=== PATIENT | female | born 1965 | race Caucasian/White ===

== ENCOUNTER 2019-08-25 09:42 | Emergency (ER) | payer SELFPAY ==
[2019-08-25 10:00] VITALS: BP 140/88; PULSE 90; RESP 20; TEMP 36.6
[2019-08-25 10:15] LABS: Basophils Absolute Auto 0.03 K/mm3 (0.00-0.10); Basophils Percent Auto 0.4 % (0.0-1.0); Eosinophils Absolute Auto 0.08 K/mm3 (0.02-0.50); Eosinophils Percent Auto 1.1 % (1.0-6.0); Hematocrit 43.4 % (35.0-49.0); Immature Granulocyte Absolute 0.03 K/mm3 (0.00-0.00); Immature Granulocyte Percent A 0.4 % (0.0-0.0); Lymphocytes Absolute Auto 1.18 K/mm3 (1.10-4.50); Lymphocytes Percent Auto 15.6 % (18.0-42.0); Mean Corpuscular HGB Conc 34.6 g/dL (32.0-36.0); Mean Corpuscular Hemoglobin 32.3 pg (27.0-31.0); Mean Corpuscular Volume 93.5 fL (78.0-102.0); Mean Platelet Volume 10.9 fl (9.2-11.8); Monocytes Absolute Auto 0.37 K/mm3 (0.10-0.90); Monocytes Percent Auto 4.9 % (2.0-11.0); Neutrophils Absolute Auto 5.9 K/mm3 (1.7-7.2); Neutrophils Percent Auto 77.6 % (50.0-70.0); Platelet Count Result 222 K/mm3 (150-420); Red Blood Count 4.64 M/mm3 (4.20-5.40); Red Cell Distribution Width 12.4 % (11.6-14.4); White Blood Count 7.6 K/mm3 (4.8-10.8)
[2019-08-25 10:26] LABS: Alanine Aminotransferase 36 U/L (14-59); Albumin Level 3.7 g/dL (3.4-5.0); Alkaline Phosphatase 122 U/L (46-116); Anion Gap 20.5 mmol/L (7-16); Aspartate Amino Transferase 23 U/L (15-37); Bilirubin,Total 0.4 mg/dL (0.00-1.00); Blood Urea Nitrogen 9 mg/dL (7-18); Calcium 8.9 mg/dL (8.5-10.1); Carbon Dioxide 21 mmol/L (21-32); Chloride 104 mmol/L (98-108); Estimated Glomerular Filt Rate > 60; Ethanol 29 mg/dL (0-6); Glucose 320 mg/dL (70-99); Osmolality Calculated 304 mOsm/kg (285-295); Potassium 3.5 mmol/L (3.5-5.1); Salicylate 4.1 mg/dL (2.8-20.0); Sodium 142 mmol/L (136-145)
[2019-08-25 10:27] LABS: Acetaminophen 0 ug/mL (10-30)
--- NOTE | 2019-08-25 10:41 | PC.NURSE ---
10am upon arrival to safe room, cloths & belongings removed.
--- NOTE | 2019-08-25 11:17 | PC.NURSE ---
daughter & updated on plan of care
[2019-08-25 11:26] LABS: Appearance Urine Clear (Clear); Bilirubin Urine Negative (Negative); Color Urine Yellow (Yellow); Glucose Urine UA 3+ (Negative); Ketones Urine Trace (Negative); Leukocyte Esterase Ur Negative LEU/UL (Negative); Nitrate Urine Negative (Negative); Protein Urine Trace (Negative); Specific Grav Ur 1.025 (1.010-1.020); Urobilinogen Urine 0.2 mg/dL (0.2-1.0); pH Urine 5.5 (5.0-8.0)
--- NOTE | 2019-08-25 11:28 | PC.NURSE ---
Pt sitting on stretcher, speaking with this RN. Pt states that she is not suicidal that she just had a bad night after learning about her husbands affair. Pt states that she has 2 children with special needs that she has to be here for and was just trying to get her husbands attention by saying that she wanted to harm herself. Pt reports that she does not usually drink, but did last night because she was upset. Pt able to provide urine sample, pt given pants and socks.
[2019-08-25 11:30] LABS: Add Urine Microscopic? YES; RBC Urine None seen /hpf (0-2); Squamous Epithelial Cell Urine Few /hpf (Few); WBC Urine None seen /hpf (0-3)
[2019-08-25 11:31] LABS: Bacteria Urine 1+ /hpf
[2019-08-25 11:36] LABS: Amphetamine Screen Urine Negative (Negative); Barbiturate Screen Urine Positive (Negative); Benzodiazepines Screen Urine Positive (Negative); Cannabinoid Screen Urine Positive (Negative); Cocaine Screen Urine Negative (Negative); Methadone Screen Urine Negative (Negative); Opiate Screen Urine Negative (Negative); Phencyclidine Screen Urine Negative (Negative)
[2019-08-25 11:41] LABS: Blood Urine Trace-lysed (Negative)
--- NOTE | 2019-08-25 12:03 | ED.GENADULT ---
HPI - General Adult General Chief complaint: Alcohol Stated complaint: suicidal ideations History of Present Illness HPI narrative: Elizabeth is a 54F with a PMH of insulin dependent diabetes, PTSD, migraines, GERD, that was brought to the ED by her daughter after expressed SI. She found out her had cheated on her. She reportedly got drunk and sent texts out that she was going to take her life with her Xanex and the pills cannot be located. Currently she denies any SI, HI, or thoughts of self harm. She was beside herself and said things she did not mean. She is nauseaed but does not want meds at this time. She also did not take her insulin last night. Review of Systems Constitutional: Constitutional: Denies chills, Denies fever(s) and Denies weakness Eyes: Eyes: Denies change in vision ENT: Reports system reviewed and no additional complaints, except as documented Cardiovascular: Cardiovascular: Denies chest pain, Denies rapid heart rate and Denies radiating jaw, neck or arm pain Respiratory: Respiratory: Reports no additional respiratory complaints, Denies cough and Denies dyspnea Gastrointestinal: Gastrointestinal: Denies constipation, Denies diarrhea, Reports nausea and Reports vomiting Genitourinary: Genitourinary: Reports no additional female genitourinary complaints Musculoskeletal: Musculoskeletal: Reports no additional musculoskeletal complaints Integumentary/Breasts: Skin/Breast: Reports system reviewed and no additional complaints, except as docu Neurologic: Reports system reviewed and no additional complaints, except as documented Psychiatric: Psychiatric: Reports as per HPI Endocrine: Endocrine: Reports no additional endocrine complaints Hematologic/Lymphatic: Hematologic/Lymphatic: Reports no additional hematologic/lymphatic complaints Allergic/Immunologic: Allergic/Immunologic: Reports no additional allergic/immunologic complaints [facility] Social History Social History Gender identity (if verbalized by the patient): Female Exam Const: General: no acute distress and alert; No confusion Nutritional Appearance: obese Orientation/consciousness: patient oriented x3 Limitations: No language barrier HENMT: Other: normocephalic, atraumatic Eyes: Conjunctivae: conjunctivae normal Pupils: Equal, round and reactive pupils present EOM: EOMs intact bilaterally Neck: Neck: normal visual inspection Chest: Chest palpation & inspection: normal inspection of the chest Resp: Effort & Inspection: normal respiratory effort, not labored and not tachypneic Auscultation: clear to auscultation bilaterally Cardio: Rate: regular rate Rhythm: regular rhythm Heart sounds: no murmurs GI: Inspection: non-distended GI Palp: Yes Soft to palpation, No Tenderness to palpation present (GI) and No Guarding due to palpation present (GI) : General: Yes no CVA tenderness Other: no suprapubic tenderness Back/Spine/Pelvis: Back: no CVA tenderness Skin: General skin exam: normal color Rashes: no rashes Wounds: no wounds Neuro: General: patient oriented x3 and moves all extremities Extrem: General: normal to inspection Psych: Appearance: grossly normal Attitude: cooperative Other: Denied SI and HI now. Stated that she was just overcome with grief last night. Was cooperative. No hallucinations or delusions. Course Course Emergency Course: Elizabeth was seen and evaluated. Ordered labs as below. Consulted [facility]. With the exception of etoh intoxication labs were unremarkable. Spoke with Toni of [facility] who did not believe she was a threat to herself or others and her actions were a bad decision. She is to fly home to [place] and speak with her and son. Toni will follow up with her tomorrow. She was instructed to avoid etoh, and return to the ED for any thoughts of hurting herself or anyone else. Vital Signs Vital signs: Vit
--- NOTE | 2019-08-25 12:22 | PC.NURSE ---
pt speaking with zoë from mental [facility]
[2019-08-25] MEDS: ALPRAZOLAM 0.5 MG TABLET PO (12:39)
[2019-08-25 13:13] VITALS: BP 156/84; PULSE 100; RESP 16
--- NOTE | 2019-08-25 13:17 | PC.NURSE ---
Pt spoke with zoë from [facility], pt to sign safety contract and ok to be discharged after speaking with edp. Pt agreeable to plan. safety plan texted to pts cell phone. Pt given belongings.
== END 2019-08-25 13:25 | disposition home or self-care (01) ==
PROVIDERS: Emergency Provider Family Medicine
DX: F10.129 Alcohol abuse with intoxication, unspecified (principal)
CPT/HCPCS: 36415; 80053; 80307; 81001; 85025; 99282; 99284; A9270

== ENCOUNTER 2020-11-10 16:07 | Observation (INO) | payer BC, SELFPAY ==
--- NOTE | ~2020-11-10 | CT_ITS ---
EXAMINATION: CT abdomen pelvis wo con DATE: 11/11/2020 11:11 INDICATION: Abdominal pain. Nausea and vomiting. TECHNIQUE: Computed tomography (CT) of the abdomen and pelvis was performed without intravenous contr ast. Automated exposure control and iterative reconstruction technique were employed. The dose-length product was 795.45 mGy-cm. COMPARISON: None. FINDINGS: The visualized portions of the lung bases demonstrate mild atelectasis. No pleural effusion . The heart size is normal. No pericardial effusion. There is diffuse hepatic steatosis. There are ch anges of cholecystectomy. The spleen, pancreas, adrenal glands, and kidneys are normal. There is no u rolithiasis. There is diverticulosis of the colon without evidence of diverticulitis. The appendix is normal. There is a small sliding hiatal hernia. There are no pathologically enlarged lymph nodes. Th ere is no free intraperitoneal fluid. The ovaries are normal. The uterus is absent. The bladder is di stended. There is mild chronic anterior wedging of multiple lower thoracic vertebral bodies. There is severe lumbar spondylosis. IMPRESSION: 1. Small sliding hiatal hernia. 2. Diffuse hepatic steatosis. Reviewed, dictated and finalized at location A.
[2020-11-10 17:28] VITALS: BP 166/90; PULSE 89; RESP 16; TEMP 36.9; O2SAT 95
--- NOTE | 2020-11-10 17:35 | ED.NAVMDI ---
HPI - Nausea/Vomiting/Diarrhea General Chief complaint: Nausea/Vomiting/Diarrhea Stated complaint: vomiting Time Seen by Provider: 11/10/20 17:35 Source: patient Mode of arrival: wheelchair Limitations: no limitations History of Present Illness HPI Narrative: 55-year-old woman with history of marijuana use and diabetes comes to the ER complaining of nausea and vomiting for the last 4 days and bright red blood in her stools today. She states she is having burning pain in her chest but denies abdominal pain. She states she has had chills but no fever, and denies shortness of breath, dysuria, hematuria, melena, recent sick exposures, and head injuries. Patient told me she takes 50 units of Lantus in the evening and 10 units of Lantus in the morning. MD elicited complaint: nausea and vomiting Onset (ago): day(s) (4) Description of vomiting: watery and bilious Description of diarrhea: blood and semi-solid Associated nausea: Yes Associated abdominal pain: No Location of pain: other (Chest) Pain consistency: constant Severity: moderate Quality: other (Burning) Exacerbating factors: eating Relieving factors: none Context: history of abdominal surgery and marijuana use Associated symptoms: fever/chills (Chills) and nausea/vomiting Treatment prior to arrival: none Related Data Home Medications Medication Instructions Recorded Confirmed acyclovir See Rx Instructions .ROUTE .COMPLEX 11/10/20 11/10/20 alprazolam [Xanax] 1 mg PO DAILY 11/10/20 11/10/20 atorvastatin [Lipitor] 20 mg PO DAILY 11/10/20 11/10/20 escitalopram oxalate 10 mg PO DAILY 11/10/20 11/10/20 insulin glargine [Lantus Solostar See Rx Instructions .ROUTE .COMPLEX 11/10/20 11/10/20 U-100 Insulin] meloxicam [Mobic] See Rx Instructions .ROUTE .COMPLEX 11/10/20 11/10/20 prazosin [Minipress] See Rx Instructions .ROUTE .COMPLEX 11/10/20 11/10/20 sertraline [Zoloft] 25 mg PO DAILY 11/10/20 11/10/20 verapamil 120 mg PO DAILY 11/10/20 11/10/20 Allergies Allergy/AdvReac Type Severity Reaction Status Date / Time Sulfa (Sulfonamide Allergy Mild Unknown Verified 11/10/20 17:59 Antibiotics) Review of Systems Constitutional: Constitutional: Reports chills and Denies fever(s) Eyes: Eyes: Denies change in vision and Denies photophobia ENT: Denies nasal congestion and Reports sore throat Cardiovascular: Cardiovascular: Reports chest pain and Denies radiating jaw, neck or arm pain Respiratory: Respiratory: Denies cough and Denies dyspnea Gastrointestinal: Gastrointestinal: Denies abdominal pain, Reports diarrhea, Reports nausea and Reports vomiting Genitourinary: Genitourinary: Denies nocturia and Denies dysuria Musculoskeletal: Musculoskeletal: Denies back pain, Denies arthralgias and Denies joint swelling Integumentary/Breasts: Skin/Breast: Denies pruritus, Denies erythema and Denies rash Neurologic: Denies vertigo, Denies dizziness, Denies syncope and Reports weakness Hematologic/Lymphatic: Hematologic/Lymphatic: Denies easy bleeding and Denies easy bruising Allergic/Immunologic: Allergic/Immunologic: Denies lip swelling and Denies throat swelling PMFSH Past Medical History Medical History (Updated 11/10/20 @ 19:18 by Juan Heaton MD) GERD (gastroesophageal reflux disease) Migraines PTSD (post-traumatic stress disorder) T2DM (type 2 diabetes mellitus) Surgical History Surgical History (Updated 11/10/20 @ 17:54 by Juan Heaton MD) Hx of cholecystectomy Social History Social History (Updated 11/10/20 @ 17:55 by Juan Heaton MD) Smoking status: Current every day smoker Alcohol intake: current Substance use type: marijuana Gender identity (if verbalized by the patient): Female Exam Const: General: healthy appearing and alert Orientation/consciousness: patient oriented x3 Limitations: no limitations Other: Moderate acute distress. Frequent dry heaves. HENMT: Head: normal to inspection Ears: EAC's normal Mouth: Y
--- NOTE | 2020-11-10 17:48 | ECG_ITS ---
Measurements Intervals [place] Rate: 70 P: 56 MO: 141 QRS: -85 QRSD: 87 T: 70 QT: 397 QTc: 428 Interpretive Statements SINUS RHYTHM RSR' IN V1 OR V2, CONSIDER RIGHT VENTRICULAR HYPERTROPHY OR RIGHT VCD LEFT ANTERIOR FASCICULAR BLOCK BORDERLINE T WAVE ABNORMALITY- ANTERIOR LEADS BASELINE ARTIFACT- I, II, III, AVR, AVL ABNORMAL ECG Electronically Signed On 11-10-2020 20:07:07 CDT by Junior Lee D.O.
[2020-11-10] MEDS: SODIUM CHLORIDE 0.9% IV 1,000 ML 999 ML IV CONT ×2 (18:00→19:12)
[2020-11-10] MEDS: PANTOPRAZOLE SODIUM IV 40 MG VIAL 80 MG IV PUSH (18:00)
[2020-11-10 18:07] LABS: Basophils Absolute Auto 0.02 K/mm3 (0.00-0.10); Basophils Percent Auto 0.2 % (0.0-1.0); Eosinophils Absolute Auto 0.02 K/mm3 (0.02-0.50); Eosinophils Percent Auto 0.2 % (1.0-6.0); Hemoglobin 16.5 g/dL (12.0-15.0); Immature Granulocyte Absolute 0.02 K/mm3 (0.00-0.00); Immature Granulocyte Percent A 0.2 % (0.0-0.0); Mean Corpuscular HGB Conc 35.1 g/dL (32.0-36.0); Mean Corpuscular Hemoglobin 35.5 pg (27.0-31.0); Mean Corpuscular Volume 101.1 fL (78.0-102.0); Mean Platelet Volume 10.9 fl (9.2-11.8); Monocytes Absolute Auto 0.16 K/mm3 (0.10-0.90); Monocytes Percent Auto 1.6 % (2.0-11.0); Neutrophils Absolute Auto 9.1 K/mm3 (1.7-7.2); Neutrophils Percent Auto 90.8 % (50.0-70.0); Platelet Count Result 245 K/mm3 (150-420); Red Blood Count 4.65 M/mm3 (4.20-5.40); Red Cell Distribution Width 12.5 % (11.6-14.4); White Blood Count 10.1 K/mm3 (4.8-10.8)
[2020-11-10 18:12] LABS: Base Excess ABG -2.4 mmol/L (0-2); Carboxyhemoglobin 0.6 % (0-1.5); HCO3 ABG 19.9 mmol/L (23-29); Methemoglobin ABG 0.4 % (0-1.5); Oxygen Saturation ABG 97.6 % (95-97); Oxyhemoglobin 96.6 % (94-100); PCO2 ABG 28.8 mmHg (35-45); PO2 ABG 97.8 mmHg (80-90); Reduced Hemoglobin 2.4 % (0-1.5); Total Hemoglobin 16.9 g/dL (12.0-18.0); pH ABG 7.46 (7.35-7.45)
[2020-11-10] MEDS: ONDANSETRON INJ 4 MG/2 ML VIAL IV PUSH (18:12)
[2020-11-10 18:15] LABS: Device ROOM AIR; Modified Allen's Test Pass; Site Drawn LEFT RADIAL
[2020-11-10] MEDS: PROCHLORPERAZINE EDISYLATE 10 MG/2 ML VIAL IV PUSH (18:15)
[2020-11-10 18:24] LABS: Add Urine Microscopic? YES; Appearance Urine Clear (Clear); Bilirubin Urine 1+ (Negative); Blood Urine 2+ (Negative); Glucose Urine UA 3+ (Negative); Ketones Urine 3+ (Negative); Leukocyte Esterase Ur Negative LEU/UL (Negative); Nitrate Urine Negative (Negative); Protein Urine Trace (Negative); Specific Grav Ur 1.015 (1.010-1.020); Urobilinogen Urine 0.2 mg/dL (0.2-1.0)
[2020-11-10 18:30] LABS: Amphetamine Screen Urine Negative (Negative); Barbiturate Screen Urine Negative (Negative); Benzodiazepines Screen Urine Positive (Negative); Cannabinoid Screen Urine Positive (Negative); Cocaine Screen Urine Positive (Negative); Methadone Screen Urine Negative (Negative); Opiate Screen Urine Negative (Negative); Phencyclidine Screen Urine Negative (Negative)
[2020-11-10 18:32] LABS: Alanine Aminotransferase 47 U/L (14-59); Albumin Level 4.4 g/dL (3.4-5.0); Alkaline Phosphatase 125 U/L (46-116); Anion Gap 17 mmol/L (8-16); Aspartate Amino Transferase 21 U/L (15-37); Bilirubin,Total 0.9 mg/dL (0.00-1.00); Blood Urea Nitrogen 14 mg/dL (7-18); Calcium 9.9 mg/dL (8.5-10.1); Carbon Dioxide 21 mmol/L (21-32); Chloride 101 mmol/L (98-108); Estimated CRCL calculation 47 ml/min; Estimated Glomerular Filt Rate 48; Glucose 327 mg/dL (70-99); Lipase 32 U/L (73-393); Osmolality Calculated 301 mOsm/kg (285-295); Sodium 139 mmol/L (136-145); Total Protein 9.3 g/dL (6.4-8.2)
[2020-11-10 18:34] LABS: Acetaminophen < 2 ug/mL (10-30); Ethanol < 3 mg/dL (0-6); Salicylate 2.1 mg/dL (2.8-20.0)
[2020-11-10 18:35] LABS: Troponin I < 4.0 ng/L (0.00-60.4)
[2020-11-10 18:43] LABS: Bacteria Urine Trace /hpf; Color Urine Dark Yellow (Yellow); RBC Urine 0-2 /hpf (0-2); Squamous Epithelial Cell Urine Few /hpf (Few); WBC Urine 0-3 /hpf (0-3)
--- NOTE | 2020-11-10 18:45 | PC.NURSE ---
patient sleeping spouse updated
[2020-11-10 19:10] LABS: SARS-CoV-2 Ag Negative (Negative)
[2020-11-10 19:10] LABS: Occult Blood Negative (Negative)
[2020-11-10 19:11] VITALS: BP 150/88; PULSE 88; RESP 18; O2SAT 98
[2020-11-10 20:32] VITALS: BP 150/88; PULSE 89; RESP 18; TEMP 36.4; O2SAT 95
[2020-11-10 22:05] VITALS: BP 140/89; PULSE 87; RESP 17; TEMP 36.3; O2SAT 95
[2020-11-10 22:21] VITALS: BP 169/88; PULSE 103; RESP 18; TEMP 37.3; O2SAT 96
[2020-11-10 22:40] VITALS: BMI 28.3
[2020-11-11] VITALS: BP 172/89; PULSE 80; RESP 18; TEMP 37.6; O2SAT 94
--- NOTE | 2020-11-11 00:05 | PC.NURSE ---
Pt up to the bathroom per self and voided; Pt did some dry heaving and went back to bed. IV fluid infusing as ordered.
--- NOTE | 2020-11-11 00:30 | PC.NURSE ---
Admission: Patient brought up to floor by ER nurse. Patient oriented to room and call light. Patient able to answer questions when awake. Would fall back to sleep in between questions. IV intact to left hand. Vital signs taken. No emesis upon arriving to floor. No signs of resp distress, nausea, pain. Skin warm and dry.
[2020-11-11 01:15] VITALS: BP 172/89; PULSE 80; RESP 18; TEMP 37.6; O2SAT 94
--- NOTE | 2020-11-11 01:34 | PC.NURSE ---
Dr. Heaton called with orders to do an accucheck on pt now.
--- NOTE | 2020-11-11 02:03 | PC.NURSE ---
Pt asleep and no signs of nausea noted.
[2020-11-11 05:47] LABS: Basophils Absolute Auto 0.02 K/mm3 (0.00-0.10); Basophils Percent Auto 0.2 % (0.0-1.0); Hematocrit 43.3 % (35.0-49.0); Hemoglobin 14.7 g/dL (12.0-15.0); Immature Granulocyte Absolute 0.05 K/mm3 (0.00-0.00); Immature Granulocyte Percent A 0.5 % (0.0-0.0); Lymphocytes Absolute Auto 1.27 K/mm3 (1.10-4.50); Lymphocytes Percent Auto 12.5 % (18.0-42.0); Mean Corpuscular HGB Conc 33.9 g/dL (32.0-36.0); Mean Corpuscular Hemoglobin 34.5 pg (27.0-31.0); Mean Corpuscular Volume 101.6 fL (78.0-102.0); Mean Platelet Volume 10.9 fl (9.2-11.8); Monocytes Absolute Auto 0.64 K/mm3 (0.10-0.90); Monocytes Percent Auto 6.3 % (2.0-11.0); Neutrophils Absolute Auto 8.2 K/mm3 (1.7-7.2); Neutrophils Percent Auto 80.5 % (50.0-70.0); Platelet Count Result 231 K/mm3 (150-420); Red Blood Count 4.26 M/mm3 (4.20-5.40); Red Cell Distribution Width 12.6 % (11.6-14.4); White Blood Count 10.1 K/mm3 (4.8-10.8)
--- NOTE | 2020-11-11 05:47 | PC.NURSE ---
Pt up to the bathroom and voided 300 ml of clear sanket but foul smelling urine. Pt back to bed with standby assist of one.
[2020-11-11 06:15] LABS: Alanine Aminotransferase 44 U/L (14-59); Albumin Level 3.4 g/dL (3.4-5.0); Alkaline Phosphatase 99 U/L (46-116); Anion Gap 13 mmol/L (8-16); Aspartate Amino Transferase 18 U/L (15-37); Bilirubin,Total 0.8 mg/dL (0.00-1.00); Blood Urea Nitrogen 10 mg/dL (7-18); Calcium 8.8 mg/dL (8.5-10.1); Carbon Dioxide 23 mmol/L (21-32); Chloride 107 mmol/L (98-108); Estimated CRCL calculation 60 ml/min; Estimated Glomerular Filt Rate > 60; Glucose 185 mg/dL (70-99); Osmolality Calculated 300 mOsm/kg (285-295); Potassium 3.6 mmol/L (3.5-5.1); Sodium 143 mmol/L (136-145); Total Protein 7.5 g/dL (6.4-8.2)
[2020-11-11] MEDS: ONDANSETRON INJ 4 MG/2 ML VIAL IV PUSH ×2 (06:16→14:21)
[2020-11-11 06:17] LABS: Lactic Acid Reflex 0.8 mmol/L (0.4-2.0)
[2020-11-11 06:22] LABS: Troponin I 6.4 ng/L (0.00-60.4)
--- NOTE | 2020-11-11 06:35 | PC.NURSE ---
Pt given zofran 4 mg IVP to relieve c/o nausea.
[2020-11-11] MEDS: SODIUM CHLORIDE 0.9% IV 1,000 ML 150 ML IV CONT ×2 (07:52)
[2020-11-11 08:00] VITALS: BP 129/71; PULSE 94; RESP 18; TEMP 36.8; O2SAT 95
--- NOTE | 2020-11-11 08:27 | PC.NURSE ---
glucose with blood draw this am 185
--- NOTE | 2020-11-11 08:39 | PC.NURSE ---
now having emesis
[2020-11-11 08:42] LABS: Glucose Point of Care 198 mg/dl (65-105)
[2020-11-11] MEDS: PROCHLORPERAZINE EDISYLATE 10 MG/2 ML VIAL IV PUSH ×2 (09:10→15:40)
[2020-11-11] MEDS: ALPRAZolam (*CRX) 0.5 MG TABLET 1 MG PO (09:12)
[2020-11-11] MEDS: ATORVASTATIN 10 MG TABLET 20 MG PO (09:12)
[2020-11-11] MEDS: SERTRALINE HCL 50 MG TABLET 25 MG PO (09:13)
[2020-11-11] MEDS: VERAPAMIL HCL ER 120 MG TABLET PO (09:13)
--- NOTE | 2020-11-11 09:15 | PC.NURSE ---
compazine given for nausea, no further emesis, am meds given, with small sip of water, refused liquid tray at this time
--- NOTE | 2020-11-11 10:13 | PC.NURSE ---
spouse here to visit, no further emesis at this time, has been sleeping, fluids infusing
[2020-11-11 12:20] LABS: Glucose Point of Care 172 mg/dl (65-105)
--- NOTE | 2020-11-11 13:30 | PM.SD2 ---
Same Day Admit/Disch: HPI History of Present Illness Chief complaint: vomiting DEHYDRATION <MARGIE Pascual - Last Filed: 11/11/20 15:01> Narrative: perla montiel is a 55 year old female that presented to urgent care with nausea vomiting. Patient has a past medical history of GERD, PTSD, and type 2 diabetes. According to patient for the last 4 days she has been having nausea and vomiting with blood in her vomitus stool which her occult blood was negative. She did have slight abdominal tenderness. CT of the abdomen unremarkable. Vital signs 129/71, 94, 18, 98.2, 95% on room air,, WBCs 10.1,, hematocrit 14.7, hemoglobin 40.3 0.3, platelets 231, sodium 139, potassium 4.0, BUN 14, creatinine 1.16, blood sugar 198, lactic acid 0.8, liver function test within normal limit, troponin 6.4, EKG sinus rhythm with a heart rate of 70, patient tested positive for benzo, cocaine and cannabis positive. Patient able to tolerate meals she agrees that she is ready for discharge admitted for nausea and vomiting and dehydration Observation Time spent 60 minutes Disposition discharged home with self-care <MARGIE Pascual - Last Filed: 11/11/20 15:01> [facility] Past Medical History Medical History: Medical History (Updated 11/11/20 @ 13:41 by MARGIE Pascual) GERD (gastroesophageal reflux disease) Migraines PTSD (post-traumatic stress disorder) T2DM (type 2 diabetes mellitus) <MARGIE Pascual - Last Filed: 11/11/20 15:01> Surgical History Surgical History: Surgical History (Updated 11/10/20 @ 17:54 by Juan Heaton MD) Hx of cholecystectomy <MARGIE Pascual - Last Filed: 11/11/20 15:01> Social History Social History: Social History (Updated 11/10/20 @ 17:55 by Juan Heaton MD) Smoking packs per day: 0.5 Smoking cigarettes per day: 10.0 Years smoked: 30 Smoking pack-years: 15.00 Smoking status: Light tobacco smoker Tobacco type: cigarettes Second hand tobacco smoke exposure: No Alcohol intake: former Substance use: current Substance use type: marijuana and methamphetamine Gender identity (if verbalized by the patient): Female Sexual Orientation (if Verbalized by the Patient): Straight or Heterosexual Spiritual care concerns: No <MARGIE Pascual - Last Filed: 11/11/20 15:01> Same Day Admit/Disch: Med Pre-admit Medications Home Medications: Home Medications Medication Instructions Recorded Confirmed Type Lantus Solostar U-100 Insulin See Rx Instructions .ROUTE .COMPLEX 11/10/20 11/10/20 History acyclovir See Rx Instructions .ROUTE .COMPLEX 11/10/20 11/10/20 History alprazolam [Xanax] 1 mg PO DAILY 11/10/20 11/10/20 History atorvastatin [Lipitor] 20 mg PO DAILY 11/10/20 11/10/20 History escitalopram oxalate 10 mg PO DAILY 11/10/20 11/10/20 History meloxicam [Mobic] See Rx Instructions .ROUTE .COMPLEX 11/10/20 11/10/20 History prazosin [Minipress] See Rx Instructions .ROUTE .COMPLEX 11/10/20 11/10/20 History sertraline [Zoloft] 25 mg PO DAILY 11/10/20 11/10/20 History verapamil 120 mg PO DAILY 11/10/20 11/10/20 History capsaicin [Zostrix] 1 applic TOPICAL Q6H PRN #56.6 g 11/11/20 Rx ondansetron HCl [Zofran] 4 mg PO Q6H PRN #60 tablet 11/11/20 Rx prochlorperazine maleate 10 mg PO Q6H PRN #30 tablet 11/11/20 Rx [Compazine] <MARGIE Pascual - Last Filed: 11/11/20 15:01> Exam Narrative: GENERAL: This is a well-nourished, well-developed patient, in no apparent distress. HEAD: normocephalic, atraumatic. EYES: PERRL. Sclera clear/white. Vision is grossly intact. EARS: External ears normal, auditory canals clear and without drainage, TMs normal without perforation. Hearing grossly intact. NOSE: External nose normal with no obvious nasal discharge, nares without redness, no rhinorrhea. THROAT: Mucous membranes moist, posterior pharynx clear. NECK: Neck supple, non-tender without lymphadenopathy, masses o
--- NOTE | 2020-11-11 13:35 | PC.NURSE ---
No emesis since compazine given
--- NOTE | 2020-11-11 14:21 | PC.NURSE ---
zofran given for nausea
--- NOTE | 2020-11-11 15:41 | PC.NURSE ---
Nausea, no emesis, will discharge but wanting to wait til compazine kicks in, meds to be picked up by spouse then he will return for her
--- NOTE | 2020-11-11 16:20 | PC.NURSE ---
saline lock removed with cathlon in tact, bandage applied, tolerated well, no emesis, no wretching upon dc to home via wc and spouse, all personal items returned to patient
== END 2020-11-11 16:20 | disposition home or self-care (01) ==
LOC: CHSED 19:18 → CHS2ND 22:09
PROVIDERS: Admitting Provider Emergency Medicine; Emergency Provider Emergency Medicine; PCP Internal Medicine; Visit Provider Emergency Medicine
DX: E86.0 Dehydration (principal); R11.2 Nausea with vomiting, unspecified; N17.9 Acute kidney failure, unspecified; E11.9 Type 2 diabetes mellitus without complications; K76.0 Fatty (change of) liver, not elsewhere classified; K21.9 Gastro-esophageal reflux disease without esophagitis; G43.909 Migraine, unspecified, not intractable, without status migrainosus; F12.90 Cannabis use, unspecified, uncomplicated; F43.10 Post-traumatic stress disorder, unspecified; F17.200 Nicotine dependence, unspecified, uncomplicated; Z90.49 Acquired absence of other specified parts of digestive tract
CPT/HCPCS: 36415; 36600; 74176; 80053; 80307; 81001; 82272; 82375; 82805; 82948; 83050; 83605; 83690; 84484; 85025; 87040; 87045; 87046; 87324; 87426; 87427; 89055; 93005; 96361; 96374; 96375; 96376; 99283; 99285; A9270; C9113; C9803; G0378; G0379; J0780; J2405; J7030

== ENCOUNTER → 2021-04-03 00:59 | Outpatient (CLI) | payer BC, SELFPAY ==
[2021-04-04 16:52] LABS: SARS-CoV-2 RNA PCR Positive
== END ==
PROVIDERS: PCP Internal Medicine; Visit Provider Internal Medicine Gastroenterology
DX: U07.1 COVID-19 (principal)
CPT/HCPCS: C9803; U0003; U0005

== ENCOUNTER 2021-04-07 09:37 | Outpatient (CLI) | payer BC, SELFPAY ==
--- NOTE | 2021-04-07 09:50 | PC.NURSE ---
Pt to room 226 amb. A&Ox3. Infusion plan of care explained. Consent signed. Pt has no questions or concerns. Oriented to room. Call slaughter in reach. Reminded to call with needs.
[2021-04-07] MEDS: ACETAMINOPHEN 325 MG TABLET 650 MG PO (10:13)
[2021-04-07] MEDS: diphenhydrAMINE HCl CAP 25 MG CAPSULE PO (10:13)
[2021-04-07] MEDS: FAMOTIDINE 20 MG TABLET PO (10:14)
--- NOTE | 2021-04-07 11:30 | PC.NURSE ---
Pt tolerated infusion well. Discharged to home amb to .
== END 2021-04-07 09:38 | disposition home or self-care (01) ==
PROVIDERS: PCP Internal Medicine; Visit Provider Internal Medicine
DX: U07.1 COVID-19 (principal); E11.9 Type 2 diabetes mellitus without complications
CPT/HCPCS: A9270; M0245; Q0245

== ENCOUNTER 2021-06-04 09:00 | Outpatient (CLI) | payer BC, SELFPAY ==
--- NOTE | ~2021-06-04 | CT_ITS ---
EXAMINATION:CT lung screening DATE: 06/04/2021 09:19 INDICATION: Personal history of nicotine dependence. Current smoker with 30 pack year history. TECHNIQUE: Computed tomography (CT) of the chest was performed without intravenous contrast. Automate d exposure control and iterative reconstruction technique were employed. The dose-length product (DLP ) was 128.09 mGy-cm. COMPARISON: CT abdomen and pelvis 11/11/2020 FINDINGS: There is mild atelectasis bilaterally. There is a 3 mm nodule at left lung apex. No pleural effusion. The heart size is normal. No pericardial effusion. A calcified right hilar lymph node is c onsistent with old granulomatous disease. There are old right rib fractures. There is moderate thorac ic spondylosis and severe lumbar spondylosis. There is mild chronic anterior wedging of multiple lowe r thoracic vertebral bodies. IMPRESSION: 1. Lung-RADS category 2: Benign appearance or behavior. Continue annual screening with noncontrast lo w-dose chest CT in 12 months. Reviewed, dictated and finalized at location A. [employer] SALESPERSON IMPRESSION: 1. Lung-RADS category 2: Benign appearance or behavior. Continue annual screeni ng with noncontrast low-dose chest CT in 12 months.
== END 2021-06-04 09:01 | disposition home or self-care (01) ==
LOC: CHSIMG 09:03
PROVIDERS: PCP Internal Medicine; Visit Provider Nurse Practitioner Family
DX: Z12.2 Encounter for screening for malignant neoplasm of respiratory organs (principal); Z87.891 Personal history of nicotine dependence
CPT/HCPCS: 71271

== ENCOUNTER 2021-10-20 09:55 | Outpatient (CLI) | payer BC, SELFPAY ==
[2021-10-20 10:48] LABS: Hemoglobin A1C 8.4 % (<5.7)
[2021-10-20 10:54] LABS: Alanine Aminotransferase 24 U/L (14-59); Albumin Level 3.5 g/dL (3.4-5.0); Alkaline Phosphatase 119 U/L (46-116); Anion Gap 11 mmol/L (8-16); Aspartate Amino Transferase 12 U/L (15-37); Bilirubin,Total 0.4 mg/dL (0.00-1.00); Blood Urea Nitrogen 14 mg/dL (7-18); CRP 0.6 mg/dL (0.0-0.9); Calcium 9.3 mg/dL (8.5-10.1); Carbon Dioxide 23 mmol/L (21-32); Chloride 102 mmol/L (98-108); Estimated Glomerular Filt Rate 60; Glucose 216 mg/dL (70-99); Osmolality Calculated 289 mOsm/kg (285-295); Potassium 3.9 mmol/L (3.5-5.1); Sodium 136 mmol/L (136-145); Total Protein 7.7 g/dL (6.4-8.2)
[2021-10-23 16:19] LABS: TB Skin Test Site Left Arm
[2021-10-23 16:20] LABS: TB Skin Test Erythema 0 mm; TB Skin Test Induration 6 mm (0-10); TB Skin Test Interpretation Negative (Negative)
== END 2021-10-20 09:56 | disposition home or self-care (01) ==
LOC: CHSLAB 09:57
PROVIDERS: PCP Internal Medicine; Visit Provider Internal Medicine
DX: E11.9 Type 2 diabetes mellitus without complications (principal); R51.9 Headache, unspecified
CPT/HCPCS: 36415; 80053; 83036; 86140; 86580

== ENCOUNTER 2021-10-29 15:44 | Outpatient (CLI) | payer BC, SELFPAY ==
[2021-11-02 11:32] LABS: NIL 0.03 IU/mL; Quantiferon TB Plus, 1T NEGATIVE (NEGATIVE); TB2-NIL <0.00 IU/mL
== END 2021-10-29 15:45 | disposition home or self-care (01) ==
LOC: CHSLAB 15:48
PROVIDERS: PCP Internal Medicine; Visit Provider Internal Medicine
DX: R76.11 Nonspecific reaction to tuberculin skin test without active tuberculosis (principal)
CPT/HCPCS: 36415; 86480

== ENCOUNTER 2022-01-27 10:04 | Outpatient (CLI) | payer BC, SELFPAY ==
[2022-01-27 10:20] LABS: Basophils Absolute Auto 0.04 K/mm3 (0.00-0.10); Basophils Percent Auto 0.6 % (0.0-1.0); Eosinophils Absolute Auto 0.27 K/mm3 (0.02-0.50); Eosinophils Percent Auto 4.2 % (1.0-6.0); Hematocrit 39.7 % (35.0-49.0); Hemoglobin 13.9 g/dL (12.0-15.0); Immature Granulocyte Absolute 0.02 K/mm3 (0.00-0.00); Immature Granulocyte Percent A 0.3 % (0.0-0.0); Lymphocytes Absolute Auto 2.25 K/mm3 (1.10-4.50); Lymphocytes Percent Auto 35.1 % (18.0-42.0); Mean Corpuscular Hemoglobin 34.2 pg (27.0-31.0); Mean Corpuscular Volume 97.8 fL (78.0-102.0); Mean Platelet Volume 10.4 fl (9.2-11.8); Monocytes Absolute Auto 0.48 K/mm3 (0.10-0.90); Monocytes Percent Auto 7.5 % (2.0-11.0); Neutrophils Absolute Auto 3.4 K/mm3 (1.7-7.2); Neutrophils Percent Auto 52.3 % (50.0-70.0); Platelet Count Result 212 K/mm3 (150-420); Red Blood Count 4.06 M/mm3 (4.20-5.40); Red Cell Distribution Width 12.2 % (11.6-14.4); White Blood Count 6.4 K/mm3 (4.8-10.8)
[2022-01-27 10:22] LABS: Appearance Urine Clear (Clear); Bilirubin Urine Negative (Negative); Blood Urine Negative (Negative); Glucose Urine UA 2+ (Negative); Ketones Urine Negative (Negative); Leukocyte Esterase Ur Negative (Negative); Nitrate Urine Positive (Negative); Protein Urine Negative (Negative); Urobilinogen Urine 0.2 mg/dL (0.2-1.0)
[2022-01-27 10:27] LABS: Add Urine Microscopic? YES; Bacteria Urine 3+ /hpf; Color Urine Light Yellow (Yellow); RBC Urine None seen /hpf (0-2); Squamous Epithelial Cell Urine Few /hpf (Few); WBC Urine 0-3 /hpf (0-3)
[2022-01-27 10:50] LABS: MALB Creatinine Ratio 19.5 mg/g (0-30); Microalbumin Urine Random < 13.0 mg/L
[2022-01-27 10:52] LABS: Hemoglobin A1C 8.7 % (<5.7)
[2022-01-27 11:20] LABS: Alanine Aminotransferase 25 U/L (14-59); Albumin Level 3.6 g/dL (3.4-5.0); Alkaline Phosphatase 130 U/L (46-116); Anion Gap 7 mmol/L (8-16); Aspartate Amino Transferase 11 U/L (15-37); Bilirubin,Total 0.2 mg/dL (0.00-1.00); Blood Urea Nitrogen 13 mg/dL (7-18); Calcium 8.6 mg/dL (8.5-10.1); Carbon Dioxide 27 mmol/L (21-32); Chloride 102 mmol/L (98-108); Cholesterol 304 mg/dL (0-200); Estimated Glomerular Filt Rate > 60; Ferritin 113 ng/mL (8-252); Glucose 209 mg/dL (70-99); HDL Direct 45 mg/dL (40-60); Iron 80 ug/dL (50-170); LDL Cholesterol Calculated 211 mg/dL (<130); NT Pro B Type Natriuretic Pept 24 pg/mL (0-125); Osmolality Calculated 288 mOsm/kg (285-295); Percent Iron Saturation 28 % (12-57); Potassium 4.2 mmol/L (3.5-5.1); Sodium 136 mmol/L (136-145); Thyroid Stimulating Hormone 0.96 uIU/mL (0.36-3.74); Total Protein 7.1 g/dL (6.4-8.2); Triglycerides 242 mg/dL (0-150)
[2022-01-27 11:26] LABS: CRP < 0.2 mg/dL (0.0-0.9)
== END 2022-01-27 10:05 | disposition home or self-care (01) ==
PROVIDERS: PCP Internal Medicine
DX: E78.5 Hyperlipidemia, unspecified (principal); E11.9 Type 2 diabetes mellitus without complications; R51.9 Headache, unspecified; J44.9 Chronic obstructive pulmonary disease, unspecified; F17.200 Nicotine dependence, unspecified, uncomplicated; R07.9 Chest pain, unspecified; I10 Essential (primary) hypertension
CPT/HCPCS: 36415; 80053; 80061; 81001; 82043; 82728; 83036; 83540; 83550; 83880; 84443; 85025; 86140

== ENCOUNTER 2022-05-10 09:36 | Observation (INO) | payer OTHER, BC, SELFPAY ==
[2022-05-10] VITALS (25 sets, daily range): BP systolic 152–181; BP diastolic 77–97; PULSE 67–93; RESP 15–26; TEMP 35.8–36.9; O2SAT 93–99; BMI 33.7
--- NOTE | ~2022-05-10 | XR_ITS ---
Portable chest x-ray Comparison: None Clinical History: Chest pain Findings: There is mild prominence of the central pulmonary vasculature. No consolidation or pleural effusion. Cardiomediastinal silhouette is otherwise unremarkable. Bones and soft tissues are unrema rkable. Impression: Possible pulmonary hypertension or minimal central pulmonary venous congestive change. Clear lungs. Reviewed, dictated and finalized at [facility]. RAN APPEALS REVIEWER Impression: Possible pulmonary hypertension or minimal central pulmonary venous congestive change. Clear lungs.
[2022-05-10 10:15] LABS: Basophils Absolute Auto 0.03 K/mm3 (0.00-0.10); Basophils Percent Auto 0.2 % (0.0-1.0); Device ROOM AIR; Eosinophils Absolute Auto 0.03 K/mm3 (0.02-0.50); Eosinophils Percent Auto 0.2 % (1.0-6.0); HCO3 VBG 23.2 mEq/l (24.0-30.0); Hematocrit 43.7 % (35.0-49.0); Hemoglobin 15.3 g/dL (12.0-15.0); Immature Granulocyte Absolute 0.04 K/mm3 (0.00-0.00); Immature Granulocyte Percent A 0.3 % (0.0-0.0); Lymphocytes Percent Auto 13.6 % (18.0-42.0); Mean Corpuscular Hemoglobin 34.2 pg (27.0-31.0); Mean Corpuscular Volume 97.5 fL (78.0-102.0); Mean Platelet Volume 10.8 fl (9.2-11.8); Monocytes Absolute Auto 0.66 K/mm3 (0.10-0.90); Neutrophils Absolute Auto 10.7 K/mm3 (1.7-7.2); Neutrophils Percent Auto 80.7 % (50.0-70.0); PCO2 VBG 31.4 mmHg (42.0-48.0); PO2 VBG 39.1 mmHg (35.0-45.0); Platelet Count Result 245 K/mm3 (150-420); Red Blood Count 4.48 M/mm3 (4.20-5.40); Red Cell Distribution Width 12.1 % (11.6-14.4); White Blood Count 13.2 K/mm3 (4.8-10.8); pH VBG 7.49 (7.33-7.43)
[2022-05-10] MEDS: HALOPERIDOL LACTATE 5 MG/ML VIAL IV PUSH (10:17)
[2022-05-10] MEDS: ONDANSETRON INJ 4 MG/2 ML VIAL IV PUSH ×2 (10:17→17:08)
[2022-05-10] MEDS: SODIUM CHLORIDE 0.9% IV 1,000 ML 999 ML IV CONT ×2 (10:18)
--- NOTE | 2022-05-10 10:33 | PC.NURSE ---
PT IS SITTING UP ON STRETCHER IN EXAM ROOM WITH IVF INFUSING ORDERED WITHOUT DIFFICULTY. PT VSS PER MONITOR. FAMILY HAS LEFT AT THIS TIME, WERE UPDATED ON PT STATES REQUESTED. PT DENIES ANY NEEDS OR COMPLAINTS AT THIS TIME. PT IS AWAITING RESULTS. WILL CONTINUE TO MONITOR. RETCHING HAS SLOWED POST MEDICATION.
[2022-05-10 10:34] LABS: Acetone Small (Negative)
[2022-05-10 10:35] LABS: Lactic Acid Reflex 1.4 mmol/L (0.4-2.0)
--- NOTE | 2022-05-10 10:36 | ED.GENADULT ---
HPI - General Adult General Chief complaint: Nausea/Vomiting/Diarrhea Stated complaint: chest pain; vomiting Time Seen by Provider: 05/10/22 09:52 History of Present Illness HPI narrative: The patient is a 57-year-old woman with history of diabetes, who every few years has episodes of nausea vomiting and diarrhea. No previous history of DKA. Other comorbidities include migraine headaches, GERD, hyperlipidemia, PTSD. Status post cholecystectomy and hysterectomy. No known diabetic gastroparesis. She does smoke cigarettes regularly but none in the last 3 days. For the last week, the patient has had intermittent episodes of nausea vomiting and watery diarrhea which was under reasonable control. This worsened 3 days ago, 05/07/2022. [place] [facility] [place] was treated with intravenous medications to control her emesis. She was prescribed promethazine orally and Zofran ODT 4 mg and discharged home. There is a suggestion that she had DKA but she was discharged home at that time. She was also diagnosed with colitis and hyperglycemia. The patient's symptoms have continued to worsen. Today so far, she has had 4 episodes of watery diarrhea, yesterday between 6 and 10 episodes of watery diarrhea, not formed. She also has had episodes of emesis, and dry heaves, not controlled by Zofran and promethazine. She does have chills, feels weak and dizzy. Mild abdominal pain and chest discomfort. Does complain of chills and diaphoresis but no fevers. Rhinorrhea nasal congestion and sore throat as well as a dry cough are noted. No urinary symptoms. Related Data Home Medications Medication Instructions Recorded Confirmed alprazolam 1 mg tablet (Xanax) See Rx Instructions .Route 11/10/20 05/10/22 .COMPLEX PRN Anxiety atorvastatin 20 mg tablet (Lipitor) 80 mg PO DAILY 11/10/20 05/10/22 insulin glargine 100 unit/mL (3 See Rx Instructions .Route .COMPLEX 11/10/20 05/10/22 mL) subcutaneous pen (Lantus Solostar U-100 Insulin) [id number] 1 cap PO BID PRN Migraine Headache 05/10/22 05/10/22 50 mg-300 mg-40 mg capsule omeprazole 40 mg capsule,delayed 40 mg PO DAILY 05/10/22 05/10/22 release verapamil 180 mg tablet,extended 180 mg PO DAILY 05/10/22 05/10/22 release Allergies Allergy/AdvReac Type Severity Reaction Status Date / Time Sulfa (Sulfonamide Allergy Mild Unknown Verified 05/10/22 09:54 Antibiotics) Penicillins Allergy Unknown Verified 05/10/22 09:54 Review of Systems Review of Systems: All systems reviewed & are unremarkable except as noted in HPI and below Constitutional: Constitutional: Reports no additional constitutional complaints, Reports anorexia, Denies body ache(s), Reports chills, Reports excessive sweating, Reports fatigue, Denies fever(s), Denies frequent falls, Denies headache(s), Reports malaise and Reports poor appetite Eyes: Eyes: Reports no additional eye complaints, Denies blurry vision, Denies change in vision, Denies irritation, Denies itchy eyes and Denies photophobia ENT: Reports system reviewed and no additional complaints, except as documented, Reports Normal hearing present, Denies change in voice, Denies dysphagia, Denies vertigo, Reports dizziness, Denies ear discharge, Denies headache(s), Denies hearing loss, Denies hoarseness, Reports nasal congestion, Denies neck pain, Denies sinus pressure, Reports sore throat and Denies throat swelling Cardiovascular: Cardiovascular: Reports no additional cardiovascular complaints, Reports chest pain, Denies syncope, Denies rapid heart rate, Denies irregular heart rhythm, Denies leg edema, Denies dyspnea and Denies slow heart rate Respiratory: Respiratory: Reports no additional respiratory complaints, Reports cough, Denies dyspnea, Denies stridor and Denies wheezing Gastrointestinal: Gastrointestinal: Reports no additional gastrointestinal complaints, Reports abdominal pain, Denies me
[2022-05-10 10:39] LABS: Alanine Aminotransferase 26 U/L (14-59); Albumin Level 3.7 g/dL (3.4-5.0); Alkaline Phosphatase 106 U/L (46-116); Amylase 37 U/L (25-115); Anion Gap 12 mmol/L (8-16); Aspartate Amino Transferase < 10 U/L (15-37); Bilirubin,Total 0.6 mg/dL (0.00-1.00); Blood Urea Nitrogen 20 mg/dL (7-18); Calcium 8.7 mg/dL (8.5-10.1); Carbon Dioxide 25 mmol/L (21-32); Chloride 101 mmol/L (98-108); Estimated CRCL calculation 55 ml/min; Estimated Glomerular Filt Rate 48; Glucose 173 mg/dL (70-99); Lipase 17 U/L (16-77); Osmolality Calculated 292 mOsm/kg (285-295); Potassium 2.9 mmol/L (3.5-5.1); Sodium 138 mmol/L (136-145); Total Protein 7.8 g/dL (6.4-8.2); Troponin I 7.5 ng/L (0.00-60.4)
[2022-05-10 10:39] LABS: Magnesium 1.7 mg/dL (1.8-2.4)
--- NOTE | 2022-05-10 10:46 | ECG_ITS ---
Measurements Intervals [place] Rate: 74 P: 102 [place]: 96 QRS: -82 QRSD: 88 T: 74 QT: 385 QTc: 428 Interpretive Statements SINUS RHYTHM WITH SHORT [place] INTERVAL LEFT ANTERIOR FASCICULAR BLOCK BORDERLINE ECG COMPARED TO ECG 11/10/2020 18:38:06 NO SIGNIFICANT CHANGES Electronically Signed On 05-10-2022 16:10:22 RECEPTIONIST TELEPHONE OPERATOR by Cedric Gutierrez M.D.
[2022-05-10] MEDS: POTASSIUM BICARBONATE 25 MEQ TABEF 50 MEQ PO (11:03)
[2022-05-10] MEDS: KCL 20 MEQ/SW 100 ML 100 ML 50 MEQ IVPB (11:05)
[2022-05-10] MEDS: LORazepam INJ (*CRX) 2 MG/ML VIAL 0.5 MG IV PUSH (11:17)
[2022-05-10] MEDS: KETOROLAC 30 MG/ML VIAL (*BKC) IV PUSH (11:17)
[2022-05-10] MEDS: MAGNESIUM SULF 2 GM/WATER 50ML 2 GM/50 ML BAG IVPB (11:18)
--- NOTE | 2022-05-10 11:27 | PC.NURSE ---
PT WAS SLEEPING ON STRETCHER WITHOUT DIFFICULTY, WHEN AWAKEN TO ADMINISTER MEDICATIONS, PT REPORTS NAUSEA HAS IMPROVED, HOWEVER SHE STILL COMPLAINED OF CHEST PAIN. PT IS NOTED TO RETCH WHILE AWAKE. ANOTHER IV SITE ESTABLISHED WITHOUT DIFFICULTY, IV MEDICATIONS INFUSING ORDERED WITHOUT DIFFICULTY. VSS PER MONITOR. WILL CONTINUE TO MONITOR.
[2022-05-10 11:47] LABS: Influenza A QL RT-PCR Negative (Negative); Influenza B QL RT-PCR Negative (Negative); SARS-CoV-2 RNA PCR Negative (Negative)
[2022-05-10 11:52] LABS: RSV RNA, RT-PCR Negative (Negative); Strep Group A RT-PCR NOT DETECTED (Negative)
--- NOTE | 2022-05-10 13:22 | PC.NURSE ---
PT HAS BEEN ACCEPTED FOR ADMISSION TO ROOM 205. PT IS AWARE OF PLAN OF CARE.
--- NOTE | 2022-05-10 13:25 | PC.NURSE ---
PT UP TO RR WITHOUT DIFFICULTY. BELONGINGS LIST COMPLETED.
[2022-05-10 13:49] LABS: Hemoglobin A1C 8.3 % (<5.7)
--- NOTE | 2022-05-10 14:44 | PC.NURSE ---
Pt admitted from the ER to room 205. DX: DKA, Cyclical vomiting, type 2 diabetis and nausea. Pt is currently sleeping.
[2022-05-10] MEDS: SODIUM CHLORIDE 0.9% IV 1,000 ML 100 ML IV CONT (15:11)
--- NOTE | 2022-05-10 16:35 | PC.NURSE ---
Patient in bed sleeping. No resp distress noted. Pt awakens easily. No N/V observed. SR up x2 and belongings within reach. Bed alarm on for safety.
[2022-05-10 16:57] LABS: Glucose Point of Care 85 mg/dl (65-105)
--- NOTE | 2022-05-10 17:15 | PC.NURSE ---
Patient up to bathroom with SBA. Gait steady. IV site clean, dry, intact. NS infusing per IV pump. Patient c/o nausea. Zofran given per prn order. Patient noted to have burping with no emisis observed. Bed alarm on.
--- NOTE | 2022-05-10 17:56 | PC.NURSE ---
Patient resting in bed. Nurse entered room to see if patient was done with her tray. Patient stated that she wanted to keep her tray and eat a little more.
[2022-05-10] MEDS: PANTOPRAZOLE SODIUM IV 40 MG VIAL IV PUSH (20:47)
[2022-05-10 20:48] LABS: Glucose Point of Care 73 mg/dl (65-105)
[2022-05-11] VITALS: BP 175/92; PULSE 84; RESP 17; TEMP 36.6; O2SAT 93
[2022-05-11] MEDS: SODIUM CHLORIDE 0.9% IV 1,000 ML 100 ML IV CONT (01:12)
[2022-05-11] MEDS: ONDANSETRON INJ 4 MG/2 ML VIAL IV PUSH ×2 (01:22→07:54)
[2022-05-11 03:57] VITALS: BP 156/78; PULSE 80; RESP 16; TEMP 36.5; O2SAT 92
[2022-05-11 05:24] LABS: Hematocrit 42.5 % (35.0-49.0); Hemoglobin 14.6 g/dL (12.0-15.0); Mean Corpuscular HGB Conc 34.4 g/dL (32.0-36.0); Mean Corpuscular Hemoglobin 33.2 pg (27.0-31.0); Mean Corpuscular Volume 96.6 fL (78.0-102.0); Mean Platelet Volume 10.6 fl (9.2-11.8); Platelet Count Result 226 K/mm3 (150-420); Red Cell Distribution Width 11.8 % (11.6-14.4); White Blood Count 9.6 K/mm3 (4.8-10.8)
[2022-05-11 05:35] LABS: Anion Gap 8 mmol/L (8-16); Blood Urea Nitrogen 6 mg/dL (7-18); Calcium 8.2 mg/dL (8.5-10.1); Carbon Dioxide 25 mmol/L (21-32); Chloride 103 mmol/L (98-108); Estimated CRCL calculation 79 ml/min; Estimated Glomerular Filt Rate > 60; Glucose 137 mg/dL (70-99); Osmolality Calculated 281 mOsm/kg (285-295); Potassium 2.9 mmol/L (3.5-5.1); Sodium 136 mmol/L (136-145)
[2022-05-11] MEDS: PANTOPRAZOLE SODIUM IV 40 MG VIAL IV PUSH (07:55)
[2022-05-11] MEDS: VERAPAMIL HCL 180 MG TABLET ER PO (07:55)
--- NOTE | 2022-05-11 07:59 | PM.SD2 ---
Same Day Admit/Disch: HPI History of Present Illness Chief complaint: chest pain; vomiting Narrative: HPI - General Adult General Chief complaint: Nausea/Vomiting/Diarrhea Stated complaint: chest pain; vomiting Time Seen by Provider: 05/10/22 09:52 History of Present Illness HPI narrative: ? The patient is a 57-year-old woman with history of diabetes, who every few years has episodes of nausea vomiting and diarrhea.? No previous history of DKA.? Other comorbidities include migraine headaches, GERD, hyperlipidemia, PTSD.? Status post cholecystectomy and hysterectomy.? No known diabetic gastroparesis.? She does smoke cigarettes regularly but none in the last 3 days.? For the last week, the patient has had intermittent episodes of nausea vomiting and watery diarrhea which was under reasonable control.? This worsened 3 days ago, 05/07/2022.? She went to the emergency room at [facility] [place] She was treated with intravenous medications to control her emesis.? She was prescribed promethazine orally and Zofran ODT 4 mg and discharged home.? There is a suggestion that she had DKA but she was discharged home at that time.? She was also diagnosed with colitis and hyperglycemia.? The patient's symptoms have continued to worsen.? Today so far, she has had 4 episodes of watery diarrhea, yesterday between 6 and 10 episodes of watery diarrhea, not formed.? She also has had episodes of emesis, and dry heaves, not controlled by Zofran and promethazine.? She does have chills, feels weak and dizzy.? Mild abdominal pain and chest discomfort.? Does complain of chills and diaphoresis but no fevers.? Rhinorrhea nasal congestion and sore throat as well as a dry cough are noted.? No urinary symptoms PMFSH Past Medical History Medical History (Updated 05/11/22 @ 08:09 by Ramone Stuart NP) GERD (gastroesophageal reflux disease) Hypokalemia Migraines PTSD (post-traumatic stress disorder) T2DM (type 2 diabetes mellitus) Surgical History Surgical History Hx of cholecystectomy Social History Social History Smoking packs per day: 1 Smoking cigarettes per day: 20.0 Years smoked: 30 Smoking pack-years: 30.00 Smoking status: Light tobacco smoker Tobacco type: cigarettes Second hand tobacco smoke exposure: Yes Alcohol intake: unknown Substance use: unknown Substance use type: unknown Gender identity (if verbalized by the patient): Female Sexual Orientation (if Verbalized by the Patient): Straight or Heterosexual Spiritual care concerns: No Same Day Admit/Disch: Med Pre-admit Medications Home Medications Medication Instructions Recorded Confirmed Type alprazolam 1 mg tablet (Xanax) See Rx Instructions .Route 11/10/20 05/10/22 History .COMPLEX PRN Anxiety atorvastatin 20 mg tablet (Lipitor) 80 mg PO DAILY 11/10/20 05/10/22 History insulin glargine 100 unit/mL (3 See Rx Instructions .Route .COMPLEX 11/10/20 05/10/22 History mL) subcutaneous pen (Lantus Solostar U-100 Insulin) capsaicin 0.033 % topical cream 1 applic topical Q6H PRN vomitting 11/11/20 05/10/22 Rx (Zostrix) #56.6 grams ondansetron HCl 4 mg tablet 4 mg PO Q6H PRN nausea and 11/11/20 05/10/22 Rx (Zofran) vomiting #60 tabs [id number]-dutivygfnclnu-ncabsjgo 1 cap PO BID PRN Migraine Headache 05/10/22 05/10/22 History 50 mg-300 mg-40 mg capsule verapamil 180 mg tablet,extended 180 mg PO DAILY 05/10/22 05/10/22 History release albuterol sulfate 90 mcg/actuation 2 puff inhalation QID PRN 05/11/22 Rx aerosol inhaler shortness of breath or wheezing #8.5 grams omeprazole 40 mg capsule,delayed 40 mg PO DAILY #30 caps 05/11/22 Rx release potassium chloride 20 mEq 20 meq PO BID #20 tabs 05/11/22 Rx tablet,extended release verapamil 180 mg 24 hr 180 mg PO DAILY@0800 #30 caps 05/11/22 Rx capsule,
[2022-05-11 08:00] VITALS: BP 148/96; PULSE 72; RESP 16; TEMP 36.4; O2SAT 95
[2022-05-11] MEDS: POTASSIUM CHLORIDE 20 MEQ TABLET 40 MEQ PO (08:05)
[2022-05-11] MEDS: INSULIN GLARGINE (LANTUS) 1,000 UNITS/10 ML VIAL 30 UNITS SUB-Q (08:57)
--- NOTE | 2022-05-11 09:04 | PC.NURSE ---
Pt discharged to home and family care. VSS. Pt seeing her PCP @ 0900 today. She continues to have nausea but no vomiting. Discharge instructions regarding medications, lab draws and fall safety given to pt. Pt verbalizes understanding. RN took pt to family car.
--- NOTE | 2022-05-13 09:50 | PC.NURSE ---
Pt states she received and understood the discharge instructions. Pt has no other comments.
== END 2022-05-11 08:50 | disposition home or self-care (01) ==
LOC: CHSED 12:16 → CHS2ND 13:15
PROVIDERS: Nurse Practitioner Family; Admitting Provider Internal Medicine; Emergency Provider Emergency Medicine; PCP Internal Medicine; Visit Provider Internal Medicine
DX: N17.9 Acute kidney failure, unspecified (principal); E86.0 Dehydration; R11.15 Cyclical vomiting syndrome unrelated to migraine; E11.9 Type 2 diabetes mellitus without complications; E78.5 Hyperlipidemia, unspecified; E87.6 Hypokalemia; E83.42 Hypomagnesemia; R07.89 Other chest pain; J06.9 Acute upper respiratory infection, unspecified; K21.9 Gastro-esophageal reflux disease without esophagitis; F17.210 Nicotine dependence, cigarettes, uncomplicated; F43.10 Post-traumatic stress disorder, unspecified; Z20.822 Contact with and (suspected) exposure to COVID-19; Z79.4 Long term (current) use of insulin
CPT/HCPCS: 36415; 71045; 80048; 80053; 82010; 82150; 82803; 82948; 83036; 83605; 83690; 83735; 84484; 85025; 85027; 87637; 87651; 93005; 96361; 96365; 96366; 96367; 96374; 96375; 96376; 99285; A9270; C9113; G0378; J1630; J1885; J2060; J2405; J3475; J3480; J7030

== ENCOUNTER 2022-08-09 19:24 | Emergency (ER) | payer OTHER, BC, SELFPAY ==
[2022-08-09 19:25] VITALS: BP 157/98; PULSE 94; RESP 18; TEMP 36.9; O2SAT 96
--- NOTE | 2022-08-09 19:34 | ECG_ITS ---
Measurements Intervals [place] Rate: 77 P: 60 WA: 139 QRS: -59 QRSD: 89 T: 58 QT: 388 QTc: 439 Interpretive Statements SINUS RHYTHM LEFT ANTERIOR FASCICULAR BLOCK BASELINE ARTIFACT- I, II, III, AVR, AVL, AVF, V1, V5 ABNORMAL ECG COMPARED TO ECG 05/10/2022 09:46:58 NO SIGNIFICANT CHANGES Electronically Signed On 08-10-2022 6:49:07 CDT by Junior Lee D.O.
[2022-08-09 19:37] LABS: Glucose Point of Care 237 mg/dl (65-105)
--- NOTE | 2022-08-09 19:46 | ED.GENADULT ---
HPI - General Adult General Chief complaint: Nausea/Vomiting/Diarrhea Stated complaint: Nausea/Vomiting/Diarrhea History of Present Illness HPI narrative: Elizabeth is a 57F with a PMH of GERD, migraines, DMII and cyclic vomiting syndrome that presented to the ED with nausea and vomiting. She started to nauseated yesterday morning and has been dry heaving since. The day before this she had profuse vomiting, diarrhea, polyuria and polydipsia. She has concerns of heartburn but no chest pain, dyspnea, cough or fevers. She has had this before and it is helped with Haldol. Home Capsaicin does not help. Related Data Home Medications Medication Instructions Recorded Confirmed alprazolam 1 mg tablet (Xanax) See Rx Instructions .Route 11/10/20 08/09/22 .COMPLEX PRN Anxiety insulin glargine 100 unit/mL (3 See Rx Instructions .Route .COMPLEX 11/10/20 08/09/22 mL) subcutaneous pen (Lantus Solostar U-100 Insulin) [id number]-tnnjxceshhjek-lbskdqou 1 cap PO BID PRN Migraine Headache 05/10/22 08/09/22 50 mg-300 mg-40 mg capsule verapamil 180 mg tablet,extended 180 mg PO DAILY 05/10/22 08/09/22 release Allergies Allergy/AdvReac Type Severity Reaction Status Date / Time Sulfa (Sulfonamide Allergy Mild Unknown Verified 05/10/22 09:54 Antibiotics) Penicillins Allergy Unknown Verified 05/10/22 09:54 Review of Systems Review of Systems: All systems reviewed & are unremarkable except as noted in HPI and below PMFSH Past Medical History Medical History GERD (gastroesophageal reflux disease) Hypokalemia Migraines PTSD (post-traumatic stress disorder) T2DM (type 2 diabetes mellitus) Surgical History Surgical History Hx of cholecystectomy Social History Social History Smoking packs per day: 1 Smoking cigarettes per day: 20.0 Years smoked: 30 Smoking pack-years: 30.00 Smoking status: Light tobacco smoker Tobacco type: cigarettes Second hand tobacco smoke exposure: Yes Alcohol intake: unknown Substance use: unknown Substance use type: unknown Gender identity (if verbalized by the patient): Female Sexual Orientation (if Verbalized by the Patient): Straight or Heterosexual Spiritual care concerns: No Exam Const: General: healthy appearing and no acute distress Nutritional Appearance: well nourished Orientation/consciousness: patient oriented x3 HENMT: Head: normal to inspection Ears: external ears normal Face/Nose/Sinus: Normal external nose present Eyes: Conjunctivae: conjunctivae normal Pupils: Equal, round and reactive pupils present EOM: EOMs intact bilaterally Neck: Neck: normal visual inspection Chest: Chest palpation & inspection: normal inspection of the chest Resp: Effort & Inspection: normal respiratory effort Auscultation: clear to auscultation bilaterally Cardio: Rate: regular rate Rhythm: regular rhythm GI: Inspection: distended GI Palp: Yes Soft to palpation, No Tenderness to palpation present (GI) and No Guarding due to palpation present (GI) Skin: General skin exam: normal color Rashes: no rashes Neuro: General: patient oriented x3 and moves all extremities Cranial nerves: Yes Nystagmus not present Speech: normal speech Extrem: General: normal to inspection Psych: Mental Status: mental status grossly normal Course Course Emergency Course: Ordered labs, ekg and fluids. EKG showed NSR with a rate of 77, no ectopy, but no ST elevation/depression VBG had a critical pCO2, slightly high pH at 7.58 and she had an KISHORE with a Cr of 1.34 pCO2 improved to 42.8 on repeat VBG after 3L of NS and her Cr. decreased to 1.05 She was feeling much better so she was discharged home. Vital Signs Vital signs: Vital Signs Temperature 98.4 F 08/09/22 19:25 Pulse Rate 94 08/09/22 19:25
[2022-08-09 19:53] LABS: HCO3 VBG 23.1 mEq/l (24.0-30.0); PO2 VBG 36.3 mmHg (35.0-45.0); pH VBG 7.58 (7.33-7.43)
[2022-08-09 19:55] LABS: Basophils Absolute Auto 0.02 K/mm3 (0.00-0.10); Basophils Percent Auto 0.2 % (0.0-1.0); Eosinophils Absolute Auto 0.02 K/mm3 (0.02-0.50); Eosinophils Percent Auto 0.2 % (1.0-6.0); Hematocrit 44.6 % (35.0-49.0); Hemoglobin 15.8 g/dL (12.0-15.0); Immature Granulocyte Absolute 0.05 K/mm3 (0.00-0.00); Immature Granulocyte Percent A 0.4 % (0.0-0.0); Lymphocytes Absolute Auto 2.06 K/mm3 (1.10-4.50); Lymphocytes Percent Auto 18.4 % (18.0-42.0); Mean Corpuscular HGB Conc 35.4 g/dL (32.0-36.0); Mean Corpuscular Hemoglobin 33.8 pg (27.0-31.0); Mean Corpuscular Volume 95.5 fL (78.0-102.0); Mean Platelet Volume 10.6 fl (9.2-11.8); Monocytes Absolute Auto 0.76 K/mm3 (0.10-0.90); Monocytes Percent Auto 6.8 % (2.0-11.0); Neutrophils Absolute Auto 8.3 K/mm3 (1.7-7.2); Platelet Count Result 338 K/mm3 (150-420); Red Blood Count 4.67 M/mm3 (4.20-5.40); Red Cell Distribution Width 13.1 % (11.6-14.4); White Blood Count 11.2 K/mm3 (4.8-10.8)
[2022-08-09] MEDS: SODIUM CHLORIDE 0.9% IV 1,000 ML 999 ML IV CONT ×3 (19:55→21:32)
[2022-08-09 19:57] LABS: Device ROOM AIR; PCO2 VBG 25.5 mmHg (42.0-48.0)
[2022-08-09 20:13] LABS: Alanine Aminotransferase 14 U/L (14-59); Albumin Level 4.1 g/dL (3.4-5.0); Alkaline Phosphatase 130 U/L (46-116); Anion Gap 17 mmol/L (8-16); Aspartate Amino Transferase 14 U/L (15-37); Bilirubin,Total 0.7 mg/dL (0.00-1.00); Blood Urea Nitrogen 24 mg/dL (7-18); Calcium 10.1 mg/dL (8.5-10.1); Carbon Dioxide 23 mmol/L (21-32); Chloride 95 mmol/L (98-108); Estimated CRCL calculation 42 ml/min; Estimated Glomerular Filt Rate 40; Glucose 253 mg/dL (70-99); Magnesium 1.9 mg/dL (1.8-2.4); Osmolality Calculated 293 mOsm/kg (285-295); Potassium 3.6 mmol/L (3.5-5.1); Sodium 135 mmol/L (136-145); Total Protein 8.8 g/dL (6.4-8.2); Troponin I 12.2 ng/L (0.00-60.4)
[2022-08-09 20:14] LABS: Ethanol < 3 mg/dL (0-6)
[2022-08-09 20:16] LABS: Lactic Acid Reflex 1.4 mmol/L (0.4-2.0)
[2022-08-09] MEDS: HALOPERIDOL LACTATE 5 MG/ML VIAL IV PUSH (20:18)
[2022-08-09] MEDS: ONDANSETRON INJ 4 MG/2 ML VIAL IV PUSH (20:55)
[2022-08-09 21:01] VITALS: BP 145/90; PULSE 86; RESP 20; O2SAT 98
[2022-08-09 21:51] LABS: Appearance Urine Clear (Clear); Bilirubin Urine 1+ (Negative); Blood Urine 1+ (Negative); Color Urine Yellow (Yellow); Glucose Urine UA 1+ (Negative); Ketones Urine 2+ (Negative); Leukocyte Esterase Ur Negative LEU/UL (Negative); Nitrate Urine Positive (Negative); Protein Urine 2+ (Negative); Specific Grav Ur >= 1.030 (1.010-1.020)
[2022-08-09 22:03] LABS: Add Urine Microscopic? YES; Bacteria Urine 1+ /hpf; Squamous Epithelial Cell Urine Rare /hpf (Few); WBC Urine 0-3 /hpf (0-3)
[2022-08-09 22:05] LABS: Amphetamine Screen Urine Negative (Negative); Barbiturate Screen Urine Positive (Negative); Benzodiazepines Screen Urine Positive (Negative); Cannabinoid Screen Urine Positive (Negative); Cocaine Screen Urine Positive (Negative); Methadone Screen Urine Negative (Negative); Opiate Screen Urine Negative (Negative); Phencyclidine Screen Urine Negative (Negative)
[2022-08-09] MEDS: levoFLOXacin TAB 500 MG, levoFLOXacin TAB 250 MG 750 MG PO (22:14)
[2022-08-09 22:25] LABS: HCO3 VBG 24.5 mEq/l (24.0-30.0); PCO2 VBG 42.8 mmHg (42.0-48.0); PO2 VBG 29.3 mmHg (35.0-45.0); pH VBG 7.38 (7.33-7.43)
[2022-08-09 22:26] LABS: Device ROOM AIR
[2022-08-09 22:43] LABS: Alanine Aminotransferase 21 U/L (14-59); Albumin Level 3.4 g/dL (3.4-5.0); Alkaline Phosphatase 105 U/L (46-116); Anion Gap 8 mmol/L (8-16); Aspartate Amino Transferase 13 U/L (15-37); Bilirubin,Total 0.5 mg/dL (0.00-1.00); Blood Urea Nitrogen 20 mg/dL (7-18); Calcium 8.3 mg/dL (8.5-10.1); Carbon Dioxide 27 mmol/L (21-32); Chloride 103 mmol/L (98-108); Estimated CRCL calculation 53 ml/min; Estimated Glomerular Filt Rate 54; Glucose 166 mg/dL (70-99); Osmolality Calculated 292 mOsm/kg (285-295); Potassium 3.5 mmol/L (3.5-5.1); Sodium 138 mmol/L (136-145); Total Protein 7.2 g/dL (6.4-8.2)
[2022-08-09 22:47] VITALS: BP 133/75; PULSE 74; RESP 18; TEMP 36.6; O2SAT 98
--- NOTE | 2022-08-13 13:32 | PC.NURSE ---
spoke to pt regarding abnormal urine culture. pt requested abt called in to [facility] in [place] . keflex 500mg x1 po tid for 7 days.
== END 2022-08-09 22:51 | disposition home or self-care (01) ==
PROVIDERS: Emergency Provider Family Medicine; PCP Internal Medicine
DX: E86.0 Dehydration (principal); R11.2 Nausea with vomiting, unspecified; F12.120 Cannabis abuse with intoxication, uncomplicated; E11.9 Type 2 diabetes mellitus without complications; F17.210 Nicotine dependence, cigarettes, uncomplicated; Z79.4 Long term (current) use of insulin; Z79.899 Other long term (current) drug therapy
CPT/HCPCS: 36415; 80053; 80307; 81001; 82803; 82948; 83605; 83735; 84484; 85025; 87077; 87086; 87088; 87186; 93005; 96361; 96374; 96375; 99284; A9270; J1630; J2405; J7030

== ENCOUNTER 2022-11-30 09:44 | Emergency (ER) | payer OTHER, BC, SELFPAY ==
[2022-11-30] VITALS (12 sets, daily range): BP systolic 159–177; BP diastolic 89–116; PULSE 103–116; RESP 17–44; TEMP 35.6; O2SAT 92–99
--- NOTE | 2022-11-30 09:55 | ED.NAVMDI ---
HPI - Nausea/Vomiting/Diarrhea General Chief complaint: Nausea/Vomiting/Diarrhea Stated complaint: vomiting Time Seen by Provider: 11/30/22 09:54 Source: patient and RN notes reviewed Mode of arrival: ambulatory Limitations: no limitations History of Present Illness MD elicited complaint: nausea and vomiting Onset (ago): hour(s) (6) Description of vomiting: bilious Associated nausea: Yes Associated abdominal pain: Yes Location of pain: epigastric ( From vomiting) Pain consistency: constant Severity: mild Quality: aching Exacerbating factors: eating Relieving factors: none Associated symptoms: headaches Treatment prior to arrival: analgesics ( Percocet) and other ( promethazine) Related Data Home Medications Medication Instructions Recorded Confirmed alprazolam 1 mg tablet (Xanax) See Rx Instructions .Route 11/10/20 11/30/22 .COMPLEX PRN Anxiety insulin glargine 100 unit/mL (3 See Rx Instructions .Route .COMPLEX 11/10/20 11/30/22 mL) subcutaneous pen (Lantus Solostar U-100 Insulin) [id number]-iszggdexgqyhw-wgwmkomd 1 cap PO BID PRN Migraine Headache 05/10/22 11/30/22 50 mg-300 mg-40 mg capsule verapamil 180 mg tablet,extended 180 mg PO DAILY 05/10/22 11/30/22 release lisinopril 10 mg tablet 10 mg PO DAILY 11/30/22 11/30/22 promethazine 25 mg tablet 25 mg PO PRN PRN Nausea 11/30/22 11/30/22 Allergies Allergy/AdvReac Type Severity Reaction Status Date / Time Sulfa (Sulfonamide Allergy Mild Unknown Verified 11/30/22 09:50 Antibiotics) Penicillins Allergy Unknown Verified 11/30/22 09:50 [facility] Past Medical History Medical History GERD (gastroesophageal reflux disease) Hypokalemia Migraines PTSD (post-traumatic stress disorder) T2DM (type 2 diabetes mellitus) Surgical History Surgical History Hx of cholecystectomy Social History Social History Smoking packs per day: 1 Smoking cigarettes per day: 20.0 Years smoked: 30 Smoking pack-years: 30.00 Smoking status: Light tobacco smoker Tobacco type: cigarettes Second hand tobacco smoke exposure: Yes Alcohol intake: unknown Substance use: unknown Substance use type: unknown Gender identity (if verbalized by the patient): Female Sexual Orientation (if Verbalized by the Patient): Straight or Heterosexual Spiritual care concerns: No Discharge Plan Discharge Prescriptions: No Action alprazolam [Xanax] 1 mg tablet See Rx Instructions .ROUTE .COMPLEX PRN (Reason: Anxiety) Rx Instructions: TAKE ONE-HALF TABLET IN THE MORNING AND ONE IN THE AFTERNOON NEEDED FOR ANXIETY insulin glargine [Lantus Solostar U-100 Insulin] 100 unit/mL (3 mL) insulin pen See Rx Instructions .ROUTE .COMPLEX Rx Instructions: 30 UNITS EVERY MORNING 60 UNITS EVERY EVENING verapamil 180 mg Tablet Extended Release 180 mg PO DAILY opbqhgtdcf-meelkfegrzgha-amow 50-300-40 mg Capsule 1 cap PO BID PRN (Reason: Migraine Headache) albuterol sulfate 90 mcg/actuation HFA aerosol inhaler 2 puff inhalation QID PRN (Reason: shortness of breath or wheezing) Qty: 8.5 0RF omeprazole 40 mg Capsule,Delayed Release(Dr/Ec) 40 mg PO DAILY Qty: 30 0RF potassium chloride 20 mEq tablet extended release 20 meq PO BID Qty: 20 0RF lisinopril 10 mg tablet 10 mg PO DAILY promethazine 25 mg tablet 25 mg PO PRN PRN (Reason: Nausea) Follow-up/Referrals: Jose Escoto MD [Primary Care Provider] -
[2022-11-30 09:57] LABS: Glucose Point of Care 335 mg/dl (65-105)
--- NOTE | 2022-11-30 10:08 | ED.HA ---
HPI - Headache General Chief Complaint: Nausea/Vomiting/Diarrhea Stated Complaint: vomiting Time Seen by Provider: 11/30/22 09:54 Source: patient and RN notes reviewed Mode of arrival: ambulatory Limitations: no limitations History of Present Illness HPI Narrative: patient originally told nurse that she was having nausea vomiting since she woke up at 4:00 a.m. this morning. No fever no chills. No diarrhea. Having some epigastric pain associated with severe vomiting and headache. When I spoke to the patient she says that she started out with a headache which is common for her. She says she usually sees her primary care physician he gives her a shot of Toradol and Zofran. She ready tried some Percocet and Phenergan at home. When I offered her Reglan she said that will work that is when she related that she did better with Zofran and Toradol. MD elicited complaint: headache Onset (ago): hour(s) (6) Onset description: suddenly and on awakening Location: diffuse Severity: moderate Quality & Timing: aching, intermittent and similar to previous headaches Exacerbating factors: none Relieving factors: nothing Associated symptoms: nausea, vomiting and photophobia Treatments prior to arrival: prescription analgesic and antiemetic Related Data Home Medications Medication Instructions Recorded Confirmed alprazolam 1 mg tablet (Xanax) See Rx Instructions .Route 11/10/20 11/30/22 .COMPLEX PRN Anxiety insulin glargine 100 unit/mL (3 See Rx Instructions .Route .COMPLEX 11/10/20 11/30/22 mL) subcutaneous pen (Lantus Solostar U-100 Insulin) mzqvhyshxx-ugtmblugrvtnd-pwqqjyzw 1 cap PO BID PRN Migraine Headache 05/10/22 11/30/22 50 mg-300 mg-40 mg capsule verapamil 180 mg tablet,extended 180 mg PO DAILY 05/10/22 11/30/22 release lisinopril 10 mg tablet 10 mg PO DAILY 11/30/22 11/30/22 promethazine 25 mg tablet 25 mg PO PRN PRN Nausea 11/30/22 11/30/22 Allergies Allergy/AdvReac Type Severity Reaction Status Date / Time Sulfa (Sulfonamide Allergy Mild Unknown Verified 11/30/22 09:50 Antibiotics) Penicillins Allergy Unknown Verified 11/30/22 09:50 Review of Systems Review of Systems: All systems reviewed & are unremarkable except as noted in HPI and below PMFSH Past Medical History Medical History GERD (gastroesophageal reflux disease) Hypokalemia Migraines PTSD (post-traumatic stress disorder) T2DM (type 2 diabetes mellitus) Surgical History Surgical History Hx of cholecystectomy Social History Social History Smoking packs per day: 1 Smoking cigarettes per day: 20.0 Years smoked: 30 Smoking pack-years: 30.00 Smoking status: Light tobacco smoker Tobacco type: cigarettes Second hand tobacco smoke exposure: Yes Alcohol intake: unknown Substance use: unknown Substance use type: unknown Gender identity (if verbalized by the patient): Female Sexual Orientation (if Verbalized by the Patient): Straight or Heterosexual Spiritual care concerns: No Exam Const: General: no acute distress, alert and ill appearing acutely Nutritional Appearance: well nourished Orientation/consciousness: patient oriented x3 Limitations: no limitations HENMT: Head: normal to inspection Ears: external ears normal Face/Nose/Sinus: Normal external nose present Face and sinus: normal facial exam Mouth: Yes moist mucous membranes abnormal Eyes: Conjunctivae: conjunctivae normal Pupils: Equal, round and reactive pupils present EOM: EOMs intact bilaterally Neck: Neck: normal visual inspection Resp: Effort & Inspection: normal respiratory effort Auscultation: clear to auscultation bilaterally Cardio: Rate: regular rate Rhythm: regular rhythm GI: GI Palp: Yes Soft to palpation, Yes Tenderness to palpation present (GI) ( Mild epigastric), No Guard
[2022-11-30] MEDS: SODIUM CHLORIDE 0.9% IV 1,000 ML 999 ML IV CONT (10:09)
[2022-11-30] MEDS: KETOROLAC 30 MG/ML VIAL (*BKC) IV PUSH (10:11)
[2022-11-30] MEDS: ONDANSETRON INJ 4 MG/2 ML VIAL IV PUSH (10:11)
[2022-11-30 10:14] LABS: Basophils Absolute Auto 0.05 K/mm3 (0.00-0.10); Basophils Percent Auto 0.4 % (0.0-1.0); Eosinophils Absolute Auto 0.03 K/mm3 (0.02-0.50); Eosinophils Percent Auto 0.2 % (1.0-6.0); Hematocrit 42.9 % (35.0-49.0); Immature Granulocyte Absolute 0.05 K/mm3 (0.00-0.00); Immature Granulocyte Percent A 0.4 % (0.0-0.0); Lymphocytes Absolute Auto 1.33 K/mm3 (1.10-4.50); Lymphocytes Percent Auto 10.9 % (18.0-42.0); Mean Corpuscular Hemoglobin 34.5 pg (27.0-31.0); Mean Corpuscular Volume 98.6 fL (78.0-102.0); Mean Platelet Volume 10.6 fl (9.2-11.8); Monocytes Absolute Auto 0.33 K/mm3 (0.10-0.90); Monocytes Percent Auto 2.7 % (2.0-11.0); Neutrophils Absolute Auto 10.4 K/mm3 (1.7-7.2); Neutrophils Percent Auto 85.4 % (50.0-70.0); Platelet Count Result 276 K/mm3 (150-420); Red Blood Count 4.35 M/mm3 (4.20-5.40); Red Cell Distribution Width 12.8 % (11.6-14.4); White Blood Count 12.2 K/mm3 (4.8-10.8)
--- NOTE | 2022-11-30 10:25 | PC.NURSE ---
PT HAS STOPPED RETCHING AT THIS TIME. PT IS AWAITING RESULTS. WILL CONTINUE TO MONITOR.
[2022-11-30 10:29] LABS: Carbon Dioxide 21 mmol/L (21-32); Chloride 100 mmol/L (98-108); Potassium 4.1 mmol/L (3.5-5.1); Sodium 138 mmol/L (136-145)
[2022-11-30 10:30] LABS: Alanine Aminotransferase 21 U/L (14-59); Albumin Level 4.2 g/dL (3.4-5.0); Alkaline Phosphatase 119 U/L (46-116); Anion Gap 17 mmol/L (8-16); Aspartate Amino Transferase 15 U/L (15-37); Bilirubin,Total 0.7 mg/dL (0.00-1.00); Blood Urea Nitrogen 19 mg/dL (7-18); Estimated CRCL calculation 49 ml/min; Estimated Glomerular Filt Rate 48; Glucose 370 mg/dL (70-99); Magnesium 1.7 mg/dL (1.8-2.4); Osmolality Calculated 303 mOsm/kg (285-295); Total Protein 8.5 g/dL (6.4-8.2)
[2022-11-30 10:33] LABS: CRP < 0.5 mg/dL (0.0-0.9)
[2022-11-30] MEDS: INSULIN HUMAN REGULAR (*BKC) 1,000 UNITS/10 ML VIAL 10 UNITS SUB-Q (10:38)
[2022-11-30 11:12] LABS: Glucose Point of Care 291 mg/dl (65-105)
--- NOTE | 2022-11-30 11:14 | PC.NURSE ---
FSBS 291, ERP IS AWARE. HR 106 ERP AWARE.
== END 2022-11-30 11:15 | disposition home or self-care (01) ==
LOC: CHSED 10:50
PROVIDERS: Emergency Provider Emergency Medicine; PCP Internal Medicine
DX: E83.42 Hypomagnesemia (principal); G43.009 Migraine without aura, not intractable, without status migrainosus; E11.9 Type 2 diabetes mellitus without complications; F17.210 Nicotine dependence, cigarettes, uncomplicated; Z79.4 Long term (current) use of insulin; Z79.899 Other long term (current) drug therapy
CPT/HCPCS: 36415; 80053; 82948; 83605; 83735; 85025; 86140; 96361; 96374; 96375; 99284; J1815; J1885; J2405; J7030

== ENCOUNTER 2022-11-30 16:46 | Emergency (ER) | payer OTHER, BC, SELFPAY ==
[2022-11-30] VITALS (10 sets, daily range): BP systolic 148–196; BP diastolic 81–101; PULSE 80–113; RESP 17–20; TEMP 36.2–37; O2SAT 93–100
--- NOTE | ~2022-11-30 | CT_ITS ---
EXAMINATION: CT abdomen pelvis w con DATE: 11/30/2022 17:24 INDICATION: Epigastric abdominal pain and vomiting for 14 hours TECHNIQUE: Computed tomography (CT) of the abdomen and pelvis was performed with 100 CC Omnipaque 350 intravenous contrast. Automated exposure control and iterative reconstruction technique were employe d. Exam dose: 819.09 mGy-cm total exam DLP. COMPARISON: 11/11/2020 CT abdomen pelvis FINDINGS: The lung bases are clear of infiltrate or consolidation. Normal heart size. No pericardial or pleural effusion. Small sliding hiatal hernia. Status post cholecystectomy. No hepatic, splenic, pancreatic, and adrenal or renal space-occupying ma ss lesion is detected. No bile duct or pancreatic duct dilatation. No pancreatic calcification. No urinary tract calculus or hydroureteronephrosis. The urinary bladder is unremarkable. Status post hysterectomy. There is atherosclerotic calcification but normal caliber of the abdominal aorta and iliac arteries. No intraperitoneal or retroperitoneal or pelvic mass lesion or adenopathy or ascites. Normal appendix. Diverticulosis of the sigmoid and to a lesser extent descending colon and splenic flexure. No CT evid ence of diverticulitis. No bowel obstruction, bowel wall thickening, pneumatosis or intraperitoneal free air. Small fat-containing umbilical hernia. Degenerative changes of the thoracic and lumbar spine. IMPRESSION: Small sliding hiatal hernia Status post cholecystectomy Status post hysterectomy Normal appendix Diverticulosis of the left colon; no CT evidence of diverticulitis Reviewed, dictated and finalized at [facility]. Reviewed, dictated and finalized at [facility].
--- NOTE | 2022-11-30 16:50 | ED.NAVMDI ---
HPI - Nausea/Vomiting/Diarrhea General Chief complaint: Nausea/Vomiting/Diarrhea Stated complaint: vomiting Time Seen by Provider: 11/30/22 16:50 Source: patient and RN notes reviewed Mode of arrival: ambulatory Limitations: no limitations History of Present Illness HPI Narrative: patient was here earlier today with a headache. She was treated with Toradol and Zofran and felt better. She says she went home rested when she woke up her headache is back again and she is vomiting again. She took Fioricet at home. She had also tried Fioricet this morning. I explained her that narcotics are not used in headaches. She should search for alternatives for prevention of headaches. She said that she has seen a neurologist and they found nothing wrong. I explained to her that Neurology can treat her headache with different medication. MD elicited complaint: nausea and vomiting Pertinent past history: cyclical vomiting Onset (ago): day(s) (since this AM) Description of vomiting: bilious Associated nausea: Yes Associated abdominal pain: Yes Location of pain: epigastric ( from vomiting) Pain consistency: constant Severity: mild Quality: aching and dull Exacerbating factors: eating Relieving factors: none Associated symptoms: weakness Related Data Home Medications Medication Instructions Recorded Confirmed alprazolam 1 mg tablet (Xanax) See Rx Instructions .Route 11/10/20 11/30/22 .COMPLEX PRN Anxiety insulin glargine 100 unit/mL (3 See Rx Instructions .Route .COMPLEX 11/10/20 11/30/22 mL) subcutaneous pen (Lantus Solostar U-100 Insulin) ryaxtpvlih-oghkoyevawxvd-lprewyve 1 cap PO BID PRN Migraine Headache 05/10/22 11/30/22 50 mg-300 mg-40 mg capsule verapamil 180 mg tablet,extended 180 mg PO DAILY 05/10/22 11/30/22 release lisinopril 10 mg tablet 10 mg PO DAILY 11/30/22 11/30/22 promethazine 25 mg tablet 25 mg PO PRN PRN Nausea 11/30/22 11/30/22 Allergies Allergy/AdvReac Type Severity Reaction Status Date / Time Sulfa (Sulfonamide Allergy Mild Unknown Verified 11/30/22 16:47 Antibiotics) Penicillins Allergy Unknown Verified 11/30/22 16:47 Review of Systems Review of Systems: All systems reviewed & are unremarkable except as noted in HPI and below Constitutional: Constitutional: Denies chills and Denies fever(s) Gastrointestinal: Gastrointestinal: Denies diarrhea Genitourinary: Genitourinary: Denies nocturia and Denies dysuria PMFSH Past Medical History Medical History GERD (gastroesophageal reflux disease) Hypokalemia Migraines PTSD (post-traumatic stress disorder) T2DM (type 2 diabetes mellitus) Surgical History Surgical History Hx of cholecystectomy Social History Social History Smoking packs per day: 1 Smoking cigarettes per day: 20.0 Years smoked: 30 Smoking pack-years: 30.00 Smoking status: Light tobacco smoker Tobacco type: cigarettes Second hand tobacco smoke exposure: Yes Alcohol intake: unknown Substance use: unknown Substance use type: unknown Gender identity (if verbalized by the patient): Female Sexual Orientation (if Verbalized by the Patient): Straight or Heterosexual Spiritual care concerns: No Exam Const: General: healthy appearing, no acute distress and alert Nutritional Appearance: well nourished Orientation/consciousness: patient oriented x3 Limitations: no limitations HENMT: Head: normal to inspection Ears: external ears normal Face/Nose/Sinus: Normal external nose present Face and sinus: normal facial exam Mouth: Yes moist mucous membranes Eyes: Conjunctivae: conjunctivae normal Cornea: corneas normal Pupils: Equal, round and reactive pupils present EOM: EOMs intact bilaterally Neck: Neck: normal visual inspection Resp: Effort & Inspection: normal respiratory effort Auscu
[2022-11-30] MEDS: ONDANSETRON INJ 4 MG/2 ML VIAL IV PUSH (17:04)
[2022-11-30] MEDS: KETOROLAC 30 MG/ML VIAL (*BKC) IV PUSH (17:04)
[2022-11-30 17:14] LABS: Basophils Absolute Auto 0.02 K/mm3 (0.00-0.10); Basophils Percent Auto 0.2 % (0.0-1.0); Hematocrit 40.3 % (35.0-49.0); Hemoglobin 14.4 g/dL (12.0-15.0); Immature Granulocyte Absolute 0.05 K/mm3 (0.00-0.00); Immature Granulocyte Percent A 0.4 % (0.0-0.0); Lymphocytes Absolute Auto 0.99 K/mm3 (1.10-4.50); Lymphocytes Percent Auto 8.2 % (18.0-42.0); Mean Corpuscular HGB Conc 35.7 g/dL (32.0-36.0); Mean Corpuscular Volume 98.1 fL (78.0-102.0); Mean Platelet Volume 10.6 fl (9.2-11.8); Monocytes Absolute Auto 0.29 K/mm3 (0.10-0.90); Monocytes Percent Auto 2.4 % (2.0-11.0); Neutrophils Absolute Auto 10.7 K/mm3 (1.7-7.2); Neutrophils Percent Auto 88.8 % (50.0-70.0); Platelet Count Result 273 K/mm3 (150-420); Red Blood Count 4.11 M/mm3 (4.20-5.40); Red Cell Distribution Width 12.8 % (11.6-14.4); White Blood Count 12.1 K/mm3 (4.8-10.8)
[2022-11-30 17:31] LABS: Alanine Aminotransferase 25 U/L (14-59); Alkaline Phosphatase 109 U/L (46-116); Anion Gap 14 mmol/L (8-16); Aspartate Amino Transferase 11 U/L (15-37); Bilirubin,Total 0.6 mg/dL (0.00-1.00); Blood Urea Nitrogen 22 mg/dL (7-18); CRP 0.5 mg/dL (0.0-0.9); Calcium 9.6 mg/dL (8.5-10.1); Carbon Dioxide 22 mmol/L (21-32); Chloride 102 mmol/L (98-108); Estimated Glomerular Filt Rate 54; Glucose 258 mg/dL (70-99); Osmolality Calculated 298 mOsm/kg (285-295); Sodium 138 mmol/L (136-145); Total Protein 8.2 g/dL (6.4-8.2)
[2022-11-30] MEDS: METOCLOPRAMIDE HCL INJ 10 MG/2 ML VIAL IV PUSH (17:57)
[2022-11-30] MEDS: SODIUM CHLORIDE 0.9% IV 1,000 ML 999 ML IV CONT (18:09)
[2022-11-30 19:04] LABS: Appearance Urine Clear (Clear); Bilirubin Urine Negative (Negative); Blood Urine Negative (Negative); Color Urine Light Yellow (Yellow); Glucose Urine UA 1+ (Negative); Ketones Urine 2+ (Negative); Leukocyte Esterase Ur Negative LEU/UL (Negative); Nitrate Urine Negative (Negative); Protein Urine Trace (Negative); Urobilinogen Urine 0.2 mg/dL (0.2-1.0); pH Urine 5.5 (5.0-8.0)
[2022-11-30 19:08] LABS: Add Urine Microscopic? YES; Bacteria Urine Trace /hpf; RBC Urine 0-2 /hpf (0-2); Squamous Epithelial Cell Urine Few /hpf (Few); WBC Urine 0-3 /hpf (0-3)
[2022-11-30 19:09] LABS: Amphetamine Screen Urine Negative (Negative); Barbiturate Screen Urine Positive (Negative); Benzodiazepines Screen Urine Positive (Negative); Cannabinoid Screen Urine Positive (Negative); Cocaine Screen Urine Positive (Negative); Methadone Screen Urine Negative (Negative); Opiate Screen Urine Negative (Negative); Phencyclidine Screen Urine Negative (Negative)
[2022-11-30] MEDS: MAG HYDROX/ALUMINUM HYD/SIMETH 30 ML, PHENobarb/HYOSCY/ATROPINE/SCOP 32.4 MG, LIDOCAINE... PO (19:49)
== END 2022-11-30 20:00 | disposition home or self-care (01) ==
PROVIDERS: Emergency Provider Emergency Medicine; PCP Internal Medicine
DX: F19.10 Other psychoactive substance abuse, uncomplicated (principal); R11.14 Bilious vomiting; E11.9 Type 2 diabetes mellitus without complications; F17.210 Nicotine dependence, cigarettes, uncomplicated; Z79.4 Long term (current) use of insulin; Z79.899 Other long term (current) drug therapy
CPT/HCPCS: 36415; 74177; 80053; 80307; 81001; 85025; 86140; 96361; 96374; 96375; 99284; A9270; J1885; J2405; J2765; J7030; Q9967

== ENCOUNTER 2022-12-08 23:40 | Emergency (ER) | payer OTHER, BC, SELFPAY ==
[2022-12-08 23:43] VITALS: BP 192/111; PULSE 101; RESP 18; TEMP 36.8; O2SAT 99
--- NOTE | 2022-12-08 23:44 | ED.NAVMDI ---
HPI - Nausea/Vomiting/Diarrhea General Chief complaint: Nausea/Vomiting/Diarrhea Stated complaint: Vomiting Source: patient Mode of arrival: ambulatory Limitations: no limitations History of Present Illness HPI Narrative: 57-year-old female with history of smoking, marijuana use,diabetes mellitus PTSD, migraine, GERD, cyclic vomiting syndrome likely secondary to marijuana, cocaine abuse, status post cholecystectomy presents to the ER with a 1 day history -- nausea and retching without any vomiting or diarrhea. Patient is continuously retching without having any vomiting. -- epigastric pain -- No fever or chills. -- No chest pain or shortness of breath. MD elicited complaint: nausea Pertinent past history: cyclical vomiting Onset (ago): day(s) ( started 1 day ago) Associated nausea: Yes Associated abdominal pain: Yes Location of pain: epigastric Severity: moderate Quality: aching Exacerbating factors: none Relieving factors: none Associated symptoms: denies other symptoms Related Data Home Medications Medication Instructions Recorded Confirmed alprazolam 1 mg tablet (Xanax) See Rx Instructions .Route 11/10/20 12/08/22 .COMPLEX PRN Anxiety insulin glargine 100 unit/mL (3 See Rx Instructions .Route .COMPLEX 11/10/20 12/08/22 mL) subcutaneous pen (Lantus Solostar U-100 Insulin) nocpmatixr-lopltdypllhez-paztovyt 1 cap PO BID PRN Migraine Headache 05/10/22 12/08/22 50 mg-300 mg-40 mg capsule verapamil 180 mg tablet,extended 180 mg PO DAILY 05/10/22 12/08/22 release lisinopril 10 mg tablet 10 mg PO DAILY 11/30/22 12/08/22 promethazine 25 mg tablet 25 mg PO PRN PRN Nausea 11/30/22 12/08/22 Allergies Allergy/AdvReac Type Severity Reaction Status Date / Time Sulfa (Sulfonamide Allergy Mild Unknown Verified 11/30/22 16:47 Antibiotics) Penicillins Allergy Unknown Verified 11/30/22 16:47 Review of Systems Review of Systems: All systems reviewed & are unremarkable except as noted in HPI and below Constitutional: Constitutional: Reports as per HPI and Reports no additional constitutional complaints Eyes: Eyes: Reports as per HPI and Reports no additional eye complaints ENT: Reports system reviewed and no additional complaints, except as documented and Reports as per HPI Cardiovascular: Cardiovascular: Reports as per HPI and Reports no additional cardiovascular complaints Respiratory: Respiratory: Reports as per HPI and Reports no additional respiratory complaints Gastrointestinal: Gastrointestinal: Reports as per HPI, Reports no additional gastrointestinal complaints, Reports abdominal pain ( epigastric abdominal pain) and Reports nausea Genitourinary: Genitourinary: Reports no additional female genitourinary complaints Musculoskeletal: Musculoskeletal: Reports no additional musculoskeletal complaints Integumentary/Breasts: Skin/Breast: Reports system reviewed and no additional complaints, except as docu and Reports as per HPI Neurologic: Reports system reviewed and no additional complaints, except as documented and Reports as per HPI Psychiatric: Psychiatric: Reports no additional psychiatric complaints, Reports as per HPI and Reports anxiety Endocrine: Endocrine: Reports no additional endocrine complaints and Reports as per HPI Hematologic/Lymphatic: Hematologic/Lymphatic: Reports no additional hematologic/lymphatic complaints and Reports as per HPI Allergic/Immunologic: Allergic/Immunologic: Reports no additional allergic/immunologic complaints and Reports as per HPI PMFSH Past Medical History Medical History GERD (gastroesophageal reflux disease) Hypokalemia Migraines PTSD (post-traumatic stress disorder) T2DM (type 2 diabetes mellitus) Surgical History Surgical History Hx of cholecystectomy Social History Social History (Reviewed 12/08/22 @ 23:53 by Alex Burt MD
[2022-12-09] MEDS: PROCHLORPERAZINE EDISYLATE 10 MG/2 ML VIAL IV PUSH (00:09)
[2022-12-09 00:10] LABS: Basophils Absolute Auto 0.04 K/mm3 (0.00-0.10); Basophils Percent Auto 0.3 % (0.0-1.0); Eosinophils Absolute Auto 0.39 K/mm3 (0.02-0.50); Eosinophils Percent Auto 2.9 % (1.0-6.0); Hematocrit 38.9 % (35.0-49.0); Hemoglobin 13.4 g/dL (12.0-15.0); Immature Granulocyte Absolute 0.05 K/mm3 (0.00-0.00); Immature Granulocyte Percent A 0.4 % (0.0-0.0); Lymphocytes Absolute Auto 2.66 K/mm3 (1.10-4.50); Lymphocytes Percent Auto 19.6 % (18.0-42.0); Mean Corpuscular HGB Conc 34.4 g/dL (32.0-36.0); Mean Corpuscular Hemoglobin 34.6 pg (27.0-31.0); Mean Corpuscular Volume 100.5 fL (78.0-102.0); Monocytes Absolute Auto 0.89 K/mm3 (0.10-0.90); Monocytes Percent Auto 6.5 % (2.0-11.0); Neutrophils Absolute Auto 9.6 K/mm3 (1.7-7.2); Neutrophils Percent Auto 70.3 % (50.0-70.0); Platelet Count Result 226 K/mm3 (150-420); Red Blood Count 3.87 M/mm3 (4.20-5.40); Red Cell Distribution Width 12.7 % (11.6-14.4); White Blood Count 13.6 K/mm3 (4.8-10.8)
[2022-12-09] MEDS: LACTATED RINGERS 1,000 ML 999 ML IV CONT (00:10)
[2022-12-09 00:20] LABS: Lactic Acid Reflex 1.2 mmol/L (0.4-2.0)
[2022-12-09 00:20] LABS: Alanine Aminotransferase 17 U/L (14-59); Albumin Level 3.5 g/dL (3.4-5.0); Alkaline Phosphatase 114 U/L (46-116); Anion Gap 11 mmol/L (8-16); Aspartate Amino Transferase 11 U/L (15-37); Bilirubin,Total 0.4 mg/dL (0.00-1.00); Blood Urea Nitrogen 10 mg/dL (7-18); Calcium 9.5 mg/dL (8.5-10.1); Carbon Dioxide 24 mmol/L (21-32); Chloride 104 mmol/L (98-108); Estimated CRCL calculation 56 ml/min; Estimated Glomerular Filt Rate 57; Glucose 240 mg/dL (70-99); Lipase 33 U/L (16-77); Osmolality Calculated 295 mOsm/kg (285-295); Potassium 3.9 mmol/L (3.5-5.1); Sodium 139 mmol/L (136-145); Total Protein 7.9 g/dL (6.4-8.2); Troponin I 5.5 ng/L (0.00-60.4)
[2022-12-09] MEDS: HALOPERIDOL LACTATE 5 MG/ML VIAL IM (00:20)
[2022-12-09 00:28] VITALS: BP 189/105; PULSE 93; RESP 20; O2SAT 100
[2022-12-09 01:01] VITALS: BP 199/108; PULSE 92; O2SAT 98
--- NOTE | 2022-12-09 01:06 | PC.NURSE ---
0105-pt has trending bps, showing hypertension. narrative writer addressed pt regarding last administration of bp rx. pt reports around 6pm. dr mondragon made aware of trending bp-hypertension.
[2022-12-09] MEDS: LABETALOL HCL INJ 100 MG/20 ML VIAL 10 MG IV PUSH (01:10)
[2022-12-09 01:20] VITALS: BP 182/95; PULSE 79; RESP 16; O2SAT 95
[2022-12-09] MEDS: hydrALAZINE HCL 20 MG/ML VIAL 10 MG IV PUSH (01:41)
== END 2022-12-09 02:03 | disposition home or self-care (01) ==
PROVIDERS: Emergency Provider Internal Medicine Critical Care Medicine; PCP Internal Medicine
DX: F41.0 Panic disorder [episodic paroxysmal anxiety] (principal); R03.0 Elevated blood-pressure reading, without diagnosis of hypertension; E11.9 Type 2 diabetes mellitus without complications; F17.210 Nicotine dependence, cigarettes, uncomplicated; F12.90 Cannabis use, unspecified, uncomplicated; Z90.49 Acquired absence of other specified parts of digestive tract; Z79.4 Long term (current) use of insulin; Z79.899 Other long term (current) drug therapy
CPT/HCPCS: 36415; 80053; 83605; 83690; 84484; 85025; 96361; 96372; 96374; 96375; 99284; A9270; J0360; J0780; J1630; J7120

== ENCOUNTER 2022-12-11 12:33 | Emergency (ER) | payer OTHER, BC, SELFPAY ==
[2022-12-11 12:33] VITALS: BP 165/111; PULSE 117; RESP 20; TEMP 35.9; O2SAT 97
[2022-12-11 12:43] LABS: Glucose Point of Care 304 mg/dl (65-105)
[2022-12-11 12:45] VITALS: BP 165/111; PULSE 117; RESP 20; TEMP 35.9; O2SAT 97
[2022-12-11 13:01] LABS: Basophils Absolute Auto 0.04 K/mm3 (0.00-0.10); Basophils Percent Auto 0.4 % (0.0-1.0); Eosinophils Absolute Auto 0.11 K/mm3 (0.02-0.50); Hematocrit 40.8 % (35.0-49.0); Hemoglobin 14.3 g/dL (12.0-15.0); Immature Granulocyte Absolute 0.05 K/mm3 (0.00-0.00); Immature Granulocyte Percent A 0.5 % (0.0-0.0); Lymphocytes Absolute Auto 2.15 K/mm3 (1.10-4.50); Lymphocytes Percent Auto 19.9 % (18.0-42.0); Mean Corpuscular Hemoglobin 34.4 pg (27.0-31.0); Mean Corpuscular Volume 98.1 fL (78.0-102.0); Mean Platelet Volume 10.6 fl (9.2-11.8); Monocytes Absolute Auto 0.76 K/mm3 (0.10-0.90); Neutrophils Absolute Auto 7.7 K/mm3 (1.7-7.2); Neutrophils Percent Auto 71.2 % (50.0-70.0); Platelet Count Result 280 K/mm3 (150-420); Red Blood Count 4.16 M/mm3 (4.20-5.40); Red Cell Distribution Width 12.5 % (11.6-14.4); White Blood Count 10.8 K/mm3 (4.8-10.8)
[2022-12-11] MEDS: KETOROLAC 30 MG/ML VIAL (*BKC) IV PUSH (13:01)
[2022-12-11] MEDS: ONDANSETRON INJ 4 MG/2 ML VIAL IV PUSH (13:01)
[2022-12-11 13:10] LABS: Lipase 24 U/L (16-77)
[2022-12-11 13:16] LABS: Alanine Aminotransferase 20 U/L (14-59); Albumin Level 3.9 g/dL (3.4-5.0); Alkaline Phosphatase 119 U/L (46-116); Anion Gap 13 mmol/L (8-16); Aspartate Amino Transferase 13 U/L (15-37); Bilirubin,Total 0.4 mg/dL (0.00-1.00); Blood Urea Nitrogen 18 mg/dL (7-18); Calcium 9.8 mg/dL (8.5-10.1); Carbon Dioxide 23 mmol/L (21-32); Chloride 97 mmol/L (98-108); Estimated Glomerular Filt Rate 42; Glucose 332 mg/dL (70-99); Osmolality Calculated 290 mOsm/kg (285-295); Potassium 3.6 mmol/L (3.5-5.1); Sodium 133 mmol/L (136-145); Total Protein 8.2 g/dL (6.4-8.2)
[2022-12-11 13:19] LABS: Bilirubin Urine Negative (Negative); Blood Urine Negative (Negative); Color Urine Yellow (Yellow); Glucose Urine UA 1+ (Negative); Ketones Urine Negative (Negative); Leukocyte Esterase Ur Negative LEU/UL (Negative); Nitrate Urine Negative (Negative); Protein Urine 1+ (Negative); Specific Grav Ur >= 1.030 (1.010-1.020); Urobilinogen Urine 0.2 mg/dL (0.2-1.0); pH Urine 5.5 (5.0-8.0)
--- NOTE | 2022-12-11 13:22 | ED.NAVMDI ---
HPI - Nausea/Vomiting/Diarrhea General Chief complaint: Nausea/Vomiting/Diarrhea Stated complaint: vomiting Time Seen by Provider: 12/11/22 12:39 Source: patient Mode of arrival: ambulatory Limitations: no limitations History of Present Illness HPI Narrative: this is 57-year-old female with cyclical vomiting syndrome history of marijuana use that has presented to the ER 3 times the last 10 days with similar episodes, there is currently some nausea vomiting and epigastric burning with no no dysuria no pain no diarrhea or constipation no chest pain or shortness of breath. MD elicited complaint: nausea and vomiting Onset (ago): day(s) Related Data Home Medications Medication Instructions Recorded Confirmed alprazolam 1 mg tablet (Xanax) See Rx Instructions .Route 11/10/20 12/11/22 .COMPLEX PRN Anxiety insulin glargine 100 unit/mL (3 See Rx Instructions .Route .COMPLEX 11/10/20 12/11/22 mL) subcutaneous pen (Lantus Solostar U-100 Insulin) ddooryplpc-dzsvfimtcqjvj-pojehjxx 1 cap PO BID PRN Migraine Headache 05/10/22 12/11/22 50 mg-300 mg-40 mg capsule verapamil 180 mg tablet,extended 180 mg PO DAILY 05/10/22 12/11/22 release lisinopril 10 mg tablet 10 mg PO DAILY 11/30/22 12/11/22 promethazine 25 mg tablet 25 mg PO PRN PRN Nausea 11/30/22 12/11/22 Allergies Allergy/AdvReac Type Severity Reaction Status Date / Time Sulfa (Sulfonamide Allergy Mild Unknown Verified 12/11/22 12:43 Antibiotics) Penicillins Allergy Unknown Verified 12/11/22 12:43 Review of Systems Review of Systems: All systems reviewed & are unremarkable except as noted in HPI and below PMFSH Past Medical History Medical History GERD (gastroesophageal reflux disease) Hypokalemia Migraines PTSD (post-traumatic stress disorder) T2DM (type 2 diabetes mellitus) Surgical History Surgical History Hx of cholecystectomy Social History Social History Smoking packs per day: 1 Smoking cigarettes per day: 20.0 Years smoked: 30 Smoking pack-years: 30.00 Smoking status: Light tobacco smoker Tobacco type: cigarettes Second hand tobacco smoke exposure: Yes Alcohol intake: unknown Substance use: unknown Substance use type: unknown Gender identity (if verbalized by the patient): Female Sexual Orientation (if Verbalized by the Patient): Straight or Heterosexual Spiritual care concerns: No Exam Const: Nutritional Appearance: obese Orientation/consciousness: patient oriented x3 Limitations: no limitations Chest: Chest palpation & inspection: normal inspection of the chest Resp: Effort & Inspection: normal respiratory effort Auscultation: clear to auscultation bilaterally Cardio: Rate: regular rate Rhythm: regular rhythm GI: GI Palp: Yes Soft to palpation Auscultation: normal bowel sounds : General: Yes bladder normal to palpation Back/Spine/Pelvis: Back: no CVA tenderness Skin: General skin exam: normal color Rashes: no rashes Wounds: no wounds Neuro: General: patient oriented x3 and moves all extremities Extrem: General: normal to inspection Psych: Mental Status: mental status grossly normal Affect: normal affect Course Course Emergency Course: Symptoms of nausea and vomiting have improved after receiving IV Zofran IV Protonix IV Toradol mild headache from the nausea vomiting. Patient had blood work performed and reviewed sodium level was slightly diminished at 133 and the patient receiving a normal saline bolus of 500 mL, advised to keep follow-up appointments with her GI doctor and to continue a clear liquid diet advanced as tolerated. Vital Signs Vital signs: Vital Signs Temperature 35.9 C L 12/11/22 12:33 Pulse Rate 117 H 12/11/22 12:33 Respiratory Rate 20 12/11/22 12:33 Blood Pressure 165/111 H 12/11/22
[2022-12-11 13:23] LABS: Add Urine Microscopic? YES; Appearance Urine Cloudy (Clear); Bacteria Urine 2+ /hpf; RBC Urine None seen /hpf (0-2); Squamous Epithelial Cell Urine Moderate /hpf (Few); WBC Urine None seen /hpf (0-3)
[2022-12-11] MEDS: SODIUM CHLORIDE 0.9% IV 500 ML 999 ML IV CONT (13:26)
[2022-12-11 13:55] VITALS: BP 145/75; PULSE 79; RESP 18; TEMP 36.4; O2SAT 97
== END 2022-12-11 14:05 | disposition home or self-care (01) ==
PROVIDERS: Emergency Provider Emergency Medicine; PCP Internal Medicine
DX: E86.0 Dehydration (principal); R11.15 Cyclical vomiting syndrome unrelated to migraine; E11.9 Type 2 diabetes mellitus without complications; F17.210 Nicotine dependence, cigarettes, uncomplicated; Z79.4 Long term (current) use of insulin; Z79.899 Other long term (current) drug therapy; Z90.49 Acquired absence of other specified parts of digestive tract
CPT/HCPCS: 36415; 80053; 81001; 82948; 83690; 85025; 96361; 96374; 96375; 99284; J1885; J2405; J7040

== ENCOUNTER 2023-01-15 16:45 | Emergency (ER) | payer OTHER, BC, SELFPAY ==
--- NOTE | ~2023-01-15 | CT_ITS ---
EXAMINATION: CT abdomen pelvis wo con DATE: 01/15/2023 18:34 INDICATION: Nausea and vomiting. Abdominal pain. TECHNIQUE: Computed tomography (CT) of the abdomen and pelvis was performed without intravenous contr ast. Automated exposure control and iterative reconstruction technique were employed. The dose-length product was 697.75 mGy-cm. COMPARISON: None FINDINGS: Lung bases are clear. Heart size is normal. No pericardial or pleural effusion. Small sliding-type hi atal hernia. Cholecystectomy clips at the gallbladder fossa. Liver, spleen, pancreas, bilateral adren al glands and kidneys are normal. There is a 4 cm long 8 mm diameter macroscopic fat attenuation intr aluminal lipoma within the distal sigmoid colon. Moderate diverticulosis with sigmoid colon predomina nce but without surrounding from trace stranding to suggest diverticulitis. Small bowel and appendix are normal. Bladder is normal. The uterus is not identified and has likely been surgically resected. No free intraperitoneal gas or fluid. No pathologically enlarged abdominal or pelvic lymphadenopathy. Severe thoracolumbar spondylosis. IMPRESSION: 1. No acute intra-abdominal/pelvic process. 2. Small sliding-type hiatal hernia. 3. Sigmoid predominant diverticulosis and sigmoid intraluminal lipoma. Reviewed, dictated and finalized at location A.
[2023-01-15 16:45] VITALS: BP 173/105; PULSE 109; RESP 22; TEMP 36.8; O2SAT 95
--- NOTE | 2023-01-15 17:07 | ED.NAVMDI ---
HPI - Nausea/Vomiting/Diarrhea General Chief complaint: Nausea/Vomiting/Diarrhea Stated complaint: nausea, vomiting Time Seen by Provider: 01/15/23 16:57 Source: patient Mode of arrival: ambulatory Limitations: no limitations History of Present Illness HPI Narrative: 57 yo F with history of cyclic nausea and vomiting that frequently landed her in the ER in the past, marijuana use, DM 2, HTN, HLD, anxiety, presents to ED for uncontrollable nausea and vomiting. She took a Zofran and Promethazine at home without relief. She has been cutting back on the marijuana but last night went to a constitution party and smoked a considerable amount of marijuana. MD elicited complaint: nausea and vomiting Pertinent past history: cyclical vomiting Onset (ago): hour(s) Description of vomiting: none Associated nausea: Yes Associated abdominal pain: No Location of pain: none Context: marijuana use Treatment prior to arrival: other Related Data Home Medications Medication Instructions Recorded Confirmed alprazolam 1 mg tablet (Xanax) See Rx Instructions .Route 11/10/20 01/15/23 .COMPLEX PRN Anxiety insulin glargine 100 unit/mL (3 See Rx Instructions .Route .COMPLEX 11/10/20 01/15/23 mL) subcutaneous pen (Lantus Solostar U-100 Insulin) tjwbcfudjq-qodkidmyrmlvn-mutmsaup 1 cap PO BID PRN Migraine Headache 05/10/22 01/15/23 50 mg-300 mg-40 mg capsule verapamil 180 mg tablet,extended 180 mg PO DAILY 05/10/22 01/15/23 release lisinopril 10 mg tablet 10 mg PO DAILY 11/30/22 01/15/23 atorvastatin 20 mg tablet 20 mg PO DAILY 01/15/23 01/15/23 Allergies Allergy/AdvReac Type Severity Reaction Status Date / Time Sulfa (Sulfonamide Allergy Mild Unknown Verified 01/15/23 17:03 Antibiotics) Penicillins Allergy Unknown Verified 01/15/23 17:03 Review of Systems Constitutional: Constitutional: Reports as per HPI and Reports no additional constitutional complaints Eyes: Eyes: Reports as per HPI and Reports no additional eye complaints ENT: Reports system reviewed and no additional complaints, except as documented and Reports as per HPI Cardiovascular: Cardiovascular: Reports as per HPI and Reports no additional cardiovascular complaints Respiratory: Respiratory: Reports as per HPI and Reports no additional respiratory complaints Gastrointestinal: Gastrointestinal: Reports as per HPI and Reports no additional gastrointestinal complaints Genitourinary: Genitourinary: Reports as per HPI Musculoskeletal: Musculoskeletal: Reports no additional musculoskeletal complaints and Reports as per HPI Integumentary/Breasts: Skin/Breast: Reports system reviewed and no additional complaints, except as docu and Reports as per HPI Neurologic: Reports system reviewed and no additional complaints, except as documented and Reports as per HPI Psychiatric: Psychiatric: Reports no additional psychiatric complaints and Reports as per HPI Endocrine: Endocrine: Reports no additional endocrine complaints and Reports as per HPI Hematologic/Lymphatic: Hematologic/Lymphatic: Reports no additional hematologic/lymphatic complaints and Reports as per HPI Allergic/Immunologic: Allergic/Immunologic: Reports no additional allergic/immunologic complaints and Reports as per HPI PMFSH Past Medical History Medical History GERD (gastroesophageal reflux disease) Hypokalemia Migraines PTSD (post-traumatic stress disorder) T2DM (type 2 diabetes mellitus) Surgical History Surgical History Hx of cholecystectomy Social History Social History Smoking packs per day: 1 Smoking cigarettes per day: 20.0 Years smoked: 30 Smoking pack-years: 30.00 Smoking status: Light tobacco smoker Tobacco type: cigarettes Second hand tobacco smoke exposure: Yes Alcohol intake: unknown Substance use: unknown Subst
[2023-01-15] MEDS: FAMOTIDINE 20 MG/2 ML VIAL 40 MG IV PUSH (17:23)
[2023-01-15] MEDS: diphenhydrAMINE HCl INJ 50 MG/ML VIAL 25 MG IV PUSH (17:23)
[2023-01-15] MEDS: ONDANSETRON INJ 4 MG/2 ML VIAL IV PUSH (17:25)
[2023-01-15] MEDS: PROCHLORPERAZINE EDISYLATE 10 MG/2 ML VIAL IV PUSH (17:42)
[2023-01-15] MEDS: SODIUM CHLORIDE 0.9% IV 500 ML 999 ML IV CONT (17:43)
[2023-01-15 17:47] LABS: Basophils Absolute Auto 0.04 K/mm3 (0.00-0.10); Basophils Percent Auto 0.4 % (0.0-1.0); Eosinophils Absolute Auto 0.21 K/mm3 (0.02-0.50); Eosinophils Percent Auto 2.2 % (1.0-6.0); Hematocrit 42.8 % (35.0-49.0); Hemoglobin 14.6 g/dL (12.0-15.0); Immature Granulocyte Absolute 0.03 K/mm3 (0.00-0.00); Immature Granulocyte Percent A 0.3 % (0.0-0.0); Lymphocytes Absolute Auto 1.76 K/mm3 (1.10-4.50); Lymphocytes Percent Auto 18.5 % (18.0-42.0); Mean Corpuscular HGB Conc 34.1 g/dL (32.0-36.0); Mean Corpuscular Hemoglobin 33.5 pg (27.0-31.0); Mean Corpuscular Volume 98.2 fL (78.0-102.0); Mean Platelet Volume 10.8 fl (9.2-11.8); Monocytes Absolute Auto 0.51 K/mm3 (0.10-0.90); Monocytes Percent Auto 5.4 % (2.0-11.0); Neutrophils Percent Auto 73.2 % (50.0-70.0); Platelet Count Result 269 K/mm3 (150-420); Red Blood Count 4.36 M/mm3 (4.20-5.40); Red Cell Distribution Width 12.5 % (11.6-14.4); White Blood Count 9.5 K/mm3 (4.8-10.8)
[2023-01-15 17:58] LABS: Alanine Aminotransferase 19 U/L (14-59); Albumin Level 3.8 g/dL (3.4-5.0); Alkaline Phosphatase 116 U/L (46-116); Anion Gap 14 mmol/L (8-16); Aspartate Amino Transferase 12 U/L (15-37); Bilirubin,Total 0.7 mg/dL (0.00-1.00); Blood Urea Nitrogen 14 mg/dL (7-18); Calcium 9.7 mg/dL (8.5-10.1); Carbon Dioxide 25 mmol/L (21-32); Chloride 102 mmol/L (98-108); Estimated CRCL calculation 56 ml/min; Estimated Glomerular Filt Rate 57; Glucose 162 mg/dL (70-99); Lipase 20 U/L (16-77); Osmolality Calculated 296 mOsm/kg (285-295); Potassium 3.3 mmol/L (3.5-5.1); Sodium 141 mmol/L (136-145)
[2023-01-15 18:02] LABS: Bilirubin Urine 1+ (Negative); Blood Urine Trace-Intact (Negative); Color Urine Yellow (Yellow); Glucose Urine UA Negative (Negative); Ketones Urine 2+ (Negative); Leukocyte Esterase Ur 1+ LEU/UL (Negative); Nitrate Urine Positive (Negative); Protein Urine 2+ (Negative); Specific Grav Ur >= 1.030 (1.010-1.020); Urobilinogen Urine 0.2 mg/dL (0.2-1.0)
[2023-01-15 18:06] LABS: Amphetamine Screen Urine Negative (Negative); Barbiturate Screen Urine Positive (Negative); Benzodiazepines Screen Urine Positive (Negative); Cannabinoid Screen Urine Positive (Negative); Cocaine Screen Urine Positive (Negative); Methadone Screen Urine Negative (Negative); Opiate Screen Urine Negative (Negative); Phencyclidine Screen Urine Negative (Negative)
[2023-01-15 18:40] LABS: Add Urine Microscopic? YES; Appearance Urine Turbid (Clear); RBC Urine 0-2 /hpf (0-2); WBC Urine >100 /hpf (0-3)
--- NOTE | 2023-01-15 18:40 | PC.NURSE ---
On 01/15/23, the student, [SHENA HARTMAN ], provided care and completed [facility] documentation on this patient. I have reviewed the student's documentation and agree with the findings.
[2023-01-15 18:41] LABS: Bacteria Urine 4+ /hpf; Mucus Urine Moderate /lpf; Squamous Epithelial Cell Urine Few /hpf (Few)
[2023-01-15 19:17] VITALS: BP 160/94; PULSE 94; RESP 16; O2SAT 97
[2023-01-15] MEDS: KCL 20 MEQ/SW 100 ML 100 ML 50 MEQ IVPB (19:36)
[2023-01-15] MEDS: levoFLOXacin 750 MG/D5W 150 ML 750 MG/150 ML BAG 100 MG IVPB (19:36)
[2023-01-15] MEDS: SODIUM CHLORIDE 0.9% IV 1,000 ML 500 ML IV CONT (19:39)
--- NOTE | 2023-01-15 19:58 | PC.NURSE ---
1920-RABIES INSPECTOR AT BEDSIDE, PT NOTED TO BE RESTING ON STRETCHER. PT DENIES CURRENT EPISODES OF EMESIS AND NAUSEA AFTER PREVIOUS MEDICATION ADMINISTRATION. PT REPORTS JUST TIRED. PT HOOKED TO CLOUD DEVELOPER BEFORE MEDICATION ADMINISTRATION. RABIES INSPECTOR PROVIDED UPDATE REGARDING STATUS OF CARE, PT VERBALIZED UNDERSTANDING AND DENIES ANY QUESTIONS AT THIS TIME. PT DENIES ANY NEEDS, CALL LIGHT REMAINS IN REACH.
[2023-01-15 21:00] VITALS: BP 169/99; PULSE 96; RESP 18; O2SAT 97
[2023-01-15 21:32] VITALS: BP 157/92; PULSE 91; RESP 20; O2SAT 96
--- NOTE | 2023-01-18 15:42 | PC.NURSE ---
PRELIMINARY URINE CULTURE RESULTS: ISOLATE 1: GREATER THAN 100,000 CFU/ML OF ESCHERICHIA COLI. PER DR DOLL, TO AWAIT C&S.
--- NOTE | 2023-01-19 13:16 | PC.NURSE ---
FINAL URINE CULTURE RECEIVED PT SENT HOME ON LEVOFLOXACIN WHICH IS SUSEPTIBLE
== END 2023-01-15 22:00 | disposition home or self-care (01) ==
PROVIDERS: Emergency Provider Emergency Medicine; PCP Internal Medicine
DX: R11.15 Cyclical vomiting syndrome unrelated to migraine (principal); F12.988 Cannabis use, unspecified with other cannabis-induced disorder; R11.2 Nausea with vomiting, unspecified; E11.9 Type 2 diabetes mellitus without complications; E78.5 Hyperlipidemia, unspecified; I10 Essential (primary) hypertension; F17.210 Nicotine dependence, cigarettes, uncomplicated; Z79.899 Other long term (current) drug therapy; Z79.4 Long term (current) use of insulin
CPT/HCPCS: 36415; 74176; 80053; 80307; 81001; 83690; 85025; 87077; 87086; 87088; 87186; 96361; 96365; 96366; 96368; 96375; 99284; J0780; J1200; J1956; J2405; J3480; J7030; J7040

== ENCOUNTER 2023-01-23 04:24 | Emergency (ER) | payer OTHER, BC, SELFPAY ==
[2023-01-23 04:32] VITALS: BP 155/100; PULSE 85; RESP 20; TEMP 36.4; O2SAT 98
--- NOTE | 2023-01-23 04:34 | ED.NAVMDI ---
HPI - Nausea/Vomiting/Diarrhea General Chief complaint: Nausea/Vomiting/Diarrhea Stated complaint: vomiting Time Seen by Provider: 01/23/23 04:34 Source: patient Mode of arrival: ambulatory Limitations: no limitations History of Present Illness HPI Narrative: 57-year-old female, smoker, marijuana user with migraine, PTSD, anxiety, hypertension, diabetes mellitus, dyslipidemia, GERD,cyclic vomiting syndrome with multiple ER visits presents to the ER with a 6 hour history of -- nausea with multiple episodes of vomiting. -- patient is attempting to gag herself to vomit. She denies any fever. No abdominal pain or diarrhea. This is similar to her previous episodes of cyclic vomiting which she gets after marijuana use. MD elicited complaint: nausea and vomiting Pertinent past history: anorexia and cyclical vomiting Onset (ago): hour(s) ( Started 6 hours ago) Description of vomiting: watery Associated nausea: Yes Associated abdominal pain: No Exacerbating factors: none and other ( marijuana use) Relieving factors: none Associated symptoms: denies other symptoms Related Data Home Medications Medication Instructions Recorded Confirmed alprazolam 1 mg tablet (Xanax) See Rx Instructions .Route 11/10/20 01/15/23 .COMPLEX PRN Anxiety insulin glargine 100 unit/mL (3 See Rx Instructions .Route .COMPLEX 11/10/20 01/15/23 mL) subcutaneous pen (Lantus Solostar U-100 Insulin) mrzwucoski-tnxgctlgieweo-cdeonqvk 1 cap PO BID PRN Migraine Headache 05/10/22 01/15/23 50 mg-300 mg-40 mg capsule verapamil 180 mg tablet,extended 180 mg PO DAILY 05/10/22 01/15/23 release lisinopril 10 mg tablet 10 mg PO DAILY 11/30/22 01/15/23 atorvastatin 20 mg tablet 20 mg PO DAILY 01/15/23 01/15/23 Allergies Allergy/AdvReac Type Severity Reaction Status Date / Time Sulfa (Sulfonamide Allergy Mild Unknown Verified 01/15/23 17:03 Antibiotics) Penicillins Allergy Unknown Verified 01/15/23 17:03 Review of Systems Review of Systems: All systems reviewed & are unremarkable except as noted in HPI and below Constitutional: Constitutional: Reports as per HPI and Reports no additional constitutional complaints Eyes: Eyes: Reports as per HPI and Reports no additional eye complaints ENT: Reports system reviewed and no additional complaints, except as documented and Reports as per HPI Cardiovascular: Cardiovascular: Reports as per HPI and Reports no additional cardiovascular complaints Respiratory: Respiratory: Reports as per HPI and Reports no additional respiratory complaints Gastrointestinal: Gastrointestinal: Reports as per HPI, Reports no additional gastrointestinal complaints, Reports nausea and Reports vomiting Genitourinary: Genitourinary: Reports no additional female genitourinary complaints and Reports as per HPI Musculoskeletal: Musculoskeletal: Reports no additional musculoskeletal complaints and Reports as per HPI Integumentary/Breasts: Skin/Breast: Reports system reviewed and no additional complaints, except as docu and Reports as per HPI Neurologic: Reports system reviewed and no additional complaints, except as documented and Reports as per HPI Psychiatric: Psychiatric: Reports no additional psychiatric complaints and Reports as per HPI Endocrine: Endocrine: Reports no additional endocrine complaints and Reports as per HPI Hematologic/Lymphatic: Hematologic/Lymphatic: Reports no additional hematologic/lymphatic complaints and Reports as per HPI Allergic/Immunologic: Allergic/Immunologic: Reports no additional allergic/immunologic complaints and Reports as per HPI PMFSH Past Medical History Medical History GERD (gastroesophageal reflux disease) Hypokalemia Migraines PTSD (post-traumatic stress disorder) T2DM (type 2 diabetes mellitus) Surgical History Surgical History Hx of cholecystectomy Social His
[2023-01-23] MEDS: PROCHLORPERAZINE EDISYLATE 10 MG/2 ML VIAL IV PUSH (04:56)
[2023-01-23] MEDS: LACTATED RINGERS 1,000 ML 999 ML IV CONT ×2 (04:56→05:37)
[2023-01-23] MEDS: SUMAtriptan SUCCINATE 6 MG/0.5 ML VIAL SUB-Q (04:57)
[2023-01-23] MEDS: PANTOPRAZOLE SODIUM IV 40 MG VIAL IV PUSH (04:57)
[2023-01-23 05:21] LABS: Basophils Absolute Auto 0.03 K/mm3 (0.00-0.10); Basophils Percent Auto 0.4 % (0.0-1.0); Eosinophils Absolute Auto 0.05 K/mm3 (0.02-0.50); Eosinophils Percent Auto 0.6 % (1.0-6.0); Hematocrit 43.2 % (35.0-49.0); Hemoglobin 14.7 g/dL (12.0-15.0); Immature Granulocyte Absolute 0.04 K/mm3 (0.00-0.00); Immature Granulocyte Percent A 0.5 % (0.0-0.0); Lymphocytes Absolute Auto 1.11 K/mm3 (1.10-4.50); Lymphocytes Percent Auto 13.7 % (18.0-42.0); Mean Corpuscular Hemoglobin 33.2 pg (27.0-31.0); Mean Corpuscular Volume 97.5 fL (78.0-102.0); Mean Platelet Volume 10.8 fl (9.2-11.8); Monocytes Absolute Auto 0.31 K/mm3 (0.10-0.90); Monocytes Percent Auto 3.8 % (2.0-11.0); Neutrophils Absolute Auto 6.6 K/mm3 (1.7-7.2); Platelet Count Result 225 K/mm3 (150-420); Red Blood Count 4.43 M/mm3 (4.20-5.40); Red Cell Distribution Width 12.4 % (11.6-14.4); White Blood Count 8.1 K/mm3 (4.8-10.8)
[2023-01-23 05:39] LABS: Lactic Acid Reflex 1.6 mmol/L (0.4-2.0)
[2023-01-23 05:45] LABS: Alanine Aminotransferase 17 U/L (14-59); Albumin Level 4.3 g/dL (3.4-5.0); Alkaline Phosphatase 128 U/L (46-116); Anion Gap 14 mmol/L (8-16); Aspartate Amino Transferase < 10 U/L (15-37); Bilirubin,Total 0.4 mg/dL (0.00-1.00); Blood Urea Nitrogen 17 mg/dL (7-18); Calcium 10.5 mg/dL (8.5-10.1); Carbon Dioxide 25 mmol/L (21-32); Chloride 100 mmol/L (98-108); Estimated CRCL calculation 47 ml/min; Estimated Glomerular Filt Rate 46; Glucose 262 mg/dL (70-99); Lipase 24 U/L (16-77); Osmolality Calculated 298 mOsm/kg (285-295); Potassium 3.4 mmol/L (3.5-5.1); Sodium 139 mmol/L (136-145); Total Protein 8.7 g/dL (6.4-8.2); Troponin I 7.6 ng/L (0.00-60.4)
[2023-01-23 05:55] VITALS: BP 140/82; PULSE 81; RESP 18; O2SAT 98
[2023-01-23 06:29] VITALS: BP 136/89; PULSE 72; RESP 18; TEMP 36.6; O2SAT 95
== END 2023-01-23 06:43 | disposition home or self-care (01) ==
PROVIDERS: Emergency Provider Internal Medicine Critical Care Medicine; PCP Internal Medicine
DX: R11.15 Cyclical vomiting syndrome unrelated to migraine (principal); E86.0 Dehydration; E11.65 Type 2 diabetes mellitus with hyperglycemia; I10 Essential (primary) hypertension; E78.5 Hyperlipidemia, unspecified; F17.210 Nicotine dependence, cigarettes, uncomplicated
CPT/HCPCS: 36415; 80053; 83605; 83690; 84484; 85025; 96361; 96372; 96374; 96375; 99284; C9113; J0780; J3030; J7120

== ENCOUNTER 2023-07-26 08:37 | Outpatient (CLI) | payer OTHER, SELFPAY ==
[2023-07-26 09:11] LABS: Basophils Absolute Auto 0.03 K/mm3 (0.00-0.10); Basophils Percent Auto 0.5 % (0.0-1.0); Eosinophils Absolute Auto 0.24 K/mm3 (0.02-0.50); Eosinophils Percent Auto 4.1 % (1.0-6.0); Hematocrit 41.5 % (35.0-49.0); Hemoglobin 14.1 g/dL (12.0-15.0); Immature Granulocyte Absolute 0.02 K/mm3 (0.00-0.00); Immature Granulocyte Percent A 0.3 % (0.0-0.0); Lymphocytes Absolute Auto 1.69 K/mm3 (1.10-4.50); Lymphocytes Percent Auto 28.6 % (18.0-42.0); Mean Corpuscular Hemoglobin 32.3 pg (27.0-31.0); Mean Platelet Volume 10.7 fl (9.2-11.8); Monocytes Absolute Auto 0.34 K/mm3 (0.10-0.90); Monocytes Percent Auto 5.8 % (2.0-11.0); Neutrophils Absolute Auto 3.59 K/mm3 (1.70-7.20); Neutrophils Percent Auto 60.7 % (50.0-70.0); Platelet Count Result 225 K/mm3 (150-420); Red Blood Count 4.37 M/mm3 (4.20-5.40); Red Cell Distribution Width 12.5 % (11.6-14.4); White Blood Count 5.9 K/mm3 (4.8-10.8)
[2023-07-26 09:24] LABS: Hemoglobin A1C 9.1 % (<5.7)
[2023-07-26 09:41] LABS: Alanine Aminotransferase 24 U/L (14-59); Albumin Level 3.6 g/dL (3.4-5.0); Alkaline Phosphatase 144 U/L (46-116); Anion Gap 9 mmol/L (4-12); Aspartate Amino Transferase 14 U/L (15-37); Bilirubin,Total 0.4 mg/dL (0.00-1.00); Blood Urea Nitrogen 15 mg/dL (7-18); Calcium 8.8 mg/dL (8.5-10.1); Carbon Dioxide 27 mmol/L (21-32); Chloride 103 mmol/L (98-108); Cholesterol 292 mg/dL (0-200); Estimated Glomerular Filt Rate > 60; Glucose 257 mg/dL (70-99); HDL Direct 51 mg/dL (40-60); LDL Cholesterol Calculated 193 mg/dL (<130); Osmolality Calculated 297 mOsm/kg (285-295); Potassium 4.3 mmol/L (3.5-5.1); Sodium 139 mmol/L (136-145); Total Protein 7.2 g/dL (6.4-8.2); Triglycerides 239 mg/dL (0-150)
== END 2023-07-26 08:38 | disposition home or self-care (01) ==
PROVIDERS: PCP Internal Medicine; Visit Provider Internal Medicine
DX: E11.65 Type 2 diabetes mellitus with hyperglycemia (principal); E78.5 Hyperlipidemia, unspecified; I10 Essential (primary) hypertension
CPT/HCPCS: 36415; 80053; 80061; 83036; 85025

== ENCOUNTER 2023-08-26 15:21 | Outpatient (CLI) | payer OTHER, SELFPAY ==
--- NOTE | 2023-08-26 15:28 | ECG_ITS ---
SEE SCANNED COPY FOR CONFIRMED REPORT MTDD
== END 2023-08-26 15:22 | disposition home or self-care (01) ==
LOC: CHSCARD 15:23
PROVIDERS: PCP Internal Medicine; Visit Provider Internal Medicine
DX: R07.9 Chest pain, unspecified (principal); I45.19 Other right bundle-branch block; R94.31 Abnormal electrocardiogram [ECG] [EKG]
CPT/HCPCS: 93005

== ENCOUNTER 2023-12-23 19:33 | Emergency (ER) | payer OTHER, SELFPAY ==
[2023-12-23] VITALS (10 sets, daily range): BP systolic 146–157; BP diastolic 85–129; PULSE 104–112; RESP 17–24; TEMP 36.5; O2SAT 92–98
--- NOTE | ~2023-12-23 | CT_ITS ---
CTA chest PE protocol Ordering provider: Eloy Monge MD History: 58 years Female with . chest pain, + d-dimer. . Comparison: June 04, 2021 Technique: CT angiogram chest was performed following timed intravenous injection of contrast. Thin s lice axial images and reformatted coronal images were obtained. Three dimensional reformatted images of the chest were also obtained using a [employer] workstation. . Automated exposure control and iterati ve reconstruction technique were employed. The dose-length product was 473.84 mGy-cm. 100 mL Omnipaqu e 350 was given IV. Findings: PULMONARY ARTERIES: No pulmonary embolus. VISUALIZED THORACIC INLET: Normal. MEDIASTINUM: Aorta/coronary arteries: The thoracic aorta is normal. Heart/other: The heart is not enlarged. Lymph nodes: No mediastinal or hilar adenopathy. LUNGS: No pulmonary nodules or masses. No infiltrates or effusions. No pneumothorax. Dependent atelectatic c hanges. VISUALIZED UPPER ABDOMEN: Sliding hiatus hernia. Prominent both adrenal glands. 1.3 cm adenoma in the left adrenal is highly suggestive. No follow-up advised unless clinically warranted. Otherwise, the visualized upper abdomen is normal. MUSCULOSKELETAL: Soft tissues: The superficial soft tissues are normal. Bones: Age appropriate degenerative changes of the spine. Healing fracture is seen in the right third and fourth ribs IMPRESSION: 1. No pulmonary embolism. 2. No acute cardiopulmonary pathology. 3. Sliding hiatus hernia. 4. Left adrenal adenoma with prominent both adrenal glands. Reviewed, dictated and finalized at location A.
--- NOTE | ~2023-12-23 | XR_ITS ---
XR chest 1V portable Ordering provider: Eloy Monge MD History: 58 years Female with . chest pain, VOMITING. . Comparison: May 10, 2022 FINDINGS: MEDIASTINUM: The cardiac silhouette is not enlarged. Congestive alexandra. Prominent markings bilaterally. LUNGS: No infiltrates, effusions or pneumothorax. Opacity in the right lower lobe unchanged from previous examination. OTHER: No free air under the diaphragm. Degenerative spine. IMPRESSION: No acute cardiopulmonary pathology. Reviewed, dictated and finalized at location A.
[2023-12-23 19:38] LABS: Glucose Point of Care 199 mg/dl (65-105)
--- NOTE | 2023-12-23 19:38 | ED.NAVMDI ---
HPI - Nausea/Vomiting/Diarrhea General Chief complaint: Nausea/Vomiting/Diarrhea Stated complaint: High blood sugar, chest pain, vomiting Time Seen by Provider: 12/23/23 19:35 Source: patient Mode of arrival: ambulatory Limitations: no limitations History of Present Illness HPI Narrative: 58 year old female presents to the Emergency Department complaining of nausea and vomiting for past week. [place] better today and went to work, but began again tonight. States has chest pains and blood sugar high. History of diabetes. is using her insulin. States uses marijuana daily. MD elicited complaint: nausea and vomiting Pertinent past history: cyclical vomiting Onset (ago): week(s) (1) Associated nausea: Yes Exacerbating factors: none Relieving factors: none Context: marijuana use (daily) Associated symptoms: chest pain Related Data Home Medications Medication Instructions Recorded Confirmed alprazolam 1 mg tablet (Xanax) See Rx Instructions .Route 11/10/20 12/23/23 .COMPLEX PRN Anxiety insulin glargine 100 unit/mL (3 See Rx Instructions .Route .COMPLEX 11/10/20 12/23/23 mL) subcutaneous pen (Lantus Solostar U-100 Insulin) awgsuoqjeg-bfrpphwdybbap-jeiroqul 1 cap PO BID PRN Migraine Headache 05/10/22 12/23/23 50 mg-300 mg-40 mg capsule verapamil 180 mg tablet,extended 180 mg PO DAILY 05/10/22 12/23/23 release lisinopril 10 mg tablet 10 mg PO DAILY 11/30/22 12/23/23 atorvastatin 20 mg tablet 20 mg PO DAILY 01/15/23 12/23/23 propranolol 10 mg tablet 10 mg PO TID 12/23/23 12/23/23 Allergies Allergy/AdvReac Type Severity Reaction Status Date / Time Sulfa (Sulfonamide Allergy Mild Unknown Verified 12/23/23 19:45 Antibiotics) Penicillins Allergy Unknown Verified 12/23/23 19:45 Review of Systems Review of Systems: All systems reviewed & are unremarkable except as noted in HPI and below Constitutional: Constitutional: Reports as per HPI, Denies chills and Denies fever(s) Eyes: Eyes: Reports as per HPI ENT: Reports system reviewed and no additional complaints, except as documented Cardiovascular: Cardiovascular: Reports as per HPI and Reports chest pain Respiratory: Respiratory: Reports as per HPI, Denies chest congestion, Denies cough and Denies dyspnea Gastrointestinal: Gastrointestinal: Reports as per HPI, Denies diarrhea, Reports nausea and Reports vomiting Genitourinary: Genitourinary: Reports no additional female genitourinary complaints, Denies nocturia and Denies dysuria Musculoskeletal: Musculoskeletal: Reports no additional musculoskeletal complaints Integumentary/Breasts: Skin/Breast: Reports system reviewed and no additional complaints, except as docu Neurologic: Reports system reviewed and no additional complaints, except as documented PMFSH Past Medical History Medical History GERD (gastroesophageal reflux disease) Hypokalemia Migraines PTSD (post-traumatic stress disorder) T2DM (type 2 diabetes mellitus) Surgical History Surgical History Hx of cholecystectomy Social History Social History Smoking packs per day: 1 Smoking cigarettes per day: 20.0 Years smoked: 30 Smoking pack-years: 30.00 Smoking status: Light tobacco smoker Tobacco type: cigarettes Second hand tobacco smoke exposure: Yes Alcohol intake: unknown Substance use: unknown Substance use type: unknown Gender identity (if verbalized by the patient): Female Sexual Orientation (if Verbalized by the Patient): Straight or Heterosexual Spiritual care concerns: No Exam Const: General: ill appearing Nutritional Appearance: obese Orientation/consciousness: patient oriented x3 Limitations: no limitations HENMT: Head: normal to inspection Ears: external ears normal Face/Nose/Sinus: Normal external nose present Face and s
--- NOTE | 2023-12-23 19:39 | ECG_ITS ---
Test Date: 2023-12-23 19:48:00 Measurements Intervals [place] Rate: 99 P: 81 MI: 164 QRS: -75 QRSD: 88 T: 65 QT: 331 QTc: 426 Interpretive Statements SINUS RHYTHM INCOMPLETE RIGHT BUNDLE BRANCH BLOCK LEFT ANTERIOR FASCICULAR BLOCK BORDERLINE ST-T WAVE ABNORMALITY- HIGH LATERAL LEADS BASELINE ARTIFACT- I, II, III, AVR, AVL, AVF, V1-V3 ABNORMAL ECG No previous ECG available for comparison Electronically Signed On 12-24-2023 08:02:21 CDT by Junior Lee D.O.
[2023-12-23] MEDS: ONDANSETRON INJ 4 MG/2 ML VIAL IV PUSH (19:50)
[2023-12-23] MEDS: SODIUM CHLORIDE 0.9% IV 1,000 ML 999 ML IV CONT (19:50)
[2023-12-23 20:12] LABS: Basophils Absolute Auto 0.03 K/mm3 (0.00-0.10); Basophils Percent Auto 0.2 % (0.0-1.0); Eosinophils Absolute Auto 0.24 K/mm3 (0.02-0.50); Eosinophils Percent Auto 1.7 % (1.0-6.0); Hematocrit 41.8 % (35.0-49.0); Hemoglobin 14.6 g/dL (12.0-15.0); Immature Granulocyte Absolute 0.05 K/mm3 (0.00-0.00); Immature Granulocyte Percent A 0.4 % (0.0-0.0); Lymphocytes Absolute Auto 1.91 K/mm3 (1.10-4.50); Lymphocytes Percent Auto 13.7 % (18.0-42.0); Mean Corpuscular HGB Conc 34.9 g/dL (32-36); Mean Corpuscular Hemoglobin 33.3 pg (27.0-31.0); Mean Corpuscular Volume 95.2 fL (78.0-102.0); Mean Platelet Volume 11.6 fl (9.2-11.8); Monocytes Absolute Auto 0.57 K/mm3 (0.10-0.90); Monocytes Percent Auto 4.1 % (2.0-11.0); Neutrophils Absolute Auto 11.15 K/mm3 (1.70-7.20); Neutrophils Percent Auto 79.9 % (50.0-70.0); Platelet Count Result 227 K/mm3 (150-420); Red Blood Count 4.39 M/mm3 (4.20-5.40); Red Cell Distribution Width 12.9 % (11.6-14.4)
[2023-12-23] MEDS: PROCHLORPERAZINE EDISYLATE 10 MG/2 ML VIAL IV PUSH (20:22)
[2023-12-23 20:31] LABS: Alkaline Phosphatase 125 U/L (46-116); Amylase 62 U/L (25-115); Anion Gap 9 mmol/L (4-12); Aspartate Amino Transferase 39 U/L (15-37); Bilirubin,Total 0.5 mg/dL (0.00-1.00); Blood Urea Nitrogen 16 mg/dL (7-18); Carbon Dioxide 25 mmol/L (21-32); Chloride 100 mmol/L (98-108); Estimated CRCL calculation 58 ml/min; Estimated Glomerular Filt Rate 55; Glucose 190 mg/dL (70-99); Lipase 26 U/L (16-77); Osmolality Calculated 284 mOsm/kg (285-295); Potassium 4.4 mmol/L (3.5-5.1); Sodium 134 mmol/L (136-145); Total Protein 8.1 g/dL (6.4-8.2)
[2023-12-23 20:32] LABS: D Dimer 0.67 mg/L (0.19-0.50); Troponin I < 4.0 ng/L (0.00-60.4)
[2023-12-23 20:43] LABS: Alanine Aminotransferase 26 U/L (14-59)
[2023-12-23 22:11] LABS: Add Urine Microscopic? YES; Appearance Urine Clear (Clear); Bilirubin Urine Negative (Negative); Blood Urine Negative (Negative); Color Urine Yellow (Yellow); Glucose Urine UA 1+ (Negative); Ketones Urine Trace (Negative); Leukocyte Esterase Ur Negative (Negative); Nitrate Urine Positive (Negative); Protein Urine Trace (Negative); Specific Grav Ur >= 1.030 (1.010-1.020); Urobilinogen Urine 0.2 mg/dL (0.2-1.0); pH Urine 5.5 (5.0-8.0)
[2023-12-23 22:16] LABS: Bacteria Urine 4+ /hpf; RBC Urine 0-2 /hpf (0-2); Squamous Epithelial Cell Urine Moderate /hpf (Few); WBC Urine 0-3 /hpf (0-3)
[2023-12-23 22:19] LABS: Amphetamine Screen Urine Negative (Negative); Barbiturate Screen Urine Positive (Negative); Benzodiazepines Screen Urine Positive (Negative); Cannabinoid Screen Urine Positive (Negative); Cocaine Screen Urine Positive (Negative); Methadone Screen Urine Negative (Negative); Opiate Screen Urine Negative (Negative); Phencyclidine Screen Urine Negative (Negative)
[2023-12-23] MEDS: NITROFURANTOIN MONOHYD MACROCR 100 MG CAP PO (23:55)
== END 2023-12-23 23:58 | disposition home or self-care (01) ==
PROVIDERS: Emergency Provider Emergency Medicine; PCP Internal Medicine
DX: F12.10 Cannabis abuse, uncomplicated (principal); R11.15 Cyclical vomiting syndrome unrelated to migraine; N39.0 Urinary tract infection, site not specified; E11.9 Type 2 diabetes mellitus without complications; Z79.4 Long term (current) use of insulin; Z79.899 Other long term (current) drug therapy; F17.210 Nicotine dependence, cigarettes, uncomplicated
CPT/HCPCS: 36415; 71045; 71275; 80053; 80307; 81001; 82150; 82948; 83605; 83690; 84484; 85025; 85380; 93005; 96361; 96374; 96375; 99284; A9270; J0780; J2405; J7030; Q9967

== ENCOUNTER 2024-02-06 05:35 | Emergency (ER) | payer OTHER, SELFPAY ==
--- NOTE | ~2024-02-06 | CT_ITS ---
Non-contrast CT scan of the Abdomen and Pelvis Clinical indication: Right lower quadrant pain Technique: 2.5 mm axial scans were obtained through the abdomen and pelvis without intravenous or or al contrast. Dose reduction technique was used on this scan by utilizing automated exposure control a nd iterative reconstruction technique. The dose-length product (DLP) was 1082.30 mGy-cm. COMPARISON: 01/15/2023 Findings: Images through the lung bases reveal no abnormalities. There is no evidence of renal or ureteral calculi. The kidneys and the ureters are nondilated. The liver, spleen, pancreas, and adrenals appear normal. Cholecystectomy clips are present. There are atherosclerotic calcifications of the aorta. . There is no evidence of bowel obstruction. Small intramural lipoma of the sigmoid colon noted. Images through the pelvis were performed. There is no evidence of ascites or lymphadenopathy. Urinary bladder unremarkable. Status post hysterectomy. No pelvic mass. Impression: No acute abnormality. Reviewed, dictated and finalized at [facility]. AL DOCTOR Impression: No acute abnormality.
--- NOTE | ~2024-02-06 | CT_ITS ---
CT of the Abdomen and Pelvis: Indication: Abdominal pain Technique: 2.5 mm axial scans were obtained through the abdomen and pelvis following intravenous adm inistration of 100 cc of Omnipaque 350. Dose reduction technique was used on this scan by utilizing a utomated exposure control and iterative reconstruction technique. The dose-length product (DLP) was 1 004.35 mGy-cm. COMPARISON: 02/06/2024 at 6:03 AM Findings: Scans through the lung bases are unremarkable. The liver, spleen, pancreas, adrenals and kidneys are within normal limits. Cholecystectomy clips are present.. There are atherosclerotic calcifications of the aorta. No lymphadenopathy. No bowel obstruction or bowel wall thickening. Normal appendix. Small intramural lipoma the sigmoid c olon again noted. Images through the pelvis were performed. Urinary bladder unremarkable. No pelvic mass. No ascites. T here is degenerative spondylosis of lumbar spine. There are probable mild chronic compression deformi ties of T11 and T12. Impression: No acute abnormality. Chronic findings, as above. Reviewed, dictated and finalized at location . [facility] RADIOLOGY Impression: No acute abnormality. Chronic findings, as above.
--- NOTE | 2024-02-06 05:38 | ED.ABDPAIN ---
HPI - Abdominal Pain General Chief Complaint: Abdominal Pain <Charli Hernandez MD - Last Filed: 02/06/24 07:01> Stated Complaint: Abdominal Pain <Charli Hernandez MD - Last Filed: 02/06/24 07:01> Time Seen by Provider: 02/06/24 05:37 <Charli Hernandez MD - Last Filed: 02/06/24 07:01> Source: patient <Charli Hernandez MD - Last Filed: 02/06/24 07:01> Mode of arrival: ambulatory <Charli Hernandez MD - Last Filed: 02/06/24 07:01> Limitations: no limitations <Charli Hernandez MD - Last Filed: 02/06/24 07:01> History of Present Illness HPI narrative: Patient is a 58-year-old female with 2 day history of right lower quadrant pain as well as some nausea and vomiting. She is having difficulty holding food and water. She does have an appendix and further she has a cholecystectomy and hysterectomy. No diarrhea. bowel movement today. <Charli Hernandez MD - Last Filed: 02/06/24 07:01> MD elicited complaint: abdominal pain ( Right lower quadrant) <Charli Hernandez MD - Last Filed: 02/06/24 07:01> Pertinent past history: other ( diabetes mellitus type 2 insulin using) <Charli Hernandez MD - Last Filed: 02/06/24 07:01> Onset (ago): day(s) (2) <Charli Hernandez MD - Last Filed: 02/06/24 07:01> Pain Consistency: constant <Charli Hernandez MD - Last Filed: 02/06/24 07:01> Location: RLQ <Charli Hernandez MD - Last Filed: 02/06/24 07:01> Severity: moderate <MD Juan Torres Last Filed: 02/06/24 07:01> Pain scale (0-10): 5 <MD Juan Torres Last Filed: 02/06/24 07:01> Quality: sharp <Charli Hernandez MD - Last Filed: 02/06/24 07:01> Radiation: other ( right lower quadrant radiating down to the right groin) <Charli Hernandez MD - Last Filed: 02/06/24 07:01> Migration to: no migration <Charli Hernandez MD - Last Filed: 02/06/24 07:01> Exacerbating factors: nothing <Charli Hernandez MD - Last Filed: 02/06/24 07:01> Relieving factors: nothing <Charli Hernandez MD - Last Filed: 02/06/24 07:01> Context: confirms other ( patient has right lower quadrant pain for the past 2 days) <Charli Hernandez MD - Last Filed: 02/06/24 07:01> Associated symptoms: nausea and vomiting <Charli Hernandez MD - Last Filed: 02/06/24 07:01> Treatments prior to arrival: other ( Tylenol and ibuprofen) <MD Juan Torres Last Filed: 02/06/24 07:01> Related Data Home Medications: Home Medications Medication Instructions Recorded Confirmed alprazolam 1 mg tablet (Xanax) See Rx Instructions .Route 11/10/20 12/23/23 .COMPLEX PRN Anxiety insulin glargine 100 unit/mL (3 See Rx Instructions .Route .COMPLEX 11/10/20 12/23/23 mL) subcutaneous pen (Lantus Solostar U-100 Insulin) ayrzdcyjwg-rxjvbgxkdppiv-ssrryoff 1 cap PO BID PRN Migraine Headache 05/10/22 12/23/23 50 mg-300 mg-40 mg capsule verapamil 180 mg tablet,extended 180 mg PO DAILY 05/10/22 12/23/23 release lisinopril 10 mg tablet 10 mg PO DAILY 11/30/22 12/23/23 atorvastatin 20 mg tablet 20 mg PO DAILY 01/15/23 12/23/23 propranolol 10 mg tablet 10 mg PO TID 12/23/23 12/23/23 <MD Juan Torres Last Filed: 02/06/24 07:01> Allergies/Adverse Reactions: Allergies Allergy/AdvReac Type Severity Reaction Status Date / Time Sulfa (Sulfonamide Allergy Mild Unknown Verified 12/23/23 19:45 Antibiotics) Penicillins Allergy Unknown Verified 12/23/23 19:45 <Charli Hernandez MD - Last Filed: 02/06/24 07:01> Review of Systems Review of Systems: All systems reviewed & are unremarkable except as noted in HPI and below <Charli Hernandez MD - Last Filed: 02/06/24 07:01> Constitutional: Constitutional: Reports no additional constitutional complaints <Charli Hernandez MD - Last Filed: 02/06/24 07:01> Eyes: Eyes: Reports no additional eye complaints <Charli Hernandez MD - Last Filed: 02/06/24 07:01> ENT: Reports system reviewed and no additional complaints, except as documented <Charli Hernandez MD - Last Filed: 02/06/24 07:01> Cardiovascular: Cardiovascular: Reports no additional cardiovascular complaints <Charli Hernandez MD - Last Filed: 02/06/24 07:01> Respiratory: Respiratory: Reports no additional respiratory complaints <Charli Hernandez MD - Last Filed: 02/06/24 07:01> Gastrointestinal: Gastrointestinal: Reports no additional gastrointestinal complaints <Charli Hernandez MD - Last Filed: 02/06/24 07:01> Genitourinary: Genitourinary: Reports no additional female genitourinary complaints <Charli Hernandez MD - Last Filed: 02/06/24 07:01> Musculoskeletal: Musculoskeletal: Reports no additional musculoskeletal complaints <Charli Hernandez MD - Last Filed: 02/06/24 07:01> Integumentary/Breasts: Skin/Breast: Reports system reviewed and no additional complaints, except as docu <Charli Hernandez MD - Last Filed: 02/06/24 07:01> Neurologic: Reports system reviewed and no additional complaints, except as documented <Charli Hernandez MD - Last Filed: 02/06/24 07:01> Psychiatric: Psychiatric: Reports no additional psychiatric complaints <Charli Hernandez MD - Last Filed: 02/06/24 07:01> Endocrine: Endocrine: Reports no additional endocrine complaints <Charli Hernandez MD - Last Filed: 02/06/24 07:01> Hematologic/Lymphatic: Hematologic/Lymphatic: Reports no additional hematologic/lymphatic complaints <Charli Hernandez MD - Last Filed: 02/06/24 07:01> Allergic/Immunologic: Allergic/Immunologic: Reports no additional allergic/immunologic complaints <Charli Hernandez MD - Last Filed: 02/06/24 07:01> PMFSH Past Medical History Medical History: Medical History GERD (gastroesophageal reflux disease) Hypokalemia Migraines PTSD (post-traumatic stress disorder) T2DM (type 2 diabetes mellitus) <Charli Hernandez MD - Last Filed: 02/06/24 07:01> Surgical History Surgical History: Surgical History Hx of cholecystectomy <Charli Hernandez MD - Last Filed: 02/06/24 07:01> Social History Social History: Social History Smoking packs per day: 1 Smoking cigarettes per day: 20.0 Years smoked: 30 Smoking pack-years: 30.00 Smoking status: Light tobacco smoker Tobacco type: cigarettes Second hand tobacco smoke exposure: Yes Alcohol intake: unknown Substance use: unknown Substance use type: unknown Gender identity (if verbalized by the patient): Female Sexual Orientation (if Verbalized by the Patient): Straight or Heterosexual Spiritual care concerns: No <Charli Hernandez MD - Last Filed: 02/06/24 07:01> Exam Const: General: healthy appearing <Charli Hernandez MD - Last Filed: 02/06/24 07:01> Nutritional Appearance: well nourished <Charli Hernandez MD - Last Filed: 02/06/24 07:01> Orientation/consciousness: patient oriented x3 <Charli Hernandez MD - Last Filed: 02/06/24 07:01> Limitations: no limitations <Charli Hernandez MD - Last Filed: 02/06/24 07:01> HENMT: Head: normal to inspection <MD Juan Torres Last Filed: 02/06/24 07:01> Ears: external ears normal <Charli Hernandez MD - Last Filed: 02/06/24 07:01> Face/Nose/Sinus: Normal external nose present <Charli Hernandez MD - Last Filed: 02/06/24 07:01> Eyes: Conjunctivae: conjunctivae normal <Charli Hernandez MD - Last Filed: 02/06/24 07:01> Pupils: Equal, round and reactive pupils present <MD Juan Torres Last Filed: 02/06/24 07:01> EOM: EOMs intact bilaterally <Charli Hernandez MD - Last Filed: 02/06/24 07:01> Neck: Neck: normal visual inspection <Charli Hernandez MD - Last Filed: 02/06/24 07:01> Chest: Chest palpation & inspection: normal inspection of the chest <Charli Hernandez MD - Last Filed: 02/06/24 07:01> Resp: Effort & Inspection: normal respiratory effort and not labored <Charli Hernandez MD - Last Filed: 02/06/24 07:01> Auscultation: clear to auscultation bilaterally and no crackles <Charli Hernandez MD - Last Filed: 02/06/24 07:01> Cardio: Rate: regular rate <MD Juan Torres Last Filed: 02/06/24 07:01> Rhythm: regular rhythm <MD Juan Torres Last Filed: 02/06/24 07:01> Heart sounds: no murmurs <Charli Hernandez MD - Last Filed: 02/06/24 07:01> GI: Inspection: non-distended <Charli Hernandez MD - Last Filed: 02/06/24 07:01> GI Palp: Yes Soft to palpation, Yes Tenderness to palpation present (GI) ( Right lower quadrant), Yes Guarding due to palpation present (GI), No Rigid due to palpation, No Hernia present, No Palpable mass present and Yes Rebound tenderness present <Charli Hernandez MD - Last Filed: 02/06/24 07:01> Auscultation: bowels sounds not normal and Hypoactive bowel sounds present <Charli Hernandez MD - Last Filed: 02/06/24 07:01> : General: Yes bladder normal to palpation <Charli Hernandez MD - Last Filed: 02/06/24 07:01> Back/Spine/Pelvis: Back: no CVA tenderness <Charli Hernandez MD - Last Filed: 02/06/24 07:01> Skin: General skin exam: normal color <Charli Hernandez MD - Last Filed: 02/06/24 07:01> Rashes: no rashes <Charli Hernandez MD - Last Filed: 02/06/24 07:01> Wounds: no wounds <Charli Hernandez MD - Last Filed: 02/06/24 07:01> Neuro: General: patient oriented x3 <Charli Hernandez MD - Last Filed: 02/06/24 07:01> Cranial nerves: Yes Nystagmus not present <Charli Hernandez MD - Last Filed: 02/06/24 07:01> Speech: normal speech <Charli Hernandez MD - Last Filed: 02/06/24 07:01> Gait exam (Neuro): Normal gait present <Charli Hernandez MD - Last Filed: 02/06/24 07:01> Extrem: General: normal to inspection <Charli Hernandez MD - Last Filed: 02/06/24 07:01> Psych: Mental Status: mental status grossly normal <Charli Hernandez MD - Last Filed: 02/06/24 07:01> Affect: normal affect <Charli Hernandez MD - Last Filed: 02/06/24 07:01> Attitude: cooperative <Charli Hernandez MD - Last Filed: 02/06/24 07:01> Course Vital Signs Vital signs: Vital Signs Temperature 36.4 C 02/06/24 05:42 Pulse Rate 86 02/06/24 05:42 Respiratory Rate 20 02/06/24 05:42 Blood Pressure 139/83 02/06/24 05:42 Pulse Oximetry 96 02/06/24 05:42 Oxygen Delivery Room Air 02/06/24 05:42 Temperature 36.4 C 02/06/24 05:42 Pulse Rate 63 02/06/24 06:54 Respiratory Rate 20 02/06/24 06:54 Blood Pressure 137/60 02/06/24 06:54 Pulse Oximetry 95 02/06/24 06:54 Oxygen Delivery Room Air 02/06/24 06:54 <Charli Hernandez MD - Last Filed: 02/06/24 07:01> Vital Signs Temperature 36.4 C 02/06/24 05:42 Pulse Rate 86 02/06/24 05:42 Respiratory Rate 20 02/06/24 05:42 Blood Pressure 139/83 02/06/24 05:42 Pulse Oximetry 96 02/06/24 05:42 Oxygen Delivery Room Air 02/06/24 05:42 Temperature 36.4 C 02/06/24 05:42 Pulse Rate 63 02/06/24 06:54 Respiratory Rate 20 02/06/24 06:54 Blood Pressure 137/60 02/06/24 06:54 Pulse Oximetry 95 02/06/24 06:54 Oxygen Delivery Room Air 02/06/24 06:54 <Malinda Alvarado MD - Last Filed: 02/06/24 08:26> MDM - Abdominal Pain MDM Narrative Medical decision making narrative: patient is a 58-year-old female with right lower quadrant pain and nausea vomiting. We will do abdominal workup at this time. <Charli Hernandez MD - Last Filed: 02/06/24 07:01> Lab Data Attestation: I reviewed the patient's lab results. <Charli Heranndez MD - Last Filed: 02/06/24 07:01> Result diagrams: 02/06/24 05:51 02/06/24 05:51 <Charli Hernandez MD - Last Filed: 02/06/24 07:01> Labs: Lab Results 02/06/24 02/06/24 Range/Units 05:51 06:50 WBC 8.6 (4.8-10.8) K/mm3 RBC 4.26 (4.20-5.40) M/mm3 Hgb 13.8 (12.0-15.0) g/dL Hct 39.7 (35.0-49.0) % MCV 93.2 (78.0-102.0) fL MCH 32.4 H (27.0-31.0) pg MCHC 34.8 (32-36) g/dL RDW 12.7 (11.6-14.4) % Plt Count 252 (150-420) K/mm3 MPV 11.0 (9.2-11.8) fl Immature Gran % (Auto) 0.2 H (0.0-0.0) % Neut % (Auto) 50.7 (50.0-70.0) % Lymph % (Auto) 36.3 (18.0-42.0) % [place] % (Auto) 8.3 (2.0-11.0) % Eos % (Auto) 3.8 (1.0-6.0) % Baso % (Auto) 0.7 (0.0-1.0) % Lymph # (Auto) 3.12 (1.10-4.50) K/mm3 [place] # (Auto) 0.71 (0.10-0.90) K/mm3 Eos # (Auto) 0.33 (0.02-0.50) K/mm3 Baso # (Auto) 0.06 (0.00-0.10) K/mm3 Abs Immat Gran (auto) 0.02 H (0.00-0.00) K/mm3 Absolute Neuts (auto) 4.35 (1.70-7.20) K/mm3 Absolute Nucleated RBC 0.00 (0.00-0.00) K/mm3 Nucleated RBC % 0.0 (0-0.0) % PT 10.3 (9.50-12.1) Seconds INR 0.9 APTT 25.9 (23.9-30.70) Sec Sodium 139 (136-145) mmol/L Potassium 4.3 (3.5-5.1) mmol/L Chloride 105 (98-108) mmol/L Carbon Dioxide 26 (21-32) mmol/L Anion Gap 8 (4-12) mmol/L BUN 13 (7-18) mg/dL Creatinine 0.75 (0.55-1.02) mg/dL Estim Creat Clear Calc 75 ml/min Estimated GFR > 60 (59 - ) Glucose 123 H (70-99) mg/dL Calculated Osmolality 289 (285-295) mOsm/kg Lactic Acid 0.6 (0.4-2.0) mmol/L Calcium 9.2 (8.5-10.1) mg/dL Total Bilirubin 0.6 (0.00-1.00) mg/dL AST 30 (15-37) U/L ALT 27 (14-59) U/L Alkaline Phosphatase 124 H (46-116) U/L Total Protein 7.7 (6.4-8.2) g/dL Albumin 3.4 (3.4-5.0) g/dL Lipase 20 (16-77) U/L Urine Color Light yellow (Yellow) Urine Appearance Clear (Clear) Urine pH 6.0 (5.0-8.0) Ur Specific [place] 1.010 (1.010-1.020) Urine Protein Negative (Negative) Urine Glucose (UA) Negative (Negative) Urine Ketones Negative (Negative) Ur Blood (Man) Negative (Negative) Urine Nitrate Negative (Negative) Urine Bilirubin Negative (Negative) Urine Urobilinogen 0.2 (0.2-1.0) mg/dL Leukocyte Esterase Rfl Negative (Negative) CHANNING/UL <Charli Hernandez MD - Last Filed: 02/06/24 07:01> Lab Results 02/06/24 02/06/24 Range/Units 05:51 06:50 WBC 8.6 (4.8-10.8) K/mm3 RBC 4.26 (4.20-5.40) M/mm3 Hgb 13.8 (12.0-15.0) g/dL Hct 39.7 (35.0-49.0) % MCV 93.2 (78.0-102.0) fL MCH 32.4 H (27.0-31.0) pg MCHC 34.8 (32-36) g/dL RDW 12.7 (11.6-14.4) % Plt Count 252 (150-420) K/mm3 MPV 11.0 (9.2-11.8) fl Immature Gran % (Auto) 0.2 H (0.0-0.0) % Neut % (Auto) 50.7 (50.0-70.0) % Lymph % (Auto) 36.3 (18.0-42.0) % [place] % (Auto) 8.3 (2.0-11.0) % Eos % (Auto) 3.8 (1.0-6.0) % Baso % (Auto) 0.7 (0.0-1.0) % Lymph # (Auto) 3.12 (1.10-4.50) K/mm3 [place] # (Auto) 0.71 (0.10-0.90) K/mm3 Eos # (Auto) 0.33 (0.02-0.50) K/mm3 Baso # (Auto) 0.06 (0.00-0.10) K/mm3 Abs Immat Gran (auto) 0.02 H (0.00-0.00) K/mm3 Absolute Neuts (auto) 4.35 (1.70-7.20) K/mm3 Absolute Nucleated RBC 0.00 (0.00-0.00) K/mm3 Nucleated RBC % 0.0 (0-0.0) % PT 10.3 (9.50-12.1) Seconds INR 0.9 APTT 25.9 (23.9-30.70) Sec Sodium 139 (136-145) mmol/L Potassium 4.3 (3.5-5.1) mmol/L Chloride 105 (98-108) mmol/L Carbon Dioxide 26 (21-32) mmol/L Anion Gap 8 (4-12) mmol/L BUN 13 (7-18) mg/dL Creatinine 0.75 (0.55-1.02) mg/dL Estim Creat Clear Calc 75 ml/min Estimated GFR > 60 (59 - ) Glucose 123 H (70-99) mg/dL Calculated Osmolality 289 (285-295) mOsm/kg Lactic Acid 0.6 (0.4-2.0) mmol/L Calcium 9.2 (8.5-10.1) mg/dL Total Bilirubin 0.6 (0.00-1.00) mg/dL AST 30 (15-37) U/L ALT 27 (14-59) U/L Alkaline Phosphatase 124 H (46-116) U/L Total Protein 7.7 (6.4-8.2) g/dL Albumin 3.4 (3.4-5.0) g/dL Lipase 20 (16-77) U/L Urine Color Light yellow (Yellow) Urine Appearance Clear (Clear) Urine pH 6.0 (5.0-8.0) Ur Specific [place] 1.010 (1.010-1.020) Urine Protein Negative (Negative) Urine Glucose (UA) Negative (Negative) Urine Ketones Negative (Negative) Ur Blood (Man) Negative (Negative) Urine Nitrate Negative (Negative) Urine Bilirubin Negative (Negative) Urine Urobilinogen 0.2 (0.2-1.0) mg/dL Leukocyte Esterase Rfl Negative (Negative) CHANNING/UL <Malinda Alvarado MD - Last Filed: 02/06/24 08:26> Imaging Data Attestation: I personally reviewed and interpreted this imaging study as follows: <Charli Hernandez MD - Last Filed: 02/06/24 07:01> My impression: Impressions Abdomen/Pelvis CT 02/06/24 06:24 Impression: No acute abnormality. Abdomen/Pelvis CT 02/06/24 07:13 Impression: No acute abnormality. Chronic findings, as above. <Malinda Alvarado MD - Last Filed: 02/06/24 08:26> Radiologist's impression: ITS Impressions Abdomen/Pelvis CT 02/06/24 07:13 Impression: No acute abnormality. Chronic findings, as above. <Charli Hernandez MD - Last Filed: 02/06/24 07:01> ITS Impressions Abdomen/Pelvis CT 02/06/24 07:13 Impression: No acute abnormality. Chronic findings, as above. <Malinda Alvarado MD - Last Filed: 02/06/24 08:26> Discharge Plan Discharge Clinical Impression: Abdominal pain <Charli Hernandez MD - Last Filed: 02/06/24 07:01> Patient Disposition: Home, Self-Care <Charli Hernandez MD - Last Filed: 02/06/24 07:01> Condition: Stable <Charli Hernandez MD - Last Filed: 02/06/24 07:01> Instructions: Abdominal Pain (ED) <Charli Hernandez MD - Last Filed: 02/06/24 07:01> Additional Instructions: Return if symptoms are worsening , call your family physician for appointment, take Tylenol, ibuprofen as as needed for aches and pain, continue home medications. <Charli Hernandez MD - Last Filed: 02/06/24 07:01> Prescriptions: New ondansetron 4 mg tablet,disintegrating 4 mg PO Q4H Qty: 10 0RF Rx Instructions: give 1st dose 30min before emetogenic chemo No Action alprazolam [Xanax] 1 mg tablet See Rx Instructions .ROUTE .COMPLEX PRN (Reason: Anxiety) Rx Instructions: TAKE ONE-HALF TABLET IN THE MORNING AND ONE IN THE AFTERNOON NEEDED FOR ANXIETY insulin glargine [Lantus Solostar U-100 Insulin] 100 unit/mL (3 mL) insulin pen See Rx Instructions .ROUTE .COMPLEX Rx Instructions: 35 UNITS EVERY MORNING 60 UNITS EVERY EVENING atorvastatin 20 mg tablet 20 mg PO DAILY verapamil 180 mg Tablet Extended Release 180 mg PO DAILY plqmxgbjan-ifsrcfmlkwuya-mvhw 50-300-40 mg Capsule 1 cap PO BID PRN (Reason: Migraine Headache) albuterol sulfate 90 mcg/actuation HFA aerosol inhaler 2 puff inhalation QID PRN (Reason: shortness of breath or wheezing) Qty: 8.5 0RF lisinopril 10 mg tablet 10 mg PO DAILY propranolol 10 mg tablet 10 mg PO TID nitrofurantoin monohyd/m-cryst [Macrobid] 100 mg capsule 100 mg PO Q12H 5 Days Qty: 10 0RF Rx Instructions: must administer with a meal/food prochlorperazine maleate [Compazine] 10 mg tablet 10 mg PO Q6H PRN (Reason: nausea and vomiting) Qty: 10 0RF <Charli Hernandez MD - Last Filed: 02/06/24 07:01> Follow-up/Referrals: Jose Escoto MD [Primary Care Provider] - <Charli Hernandez MD - Last Filed: 02/06/24 07:01> Stand Alone Forms: Work/School Release IP <Charli Hernandez MD - Last Filed: 02/06/24 07:01>
[2024-02-06 05:42] VITALS: BP 139/83; PULSE 86; RESP 20; TEMP 36.4; O2SAT 96
[2024-02-06 05:59] LABS: Basophils Absolute Auto 0.06 K/mm3 (0.00-0.10); Basophils Percent Auto 0.7 % (0.0-1.0); Eosinophils Absolute Auto 0.33 K/mm3 (0.02-0.50); Eosinophils Percent Auto 3.8 % (1.0-6.0); Hematocrit 39.7 % (35.0-49.0); Hemoglobin 13.8 g/dL (12.0-15.0); Immature Granulocyte Absolute 0.02 K/mm3 (0.00-0.00); Immature Granulocyte Percent A 0.2 % (0.0-0.0); Lymphocytes Absolute Auto 3.12 K/mm3 (1.10-4.50); Lymphocytes Percent Auto 36.3 % (18.0-42.0); Mean Corpuscular HGB Conc 34.8 g/dL (32-36); Mean Corpuscular Hemoglobin 32.4 pg (27.0-31.0); Mean Corpuscular Volume 93.2 fL (78.0-102.0); Monocytes Absolute Auto 0.71 K/mm3 (0.10-0.90); Monocytes Percent Auto 8.3 % (2.0-11.0); Neutrophils Absolute Auto 4.35 K/mm3 (1.70-7.20); Neutrophils Percent Auto 50.7 % (50.0-70.0); Platelet Count Result 252 K/mm3 (150-420); Red Blood Count 4.26 M/mm3 (4.20-5.40); Red Cell Distribution Width 12.7 % (11.6-14.4); White Blood Count 8.6 K/mm3 (4.8-10.8)
[2024-02-06] MEDS: MORPHINE SULFATE (*CRX) 2 MG/ML INJ 4 MG IV PUSH (05:59)
[2024-02-06] MEDS: ONDANSETRON INJ 4 MG/2 ML VIAL IV PUSH (05:59)
[2024-02-06] MEDS: SODIUM CHLORIDE 0.9% IV 1,000 ML 999 ML IV CONT (06:02)
[2024-02-06 06:14] LABS: INR 0.9; Partial Thromboplastin Time 25.9 Sec (23.9-30.70); Prothrombin Time 10.3 Seconds (9.50-12.1)
[2024-02-06 06:17] LABS: Alanine Aminotransferase 27 U/L (14-59); Albumin Level 3.4 g/dL (3.4-5.0); Alkaline Phosphatase 124 U/L (46-116); Anion Gap 8 mmol/L (4-12); Aspartate Amino Transferase 30 U/L (15-37); Bilirubin,Total 0.6 mg/dL (0.00-1.00); Blood Urea Nitrogen 13 mg/dL (7-18); Calcium 9.2 mg/dL (8.5-10.1); Carbon Dioxide 26 mmol/L (21-32); Chloride 105 mmol/L (98-108); Estimated CRCL calculation 75 ml/min; Estimated Glomerular Filt Rate > 60; Glucose 123 mg/dL (70-99); Lipase 20 U/L (16-77); Osmolality Calculated 289 mOsm/kg (285-295); Sodium 139 mmol/L (136-145); Total Protein 7.7 g/dL (6.4-8.2)
[2024-02-06 06:19] LABS: Potassium 4.3 mmol/L (3.5-5.1)
[2024-02-06 06:20] LABS: Lactic Acid Reflex 0.6 mmol/L (0.4-2.0)
[2024-02-06 06:52] LABS: Add Urine Microscopic? NO; Appearance Urine Clear (Clear); Bilirubin Urine Negative (Negative); Blood Urine Negative (Negative); Color Urine Light Yellow (Yellow); Glucose Urine UA Negative (Negative); Ketones Urine Negative (Negative); Leukocyte Esterase Ur Negative LEU/UL (Negative); Nitrate Urine Negative (Negative); Protein Urine Negative (Negative); Urobilinogen Urine 0.2 mg/dL (0.2-1.0)
[2024-02-06 06:54] VITALS: BP 137/60; PULSE 63; RESP 20; O2SAT 95
[2024-02-06 08:01] VITALS: BP 118/68; PULSE 72; RESP 16; TEMP 36.6; O2SAT 96
== END 2024-02-06 08:07 | disposition home or self-care (01) ==
PROVIDERS: Emergency Medicine; Emergency Provider Emergency Medicine; PCP Internal Medicine
DX: R10.31 Right lower quadrant pain (principal); E11.9 Type 2 diabetes mellitus without complications; F17.210 Nicotine dependence, cigarettes, uncomplicated
CPT/HCPCS: 36415; 74176; 74177; 80053; 81003; 83605; 83690; 85025; 85610; 85730; 96361; 96374; 96375; 99284; J2270; J2405; J7030; Q9967

== ENCOUNTER 2024-02-07 21:45 | Emergency (ER) | payer OTHER, SELFPAY ==
--- NOTE | ~2024-02-07 | XR_ITS ---
CHEST RADIOGRAPH CLINICAL HISTORY: VOMITING . COMPARISON: 12/23/2023 TECHNIQUE: Single portable view of the chest -markedly limited as the patient's mandible overlies the bilateral apices and superior mediastinum. . FINDINGS The visualized lung quan are clear. IMPRESSION: Limited examination secondary to patient positioning for which repeat evaluation is recommended. Reviewed, dictated and finalized at location A. F METER READER IMPRESSION: Limited examination secondary to patient positioning for which repeat evaluatio n is recommended.
--- NOTE | ~2024-02-07 | XR_ITS ---
Exam: Abdomen 2V HISTORY: VOMITING COMPARISON: None. TECHNIQUE: Supine images of the abdomen and pelvis. FINDINGS: Examination is limited as the entirety of the abdomen is not included. No deep sulcus sign to suggest free air. The bilateral lung bases are clear. Nonspecific nonobstructive bowel gas pattern within the visualized abdomen. Clips overlie the right upper quadrant consistent with prior cholecystectomy. IMPRESSION: Nonspecific, nonobstructive bowel gas pattern within the visualized portion of the abdomen, as detail ed above. Reviewed, dictated and finalized at location A. Y PLANNER IMPRESSION: Nonspecific, nonobstructive bowel gas pattern within the visualized portion of the abdomen, as detailed above.
--- NOTE | ~2024-02-07 | CT_ITS ---
History: Altered status PROCEDURE: CT head without contrast. COMPARISON: None TECHNIQUE: Axial imaging of the head performed from the skull base to the vertex without IV contrast. Sagittal a nd coronal reformations obtained. DLP: 681 mGy-cm FINDINGS: The ventricles are normal in size, shape and position. There is no mass, mass effect or midline shift. There is no abnormal extra-axial fluid collection or intracranial hemorrhage. Visualized paranasal sinuses are clear. The mastoid air cells are well aerated. There acute displaced fractures within the overlying cranium. Impression: No acute intracranial hemorrhage or suspicious mass effect. Reviewed, dictated and finalized at location A. OFACIAL ORTHOPEDICS DENTIST Impression: No acute intracranial hemorrhage or suspicious mass effect.
[2024-02-07 21:45] VITALS: BP 172/113; PULSE 93; RESP 20; TEMP 36.4; O2SAT 98
[2024-02-07 21:56] LABS: Glucose Point of Care 332 mg/dl (65-105)
--- NOTE | 2024-02-07 21:56 | ECG_ITS ---
Test Date: 2024-02-07 22:07:23 Measurements Intervals [place] Rate: 90 P: 73 WA: 182 QRS: -59 QRSD: 90 T: 73 QT: 366 QTc: 450 Interpretive Statements SINUS RHYTHM INCOMPLETE RIGHT BUNDLE BRANCH BLOCK LEFT ANTERIOR FASCICULAR BLOCK BORDERLINE T WAVE ABNORMALITY- ANTERIOR LEADS BASELINE ARTIFACT- I, II, III, AVR, AVL, AVF, V1-V6 ABNORMAL ECG Compared to ECG 12/23/2023 19:48:00 NO SIGNIFICANT CHANGE Electronically Signed On 02-07-2024 22:09:18 [employer] by Junior Lee D.O.
[2024-02-07 22:02] LABS: Hematocrit 39.7 % (35.0-49.0); Hemoglobin 13.9 g/dL (12.0-15.0); Mean Corpuscular Hemoglobin 33.2 pg (27.0-31.0); Mean Corpuscular Volume 94.7 fL (78.0-102.0); Platelet Count Result 230 K/mm3 (150-420); Red Blood Count 4.19 M/mm3 (4.20-5.40); Red Cell Distribution Width 12.8 % (11.6-14.4); White Blood Count 11.2 K/mm3 (4.8-10.8)
--- NOTE | 2024-02-07 22:03 | ED.ABDPAIN ---
HPI - Abdominal Pain General Chief Complaint: Abdominal Pain Stated Complaint: Vomiting Time Seen by Provider: 02/07/24 21:48 Source: patient Mode of arrival: ambulatory Limitations: no limitations History of Present Illness HPI narrative: patient is a 58-year-old female with nausea vomiting over the past few days. She has been in the emergency room 24 hours ago and had a CT scan with and without contrast which were negative for acute process. She has some miscellaneous and nonspecific abdominal pain. Patient is a prominent marijuana smoker. patient presents to the emergency room causing her own gagging with her fingers down her throat. When she is resting quietly, there is no nausea and vomiting. She has not been taking her blood pressure medicine. MD elicited complaint: abdominal pain Pertinent past history: other ( THC abuse) Onset (ago): day(s) (3) Pain Consistency: intermittent Location: none Severity: moderate Pain scale (0-10): 2 Quality: cramping Radiation: none Migration to: no migration Exacerbating factors: nothing Relieving factors: nothing Context: confirms other ( Nonspecific recurrent nausea vomiting) Associated symptoms: nausea and vomiting Related Data Home Medications Medication Instructions Recorded Confirmed alprazolam 1 mg tablet (Xanax) See Rx Instructions .Route 11/10/20 02/07/24 .COMPLEX PRN Anxiety insulin glargine 100 unit/mL (3 See Rx Instructions .Route .COMPLEX 11/10/20 02/07/24 mL) subcutaneous pen (Lantus Solostar U-100 Insulin) [id number]-lkvuscdm 1 cap PO BID PRN Migraine Headache 05/10/22 02/07/24 50 mg-300 mg-40 mg capsule verapamil 180 mg tablet,extended 180 mg PO DAILY 05/10/22 02/07/24 release lisinopril 10 mg tablet 10 mg PO DAILY 11/30/22 02/07/24 atorvastatin 20 mg tablet 20 mg PO DAILY 01/15/23 02/07/24 propranolol 10 mg tablet 10 mg PO TID 12/23/23 02/07/24 Allergies Allergy/AdvReac Type Severity Reaction Status Date / Time Sulfa (Sulfonamide Allergy Mild Unknown Verified 02/07/24 22:00 Antibiotics) Penicillins Allergy Unknown Verified 02/07/24 22:00 Review of Systems Review of Systems: All systems reviewed & are unremarkable except as noted in HPI and below ROS unobtainable: Yes unobtainable due to endotracheal tube Constitutional: Constitutional: Reports no additional constitutional complaints Eyes: Eyes: Reports no additional eye complaints ENT: Reports system reviewed and no additional complaints, except as documented Cardiovascular: Cardiovascular: Reports no additional cardiovascular complaints Respiratory: Respiratory: Reports no additional respiratory complaints Gastrointestinal: Gastrointestinal: Reports no additional gastrointestinal complaints Genitourinary: Genitourinary: Reports no additional female genitourinary complaints Musculoskeletal: Musculoskeletal: Reports no additional musculoskeletal complaints Integumentary/Breasts: Skin/Breast: Reports system reviewed and no additional complaints, except as docu Neurologic: Reports system reviewed and no additional complaints, except as documented Psychiatric: Psychiatric: Reports no additional psychiatric complaints Endocrine: Endocrine: Reports no additional endocrine complaints Hematologic/Lymphatic: Hematologic/Lymphatic: Reports no additional hematologic/lymphatic complaints Allergic/Immunologic: Allergic/Immunologic: Reports no additional allergic/immunologic complaints PMFSH Past Medical History Medical History GERD (gastroesophageal reflux disease) Hypokalemia Migraines PTSD (post-traumatic stress disorder) T2DM (type 2 diabetes mellitus) Surgical History Surgical History Hx of cholecystectomy Social History Social History Smoking packs per day: 1 Smoking cigarettes per day: 20.0 Years smoked: 30 Smoking pack-years: 30.00 Smoking status: Light tobacco smoker Tobacco type: cigarettes Second hand tobacco smoke exposure: Yes Alcohol intake: unknown Substance use: unknown Substance use type: unknown Gender identity (if verbalized by the patient): Female Sexual Orientation (if Verbalized by the Patient): Straight or Heterosexual Spiritual care concerns: No Exam Const: General: healthy appearing Nutritional Appearance: well nourished Orientation/consciousness: patient oriented x3 Limitations: no limitations HENMT: Head: normal to inspection Ears: external ears normal Face/Nose/Sinus: Normal external nose present Eyes: Conjunctivae: conjunctivae normal Pupils: Equal, round and reactive pupils present EOM: EOMs intact bilaterally Neck: Neck: normal visual inspection Chest: Chest palpation & inspection: normal inspection of the chest Resp: Effort & Inspection: normal respiratory effort and not labored Auscultation: clear to auscultation bilaterally and no crackles Cardio: Rate: regular rate Rhythm: regular rhythm Heart sounds: no murmurs GI: Inspection: non-distended GI Palp: Yes Soft to palpation, No Tenderness to palpation present (GI), No Guarding due to palpation present (GI), No Rigid due to palpation, No Hernia present, No Palpable mass present and No Rebound tenderness present Auscultation: normal bowel sounds : General: Yes bladder normal to palpation Back/Spine/Pelvis: Back: no CVA tenderness Skin: General skin exam: normal color Rashes: no rashes Wounds: no wounds Neuro: General: patient oriented x3 Cranial nerves: Yes Nystagmus not present Speech: normal speech Gait exam (Neuro): Normal gait present Extrem: General: normal to inspection Psych: Mental Status: mental status grossly normal Affect: normal affect Attitude: cooperative Course Vital Signs Vital signs: Vital Signs Temperature 36.4 C 02/07/24 21:45 Pulse Rate 93 02/07/24 21:45 Respiratory Rate 20 02/07/24 21:45 Blood Pressure 172/113 H 02/07/24 21:45 Pulse Oximetry 98 02/07/24 21:45 Oxygen Delivery Room Air 02/07/24 21:45 Temperature 36.4 C 02/07/24 21:45 Pulse Rate 93 02/07/24 23:10 Respiratory Rate 18 02/07/24 23:10 Blood Pressure 167/92 H 02/07/24 23:10 Pulse Oximetry 97 02/07/24 23:10 Oxygen Delivery Room Air 02/07/24 23:10 MDM - Abdominal Pain MDM Narrative Medical decision making narrative: patient is a 58-year-old female with recurrent nausea and vomiting and some abdominal pain. She had CT scan with and without contrast of the abdomen and pelvis yesterday which were both negative. We will repeat labs at this time. we will check some x-rays. I will do a CT scan of the head if all is negative. The possibility exists that this is THC induced nausea vomiting. Prior multiple documentations of cyclical vomiting syndrome from THC. Also her urine drug screen showed cocaine and THC and benzodiazepine. She takes Xanax for the benzodiazepine. Lab Data Attestation: I reviewed the patient's lab results. 02/07/24 21:59 02/07/24 21:59 Labs: Lab Results 02/07/24 02/07/24 02/07/24 Range/Units 21:52 21:59 23:19 WBC 11.2 H (4.8-10.8) K/mm3 RBC 4.19 L (4.20-5.40) M/mm3 Hgb 13.9 (12.0-15.0) g/dL Hct 39.7 (35.0-49.0) % MCV 94.7 (78.0-102.0) fL MCH 33.2 H (27.0-31.0) pg MCHC 35.0 (32-36) g/dL RDW 12.8 (11.6-14.4) % Plt Count 230 (150-420) K/mm3 MPV 11.0 (9.2-11.8) fl Sodium 141 (136-145) mmol/L Potassium 3.6 (3.5-5.1) mmol/L Chloride 104 (98-108) mmol/L Carbon Dioxide 26 (21-32) mmol/L Anion Gap 11 (4-12) mmol/L BUN 13 (7-18) mg/dL Creatinine 1.14 H (0.55-1.02) mg/dL Estim Creat Clear Calc Not Reportable Estimated GFR 49 L (59 - ) Glucose 325 H (70-99) mg/dL POC Capillary Glucose 332 H (65-105) mg/dl Calculated Osmolality 305 H (285-295) mOsm/kg Lactic Acid 1.1 (0.4-2.0) mmol/L Calcium 9.5 (8.5-10.1) mg/dL Total Bilirubin 0.6 (0.00-1.00) mg/dL AST 15 (15-37) U/L ALT 31 (14-59) U/L Alkaline Phosphatase 123 H (46-116) U/L Troponin I < 4.0 (0.00-60.4) ng/L Total Protein 7.7 (6.4-8.2) g/dL Albumin 3.6 (3.4-5.0) g/dL Lipase 19 (16-77) U/L Urine Color Light yellow (Yellow) Urine Appearance Clear (Clear) Urine pH 7.0 (5.0-8.0) Ur Specific [place] 1.015 (1.010-1.020) Urine Protein Negative (Negative) Urine Glucose (UA) 3+ H (Negative) Urine Ketones 1+ H (Negative) Ur Blood (Man) Negative (Negative) Urine Nitrate Negative (Negative) Urine Bilirubin Negative (Negative) Urine Urobilinogen 0.2 (0.2-1.0) mg/dL Leukocyte Esterase Rfl Negative (Negative) CHANNING/UL Urine Opiates Screen Negative (Negative) Urine Methadone Screen Negative (Negative) Ur Barbiturates Screen Negative (Negative) Ur Phencyclidine Scrn Negative (Negative) Ur Amphetamine Screen Negative (Negative) U Benzodiazepines Scrn Positive A (Negative) Urine Cocaine Screen Positive A (Negative) U Cannabinoids Screen Positive A (Negative) Ethyl Alcohol 3 (0-6) mg/dL Acetone Level Negative (Negative) Imaging Data Attestation: I personally reviewed and interpreted this imaging study as follows: Radiologist's impression: ITS Impressions Chest X-Ray 02/07/24 22:50 IMPRESSION: Limited examination secondary to patient positioning for which repeat evaluation is recommended. Abdomen X-Ray 02/07/24 22:54 IMPRESSION: Nonspecific, nonobstructive bowel gas pattern within the visualized portion of the abdomen, as detailed above. chest x-ray is negative for acute process acute obstructive series x-rays are negative for acute process ECG Data EKG #1: Attestation: I personally reviewed and interpreted this ECG as follows: normal rate, sinus rhythm, no ectopy, non-specific ST changes, normal QRS, normal QT and left axis Discharge Plan Discharge Clinical Impression: Nausea & vomiting, Abdominal pain, Polysubstance abuse Patient Disposition: Home, Self-Care Condition: Stable Instructions: Acute Nausea and Vomiting (ED), Abdominal Pain (ED), Polysubstance Use Disorder (ED) Additional Instructions: Please follow-up with the primary doctor in the next week. I suggest stopping THC use as this can cause recurrent nausea vomiting syndrome. Please make sure you are taking your home medications. Monitor your blood pressure and blood sugar. Discussed these with her primary doctor. Please avoid all recreational drug use. Prescriptions: No Action alprazolam [Xanax] 1 mg tablet See Rx Instructions .ROUTE .COMPLEX PRN (Reason: Anxiety) Rx Instructions: TAKE ONE-HALF TABLET IN THE MORNING AND ONE IN THE AFTERNOON NEEDED FOR ANXIETY insulin glargine [Lantus Solostar U-100 Insulin] 100 unit/mL (3 mL) insulin pen See Rx Instructions .ROUTE .COMPLEX Rx Instructions: 35 UNITS EVERY MORNING 60 UNITS EVERY EVENING atorvastatin 20 mg tablet 20 mg PO DAILY verapamil 180 mg Tablet Extended Release 180 mg PO DAILY wzhrabzjth-zkxzenqghiobc-bdwr 50-300-40 mg Capsule 1 cap PO BID PRN (Reason: Migraine Headache) albuterol sulfate 90 mcg/actuation HFA aerosol inhaler 2 puff inhalation QID PRN (Reason: shortness of breath or wheezing) Qty: 8.5 0RF lisinopril 10 mg tablet 10 mg PO DAILY propranolol 10 mg tablet 10 mg PO TID prochlorperazine maleate [Compazine] 10 mg tablet 10 mg PO Q6H PRN (Reason: nausea and vomiting) Qty: 10 0RF Follow-up/Referrals: Jose Escoto MD [Primary Care Provider] - Time of Disposition: 23:54
--- NOTE | 2024-02-07 22:05 | PC.NURSE ---
Pt again gagging herself with her fingers.
[2024-02-07] MEDS: SODIUM CHLORIDE 0.9% IV 1,000 ML 999 ML IV CONT (22:07)
[2024-02-07] MEDS: PROMETHAZINE HCL 25 MG/ML AMPUL 12.5 MG IV PUSH ×2 (22:08→22:15)
--- NOTE | 2024-02-07 22:20 | PC.NURSE ---
Blood cultures complete by lab. mechanical service technician at bedside. Pt once again attempting to gag herself to induce vomiting. Pt again required RN to physically remove her hand from her mouth to stop this behavior. Call light in reach. Side rails up x 2. Warm blanket provided.
[2024-02-07 22:24] LABS: Alanine Aminotransferase 31 U/L (14-59); Albumin Level 3.6 g/dL (3.4-5.0); Alkaline Phosphatase 123 U/L (46-116); Anion Gap 11 mmol/L (4-12); Aspartate Amino Transferase 15 U/L (15-37); Bilirubin,Total 0.6 mg/dL (0.00-1.00); Blood Urea Nitrogen 13 mg/dL (7-18); Calcium 9.5 mg/dL (8.5-10.1); Carbon Dioxide 26 mmol/L (21-32); Chloride 104 mmol/L (98-108); Estimated Glomerular Filt Rate 49; Glucose 325 mg/dL (70-99); Osmolality Calculated 305 mOsm/kg (285-295); Potassium 3.6 mmol/L (3.5-5.1); Sodium 141 mmol/L (136-145); Total Protein 7.7 g/dL (6.4-8.2)
[2024-02-07 22:26] LABS: Ethanol 3 mg/dL (0-6); Lipase 19 U/L (16-77); Troponin I < 4.0 ng/L (0.00-60.4)
[2024-02-07 22:27] LABS: Lactic Acid Reflex 1.1 mmol/L (0.4-2.0)
[2024-02-07 22:35] LABS: Acetone Negative (Negative)
--- NOTE | 2024-02-07 22:47 | PC.NURSE ---
Pt now resting in high-James's position with side rails up x 2. Warm blanket draped over abd. Call light in reach. Eyes closed and rhythmic breathing. No distress noted.
[2024-02-07 23:10] VITALS: BP 167/92; PULSE 93; RESP 18; O2SAT 97
--- NOTE | 2024-02-07 23:10 | PC.NURSE ---
Pt now having loud, forceful attempt at having emesis. ERP walked by room to find pt with fingers back down her throat gagging herself once again.
--- NOTE | 2024-02-07 23:13 | PC.NURSE ---
Pt ambulatory to restroom and cup provided for specimen collection. JOSE JUAN Khan with patient.
[2024-02-07 23:25] LABS: Add Urine Microscopic? NO; Appearance Urine Clear (Clear); Bilirubin Urine Negative (Negative); Blood Urine Negative (Negative); Color Urine Light Yellow (Yellow); Glucose Urine UA 3+ (Negative); Ketones Urine 1+ (Negative); Leukocyte Esterase Ur Negative LEU/UL (Negative); Nitrate Urine Negative (Negative); Protein Urine Negative (Negative); Specific Grav Ur 1.015 (1.010-1.020); Urobilinogen Urine 0.2 mg/dL (0.2-1.0)
--- NOTE | 2024-02-07 23:26 | PC.NURSE ---
Pt to CT at this time.
[2024-02-07 23:33] LABS: Amphetamine Screen Urine Negative (Negative); Barbiturate Screen Urine Negative (Negative); Benzodiazepines Screen Urine Positive (Negative); Cannabinoid Screen Urine Positive (Negative); Cocaine Screen Urine Positive (Negative); Methadone Screen Urine Negative (Negative); Opiate Screen Urine Negative (Negative); Phencyclidine Screen Urine Negative (Negative)
--- NOTE | 2024-02-08 00:05 | PC.NURSE ---
ERP returns to bedside. Pt now having another loud, non-productive emesis. ERP to give dose of Compazine and will discharge.
[2024-02-08] MEDS: PROCHLORPERAZINE EDISYLATE 10 MG/2 ML VIAL IM (00:09)
--- NOTE | 2024-02-08 00:25 | PC.NURSE ---
ERP aware of D/C blood pressure and states may proceed with discharge and have pt take home BP meds when she goes home. Pt verbalized understanding.
[2024-02-08 00:26] VITALS: BP 181/99; PULSE 92; RESP 16; TEMP 36.9; O2SAT 99
== END 2024-02-08 00:33 | disposition home or self-care (01) ==
PROVIDERS: Emergency Provider Emergency Medicine; PCP Internal Medicine
DX: R11.2 Nausea with vomiting, unspecified (principal); R10.9 Unspecified abdominal pain; F19.10 Other psychoactive substance abuse, uncomplicated; E11.9 Type 2 diabetes mellitus without complications; F17.210 Nicotine dependence, cigarettes, uncomplicated; Z79.4 Long term (current) use of insulin; Z79.899 Other long term (current) drug therapy
CPT/HCPCS: 36415; 70450; 71045; 74019; 80053; 80307; 81003; 82010; 82077; 82948; 83605; 83690; 84484; 85027; 87040; 93005; 96361; 96372; 96374; 99284; J0780; J2550; J7030

== ENCOUNTER 2024-02-09 20:01 | Emergency (ER) | payer OTHER, SELFPAY ==
[2024-02-09 20:04] VITALS: BP 143/98; PULSE 119; RESP 18; TEMP 36.2; O2SAT 95
--- NOTE | 2024-02-09 20:09 | ED.NAVMDI ---
HPI - Nausea/Vomiting/Diarrhea General Chief complaint: Nausea/Vomiting/Diarrhea Stated complaint: Vomiting Time Seen by Provider: 02/09/24 20:02 Source: patient Mode of arrival: ambulatory Limitations: no limitations History of Present Illness HPI Narrative: This is a 58-year-old female with a history of cannabis use with some cannabis cycles vomiting syndrome presents with episodes of nausea vomiting over the last couple of days has been seen yesterday for similar episode and recommended by her primary to return to the emergency department for further evaluation. Patient denies any fever chills no chest pain no shortness of breath no abdominal pain. MD elicited complaint: nausea and vomiting Onset (ago): day(s) Description of vomiting: watery Associated nausea: Yes Associated abdominal pain: No Severity: moderate Related Data Home Medications Medication Instructions Recorded Confirmed alprazolam 1 mg tablet (Xanax) See Rx Instructions .Route 11/10/20 02/07/24 .COMPLEX PRN Anxiety insulin glargine 100 unit/mL (3 See Rx Instructions .Route .COMPLEX 11/10/20 02/07/24 mL) subcutaneous pen (Lantus Solostar U-100 Insulin) devcyzovvh-ugyavhgaxohju-ipzqjuio 1 cap PO BID PRN Migraine Headache 05/10/22 02/07/24 50 mg-300 mg-40 mg capsule verapamil 180 mg tablet,extended 180 mg PO DAILY 05/10/22 02/07/24 release lisinopril 10 mg tablet 10 mg PO DAILY 11/30/22 02/07/24 atorvastatin 20 mg tablet 20 mg PO DAILY 01/15/23 02/07/24 propranolol 10 mg tablet 10 mg PO TID 12/23/23 02/07/24 Allergies Allergy/AdvReac Type Severity Reaction Status Date / Time Sulfa (Sulfonamide Allergy Mild Unknown Verified 02/07/24 22:00 Antibiotics) Penicillins Allergy Unknown Verified 02/07/24 22:00 Review of Systems Review of Systems: All systems reviewed & are unremarkable except as noted in HPI and below PMFSH Past Medical History Medical History GERD (gastroesophageal reflux disease) Hypokalemia Migraines PTSD (post-traumatic stress disorder) T2DM (type 2 diabetes mellitus) Surgical History Surgical History Hx of cholecystectomy Social History Social History Smoking packs per day: 1 Smoking cigarettes per day: 20.0 Years smoked: 30 Smoking pack-years: 30.00 Smoking status: Light tobacco smoker Tobacco type: cigarettes Second hand tobacco smoke exposure: Yes Alcohol intake: unknown Substance use: unknown Substance use type: unknown Gender identity (if verbalized by the patient): Female Sexual Orientation (if Verbalized by the Patient): Straight or Heterosexual Spiritual care concerns: No Exam Const: General: healthy appearing and no acute distress Nutritional Appearance: well nourished and obese Orientation/consciousness: patient oriented x3 Limitations: no limitations Chest: Chest palpation & inspection: normal inspection of the chest Resp: Effort & Inspection: normal respiratory effort Auscultation: clear to auscultation bilaterally Cardio: Rate: regular rate Rhythm: regular rhythm GI: GI Palp: Yes Soft to palpation Auscultation: normal bowel sounds : General: Yes bladder normal to palpation Course Course Emergency Course: IV fluids administered normal saline and a dose of 0.5 IV Haldol was given for nausea vomiting as well as 40mg IV Protonix. CBC and CMP reviewed with patient. Vital Signs Vital signs: Vital Signs Temperature 36.2 C L 02/09/24 20:04 Pulse Rate 119 H 02/09/24 20:04 Respiratory Rate 18 02/09/24 20:04 Blood Pressure 143/98 H 02/09/24 20:04 Pulse Oximetry 95 02/09/24 20:04 Oxygen Delivery Room Air 02/09/24 20:04 Temperature 36.2 C L 02/09/24 20:04 Pulse Rate 119 H 02/09/24 20:04 Respiratory Rate 18 02/09/24 20:04 Blood Pressure 143/98 H 02/09/24 20:04 Pulse Oximetry 95 02/09/24 20:04 Oxygen Delivery Room Air 02/09/24 20:04 Critical Care Time Critical Care Time Critical Care Time: No Discharge Plan Discharge Clinical Impression: Cyclical vomiting syndrome, Acute dehydration Patient Disposition: Home, Self-Care Condition: Stable Instructions: Antibiotic Form, Acute Nausea and Vomiting (ED), Cyclic Vomiting Syndrome (ED) Additional Instructions: advised to follow-up with primary care physician within 1 week and take medication as prescribed. Prescriptions: New haloperidol 0.5 mg tablet 0.5 mg PO TID PRN (Reason: nausea and vomiting) Qty: 20 0RF pantoprazole [Protonix] 40 mg tablet,delayed release (DR/EC) 40 mg PO QAM 28 Days Qty: 28 0RF No Action alprazolam [Xanax] 1 mg tablet See Rx Instructions .ROUTE .COMPLEX PRN (Reason: Anxiety) Rx Instructions: TAKE ONE-HALF TABLET IN THE MORNING AND ONE IN THE AFTERNOON NEEDED FOR ANXIETY insulin glargine [Lantus Solostar U-100 Insulin] 100 unit/mL (3 mL) insulin pen See Rx Instructions .ROUTE .COMPLEX Rx Instructions: 35 UNITS EVERY MORNING 60 UNITS EVERY EVENING atorvastatin 20 mg tablet 20 mg PO DAILY prochlorperazine maleate [Compazine] 10 mg tablet 10 mg PO Q8H PRN (Reason: nausea and vomiting) Qty: 20 0RF verapamil 180 mg Tablet Extended Release 180 mg PO DAILY xbuxhigfgj-wjkeynfwbjhuy-hwau 50-300-40 mg Capsule 1 cap PO BID PRN (Reason: Migraine Headache) albuterol sulfate 90 mcg/actuation HFA aerosol inhaler 2 puff inhalation QID PRN (Reason: shortness of breath or wheezing) Qty: 8.5 0RF lisinopril 10 mg tablet 10 mg PO DAILY propranolol 10 mg tablet 10 mg PO TID prochlorperazine maleate [Compazine] 10 mg tablet 10 mg PO Q6H PRN (Reason: nausea and vomiting) Qty: 10 0RF Follow-up/Referrals: Jose Escoto MD [Primary Care Provider] - Time of Disposition: 21:17
[2024-02-09 20:17] LABS: Basophils Absolute Auto 0.06 K/mm3 (0.00-0.10); Basophils Percent Auto 0.5 % (0.0-1.0); Eosinophils Absolute Auto 0.02 K/mm3 (0.02-0.50); Eosinophils Percent Auto 0.2 % (1.0-6.0); Hematocrit 42.6 % (35.0-49.0); Hemoglobin 14.8 g/dL (12.0-15.0); Immature Granulocyte Absolute 0.04 K/mm3 (0.00-0.00); Immature Granulocyte Percent A 0.3 % (0.0-0.0); Lymphocytes Percent Auto 11.3 % (18.0-42.0); Mean Corpuscular HGB Conc 34.7 g/dL (32-36); Mean Corpuscular Hemoglobin 32.3 pg (27.0-31.0); Mean Platelet Volume 10.8 fl (9.2-11.8); Monocytes Absolute Auto 0.54 K/mm3 (0.10-0.90); Monocytes Percent Auto 4.1 % (2.0-11.0); Neutrophils Absolute Auto 11.12 K/mm3 (1.70-7.20); Neutrophils Percent Auto 83.6 % (50.0-70.0); Platelet Count Result 291 K/mm3 (150-420); Red Blood Count 4.58 M/mm3 (4.20-5.40); Red Cell Distribution Width 12.6 % (11.6-14.4); White Blood Count 13.3 K/mm3 (4.8-10.8)
[2024-02-09] MEDS: HALOPERIDOL LACTATE 5 MG/ML VIAL IV PUSH (20:17)
[2024-02-09] MEDS: PANTOPRAZOLE SODIUM IV 40 MG VIAL IV PUSH (20:17)
[2024-02-09] MEDS: SODIUM CHLORIDE 0.9% IV 1,000 ML 999 ML IV CONT (20:17)
[2024-02-09 20:23] VITALS: BP 154/91; PULSE 104; RESP 22; O2SAT 98
--- NOTE | 2024-02-09 20:23 | PC.NURSE ---
patient reports that she can feel the haldol working. side rails put up. placed on rig superintendent. call light in reach. instructed patient to not get up on her own to use call light for assistance. patient verbalized understanding. warm blankets placed on patient. lights turned off per patient request.
[2024-02-09 20:39] LABS: Alanine Aminotransferase 29 U/L (14-59); Albumin Level 3.7 g/dL (3.4-5.0); Alkaline Phosphatase 135 U/L (46-116); Anion Gap 17 mmol/L (4-12); Aspartate Amino Transferase 21 U/L (15-37); Bilirubin,Total 0.8 mg/dL (0.00-1.00); Blood Urea Nitrogen 22 mg/dL (7-18); Calcium 9.7 mg/dL (8.5-10.1); Carbon Dioxide 22 mmol/L (21-32); Chloride 100 mmol/L (98-108); Estimated CRCL calculation 51 ml/min; Estimated Glomerular Filt Rate 49; Potassium 3.3 mmol/L (3.5-5.1); Sodium 139 mmol/L (136-145); Total Protein 8.1 g/dL (6.4-8.2)
--- NOTE | 2024-02-09 20:40 | PC.NURSE ---
patient resting quietly on stretcher. no retching at this time. appears to be sleeping. resp even and unlabored. call light within reach.
[2024-02-09 20:41] VITALS: BP 152/86; PULSE 99; RESP 18; O2SAT 94
[2024-02-09 20:53] LABS: Glucose 293 mg/dL (70-99); Osmolality Calculated 302 mOsm/kg (285-295)
[2024-02-09 21:00] VITALS: BP 142/89; PULSE 102; RESP 20; O2SAT 95
[2024-02-09] MEDS: POTASSIUM BICARBONATE 25 MEQ TABEF 50 MEQ PO (21:24)
== END 2024-02-09 21:40 | disposition home or self-care (01) ==
LOC: CHSED 20:28
PROVIDERS: Emergency Provider Emergency Medicine; PCP Internal Medicine
DX: R11.15 Cyclical vomiting syndrome unrelated to migraine (principal); E86.0 Dehydration; E11.9 Type 2 diabetes mellitus without complications; F17.210 Nicotine dependence, cigarettes, uncomplicated; Z79.899 Other long term (current) drug therapy; Z79.4 Long term (current) use of insulin
CPT/HCPCS: 36415; 80053; 85025; 96361; 96374; 96375; 99284; A9270; J1630; J2470; J7030

== ENCOUNTER 2024-02-25 01:44 | Emergency (ER) | payer OTHER, SELFPAY ==
[2024-02-25] VITALS (14 sets, daily range): BP systolic 164–182; BP diastolic 94–129; PULSE 92–118; RESP 14–23; TEMP 36; O2SAT 90–98
--- NOTE | ~2024-02-25 | XR_ITS ---
EXAMINATION: XR abdomen obstructive series DATE: 02/25/2024 02:31 INDICATION: Nausea, diarrhea and cyclic vomiting TECHNIQUE: Frontal supine and upright views of the abdomen were obtained. COMPARISON: None. FINDINGS: Small amount of gas and stool scattered throughout the colon. No dilated loops of gas-filled bowel to suggest obstruction. No free intraperitoneal gas. Several ovoid densities in the inferior left pelv is and projecting over the cecum in the right lower quadrant likely representing ingested pills. Chol ecystectomy clips in right upper quadrant. Minimal streaky bibasilar atelectasis. Heart size is renetta l. Old healed right rib fracture. Mild S-shaped curvature of the thoracolumbar spine with moderate to severe spondylosis. IMPRESSION: 1. No free intraperitoneal gas or dilated gas-filled loops of bowel to suggest obstruction. Reviewed, dictated and finalized at location A. POT WORKER
--- NOTE | ~2024-02-25 | CT_ITS ---
EXAMINATION: CT abdomen pelvis w con DATE: 02/25/2024 03:40 INDICATION: Right lower quadrant abdominal pain TECHNIQUE: Computed tomography (CT) of the abdomen and pelvis was performed with 100 mL Omnipaque-350 intravenous contrast. Automated exposure control and iterative reconstruction technique were employe d. The dose-length product was 844.09 mGy-cm. COMPARISON: None FINDINGS: Atelectasis at the anteroinferior right middle lobe and lingula. Heart size is normal. No pericardial or pleural effusion. Small sliding-type hiatal hernia. Cholecystectomy clips the gallbladder fossa. Liver, spleen, pancreas, bilateral adrenal glands and kidneys are normal. There is mild colonic diver ticulosis with a sigmoid predominance. There is no adjacent inflammatory change to suggest diverticu litis. Chronic 2.8 x 1.1 cm macroscopic fat attenuation lipoma in the mid sigmoid colon. Small bowel and appendix are normal. Bladder is normal. The uterus is not identified and has likely been surgica lly resected. No free intraperitoneal gas or fluid. No pathologically enlarged abdominal or pelvic ly mphadenopathy. Mild S-shaped curvature of the lumbar and lower thoracic spine with severe spondylosis . Chronic mild anterior wedging of a few lower thoracic vertebral bodies. IMPRESSION: 1. No acute intra-abdominal/pelvic process. Reviewed, dictated and finalized at location A. EMENTATION ANALYST
--- NOTE | ~2024-02-25 | XR_ITS ---
EXAMINATION: XR chest 1V DATE: 02/25/2024 02:31 INDICATION: Chest pain, nausea and vomiting TECHNIQUE: frontal view of the chest was obtained. COMPARISON: Chest radiograph dated 02/07/2024 FINDINGS: Mild streaky atelectasis at the bilateral lung bases. No other airspace opacities, pulmonary edema, p leural effusion or pneumothorax. Calcifications associated with old fracture of the anterior right th ird and fourth ribs. Visualized bones and soft tissues are unremarkable. IMPRESSION: 1. Mild streaky bibasilar atelectasis. Reviewed, dictated and finalized at location A. CH PLANNER
--- NOTE | 2024-02-25 01:50 | PC.NURSE ---
pt unable to remain still for accurate bp. erp aware
--- NOTE | 2024-02-25 01:54 | ED_ITS ---
HPI - General Adult General Chief complaint: Nausea/Vomiting/Diarrhea Stated complaint: n/v/d Time Seen by Provider: 02/25/24 01:54 Source: patient Mode of arrival: ambulatory Limitations: no limitations History of Present Illness HPI narrative: 58-year-old white female with a history of cannabinoid hyperemesis syndrome and history of substance abuse with multiple drug screens positive for THC and cocaine. She states she started having nausea vomiting at 6:00 p.m. about 8 hours ago. Just vomiting her food said she threw up about 20 times did not vomit any blood. Complains of dizziness and lightheadedness. She ran out of her Zofran 2 or 3 days ago. Denies any diarrhea. She says she vomits 18/30 days in the month she has been doing this for years she recently saw GI doctor had an EGD the results of which she does not know. She had a lower colonoscopy that showed polyps she has a follow-up with the GI doctor in March. She has hiatal hernia that she thinks is the cause of her vomiting. She also complains of right lower quadrant pain that started 3 or 4 months she has had this off and on. Denies any blood in her stool denies any problems voiding or stooling. She ate pizza tonight for dinner. Denies any cough fever sore throat runny nose swelling lumps or bumps rash or itching or any other complaints. Related Data Home Medications Medication Instructions Recorded Confirmed insulin glargine 100 unit/mL (3 See Rx Instructions .Route .COMPLEX 11/10/20 02/25/24 mL) subcutaneous pen (Lantus Solostar U-100 Insulin) [id number] 1 cap PO BID PRN Migraine Headache 05/10/22 02/25/24 50 mg-300 mg-40 mg capsule verapamil 180 mg tablet,extended 180 mg PO DAILY 05/10/22 02/25/24 release lisinopril 10 mg tablet 10 mg PO DAILY 11/30/22 02/25/24 atorvastatin 20 mg tablet 20 mg PO DAILY 01/15/23 02/25/24 propranolol 10 mg tablet 10 mg PO TID 12/23/23 02/25/24 alprazolam 1 mg tablet 1 mg PO DAILY 02/25/24 02/25/24 buspirone 30 mg tablet 30 mg PO DAILY 02/25/24 02/25/24 haloperidol 0.5 mg tablet 0.5 mg PO DAILY 02/25/24 02/25/24 levomilnacipran 20 mg capsule,24 20 mg PO DAILY 02/25/24 02/25/24 hr,extended release (Fetzima) Allergies Allergy/AdvReac Type Severity Reaction Status Date / Time Sulfa (Sulfonamide Allergy Mild Unknown Verified 02/25/24 01:56 Antibiotics) Penicillins Allergy Unknown Verified 02/25/24 01:56 Review of Systems Review of Systems: All systems reviewed & are unremarkable except as noted in HPI and below PMFSH Past Medical History Medical History GERD (gastroesophageal reflux disease) Hypokalemia Migraines PTSD (post-traumatic stress disorder) T2DM (type 2 diabetes mellitus) Surgical History Surgical History Hx of cholecystectomy Social History Social History Smoking packs per day: 1 Smoking cigarettes per day: 20.0 Years smoked: 30 Smoking pack-years: 30.00 Smoking status: Light tobacco smoker Tobacco type: cigarettes Second hand tobacco smoke exposure: Yes Alcohol intake: unknown Substance use: unknown Substance use type: unknown Gender identity (if verbalized by the patient): Female Sexual Orientation (if Verbalized by the Patient): Straight or Heterosexual Spiritual care concerns: No Exam Narrative: White female patient with Moderate distress cyst, sticking her finger down her throat to try to make herself gag and throw up dry heaving with this effort.? Head normocephalic, atraumatic.? Eyes conjunctiva pink sclera nonicteric.? Extraocular movements are intact.? Ears externally normal.? Oropharynx is clear with moist mucous membranes without exudates.? Neck is supple nontender no lymphadenopathy.? Back is nontender.? Lungs are clear.? Heart is Tachycardic with regular rhythm without murmurs gallops or rubs.? Chest wall nontender. Abdomen is soft With right lower quadrant tenderness, without guarding or rebound. She had no hepatosplenomegaly or masses no CVA tenderness no abdominal bruits.? no CVA tenderness. Extremities no cyanosis clubbing or edema.? Skin is warm and dry without rashes or lesions.? Neurological patient is alert and oriented x4.? Motor and sensory grossly intact.? Gait is normal. Course Vital Signs Vital signs: Vital Signs Oxygen Delivery Room Air 02/25/24 01:44 Temperature 36.0 C L 02/25/24 01:49 Pulse Rate 110 H 02/25/24 05:00 Respiratory Rate 21 H 02/25/24 05:00 Blood Pressure 175/100 H 02/25/24 04:01 Pulse Oximetry 96 02/25/24 05:00 Oxygen Delivery Room Air 02/25/24 01:49 Medical Decision Making MDM Narrative Medical decision making narrative: ?Patient placed in room: 3 ? History and physical was performed. CBC:? 13.7 WBC, with normal H and H and platelets CMP: Sodium 134 potassium 3.2 chloride 96 BUN 21 creatinine 1.09 GFR 51 glucose 351 alk phos 124 rest of her CMP was normal.? Normal lactic acid, troponin, and lipase coags. 2 hour troponin: Normal Review urine drug screens august and February all had positive drug screens for benzos cocaine and cannabinoids. CT abdomen and pelvis with IV contrast no active disease per radiologist Independent Historian: patient External Source Review: Differential Dx includes but not limited to: acute coronary syndrome can avoid hyperemesis syndrome some substance abuse acute appendicitis bowel obstruction Medications were Reviewed: home meds reviewed Medications given: Zofran 4 mg, Protonix 40 IV Push, Haldol 5 IV, normal saline 1 L bolus . She got quite her relief with the Haldol she stopped trying to make herself gag and throw up. Independently Interpreted by me: labs independently interpreted by me obstructive series showed no active disease right lower quadrant looks like pills. per radiologist nonobstructive bowel pattern calcified density the right lower quadrant may represent pills in the cecum. Shared decision Making: Evaluation was discussed all questions were asked and answered patient agreed with plan. Social Situation Impacting Patients Care: persistent TH C use and history of cocaine abuse Discussed with Dr. BLANCAS DIAGNOSIS: cannabinoid hyperemesis syndrome, abdominal pain DISPOSITION : discharge home CONDITION AT DISCHARGE: stable Vital Signs Vital Signs: Vital Signs Oxygen Delivery Room Air 02/25/24 01:44 Temperature 36.0 C L 02/25/24 01:49 Pulse Rate 110 H 02/25/24 05:00 Respiratory Rate 21 H 02/25/24 05:00 Blood Pressure 175/100 H 02/25/24 04:01 Pulse Oximetry 96 02/25/24 05:00 Oxygen Delivery Room Air 02/25/24 01:49 Lab Data 02/25/24 02:12 02/25/24 02:12 Labs: Lab Results 02/25/24 02/25/24 02/25/24 Range/Units 02:02 02:12 04:14 WBC 13.7 H (4.8-10.8) K/mm3 RBC 4.49 (4.20-5.40) M/mm3 Hgb 14.5 (12.0-15.0) g/dL Hct 41.1 (35.0-49.0) % MCV 91.5 (78.0-102.0) fL MCH 32.3 H (27.0-31.0) pg MCHC 35.3 (32-36) g/dL RDW 12.5 (11.6-14.4) % Plt Count 294 (150-420) K/mm3 MPV 10.8 (9.2-11.8) fl Immature Gran % (Auto) 0.3 H (0.0-0.0) % Neut % (Auto) 84.3 H (50.0-70.0) % Lymph % (Auto) 10.2 L (18.0-42.0) % [place] % (Auto) 4.2 (2.0-11.0) % Eos % (Auto) 0.7 L (1.0-6.0) % Baso % (Auto) 0.3 (0.0-1.0) % Lymph # (Auto) 1.40 (1.10-4.50) K/mm3 [place] # (Auto) 0.57 (0.10-0.90) K/mm3 Eos # (Auto) 0.09 (0.02-0.50) K/mm3 Baso # (Auto) 0.04 (0.00-0.10) K/mm3 Abs Immat Gran (auto) 0.04 H (0.00-0.00) K/mm3 Absolute Neuts (auto) 11.55 H (1.70-7.20) K/mm3 Absolute Nucleated RBC 0.00 (0.00-0.00) K/mm3 Nucleated RBC % 0.0 (0-0.0) % Sodium 134 L (136-145) mmol/L Potassium 3.2 L (3.5-5.1) mmol/L Chloride 96 L (98-108) mmol/L Carbon Dioxide 22 (21-32) mmol/L Anion Gap 16 H (4-12) mmol/L BUN 21 H (7-18) mg/dL Creatinine 1.09 H (0.55-1.02) mg/dL Estim Creat Clear Calc 53 ml/min Estimated GFR 51 L (59 - ) Glucose 351 H (70-99) mg/dL POC Capillary Glucose 338 H (65-105) mg/dl Calculated Osmolality 295 (285-295) mOsm/kg Lactic Acid 1.2 (0.4-2.0) mmol/L Calcium 9.4 (8.5-10.1) mg/dL Total Bilirubin 0.6 (0.00-1.00) mg/dL AST 11 L (15-37) U/L ALT 29 (14-59) U/L Alkaline Phosphatase 124 H (46-116) U/L Troponin I 5.8 6.2 (0.00-60.4) ng/L Total Protein 7.7 (6.4-8.2) g/dL Albumin 3.8 (3.4-5.0) g/dL Lipase 18 (16-77) U/L Discharge Plan Discharge Clinical Impression: Cannabinoid hyperemesis syndrome, Atypical chest pain Abdominal pain Qualifiers: Abdominal location: right lower quadrant Qualified Code(s): R10.31 - Right lower quadrant pain Patient Disposition: Home, Self-Care Condition: Stable Instructions: Abdominal Pain (ED), Cyclic Vomiting Syndrome (ED) Additional Instructions: Zofran 4 mg ODT, 1 tablet dissolve on your tongue every 4 hours as needed for nausea or vomiting. Follow-up with your primary care provider and/or senior cytotechnologist in 2 days.. Return if you get worse or develops any new sy mptoms. Stop using marijuana and cocaine. Prescriptions: New ondansetron 4 mg tablet,disintegrating 4 mg PO Q4H PRN (Reason: nausea and vomiting) 28 Days Qty: 168 0RF Rx Instructions: give 1st dose 30min before emetogenic chemo No Action insulin glargine [Lantus Solostar U-100 Insulin] 100 unit/mL (3 mL) insulin pen See Rx Instructions .ROUTE .COMPLEX Rx Instructions: 35 UNITS EVERY MORNING 60 UNITS EVERY EVENING atorvastatin 20 mg tablet 20 mg PO DAILY buspirone 30 mg tablet 30 mg PO DAILY haloperidol 0.5 mg tablet 0.5 mg PO DAILY alprazolam 1 mg tablet 1 mg PO DAILY Fetzima 20 mg capsule,extended release 24 hr 20 mg PO DAILY verapamil 180 mg Tablet Extended Release 180 mg PO DAILY ijwfquuyzp-dvkcqiclozqod-gnmg 50-300-40 mg Capsule 1 cap PO BID PRN (Reason: Migraine Headache) lisinopril 10 mg tablet 10 mg PO DAILY propranolol 10 mg tablet 10 mg PO TID pantoprazole [Protonix] 40 mg tablet,delayed release (DR/EC) 40 mg PO QAM 28 Days Qty: 28 0RF Follow-up/Referrals: Jose Escoto MD [Primary Care Provider] - Time of Disposition: 05:06
[2024-02-25 02:05] LABS: Glucose Point of Care 338 mg/dl (65-105)
[2024-02-25] MEDS: ONDANSETRON INJ 4 MG/2 ML VIAL IV PUSH (02:12)
[2024-02-25] MEDS: PANTOPRAZOLE SODIUM IV 40 MG VIAL IV PUSH (02:12)
[2024-02-25] MEDS: HALOPERIDOL LACTATE 5 MG/ML VIAL IV PUSH (02:14)
[2024-02-25 02:15] LABS: Basophils Absolute Auto 0.04 K/mm3 (0.00-0.10); Basophils Percent Auto 0.3 % (0.0-1.0); Eosinophils Absolute Auto 0.09 K/mm3 (0.02-0.50); Eosinophils Percent Auto 0.7 % (1.0-6.0); Hematocrit 41.1 % (35.0-49.0); Hemoglobin 14.5 g/dL (12.0-15.0); Immature Granulocyte Absolute 0.04 K/mm3 (0.00-0.00); Immature Granulocyte Percent A 0.3 % (0.0-0.0); Lymphocytes Percent Auto 10.2 % (18.0-42.0); Mean Corpuscular HGB Conc 35.3 g/dL (32-36); Mean Corpuscular Hemoglobin 32.3 pg (27.0-31.0); Mean Corpuscular Volume 91.5 fL (78.0-102.0); Mean Platelet Volume 10.8 fl (9.2-11.8); Monocytes Absolute Auto 0.57 K/mm3 (0.10-0.90); Monocytes Percent Auto 4.2 % (2.0-11.0); Neutrophils Absolute Auto 11.55 K/mm3 (1.70-7.20); Neutrophils Percent Auto 84.3 % (50.0-70.0); Platelet Count Result 294 K/mm3 (150-420); Red Blood Count 4.49 M/mm3 (4.20-5.40); Red Cell Distribution Width 12.5 % (11.6-14.4); White Blood Count 13.7 K/mm3 (4.8-10.8)
[2024-02-25] MEDS: SODIUM CHLORIDE 0.9% IV 1,000 ML 999 ML IV CONT (02:18)
[2024-02-25 02:33] LABS: Lactic Acid Reflex 1.2 mmol/L (0.4-2.0)
[2024-02-25 02:35] LABS: Alanine Aminotransferase 29 U/L (14-59); Albumin Level 3.8 g/dL (3.4-5.0); Alkaline Phosphatase 124 U/L (46-116); Anion Gap 16 mmol/L (4-12); Aspartate Amino Transferase 11 U/L (15-37); Bilirubin,Total 0.6 mg/dL (0.00-1.00); Blood Urea Nitrogen 21 mg/dL (7-18); Calcium 9.4 mg/dL (8.5-10.1); Carbon Dioxide 22 mmol/L (21-32); Chloride 96 mmol/L (98-108); Estimated CRCL calculation 53 ml/min; Estimated Glomerular Filt Rate 51; Glucose 351 mg/dL (70-99); Lipase 18 U/L (16-77); Osmolality Calculated 295 mOsm/kg (285-295); Potassium 3.2 mmol/L (3.5-5.1); Sodium 134 mmol/L (136-145); Total Protein 7.7 g/dL (6.4-8.2); Troponin I 5.8 ng/L (0.00-60.4)
--- NOTE | 2024-02-25 03:27 | PC.NURSE ---
ERP aware of pt's high bp and pulse. No new orders.
[2024-02-25 04:36] LABS: Troponin I 6.2 ng/L (0.00-60.4)
== END 2024-02-25 05:48 | disposition home or self-care (01) ==
PROVIDERS: Emergency Provider Emergency Medicine; PCP Internal Medicine
DX: R11.10 Vomiting, unspecified (principal); F12.90 Cannabis use, unspecified, uncomplicated; R10.31 Right lower quadrant pain; R07.89 Other chest pain; E11.9 Type 2 diabetes mellitus without complications; F17.210 Nicotine dependence, cigarettes, uncomplicated; Z79.4 Long term (current) use of insulin; Z79.899 Other long term (current) drug therapy
CPT/HCPCS: 36415; 71045; 74019; 74177; 80053; 82948; 83605; 83690; 84484; 85025; 96361; 96374; 96375; 99284; J1630; J2405; J2470; J7030; Q9967

== ENCOUNTER 2024-07-09 12:00 | Outpatient (CLI) | payer OTHER, SELFPAY ==
--- NOTE | ~2024-07-09 | CT_ITS ---
CT abdomen pelvis w con Ordering provider: Jose Escoto MD History: 59 years Female with . RLQ Pain,N/V/C/D,BLOOD IN STOOL,PELVIC PRESSURE,FEVER,X1WK . Comparison: February 25, 2024 Technique: CT abdomen and pelvis with IV and without oral contrast. Automated exposure control and it erative reconstruction technique were employed. The dose-length product was 912.83 mGy-cm. 100 mL Omn ipaque 350 was given IV. Findings: VISUALIZED LOWER CHEST: Normal. UPPER ABDOMINAL ORGANS: Liver: Fat infiltration. Hepatomegaly. Gallbladder: Status post cholecystectomy. Spleen: Small hypodensities. Follow-up advised. Stomach/duodenum: Normal. Pancreas: Normal. Adrenals: Left adrenal adenoma measuring 1.8 cm. No follow-up advised unless clinically warranted. Sl ightly prominent right adrenal gland. Kidneys: Normal. PELVIC ORGANS: The bladder is slightly underfilled with thickened wall. Evaluation for cystitis advis ed. BOWEL AND MESENTERY: Colon: Mild sigmoid diverticulosis without diverticulitis. Normal appendix. Small Bowel: Normal. No obstruction. Peritoneum/mesentery: No free air or free fluid. No mesenteric lymphadenopathy. RETROPERITONEUM: Mild atheromatous disease of the abdominal aorta. No retroperitoneal lymphadenopat hy. MUSCULOSKELETAL: Superficial soft tissues: The superficial soft tissues are normal. Bones: Age appropriate degenerative changes of the spine. Levoscoliosis. IMPRESSION: 1. Hepatomegaly with fat infiltration. 2. Small hypodensities in the spleen. Follow-up advised. 3. No evidence of appendicitis, diverticulitis or intestinal obstruction. 4. Left adrenal adenoma. No follow-up advised unless clinically warranted. Reviewed, dictated and finalized at location A.
[2024-07-09 12:13] LABS: Hematocrit 40.1 % (35.0-49.0); Hemoglobin 13.2 g/dL (12.0-15.0); Mean Corpuscular HGB Conc 32.9 g/dL (32-36); Mean Corpuscular Hemoglobin 30.8 pg (27.0-31.0); Mean Corpuscular Volume 93.5 fL (78.0-102.0); Mean Platelet Volume 10.5 fl (9.2-11.8); Platelet Count Result 263 K/mm3 (150-420); Red Blood Count 4.29 M/mm3 (4.20-5.40); Red Cell Distribution Width 13.6 % (11.6-14.4); White Blood Count 6.9 K/mm3 (4.8-10.8)
[2024-07-09 12:14] LABS: Add Urine Microscopic? NO; Appearance Urine Clear (Clear); Bilirubin Urine Negative (Negative); Blood Urine Negative (Negative); Color Urine Yellow (Yellow); Glucose Urine UA 2+ (Negative); Ketones Urine Negative (Negative); Leukocyte Esterase Ur Negative LEU/UL (Negative); Nitrate Urine Negative (Negative); Protein Urine Negative (Negative); Specific Grav Ur 1.025 (1.010-1.020)
[2024-07-09 13:18] LABS: Estimated Glomerular Filt Rate > 60
[2024-07-09 13:23] LABS: Alanine Aminotransferase 23 U/L (14-59); Albumin Level 3.6 g/dL (3.4-5.0); Alkaline Phosphatase 129 U/L (46-116); Amylase 24 U/L (25-115); Anion Gap 4 mmol/L (4-12); Aspartate Amino Transferase 11 U/L (15-37); Bilirubin,Total 0.6 mg/dL (0.00-1.00); Blood Urea Nitrogen 13 mg/dL (7-18); Calcium 9.4 mg/dL (8.5-10.1); Carbon Dioxide 31 mmol/L (21-32); Chloride 104 mmol/L (98-108); Glucose 213 mg/dL (70-99); Lipase 22 U/L (16-77); Osmolality Calculated 294 mOsm/kg (285-295); Potassium 4.1 mmol/L (3.5-5.1); Sodium 139 mmol/L (136-145); Total Protein 7.2 g/dL (6.4-8.2)
--- OUTSIDE RECORDS SUMMARY | 2024-07-09 13:50 | XMS_ITS | Clinical Summary ---
Author Organization [facility] Address [facility] [place] [address] Care Team Providers Care Sheriffs Detective Name Role Phone Jose Dean MD Primary Care Provider [phone] Allergies Active Allergy Reactions Criticality Noted Date Comments Penicillins Rash Low 06/26/2020 Sulfa Antibiotics Rash Low 06/26/2020 Medications ALPRAZolam 1 MG tablet Take 1 mg by mouth nightly as needed. 1 Active insulin glargine 100 UNIT/ML injection (PEN) Inject 60 Units into the skin nightly at bedtime. And 20 units every morning Active prazosin 1 MG capsule Take 1 mg by mouth nightly at bedtime. 1 Active ciclopirox 8 % solution Apply 1 Application topically 2 (two) times a day. 1 Active DULoxetine 30 MG capsule Take 30 mg by mouth daily. Active magnesium citrate 1.745 GM/30ML Solution Take 150 mLs by mouth 2 (two) times daily as needed (for constipation). 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 Numbness and tingling in both hands 06/26/2020 Family History Medical History Relation Comments Cancer Mother Hypertension Mother Relation Status Comments Mother Alive Social History Tobacco Use Types Packs/Day Years Used Date Smoking Tobacco: Every Day Cigarettes 0.3 40 Smokeless Tobacco: Never Alcohol Use Standard Drinks/Week Comments Yes 0 (1 standard drink = 0.6 oz pur e alcohol) rarely Comments No Sex and Gender Information Value Date Recorded Sex Assigned at Not on file Legal Sex Female 3:39 PM CDT Gender Identity Not on file Sexual Orientation Not on file Last Filed Vital Signs Vital Sign Reading Time Taken Comments Blood Pressure 157/86 05/08/2022 6:30 AM INTERMEDIATE MANAGER Pulse 100 05/08/2022 6:30 AM INTERMEDIATE MANAGER Temperature 36.4 C (97.5 F) 05/08/2022 5:14 AM INTERMEDIATE MANAGER Respiratory Rate 18 05/08/2022 6:30 AM INTERMEDIATE MANAGER Oxygen Saturation 95% 05/08/2022 6:30 AM INTERMEDIATE MANAGER Inhaled Oxygen Concentration - - Weight 91.6 kg (202 lb) 05/08/2022 2:24 AM INTERMEDIATE MANAGER Height 162.6 cm (5' 4 ) 05/08/2022 2:24 AM INTERMEDIATE MANAGER Body Mass Index 34.67 05/08/2022 2:24 AM INTERMEDIATE MANAGER Plan of Treatment Health Maintenance Due Date Last Done Comments Colorectal Cancer Screening Colonoscopy (10 Years) 1963 Annual Physical 1966 Pneumococcal Vaccine: Pediat rics (0 to 5 Years) and At-Risk Patients (6 to 64 Years) (1 of 2 - PCV) 1969 Hepatitis C 1981 DTaP, Tdap and Td Vaccines ( 1 - Tdap) 1982 Zoster Vaccines (1 of 2) 2013 COVID-19 Vaccine (2023-2 5 season) 2023 Mammogram Screening 02/03/2024 02/02/2022 RSV Immunization or 60+ Years (1 - 1-dose 75+ series) 2038 Meningococcal B Vaccine Aged Out No l onger eligible based on patient's age to complete this topic Meningococcal Vaccine Aged Out No zion riya eligible based on patient's age to complete this topic RSV Immunizations Under 20 Months Aged Out No longer eligible based on patient's age to complete this topic Procedures Procedure Name Priority Date/Time Associated Diagnosis Comments MG SCREENING W ALEX LENNY DIGI Routine 02/02/2022 2:12 PM CDT Visit for screening mammogram from Last 3 Months or Most Recently Relevant to Health Maintenance Results * MG SCREENING W ALEX LENNY DIGI (02/02/2022 2:12 PM CDT) Anatomical Region Laterality Modality Breast Bilateral Mammography 02/15/2022 4:11 PM INTERMEDIATE MANAGER Narrative 02/15/2022 4:13 PM INTERMEDIATE MANAGER Examination: Digital screening mammogram with CAD. Clinical history: Asymptomatic patient presents for routine screening. Comparison: 08/16/2017. Technique: Bilateral digital mammograms. The exam was interpreted with the use of a computer-aided detection (CAD) system. Additional 3-D tomosynthesis images were acquired. Tissue density: The breast tissue contains scattered fibroglandular densities. Findings: The breast tissue contains scattered fibroglandular densities. Benign-appearing calcification noted. Probable focal retroareolar ductal ectasia on the right is similar to previous. No suspicious mass, microcalcification or area of architectural distortion can be identified. From a mammographic standpoint, routine followup in one year would seem adequate. IMPRESSION: No suspicious change since 08/16/2017. Recommendation: 1: Routine Screening Bilateral in 1 Year Assessment: ACR BI-RADS 2 - BENIGN FINDING(S) Ordered By: JOSE DEAN Interpreted By: Manish Frye MD, 02/15/2022 4:11 PM Jose Dean MD MAMMO Final Result from Last 3 Months or Most Recently Relevant to Health Maintenance Insurance C/O PROVIDER [employer] [id number] [facility] Care Teams Sheriffs Detective Relationship Specialty Start Date End Date Jose Dean MD [address] [place] [address] PCP - General INTERNAL MEDICINE 06/26/20
--- OUTSIDE RECORDS SUMMARY | 2024-07-09 13:50 | XMS_ITS | Referral Summary ---
Author Organization [facility] Address [address] [place] [address] Care Team Providers Care Radiator Fitter Name Role Phone Jose Escoto MD Primary Care Provider [phone] Allergies Active Allergy Reactions Criticality Noted Date Comments Sulfa Hives Medium 03/01/2023 Medications omeprazole (PriLOSEC) 40 mg capsule Take 1 capsule (40 mg total) by mouth 2 (two) times a day Active LISINOPRIL ORAL Take by mouth Active atorvastatin calcium (ATORVASTATIN ORAL) Take by mouth Active verapamil HCl (VERAPAMIL ORAL) Take by mouth Active insulin glargine 100 unit/mL vial for injection Inject under the skin nightly Active alprazolam (XANAX ORAL) Take by mouth Active Social History Tobacco Use Types Packs/Day Years Used Date Smoking Tobacco: Every Day Cigarettes Tobacco Cessation:Ready to Q uit: Not Asked; Counseling Given: Not Answered Comments Unknown Sex and Gender Information Value Date Recorded Sex Assigned at Not on file Legal Sex Female 7:16 AM COMMUNITY RELATIONS REP Gender Identity Not on file Sexual Orientation Not on file Last Filed Vital Signs Vital Sign Reading Time Taken Comments Blood Pressure 106/90 03/21/2024 9:43 AM COMMUNITY RELATIONS REP Pulse 67 03/21/2024 9:40 AM COMMUNITY RELATIONS REP Temperature - - Respiratory Rate 20 03/21/2024 9:40 AM COMMUNITY RELATIONS REP Oxygen Saturation 100% 03/21/2024 9:40 AM COMMUNITY RELATIONS REP Inhaled Oxygen Concentration - - Weight - - Height - - Body Mass Index - - Plan of Treatment Not on file Insurance [employer] OPEN ACCESS [employer] OPEN ACCESS Care Teams Radiator Fitter Relationship Specialty Start Date End Date Jose Escoto MD [address] [place] [address] PCP - General Internal Medicine 03/09/24
--- OUTSIDE RECORDS SUMMARY | 2024-07-09 13:50 | XMS_ITS | Clinical Summary ---
Author Organization [facility] Address [address] [place] [address] Care Team Providers Care Tax Associate Attorney Name Role Phone Jose Escoto MD Primary Care Provider [phone] Allergies Active Allergy Reactions Criticality Noted Date [...] alprazolam (XANAX ORAL) Take by mouth Active Surgical History Surgery Date Site/Laterality Comments CHOLECYSTECTOMY PARTIAL HYSTERECTOMY Medical History Medical History Date Comments GERD (gastroesophageal reflux disease) Hypertension Hyperlipidemia Type 2 diabetes mellitus (HCC) Social History Tobacco Use Types Packs/Day Years Used Date Smoking Tobacco: Every Day Cigarettes Tobacco Cessation:Ready to Q uit: Not Asked; Counseling Given: Not Answered Comments Unknown Sex and Gender Information Value Date Recorded Sex Assigned at Not on file Legal Sex Female 7:16 AM GLOBAL HUMAN RESOURCES DIRECTOR Gender Identity Not on file Sexual Orientation Not on file Obstetrics History Last Filed Vital Signs Vital Sign Reading Time Taken Comments Blood Pressure 106/90 03/21/2024 9:43 AM GLOBAL HUMAN RESOURCES DIRECTOR Pulse 67 03/21/2024 9:40 AM GLOBAL HUMAN RESOURCES DIRECTOR Temperature - - Respiratory Rate 20 03/21/2024 9:40 AM GLOBAL HUMAN RESOURCES DIRECTOR Oxygen Saturation 100% 03/21/2024 9:40 AM GLOBAL HUMAN RESOURCES DIRECTOR Inhaled Oxygen Concentration - - Weight - - Height - - Body Mass Index - - Plan of Treatment Health Maintenance Due Date Last Done Comments Cervical Cancer Screening 1963 Colon Cancer Screening-Colonoscopy 1963 Depression Screening 1963 Hepatitis C Screening 1963 DTaP/Tdap/Td Vaccine (1 - Tdap) 1974 Hepatitis B Screening 1981 Regular Well Visit/Exam 18-64 1981 Pneumococcal vaccine <65 (1 of 2 - PCV) 1982 Zoster Vaccine (1 of 2) 2013 Breast Cancer Screening-Mammogram 02/02/2023 022, 02/02/2022 Influenza Vaccine (#1) 2023 01/30/2021 Insurance [employer] OPEN ACCESS [employer] ACCESS Care Teams Tax Associate Attorney Relationship Specialty Start Date End Date Jose Escoto MD [address] [place] [address] PCP - General Internal Medicine 03/09/24
--- OUTSIDE RECORDS SUMMARY | 2024-07-09 13:50 | XMS_ITS | CONTINUITY OF CARE DOCUMENT ---
Author Name nicole rivera Address Unknown Organization [facility] Address [address] [place] [address] Phone [phone] Care Team Providers Care Network Control Supervisor Name Role Phone Shannan PALOMO, Jett Unavailable TIM DEAN MD Unavailable TIM DEAN MD Unavailable PROBLEMS Condition Status Date Provider Notes COPD active Jett Campbell MD Tobacco abuse active Jett Campbell MD Chest pain-type to be determined active Kiko Campbell MD Hypertension active Jett Campbell MD Hyperlipidemia active Jett Campbell MD Diabetes, Type 2 active Jett Campbell MD Cardiology examination active Jett Campbell MD ENCOUNTERS Date Type Provider Location Encounter Diag nosis - In-person encounter Office Visit Jett Campbell MD [facility] - In-person encounter Office Visit Jett Campbell MD [facility] Cardiology examinationDiabetes, Type 2HyperlipidemiaHypertens ionChest pain-type to be determinedTobacco abuseCOPD VITAL SIGNS Date Observation Value Provider Body Mass Index (Ratio) 35.53 kg/m2 Bud Campbell MD blood pressure, diastolic 93 mm[Hg] Eamon Reece blood pressure, systolic 155 mm[Hg] Parish Reece blood pressure, cuff size large Eamon Reece oxygen saturation, oximetry 96 % Jinny Reece respiratory rate E&M 16 /min Gael Reece pulse rate 87 /min Jinny hancock weight E&M 207 [lb_av] Jinny hancock height E&M 64 [in_i] Jinny hancock Body Mass Index (Ratio) 34.67 kg/m2 Bud Campbell MD blood pressure, cuff size large Doug woodbeverly Ta blood pressure, diastolic 92 mm[Hg] Ke israelbeverly Ta blood pressure, systolic 144 mm[Hg] Faustino Ta oxygen saturation, oximetry 95 % Trudi Ta respiratory rate E&M 16 /min Trudi rasheed pulse rate 74 /min Trudi camachoer weight E&M 202 [lb_av] Trudi camachoer height E&M 64 [in_i] Trudi camachoer ALLERGIES Allergy Name Onset Date Reaction Criticality Status PCN High Criticality active SULFA High Criticality active HISTORY OF MEDICATION USE Medication Status Instructions Dates Provider Indications Com ments atorvastatin 80 mg tablet active Take 1 tablet by mouth once a day Jett Auguste U-100 Insulin 100 unit/mL (3 mL) insulin pen active 60 units in the am and 20 units at night Trudi Ta alprazolam 1 mg tablet active Take 1 tablet by mouth twice a day as needed Trudi Ta atorvastatin 20 mg tablet completed Take 1 tablet by mouth once a day - Jett Campbell MD butalbital-acet aminophen-caff 50-300-40 mg capsule active Take 1 capsule by mouth as directed as needed for pain Trudi Keyon duloxetine 30 mg capsule,delayed release(DR/EC) active Take 1 capsule by mouth twice a day Trudi Keyon ondansetron 4 mg tablet,disinteg rating active Take 1 tablet by mouth as directed Trudi Fergusondelfino verapamil 180 mg tablet extended release active Take 1 tablet by mouth once a day Trudi Keyon SOCIAL HISTORY Date Observation Value Provider social history E&M Marital Statu s: Cherry cochran: 2 O ccupation: Smoking History: P atient currently smokes every day. Jett Campbell MD social history reviewed E&M revi ewed - no changes required Jett Campbell MD number of years as a smoker 40 a Jinny Reece smoking history, tot al pack/day 3/4 ppd Jinny Reece cigarette use yes Jinny Goldstein maurice smoking status Current every day smoker R lynda Reece social history reviewed E&M revi ewed - no changes required Jett Campbell MD social history E&M Marital Statu s: Cherry cochran: 2 O ccupation: Smoking History: P atient currently smokes every day. Jett Campbell MD number of years as a smoker 40 a Trudi Ta smoking history, tot al pack/day 3/4 ppd Trudi Ta cigarette use yes Trudi pham smoking status Current every day smoker K rome Ta FAMILY HISTORY Family Member Condition Mother Family History of Co ronary Artery Disease: INSURANCE PROVIDERS Payer name Policy type / Coverage type [place] red libertarian ID [facility] [id number] ADVANCE DIRECTIVES Name Date DISCUSSED - NO DECISION MADE TREATMENT PLAN Date Name Performer [id number],S, Jett deluca MD [id number],S,H as xanthalasma. I ncrease atorvastatin to 80mg, recheck lipid panel in 3 months. I f LDL still high, or if patient cannot tolerate statin high dose, then we will try Raul Campbell MD [id number],S,BP ok at home Jett Campbell MD [id number],B,S tress test with minimal abnormalities, no suggestion of ischemia. Jett Campbell MD [id number],S, Jett deluca MD [id number],S, Jett deluca MD [id number],S, Jett deluca MD [id number],S, Jett deluca MD [id number],S, Jett deluca MD Cardiology Jett Campbell MD Cardiology:Has xanth alasma. I ncrease atorvastatin to 80mg, recheck lipid panel in 3 months. I f LDL still high, or if patient cannot tolerate statin high dose, then we will try Raul Campbell MD Cardiology:BP ok at home Jett olivares MD Cardiology:Stress te st with minimal abnormalities, no suggestion of ischemia. Jett Campbell MD Cardiology Jett Campbell MD Cardiology Jett Campbell MD Cardiology Jett Campbell MD Cardiology Jett Campbell MD Cardiology Jett Campbell MD Date Name LIPID PANEL IRON AND TOTAL IRON BINDING CAPACITY FERRITIN CBC (INCLUDES DIFF/P LT) LIPID PANEL HEMOGLOBIN A1c PROBNP, N TERMINAL COMPREHENSIVE METABO LIC PANEL, W/EGFR DLCO - 17860 FRC - 55671 FVC - 14855 Stress Regadenoson Complete Echo HISTORY OF PROCEDURES Procedure Date Procedure Name Provider Procedure Notes S tatus Spirometry Jett Campbell MD complete d FVC / MVV with bronchodilator - 99975 Jett Campbell MD completed FRC - 12272 Jett Campbell MD complet ed SpO2 w/o 6min walk/titration Jett Campbell MD completed SVC - 20284 Jett Campbell MD complet ed DLCO - 54358 Jett Campbell MD comple camila EKG Jett Campbell MD complete d
--- OUTSIDE RECORDS SUMMARY | 2024-07-09 13:50 | XMS_ITS | Continuity of Care Document ---
Author Organization [facility] Address [address] [place] [address] Phone Care Team Providers Care It Help Desk Analyst Name Role Phone Unavailable Unavailable Unavailable Medications Medication Instructions Dosage Effective Dates (start - stop) Status Comments Zithromax Z-Sergio 250 mg Tab - Active Amitriptyline 75 mg Tab - Ac tive Atenolol 50 mg Tab - Active Depakote ER 250 mg 24 hr Tab - Active Depakote ER 250 mg 24 hr Tab - Active Procedures Procedure Date ENDOMETRIAL - BIOPSY Advance Directives Directive Yes / No Effective Date File Name No Information Encounters Encounter Description Practice Location Reason(s) For Visit Diagnoses Date Provider Providers Copied on Encounter [facility], [address], [place], [place], [id number], [place] tel:[phone] Noteworthy Legacy Data Unspecified symptom associated with female genital organsHeadacheO ther specified aftercare following surgeryRoutine general medical examination at a health care facilitySebaceo us cystExcessive or frequent menstruationUns pecified symptom associated with female genital organsUnspecifi ed symptom associated with female genital organsDyspareun iaMastodyniaAcu te sinusitis, unspecifiedDepr essive disorder, not elsewhere classifiedPostt raumatic stress disorderAnxiety state, unspecifiedOthe r specified aftercare following surgery Jun-201 1 No Information Family History Family Member Type Diagnosis Age At Onset No Information Payers Payer name Insurance type Covered democrat ID Authoriza tion(s) No Information Social History Type Description Quantity Date Captured Comments Sex Female Smoking Status No Information Vital Signs Date / Time: Height Weight BMI Pulse Rate Blood Pressure Temperature Respiratory Rate Body Surface Area Head Circumference Head Circ. Percentile Wt./Rickey. Percentile BMI percentile Pulse Ox Inhaled Ox 10:51 AM 83.800 kg 64 /min 120/82 mm[Hg] 98.30 F 16 /min 2:33 PM 162.60 cm 78.000 kg 29.5 0 kg/m eter (2) 84 /min 102/80 mm[Hg] 97.60 F 20 /min 9:43 AM 77.700 kg 110/84 mm[Hg] 2:28 PM 77.600 kg 122/84 mm[Hg] 11:17 AM 74.200 kg 114/80 mm[Hg] 98.30 F 2:51 PM 74.400 kg 98/80 mm[Hg] Chief Complaint And Reason For Visit No Information Reason For Referral Reason For Referral No Information History Of Present Illness Encounter Date Complaint History Of Prese nt Illness No Information Functional Status Date Functional Assessmen t No Information Instructions Date Instruction Additional Infor mation No Information Assessments Type Assessment Date No Information Patient Care Teams Name Effective Dates (start - stop) Status Members No Information
--- OUTSIDE RECORDS SUMMARY | 2024-07-09 13:50 | XMS_ITS ---
Author Organization Unknown Address [address] [place] [phone] Phone Care Team Providers Care Manufacturing Systems Engineer Name Role Phone JESUSKiya FLASH [address] WORKER Attending Unavailable JERMAINE DUMONT Primary Unavailable Immunization Immunization Date Status Additional Notes Code Code System Influenza, split virus, quadrivalent, PF 01/30/2021 Completed 150 CVX Results MRI BRAIN WO CONTRAST - Comp leted: 01/24/2023 13:32 LOINC: 41074-1 EXAM DESCRIPTION: MRI BRAIN WO CONTRAST REASON FOR STUDY: Chronic nontraumatic constellation of symptoms to include migraine headaches, ?? z oning out, memory issues, depressed auditory sensations, blurring and visual field spots?€ for 3-4 years, though worsened over the past 4-5 months. No provided history of inciting and/or aggravating events. No provided past medical or surgical history. TECHNIQUE: Multiplanar imaging includes non-contrasted T1, T2, FLAIR, and diffusion with ADC map sequences. Additional sequence(s) sensitive to blood products. Images stored on PACS. COMPARISON: MRI brain without contrast 02/10/2022. FINDINGS: CEREBRUM: No acute intra-axial hemorrhage. No edema, mass effect, midline shift, or herniation. WHITE MATTER: Normal. POSTERIOR FOSSA: Brainstem and cerebellum are unremarkable. DIFFUSION IMAGING: No restricted diffusion to suggest acute/subacute ischemia or infarct. EXTRAAXIAL SPACES: No extra-axial fluid collection. No extra-axial mass. BRAIN VOLUME: Within normal limits for age. PITUITARY: Unremarkable. VASCULATURE: No flow disturbance evident. CALVARIUM: Unremarkable. ORBITS: No acute abnormality. Ocular lenses and globes normal in conformation and position. PARANASAL SINUSES AND MASTOIDS: Well-aerated with no fluid levels. No mucosa thickening. OTHER: No other significant finding. IMPRESSION: Unremarkable MRI of the brain. THIS IS AN ELECTRONICALLY VERIFIED FINAL REPORT 01/24/2023 1:47 PM - Electronically signed by Solis Stewart M.D. FLORENTINO: FLORENTINO Report ID: [id number] Reading Location: [place] [address] Social History Type Status Start Date End Date Code Code Syst em Smoking History Current every day smoker [id number] SNOMED CT Sex Female Medications Medication Start Date End Date Route Frequency Dose Code Code System Medication Instructions Home Meds ALPRAZolam 1MG Oral Tablet 04/08/2022 Unknown ORAL DIRECTED 1 MILLIGRAMS 036812 RxNorm TAKE 1 MILLIGRAMS ORAL DIRECTED Albuterol Sulfate 0.083% Inhalation Solution 04/08/2022 Unknown INHALA TION DIRECTED 1 unit(s) 460953 RxNorm 1 EACH INHALATION DIRECTED Aspirin 81MG Oral Tablet, Enteric Coated 04/08/2022 Unknown ORAL ONCE A DAY 81 MILLIGRAMS 736892 RxNorm TAKE 81 MILLIGRAMS ORAL ONCE A DAY Atorvastatin Calcium 20MG Oral Tablet 04/08/2022 Unknown ORAL ONCE A DAY 20 MILLIGRAMS 940992 RxNorm TAKE 20 MILLIGRAMS ORAL ONCE A DAY Butglenna-AP ED-Hbfpieqk-N odeine [id number] MG-30MG Oral Capsule 04/08/2022 Unknown ORAL DIRECTED 1 unit(s) [id number] RxNorm TAKE 1 EACH ORAL DIRECTED DULoxetine HCl 30MG Oral Capsule, Delayed Release 04/08/2022 Unknown ORAL ONCE A DAY 30 MILLIGRAMS [id number] RxNorm TAKE 30 MILLIGRAMS ORAL ONCE A DAY Lantus 100U/1ML Subcutaneous Solution 04/08/2022 Unknown SUBCUT ANEOUS DIRECTED 1 unit(s) [id number] RxNorm INJECT INTO 1 EACH SUBCUTANEOUS DIRECTED Omeprazole 20 MG Oral Tablet, Delayed Release 04/08/2022 Unknown ORAL ONCE A DAY 20 MG RxNorm TAKE 20 MG ORAL ONCE A DAY Verapamil HCl 180MG Oral Capsule, Extended Release 04/08/2022 Unknown ORAL ONCE A DAY 180 MILLIGRAMS 812509 RxNorm TAKE 180 MILLIGRAMS ORAL ONCE A DAY Hospital Discharge Instructions Should you have any questions prior to discharge, please contact a member of your healthcare team. If you have left the hospital and have any questions, please contact your primary care physician. Reason For Referral No Data Found Allergies and Adverse Reactions Allergy Substance Reaction Severity Start Date Concern Status Co de Code System SULFA (sulfonamide) Active [id number] SNO MED-CT ESCITALOPRAM Active 295756 RxNorm PENICILLIN Active Plan of Treatment Upper WO KUB 04/14/2023 Upper WO KUB 03/15/2024 NM Gastric Emptying (52930) 04/12/2024 EGD 07/19/2024 Encounters Encounter Diagnosis Start Date Code Code Sys tem Migraine without aura, not refractory 01/24/2023 425 [id number] SNOMED-CT Personal Care Team Section Performer Name Performer Role Active Date Inactive TIM Maloney PCP - Primary care physician 2022-02-05 Imaging Narrative Notes
--- OUTSIDE RECORDS SUMMARY | 2024-07-09 13:50 | XMS_ITS ---
Author Organization Unknown Address [address] [place] [phone] Phone Care Team Providers Care Finishing Trimmer Name Role Phone MAE BARRERA Attending Unavailable JERMAINE DUMONT Primary Unavailable Immunization Immunization Date Status Additional Notes Code Code System Influenza, split virus, quadrivalent, PF 01/30/2021 Completed 150 CVX Results URINALYSIS w/Microscopy/C&S if indicated - Collect Date/Time: 05/25/2024 15:02 [facility] ID: [id number] [place] [address], [phone] LOINC: 31810-2 Test Value Unit Reference Range Code Code System Flag UR SOURCE VOIDED 95054-1 LOINC COLOR DK YELLOW YELLOW 5778-6 LOINC CLARITY SL CLOUDY CLEAR 32879-7 LOINC SPEC GRAVITY 1.025 1.000-1.030 5811-5 LOINC PH 5.5 5.0 - 6.5 5803-2 LOINC LEUK EST NEGATIVE NEGATIVE 5799-2 LOINC NITRATE NEGATIVE NEGATIVE PROTEIN TRACE NEGATIVE 5804-0 LOINC GLUCOSE TRACE NEGATIVE 63107-4 LOINC KETONES 1+ NEGATIVE 67296-5 LOINC A UROBILINOGEN 0.2 0.2 - 1.0 5818-0 LOINC BILIRUBIN 2+ NEGATIVE 26935-9 LOINC A BLOOD NEGATIVE NEGATIVE 67344-1 LOINC WBC 0-2 0 - 2 27446-3 LOINC RBC 0-2 0 - 2 67393-8 LOINC SQ EPITHELIAL OCCASIONAL RARE-FEW BACTERIA FEW NONE SEEN 58347-3 LOINC MUCUS FEW NONE SEEN 8247-9 LOINC YEAST NOT PRESENT NOT PRESENT 42769-6 LOINC TRICHOMONAS NOT PRESENT NOT PRESENT 29117-7 LOINC SPERMATOZOA NOT PRESENT NOT PRESENT 49110-9 LOINC CASTS PRESENT 71273-1 LOINC HYALINE 10-20/LPF NONE SEEN GRANULAR NONE SEEN NONE SEEN WBC CAST NONE SEEN NONE SEEN 5820-6 LOINC RBC CAST NONE SEEN NONE SEEN 5807-3 LOINC WAXY CAST NONE SEEN NONE SEEN 69118-0 LOINC CRYSTALS NOT PRESENT 27367-5 LOINC CULTURE? NO 8251-1 LOINC DIAGNOSIS N/A 4 PLEX RESPIRATORY COVID FLU RSV PCR - Collect Date/Time: 05/25/2024 13:41 [facility] ID: [id number] [address] [place], [place], [phone] LOINC: 14766-0 Test Value Unit Reference Range Code Code System Flag SARS CoV2 PCR NEGATIVE FLU A PCR NEGATIVE FLU B PCR NEGATIVE RSV PCR NEGATIVE SEND TO [facility]? YES CBC W/ DIFF - Collect Date/T sybil: 05/25/2024 12:40 [facility] ID: [id number] [address] [place], [place], [phone] LOINC: 72451-1 Test Value Unit Reference Range Code Code System Flag WBC 13.1 10^3uL L=4.8 H=10.8 H RBC 5.23 10^6uL L=4.20 H=5.40 HEMOGLOBIN 16.2 g/dL L=12.0 H=16.0 718-7 LOINC H HEMATOCRIT 46.9 VOL% L=37.0 H=47.0 4544-3 LOINC MCV 89.7 fL L=81.0 H=99.0 MCH 31.0 pg L=27.0 H=32.0 MCHC 34.5 g/dL L=32.0 H=36.0 PLATELETS 274 10^3uL L=100 H=400 02707-9 LOINC RDW 12.5 % L=11.7 H=15.5 %GRAN 67.7 % L=40.0 H=70.0 80392-4 LOINC %LYMPH 22.8 % L=20.0 H=45.0 736-9 LOINC %MONO 7.6 % L=2.0 H=10.0 02274-3 LOINC %EOS 1.0 % L=0.0 H=6.0 713-8 LOINC %BASO 0.4 % L=0.0 H=3.0 706-2 LOINC #NEUT 8.9 10^3uL L=1.9 H=7.6 12846-3 LOINC H #LYMPH 3.0 10^3uL L=0.9 H=4.9 62652-9 LOINC #MONO 1.0 10^3uL L=0.1 H=0.9 98213-8 LOINC H #EOS 0.1 10^3uL L=0.0 H=0.6 712-0 LOINC #BASO 0.05 10^3uL L=0.00 H=0.10 94674-7 LOINC #IM GRANS 0.1 10^3uL L=0.0 H=7.0 66775-0 LOINC %IM GRANS 0.5 % L=0.0 H=5.0 37529-7 LOINC %NRB 0.0 L=0.0 H=0.2 74841-0 LOINC #NRB 0.000 L=0.000 H=0.012 98474-2 LOINC MANUAL DIFF NOT INDICATED RBC MORPH NOT INDICATED COMPREHENSIVE METABOLIC PANE L - Collect Date/Time: 05/25/2024 12:40 [facility] ID: [id number] [address] [place], [place], [phone] LOINC: 00975-4 Test Value Unit Reference Range Code Code System Flag FASTING UNKNOWN BUN 37 mg/dL L=7 H=20 3094-0 LOINC H CREATININE 1.50 mg/dL L=0.52 H=1.04 2160-0 LOINC H GLUCOSE 282 mg/dL L=74 H=106 2345-7 LOINC H SODIUM 129 mmol/L L=132 H=144 2951-2 LOINC L POTASSIUM 3.7 mmol/L L=3.5 H=5.1 2823-3 LOINC CHLORIDE 91 mmol/L L=98 H=107 2075-0 LOINC L CO2 22.0 mmol/L L=22.0 H=30.0 2027-9 LOINC ANION GAP 20 L=10 H=20 87095-4 LOINC OSMOLALITY 287 mOs/kG L=280 H=296 80052-2 LOINC BUN/CREAT 24.7 3097-3 LOINC CALCIUM 9.4 mg/dL L=8.3 H=10.5 79506-0 LOINC AST 27 U/L L=15 H=46 1920-8 LOINC ALT 22 U/L L=9 H=72 1742-6 LOINC ALKALINE PHOS 122 U/L L=38 H=126 6768-6 LOINC TOTAL BILI 1.5 mg/dL L=0.2 H=1.3 1975-2 LOINC H ALBUMIN 4.4 G/dL L=3.5 H=5.0 1751-7 LOINC TOTAL PROTEIN 8.1 g/L L=6.3 H=8.2 2885-2 LOINC A/G RATIO 1.2 89148-6 LOINC AGE 59 88536-9 LOINC eGFR NON-AFR 38 ml/min eGFR AFR AMER 46 ml/min LIPASE - Collect Date/Time: 05/25/2024 12:40 [facility] ID: [id number] [address] [place] [address], [id number] LOINC: 3040-3 Test Value Unit Reference Range Code Code System Flag LIPASE 211 U/L L=23 H=300 3040-3 LOINC TROPONIN LEVEL - Collect Rohan e/Time: 05/25/2024 12:40 [facility] ID: [id number] [address] [place] [address], [id number] LOINC: 71152-8 Test Value Unit Reference Range Code Code System Flag TROPONIN < 0.012 ng/mL L=0.000 H=0.033 17123-4 LOINC CHEST 1V - Completed: 2024 14:16 LOINC: \TM00\12PI\DRAo\BM09\ \MRHo\ [address] [address] ---------NAME--------- NUMBER SEX AGE ADMIT DISC. XRAY# F/C TYPE CHLOE MAYERS [id number] F 59 05/25/24 16180 CB5 E.R. DATE OF : 1965 M/R# [id number] #: [id number] ED-38 \MRHx\ LOCATION: TRANSCRIBED: 05/25/24 14:32 CHEST 1V 45997 COMPLETED:05/25/24 14:16 TLS 75469 ;cough, chills x 1wk PHYSICIAN: RUT R A D I O L O G Y R E P O R T CHEST RADIOGRAPH Indication: ;cough, chills x 1wk Technique: Single frontal view of the chest was obtained Comparison: None FINDINGS: Lines and Tubes: None Lungs: No focal consolidation. Pleura: No effusion. No pneumothorax. Cardiomediastinal contours: Unremarkable Bones: No acute osseous abnormality. IMPRESSION: No acute cardiopulmonary disease. WASHER \ITLo\ \UNDo\ \UNDx\ \ITLx\ Reviewed and Electronically Signed by: Celio Cooper MD Signed Date: 05/25/24 14:32 CT ABD/PEL WO CONTRAST - Com pleted: 05/25/2024 14:20 LOINC: 68519-9 \TM00\12PI\DRAo\BM09\ \MRHo\ [facility] [address] [place] [address] ---------NAME--------- NUMBER SEX AGE ADMIT DISC. XRAY# F/C TYPE CHLOE BRENNON MAYERS [id number] F 59 05/25/24 68077 CB5 E.R. DATE OF : 1965 M/R# [id number] #: [id number] ED-38 \MRHx\ LOCATION: TRANSCRIBED: 05/25/24 14:37 CT ABD/PEL WO CONTRAST 45110 COMPLETED:05/25/24 14:20 TLS 12510 abdominal pain PHYSICIAN: RUT R A D I O L O G Y R E P O R T Exam: CT ABD/PEL WO CONTRAST History: abdominal pain Comparison Study: None Technique: Multidetector spiral CT of the abdomen was performed from lung bases to pubic symphysis. Imaging was performed without IV contrast. Axial, coronal and sagittal multiplanar reformats were obtained from the axial data set by the technologist. Radiation Dose : 1. Abdomen/Pelvis: CTDIvol 31.16 mGy, DLP 1417.02 mGy*cm. Findings: Evaluation of solid organs is limited due to lack of intravenous contrast use. Lung Bases: No acute or significant lung base finding. Normal heart size. No pleural or pericardial effusion. Liver: Hepatic steatosis and hepatomegaly. Gallbladder and Biliary Tree: Gallbladder is surgically absent. Spleen: Unremarkable Pancreas: The pancreas is grossly normal in appearance. Adrenal Glands: Unremarkable Kidneys: Kidneys are grossly normal without calculi or hydronephrosis. Bladder: Grossly unremarkable for degree of distention. Bowel: The stomach is grossly normal in appearance. Moderate bowel wall thickening of the colon. Normal appendix is visualized in the right lower quadrant without findings of appendicitis. Ascites: Absent Lymphadenopathy: No mesenteric, retroperitoneal or periportal lymphadenopathy. Abdominal Wall and Mesentery: Unremarkable. Vasculature: The visualized abdominal aorta is normal in size and caliber. There is extensive atherosclerotic calcification of the aorta and its branches. Evaluation of abdominal and pelvic vessels is limited due to lack of intravenous contrast. Pelvic Organs: Unremarkable Musculoskeletal: Degenerative changes of the spine. IMPRESSION: Moderate bowel wall thickening of the colon may represent infectious or inflammatory colitis. Radiation optimization: All CT scans at this facility use at least one of these dose optimization techniques: automated exposure control mA and/or kV adjustment per patient size (includes targeted exams where dose is matched to clinical indication) or iterative reconstruction. WASHER \ITLo\ \UNDo\ \UNDx\ \ITLx\ Reviewed and Electronically Signed by: Srinivasan Tamez MD Signed Date: 05/25/24 14:37 Social History Type Status Start Date End Date Code Code Syst em Smoking History Current every day smoker [id number] SNOMED CT Sex Female Medications Medication Start Date End Date Route Frequency Dose Code Code System Medication Instructions Home Meds ALPRAZolam 1MG Oral Tablet 04/08/2022 Unknown ORAL DIRECTED 1 MILLIGRAMS 19720505 RxNorm TAKE 1 MILLIGRAMS ORAL DIRECTED Albuterol Sulfate 0.083% Inhalation Solution 04/08/2022 Unknown INHALA TION DIRECTED 1 unit(s) 043897 RxNorm 1 EACH INHALATION DIRECTED Aspirin 81MG Oral Tablet, Enteric Coated 04/08/2022 Unknown ORAL ONCE A DAY 81 MILLIGRAMS 528085 RxNorm TAKE 81 MILLIGRAMS ORAL ONCE A DAY Atorvastatin Calcium 20MG Oral Tablet 04/08/2022 Unknown ORAL ONCE A DAY 20 MILLIGRAMS 249307 RxNorm TAKE 20 MILLIGRAMS ORAL ONCE A DAY Butalbital-AP CW-Zjjpftvv-I odeine 05CL-638QW-71 MG-30MG Oral Capsule 04/08/2022 Unknown ORAL DIRECTED 1 unit(s) 6076552 RxNorm TAKE 1 EACH ORAL DIRECTED DULoxetine HCl 30MG Oral Capsule, Delayed Release 04/08/2022 Unknown ORAL ONCE A DAY 30 MILLIGRAMS 131175 RxNorm TAKE 30 MILLIGRAMS ORAL ONCE A DAY Lantus 100U/1ML Subcutaneous Solution 04/08/2022 Unknown SUBCUT ANEOUS DIRECTED 1 unit(s) 645072 RxNorm INJECT INTO 1 EACH SUBCUTANEOUS DIRECTED Omeprazole 20 MG Oral Tablet, Delayed Release 04/08/2022 Unknown ORAL ONCE A DAY 20 MG RxNorm TAKE 20 MG ORAL ONCE A DAY Verapamil HCl 180MG Oral Capsule, Extended Release 04/08/2022 Unknown ORAL ONCE A DAY 180 MILLIGRAMS 962962 RxNorm TAKE 180 MILLIGRAMS ORAL ONCE A [...] Co de Code System SULFA (sulfonamide) Active 76570100 SNO MED-CT ESCITALOPRAM Active 449672 RxNorm PENICILLIN Active Plan of Treatment Upper WO KUB 04/14/2023 Upper WO KUB 03/15/2024 NM Gastric Emptying (60194) 04/12/2024 EGD 07/19/2024 Encounters Encounter Diagnosis Start Date Code Code Sys tem Noninfective gastroenteritis and colitis, unspecified 05/25/2024 SNOMED-CT Personal Care Team Section Performer Name Performer Role Active Date Inactive TIM Maloney PCP - Primary care physician 2022-02-05 Imaging Narrative Notes [facility] 05/25/2024 14:35 [facility] [address] [place] [address] ---------NAME--------- NUMBER SEX AGE ADMIT DISC. XRAY# F/C TYPE CHLOE MAYERS [id number] F 59 05/25/24 40517 CB5 E.R. DATE OF : 1965 M/R# [id number] #: [id number] ED-38 LOCATION: TRANSCRIBED: 05/25/24 14:32 CHEST 1V 43428 COMPLETED:05/25/24 14:16 TLS 44195 ;cough, chills x 1wk PHYSICIAN: RUT RADIOLOGY REPORT CHEST RADIOGRAPH Indication: ;cough, chills x 1wk Technique: Single frontal view of the chest was obtained Comparison: None FINDINGS: Lines and Tubes: None Lungs: No focal consolidation. Pleura: No effusion. No pneumothorax. Cardiomediastinal contours: Unremarkable Bones: No acute osseous abnormality. IMPRESSION: No acute cardiopulmonary disease. WASHER Reviewed and Electronically Signed by: Celio Cooper MD Signed Date: 05/25/24 14:32 [facility] 05/25/2024 14:39 [facility] [address] [place] [address] ---------NAME--------- NUMBER SEX AGE ADMIT DISC. XRAY# F/C TYPE CHLOE MAYERS [id number] F 59 05/25/24 99655 CB5 E.R. DATE OF : 1965 M/R# [id number] #: [id number] ED-38 LOCATION: TRANSCRIBED: 05/25/24 14:37 CT ABD/PEL WO CONTRAST 95867 COMPLETED:05/25/24 14:20 TLS 49411 abdominal pain PHYSICIAN: RUT RADIOLOGY REPORT Exam: CT ABD/PEL WO CONTRAST History: abdominal pain Comparison Study: None Technique: Multidetector spiral CT of the abdomen was performed from lung bases to pubic symphysis. Imaging was performed without IV contrast. Axial, coronal and sagittal multiplanar reformats were obtained from the axial data set by the technologist. Radiation Dose : 1. Abdomen/Pelvis: CTDIvol 31.16 mGy, DLP 1417.02 mGy*cm. Findings: Evaluation of solid organs is limited due to lack of intravenous contrast use. Lung Bases: No acute or significant lung base finding. Normal heart size. No pleural or pericardial effusion. Liver: Hepatic steatosis and hepatomegaly. Gallbladder and Biliary Tree: Gallbladder is surgically absent. Spleen: Unremarkable Pancreas: The pancreas is grossly normal in appearance. Adrenal Glands: Unremarkable Kidneys: Kidneys are grossly normal without calculi or hydronephrosis. Bladder: Grossly unremarkable for degree of distention. Bowel: The stomach is grossly normal in appearance. Moderate bowel wall thickening of the colon. Normal appendix is visualized in the right lower quadrant without findings of appendicitis. Ascites: Absent Lymphadenopathy: No mesenteric, retroperitoneal or periportal lymphadenopathy. Abdominal Wall and Mesentery: Unremarkable. Vasculature: The visualized abdominal aorta is normal in size and caliber. There is extensive atherosclerotic calcification of the aorta and its branches. Evaluation of abdominal and pelvic vessels is limited due to lack of intravenous contrast. Pelvic Organs: Unremarkable Musculoskeletal: Degenerative changes of the spine. IMPRESSION: Moderate bowel wall thickening of the colon may represent infectious or inflammatory colitis. Radiation optimization: All CT scans at this facility use at least one of these dose optimization techniques: automated exposure control mA and/or kV adjustment per patient size (includes targeted exams where dose is matched to clinical indication) or iterative reconstruction. WASHER Reviewed and Electronically Signed by: Srinivasan Tamez MD Signed Date: 05/25/24 14:37
--- OUTSIDE RECORDS SUMMARY | 2024-07-09 13:50 | XMS_ITS | Continuity of Care Document ---
Author Organization [facility]. If a dditional information is needed, contact Health Information Management at [phone] [address] [place] [address] Phone Care Team Providers Care Business Analysis Consultant Name Role Phone Unavailable Unavailable Unavailable Unavailable Unavailable Unavailable Unavailable Unavailable Unavailable Unavailable Unavailable Unavailable Problems Uncontrollable vomiting Onset:01-Oct-2022 Brendan Gandhi MD Allergies and Adverse Reactions Penicillins(Allergy) Onset: 01-Oct-2022 Reaction:RASH Sulfa(Sulfonamide Antibiotic s)(Allergy) Onset: 01-Oct-2022 Reaction:RASH Social History Smoking Status Smokes tobacco daily Recorded: 01-Oct-2022
--- OUTSIDE RECORDS SUMMARY | 2024-07-09 13:51 | XMS_ITS ---
Author Organization Unknown Address [address] [place] [phone] Phone Care Team Providers Care Cabin Man Name Role Phone ROD Schroeder Attending Unavailable JERMAINE DUMONT Primary Unavailable Immunization Immunization Date Status Additional Notes Code Code System Influenza, split virus, quadrivalent, PF 01/30/2021 Completed 150 CVX Results NM GASTRIC EMPTYING - Comple camila: 04/12/2024 19:12 LOINC: \TM00\12PI\DRAo\BM09\ \MRLo\ [address] [address] ---------NAME--------- NUMBER SEX AGE ADMIT DISC. XRAY# F/C TYPE CHLOE MAYERS [id number] F 58 04/12/24 04/12/24 82874 CB5 O/P DATE OF : 1965 M/R# [id number] PH#: [phone] RM \MRHx\ LOCATION: TRANSCRIBED: 04/12/24 14:07 NM GASTRIC EMPTYING 84683 COMPLETED: 36363 {REASON-NM ABD: NAUSEA/VOMITTING PHYSICIAN: QUICKSHONA R A D I O L O G Y R E P O R T CLINICAL INFORMATION: 58 years old, Female; NAUSEA/VOMITTING. TECHNIQUE: 1.0 mCi of Tc99m labeled sulfur colloid was administered orally with eggs per protocol. COMPARISON: No prior gastric emptying exam. FINDINGS: Anterior and posterior planar images demonstrate activity within the stomach. Emptying end time was 240 minutes with 98% emptying. T 1/2 time of 94. There was 33% emptying at 1 hour, 56% emptying at 2 hours, 81% emptying 3 hours, and 98% emptying 4 hours. IMPRESSION: Gastric emptying is mildly delayed at the 2 hour time point slightly increased T1/2, but normal gastric emptying the 1 hour, 3 hour, and 4 hour time points. Delayed gastric emptyin hour <10% emptying (>90% retention) 2 hours <40% emptying (>60% retention) 4 hours <90% emptying (>10% retention) Rapid gastric emptying: >70% emptying at 1 hour >90% emptying at 2 hours These values apply to the entire meal and are not valid for different meals or incomplete ingestion of the standard meal. ERATIVE EDUCATION DIRECTOR \ITLo\ \UNDo\ \UNDx\ \ITLx\ Reviewed and Electronically Signed by: Brendan Crow DO Signed Date: 04/12/24 14:07 04/12/24.1410.MM .to JERMAINE MAN via fax Social History Type Status Start Date End Date Code Code Syst em Smoking History Current every day smoker [id number] SNOMED CT Sex Female Medications Medication Start Date End Date Route Frequency Dose Code Code System Medication Instructions Home Meds ALPRAZolam 1MG Oral Tablet 04/08/2022 Unknown ORAL DIRECTED 1 MILLIGRAMS 19720505 RxNorm TAKE 1 MILLIGRAMS ORAL DIRECTED Albuterol Sulfate 0.083% Inhalation Solution 04/08/2022 Unknown INHALA TION DIRECTED 1 unit(s) 035792 RxNorm 1 EACH INHALATION DIRECTED Aspirin 81MG Oral Tablet, Enteric Coated 04/08/2022 Unknown ORAL ONCE A DAY 81 MILLIGRAMS 478694 RxNorm TAKE 81 MILLIGRAMS ORAL ONCE A DAY Atorvastatin Calcium 20MG Oral Tablet 04/08/2022 Unknown ORAL ONCE A DAY 20 MILLIGRAMS 689002 RxNorm TAKE 20 MILLIGRAMS ORAL ONCE A DAY Butalbital-AP GA-Ysojrqoe-R odeine 80SV-101JK-10 MG-30MG Oral Capsule 04/08/2022 Unknown ORAL DIRECTED 1 unit(s) 1409819 RxNorm TAKE 1 EACH ORAL DIRECTED DULoxetine HCl 30MG Oral Capsule, Delayed Release 04/08/2022 Unknown ORAL ONCE A DAY 30 MILLIGRAMS 401643 RxNorm TAKE 30 MILLIGRAMS ORAL ONCE A DAY Lantus 100U/1ML Subcutaneous Solution 04/08/2022 Unknown SUBCUT ANEOUS DIRECTED 1 unit(s) 991619 RxNorm INJECT INTO 1 EACH SUBCUTANEOUS DIRECTED Omeprazole 20 MG Oral Tablet, Delayed Release 04/08/2022 Unknown ORAL ONCE A DAY 20 MG RxNorm TAKE 20 MG ORAL ONCE A DAY Verapamil HCl 180MG Oral Capsule, Extended Release 04/08/2022 Unknown ORAL ONCE A DAY 180 MILLIGRAMS 064010 RxNorm TAKE 180 MILLIGRAMS ORAL ONCE A [...] Co de Code System SULFA (sulfonamide) Active 52560074 SNO MED-CT ESCITALOPRAM Active 944871 RxNorm PENICILLIN Active Plan of Treatment Upper WO KUB 04/14/2023 Upper WO KUB 03/15/2024 NM Gastric Emptying (20426) 04/12/2024 EGD 07/19/2024 Encounters Encounter Diagnosis Start Date Code Code Sys tem Functional dyspepsia 04/12/2024 SNOMED- CT Personal Care Team Section Performer Name Performer Role Active Date Inactive TIM Maloney PCP - Primary care physician 2022-02-05 Imaging Narrative Notes [facility] [address] 04/12/2024 14:10 [facility] [address] [address] [place] [address] ---------NAME--------- NUMBER SEX AGE ADMIT DISC. XRAY# F/C TYPE CHLOE MAYERS [id number] F 58 04/12/24 04/12/24 25539 CB5 O/P DATE OF : 1965 M/R# [id number] #: [id number] LOCATION: TRANSCRIBED: 04/12/24 14:07 NM GASTRIC EMPTYING 95462 COMPLETED: 90783 {REASON-NM ABD: NAUSEA/VOMITTING PHYSICIAN: KJ RADIOLOGY REPORT CLINICAL INFORMATION: 58 years old, Female; NAUSEA/VOMITTING. TECHNIQUE: 1.0 mCi of Tc99m labeled sulfur colloid was administered orally with eggs per protocol. COMPARISON: No prior gastric emptying exam. FINDINGS: Anterior and posterior planar images demonstrate activity within the stomach. Emptying end time was 240 minutes with 98% emptying. T 1/2 time of 94. There was 33% emptying at 1 hour, 56% emptying at 2 hours, 81% emptying 3 hours, and 98% emptying 4 hours. IMPRESSION: Gastric emptying is mildly delayed at the 2 hour time point slightly increased T1/2, but normal gastric emptying the 1 hour, 3 hour, and 4 hour time points. Delayed gastric emptyin hour <10% emptying (>90% retention) 2 hours <40% emptying (>60% retention) 4 hours <90% emptying (>10% retention) Rapid gastric emptying: >70% emptying at 1 hour >90% emptying at 2 hours These values apply to the entire meal and are not valid for different meals or incomplete ingestion of the standard meal. ERATIVE EDUCATION DIRECTOR Reviewed and Electronically Signed by: Brendan Crow DO Signed Date: 04/12/24 14:07 04/12/24.1410.MM .to JERMAINE SANCHEZ via fax
--- OUTSIDE RECORDS SUMMARY | 2024-07-09 13:51 | XMS_ITS ---
Author Organization Unknown Address [address] [place] [address] [phone] Phone Care Team Providers Care Police Cadet Name Role Phone ROD Schroeder Attending Unavailable JERMAINE DUMONT Primary Unavailable Immunization Immunization Date Status Additional Notes Code Code System Influenza, split virus, quadrivalent, PF 01/30/2021 Completed 150 CVX Results UPPER WO KUB AIR CONTRAST - Completed: 03/15/2024 09:44 LOINC: EXAM DESCRIPTION: UPPER WO KUB AIR CONTRAST REASON FOR STUDY: NAUSEA AND VOMITING. HIATAL HERNIA. Duration: Chronic COMPARISON: None RADIATION DOSE: The utilized fluoroscopic equipment does not provide radiation exposure indices. The exposure time is 3.7 minutes and the number of fluorographic images are 192 TECHNIQUE: Patient ingested effervescent granules followed by thick and thin barium. FINDINGS: 12.5 mm Barium Tablet: Mild delay in passage approximately at the level of the aortic arch. ESOPHAGEAL MOTILITY: Normal peristalsis. No esophageal spasm. ESOPHAGEAL MUCOSA: Kbln-zv-djqggmqu luminal narrowing in region of UES. Normal mucosa without masses or ulceration. GASTRO-ESOPHAGEAL JUNCTION: Minimal gastroesophageal reflux without definite hiatal hernia. STOMACH: Normal without masses or ulcerations. GASTRIC OUTLET: No delay in emptying. Normal pylorus. DUODENAL BULB: Normal distention. No spasm or ulceration. DUODENUM: Mucosa normal. No extrinsic masses or malrotation. PROXIMAL SMALL BOWEL: Mucosa normal. No extrinsic masses or malrotation. NON-GI TRACT STRUCTURES: No significant finding. OTHER: Evidence of prior cholecystectomy. IMPRESSION: 1. Zpcf-wm-xucovoqv luminal narrowing in region of the UES. 2. Mild delay in passage of 13 mm barium tablet through the esophagus approximately at level of aortic arch. 3. Minimal gastroesophageal reflux without definite hiatal hernia. 4. No definite mass lesions or focal ulcerations are identified. THIS IS AN ELECTRONICALLY VERIFIED FINAL REPORT 03/15/2024 11:10 AM - Electronically signed by Kelvin Baird M.D. RB: SUHA Report ID: [id number] Reading Location: [id number] Social History Type Status Start Date End Date Code Code Syst em Smoking History Current every day smoker [id number] SNOMED CT Sex Female Medications Medication Start Date End Date Route Frequency Dose Code Code System Medication Instructions Home Meds ALPRAZolam 1MG Oral Tablet 04/08/2022 Unknown ORAL DIRECTED 1 MILLIGRAMS 495719 RxNorm TAKE 1 MILLIGRAMS ORAL DIRECTED Albuterol Sulfate 0.083% Inhalation Solution 04/08/2022 Unknown INHALA TION DIRECTED 1 unit(s) 226054 RxNorm 1 EACH INHALATION DIRECTED Aspirin 81MG Oral Tablet, Enteric Coated 04/08/2022 Unknown ORAL ONCE A DAY 81 MILLIGRAMS 097492 RxNorm TAKE 81 MILLIGRAMS ORAL ONCE A DAY Atorvastatin Calcium 20MG Oral Tablet 04/08/2022 Unknown ORAL ONCE A DAY 20 MILLIGRAMS 215483 RxNorm TAKE 20 MILLIGRAMS ORAL ONCE A DAY Butalbital-AP BP-Tujekepp-C odeine [id number]-[id number]-68 MG-30MG Oral Capsule 04/08/2022 Unknown ORAL DIRECTED 1 unit(s) 4819251 RxNorm TAKE 1 EACH ORAL DIRECTED DULoxetine HCl 30MG Oral Capsule, Delayed Release 04/08/2022 Unknown ORAL ONCE A DAY 30 MILLIGRAMS 149570 RxNorm TAKE 30 MILLIGRAMS ORAL ONCE A DAY Lantus 100U/1ML Subcutaneous Solution 04/08/2022 Unknown SUBCUT ANEOUS DIRECTED 1 unit(s) 966600 RxNorm INJECT INTO 1 EACH SUBCUTANEOUS DIRECTED Omeprazole 20 MG Oral Tablet, Delayed Release 04/08/2022 Unknown ORAL ONCE A DAY 20 MG RxNorm TAKE 20 MG ORAL ONCE A DAY Verapamil HCl 180MG Oral Capsule, Extended Release 04/08/2022 Unknown ORAL ONCE A DAY 180 MILLIGRAMS 362725 RxNorm TAKE 180 MILLIGRAMS ORAL ONCE A [...] Co de Code System SULFA (sulfonamide) Active 53620118 SNO MED-CT ESCITALOPRAM Active 778958 RxNorm PENICILLIN Active Plan of Treatment Upper WO KUB 04/14/2023 Upper WO KUB 03/15/2024 NM Gastric Emptying (88395) 04/12/2024 EGD 07/19/2024 Encounters Encounter Diagnosis Start Date Code Code Sys tem Nausea with vomiting, unspecified 03/15/2024 SNOMED-CT Personal Care Team Section Performer Name Performer Role Active Date Inactive TIM Maloney PCP - Primary care physician 2022-02-05 Imaging Narrative Notes
== END 2024-07-09 12:01 | disposition home or self-care (01) ==
PROVIDERS: PCP Internal Medicine; Visit Provider Internal Medicine
DX: R10.31 Right lower quadrant pain (principal); R11.2 Nausea with vomiting, unspecified; K92.1 Melena; R16.0 Hepatomegaly, not elsewhere classified; D35.02 Benign neoplasm of left adrenal gland
CPT/HCPCS: 36415; 74177; 80053; 81003; 82150; 83690; 85027; Q9967

== ENCOUNTER 2024-07-30 10:04 | Emergency (ER) | payer OTHER, SELFPAY ==
[2024-07-30 10:04] VITALS: PULSE 105; RESP 20; TEMP 36.1; O2SAT 99
[2024-07-30] MEDS: KETOROLAC 30 MG/ML VIAL (*BKC) IV PUSH (10:29)
[2024-07-30] MEDS: ONDANSETRON INJ 4 MG/2 ML VIAL IV PUSH (10:29)
[2024-07-30 10:30] LABS: Basophils Absolute Auto 0.04 K/mm3 (0.00-0.10); Basophils Percent Auto 0.4 % (0.0-1.0); Eosinophils Absolute Auto 0.02 K/mm3 (0.02-0.50); Eosinophils Percent Auto 0.2 % (1.0-6.0); Hematocrit 42.6 % (35.0-49.0); Hemoglobin 14.3 g/dL (12.0-15.0); Immature Granulocyte Absolute 0.04 K/mm3 (0.00-0.00); Immature Granulocyte Percent A 0.4 % (0.0-0.0); Lymphocytes Absolute Auto 0.91 K/mm3 (1.10-4.50); Lymphocytes Percent Auto 9.3 % (18.0-42.0); Mean Corpuscular HGB Conc 33.6 g/dL (32-36); Mean Corpuscular Hemoglobin 31.2 pg (27.0-31.0); Mean Platelet Volume 10.7 fl (9.2-11.8); Monocytes Absolute Auto 0.28 K/mm3 (0.10-0.90); Monocytes Percent Auto 2.9 % (2.0-11.0); Neutrophils Absolute Auto 8.52 K/mm3 (1.70-7.20); Neutrophils Percent Auto 86.8 % (50.0-70.0); Platelet Count Result 252 K/mm3 (150-420); Red Blood Count 4.58 M/mm3 (4.20-5.40); Red Cell Distribution Width 13.4 % (11.6-14.4); White Blood Count 9.8 K/mm3 (4.8-10.8)
[2024-07-30] MEDS: SODIUM CHLORIDE 0.9% IV 1,000 ML 999 ML IV CONT (10:30)
--- NOTE | 2024-07-30 10:52 | ED_ITS ---
HPI - Nausea/Vomiting/Diarrhea General Chief complaint: Nausea/Vomiting/Diarrhea Stated complaint: n-v abd pain Time Seen by Provider: 07/30/24 10:14 Source: patient Mode of arrival: ambulatory Limitations: no limitations History of Present Illness HPI Narrative: patient is a 59-year-old female with significant past medical history that presents today for nausea vomiting. She has presented here for nausea vomiting multiple times in the past. Is lynn for she has cyclic vomiting syndrome but she is on listen to us. She had a today's well via a regular basis. As iron vomiting syndrome starts and she starts having Nausea vomiting. This time it started this morning with abdominal pain nausea vomiting. She says that she is mostly B's been dry heaving and gets dry heaving. MD elicited complaint: nausea, vomiting and abdominal pain Pertinent past history: cyclical vomiting Onset (ago): day(s) Description of vomiting: watery Associated nausea: Yes Associated abdominal pain: Yes Location of pain: RLQ ( Patient has been scanned multiple times around 4 times in the last month not enough justification to do another scan, low odds of appendicitis) Radiation: diffuse Pain consistency: intermittent Severity: mild Quality: cramping Exacerbating factors: eating, vomiting and movement Relieving factors: none Associated symptoms: malaise and nausea/vomiting Treatment prior to arrival: other ( Phenergan) Related Data Home Medications ?Medication ?Instructions ?Recorded ?Confirmed ?Last Taken ?Type insulin glargine 100 unit/mL (3 See Rx Instructions .Route .COMPLEX 11/10/20 02/25/24 1 Day Ago History mL) subcutaneous pen (Lantus ~02/06/24 Solostar U-100 Insulin) qyvkkpyhcc-emxhrmcbxzyjw-ddmbkqkm 1 cap PO BID PRN Migraine Headache 05/10/22 02/25/24 Unknown History 50 mg-300 mg-40 mg capsule verapamil 180 mg tablet,extended 180 mg PO DAILY 05/10/22 02/25/24 Unknown History release lisinopril 10 mg tablet 10 mg PO DAILY 11/30/22 02/25/24 Unknown History atorvastatin 20 mg tablet 20 mg PO DAILY 01/15/23 02/25/24 Unknown History propranolol 10 mg tablet 10 mg PO TID 12/23/23 02/25/24 Unknown History alprazolam 1 mg tablet 1 mg PO DAILY 02/25/24 02/25/24 Unknown History buspirone 30 mg tablet 30 mg PO DAILY 02/25/24 02/25/24 Unknown History haloperidol 0.5 mg tablet 0.5 mg PO DAILY 02/25/24 02/25/24 Unknown History levomilnacipran 20 mg capsule,24 20 mg PO DAILY 02/25/24 02/25/24 Unknown History hr,extended release (Fetzima) Allergies Allergy/AdvReac Type Severity Reaction Status Date / Time Sulfa (Sulfonamide Allergy Mild Unknown Verified 07/30/24 10:12 Antibiotics) Penicillins Allergy Unknown Verified 07/30/24 10:12 Review of Systems 2 Review of Systems: All systems reviewed & are unremarkable except as noted in HPI and below Constitutional: Constitutional: Reports as per HPI Eyes: Eyes: Reports no additional eye complaints ENT: Reports system reviewed and no additional complaints, except as documented Cardiovascular: Cardiovascular: Reports no additional cardiovascular complaints Respiratory: Respiratory: Reports no additional respiratory complaints Gastrointestinal: Gastrointestinal: Reports as per HPI, Reports abdominal pain, Reports diarrhea, Reports nausea and Reports vomiting Comments: she does have tenderness but it is generalized as more towards the right lower quadrant but have a low suspicion for appendicitis, she has been CT scanned 4 times the last month and this does not warrant another CT scan and she has been told multiple times she has cyclic vomiting syndrome she continues to smoke marijuana. Genitourinary: Genitourinary: Reports no additional female genitourinary complaints Musculoskeletal: Musculoskeletal: Reports no additional musculoskeletal complaints Integumentary/Breasts: Skin/Breast: Reports system reviewed and no additional complaints, except as docu Neurologic: Reports system reviewed and no additional complaints, except as documented Psychiatric: Psychiatric: Reports no additional psychiatric complaints Endocrine: Endocrine: Reports no additional endocrine complaints Hematologic/Lymphatic: Hematologic/Lymphatic: Reports no additional hematologic/lymphatic complaints Allergic/Immunologic: Allergic/Immunologic: Reports no additional allergic/immunologic complaints PMFSH Past Medical History Medical History Hypokalemia T2DM (type 2 diabetes mellitus) GERD (gastroesophageal reflux disease) Migraines PTSD (post-traumatic stress disorder) Surgical History Surgical History Hx of cholecystectomy Social History Social History Smoking packs per day: 1 Smoking cigarettes per day: 20.0 Years smoked: 30 Smoking pack-years: 30.00 Smoking status: Light tobacco smoker Tobacco type: cigarettes Second hand tobacco smoke exposure: Yes Alcohol intake: unknown Substance use: unknown Substance use type: unknown Gender identity (if verbalized by the patient): Female Sexual Orientation (if Verbalized by the Patient): Straight or Heterosexual Spiritual care concerns: No Exam 2 Const: General: healthy appearing Nutritional Appearance: well nourished Orientation/consciousness: patient oriented x3 HENMT: Head: normal to inspection Ears: external ears normal F amber/Nose/Sinus: Normal external nose present Face and sinus: normal facial exam Eyes: Conjunctivae: conjunctivae normal Cornea: corneas normal Pupils: E qual, round and reactive pupils present EOM: EOMs intact bilaterally Neck: Neck: normal visual inspection Chest: Chest palpation & inspection: normal inspection of the chest Resp: Effort & Inspection: normal respiratory effort Auscultation: clear to auscultation bilaterally Cardio: Rate: regular rate Rhythm: regular rhythm GI: GI Palp: Yes Soft to palpation : General: Yes bladder normal to palpation External Female Exam: normal external appearance Speculum Exam - Vagina: normal appearance of the vagina Speculum Exam - Cervix: normal appearance of the cervix Bimanual exam- vagina & uterus: cervical motion tenderness Back/Spine/Pelvis: Back: no CVA tenderness Skin: General skin exam: normal color Rashes: no rashes Wounds: no wounds Neuro: General: patient oriented x3 Cranial nerves: Yes Nystagmus not present Speech: normal speech Gait exam (Neuro): Normal gait present Extrem: General: normal to inspection Psych: Mental Status: mental status grossly normal Affect: normal affect Attitude: cooperative Course Vital Signs Vital signs: Vital Signs Temperature 97.0 F L 07/30/24 10:04 Pulse Rate 105 H 07/30/24 10:04 Respiratory Rate 20 07/30/24 10:04 Pulse Oximetry 99 07/30/24 10:04 Oxygen Delivery Room Air 07/30/24 10:04 Temperature 97.0 F L 07/30/24 10:04 Pulse Rate 105 H 07/30/24 10:04 Respiratory Rate 20 07/30/24 10:04 Pulse Oximetry 99 07/30/24 10:04 Oxygen Delivery Room Air 07/30/24 10:04 MDM - Nausea/Vomiting/Diarrhea MDM Narrative Medical decision making narrative: Very low suspicion for appendicitis, patient has been told multiple times she has cyclic vomiting syndrome and she continues to smoke we did not believe and cyclic vomiting syndrome. I have explained her to this multiple times about what it is how it is brought on house affecting her. She does not believe in it. She continues to smoke marijuana and continues to come back with cyclic vomiting syndrome multiple times. This does not warrant a CT of the abdomen pelvis she has had to me scans in the last month. And she has not had any fevers her any other symptoms that would make me think she has appendicitis And/or gastroenteritis Differential Diagnosis Differential diagnosis: Likely other ( cyclic vomiting syndrome) Medical Records Attestation: I reviewed the patient's medical records. Lab Data Attestation: I reviewed the patient's lab results. 07/30/24 10:26 07/30/24 10:26 Labs: Lab Results 07/30/24 Range/Units 10:26 WBC 9.8 (4.8-10.8) K/mm3 RBC 4.58 (4.20-5.40) M/mm3 Hgb 14.3 (12.0-15.0) g/dL Hct 42.6 (35.0-49.0) % MCV 93.0 (78.0-102.0) fL MCH 31.2 H (27.0-31.0) pg MCHC 33.6 (32-36) g/dL RDW 13.4 (11.6-14.4) % Plt Count 252 (150-420) K/mm3 MPV 10.7 (9.2-11.8) fl Immature Gran % (Auto) 0.4 H (0.0-0.0) % Neut % (Auto) 86.8 H (50.0-70.0) % Lymph % (Auto) 9.3 L (18.0-42.0) % Harlan % (Auto) 2.9 (2.0-11.0) % Eos % (Auto) 0.2 L (1.0-6.0) % Baso % (Auto) 0.4 (0.0-1.0) % Lymph # (Auto) 0.91 L (1.10-4.50) K/mm3 Harlan # (Auto) 0.28 (0.10-0.90) K/mm3 Eos # (Auto) 0.02 (0.02-0.50) K/mm3 Baso # (Auto) 0.04 (0.00-0.10) K/mm3 Abs Immat Gran (auto) 0.04 H (0.00-0.00) K/mm3 Absolute Neuts (auto) 8.52 H (1.70-7.20) K/mm3 Absolute Nucleated RBC 0.00 (0.00-0.00) K/mm3 Nucleated RBC % 0.0 (0-0.0) % Sodium 139 (136-145) mmol/L Potassium 3.7 (3.5-5.1) mmol/L Chloride 102 (98-108) mmol/L Carbon Dioxide 25 (21-32) mmol/L Anion Gap 12 (4-12) mmol/L BUN 22 H (7-18) mg/dL Creatinine 1.06 H (0.55-1.02) mg/dL Estim Creat Clear Calc 51 ml/min Estimated GFR 53 L (59 - ) Glucose 259 H (70-99) mg/dL Calculated Osmolality 300 H (285-295) mOsm/kg Lactic Acid 1.8 (0.4-2.0) mmol/L Calcium 9.6 (8.5-10.1) mg/dL Total Bilirubin 0.8 (0.00-1.00) mg/dL AST 20 (15-37) U/L ALT 32 (14-59) U/L Alkaline Phosphatase 145 H (46-116) U/L Total Protein 8.8 H (6.4-8.2) g/dL Albumin 4.0 (3.4-5.0) g/dL Lipase 13 L (16-77) U/L Discharge Plan Discharge Clinical Impression: Cyclic vomiting syndrome, Nausea & vomiting, Abdominal pain Patient Disposition: Home Condition: Stable Instructions: Cyclic Vomiting Syndrome (ED) Patient Language: Afghan Prescriptions: No Action insulin glargine [Lantus Solostar U-100 Insulin] 100 unit/mL (3 mL) insulin pen See Rx Instructions .ROUTE .COMPLEX Rx Instructions: 35 UNITS EVERY MORNING 60 UNITS EVERY EVENING atorvastatin 20 mg tablet 20 mg PO DAILY buspirone 30 mg tablet 30 mg PO DAILY haloperidol 0.5 mg tablet 0.5 mg PO DAILY alprazolam 1 mg tablet 1 mg PO DAILY Fetzima 20 mg capsule,extended release 24 hr 20 mg PO DAILY ondansetron 4 mg tablet,disintegrating 4 mg PO Q4H PRN (Reason: nausea and vomiting) 28 Days Qty: 168 0RF Rx Instructions: give 1st dose 30min before emetogenic chemo verapamil 180 mg Tablet Extended Release 180 mg PO DAILY vsdxqxprme-nxseyqnnfbudw-hdzn 50-300-40 mg Capsule 1 cap PO BID PRN (Reason: Migraine Headache) lisinopril 10 mg tablet 10 mg PO DAILY propranolol 10 mg tablet 10 mg PO TID pantoprazole [Protonix] 40 mg tablet,delayed release (DR/EC) 40 mg PO QAM 28 Days Qty: 28 0RF Follow-up/Referrals: Jose Escoto MD [Primary Care Provider] - Time of Disposition: 13:02
[2024-07-30 11:00] LABS: Alanine Aminotransferase 32 U/L (14-59); Alkaline Phosphatase 145 U/L (46-116); Anion Gap 12 mmol/L (4-12); Aspartate Amino Transferase 20 U/L (15-37); Bilirubin,Total 0.8 mg/dL (0.00-1.00); Blood Urea Nitrogen 22 mg/dL (7-18); Calcium 9.6 mg/dL (8.5-10.1); Carbon Dioxide 25 mmol/L (21-32); Chloride 102 mmol/L (98-108); Estimated CRCL calculation 51 ml/min; Estimated Glomerular Filt Rate 53; Glucose 259 mg/dL (70-99); Lipase 13 U/L (16-77); Osmolality Calculated 300 mOsm/kg (285-295); Potassium 3.7 mmol/L (3.5-5.1); Sodium 139 mmol/L (136-145); Total Protein 8.8 g/dL (6.4-8.2)
--- NOTE | 2024-07-30 11:00 | PC.NURSE ---
DRY HEAVING HAS STOPPED, PT IS AWAITING RESULTS AT THIS TIME. LIGHTS ARE OFF AND WARM BLANKETS WERE PROVIDED. IVF INFUSING ORDERED WITHOUT DIFFICULTY. WILL CONTINUE TO MONITOR.
[2024-07-30] MEDS: PROCHLORPERAZINE EDISYLATE 10 MG/2 ML VIAL IV PUSH (11:03)
[2024-07-30 11:06] LABS: Lactic Acid Reflex 1.8 mmol/L (0.4-2.0)
--- OUTSIDE RECORDS SUMMARY | 2024-07-30 11:21 | XMS_ITS ---
Author Organization Unknown Address [address] [place] [address] [phone] Phone Care Team Providers Care Tube Mill Operator Name Role Phone LESLY Butler Attending Unavailable [facility] DELIA COMPUTER SYSTEMS ENGINEER Unavailable JERMAINE DUMONT Primary Unavailable Immunization Immunization Date Status Additional Notes Code Code System Influenza, split virus, quadrivalent, PF 01/30/2021 Completed 150 CVX Social History Type Status Start Date End Date Code Code Syst em Smoking History Current every day smoker 227041681 SNOMED CT Sex Female Vital Signs Vital Sign Value Unit Dillwyn Value Dillwyn Unit Date/Time Recent/Initial? Code Code System Body Mass Index 31.41 kg/m2 07/19/2024 07:19 Most Recent 17581 -5 LOINC Body Mass Index 34.67 kg/m2 07/13/2024 12:36 Initial 34281 -5 LOINC Systolic Blood Pressure 134 mm[Hg] 07/19/2024 07:19 Initial 8480- 6 LOINC Diastolic Blood Pressure 76 mm[Hg] 07/19/2024 07:19 Initial 8462- 4 LOINC Body Surface Area 1.94 m2 07/19/2024 07:19 Most Recent 3140- 1 LOINC Body Surface Area 2.03 m2 07/13/2024 12:36 Initial 3140- 1 LOINC Height 162.560 0 cm 64.00 in 07/19/2024 07:19 Most Recent 8302- 2 LOINC Height 162.560 0 cm 64.00 in 07/13/2024 12:36 Initial 8302- 2 LOINC O2 Saturation 98 % 2024 07:19 Initial 37454 -5 LOINC Pulse 60.0 /min 07/19/2024 07:19 Initial 8867- 4 LOINC Respiration 20 /min 07/20/19 07:19 Initial 9279- 1 LOINC Temperature 36.1 Mirtha 97.0 F 07/20/19 25 07:19 Initial 8310- 5 [facility] Weight 83.01 kg 183.00 lbs 07/19/2024 07:19 Most Recent 34473 -7 [facility] Weight 91.63 kg 202.00 lbs 07/13/2024 12:36 Initial 76797 -7 [facility] Medications Medication Start Date End Date Route Frequency Dose Code Code System Medication Instructions Home Meds ALPRAZolam 1MG Oral Tablet 04/08/2022 Unknown ORAL DIRECTED 1 MILLIGRAMS 815047 RxNorm TAKE 1 MILLIGRAMS ORAL DIRECTED Albuterol Sulfate 0.083% Inhalation Solution 04/08/2022 Unknown INHALAT ION DIRECTED 1 unit(s) 850356 RxNorm 1 EACH INHALATION DIRECTED Aspirin 81MG Oral Tablet, Enteric Coated 04/08/2022 Unknown ORAL ONCE A DAY 81 MILLIGRAMS 456765 RxNorm TAKE 81 MILLIGRAMS ORAL ONCE A DAY Lantus 100U/1ML Subcutaneous Solution 04/08/2022 Unknown SUBCUTA NEOUS DIRECTED 1 unit(s) 392083 RxNorm INJECT INTO 1 EACH SUBCUTANEOUS DIRECTED Verapamil HCl 180MG Oral Capsule, Extended Release 04/08/2022 Unknown ORAL ONCE A DAY 180 MILLIGRAMS 711139 RxNorm TAKE 180 MILLIGRAMS ORAL ONCE A DAY Atorvastatin Calcium 40MG Oral Tablet 07/19/2024 Unknown ORAL ONCE A DAY 40 MILLIGRAMS 026365 RxNorm TAKE 40 MILLIGRAMS ORAL ONCE A DAY Lisinopril 10MG Oral Tablet 07/19/2024 Unknown ORAL ONCE A DAY 10 MILLIGRAMS 286326 RxNorm TAKE 10 MILLIGRAMS ORAL ONCE A DAY Omeprazole 40MG Oral Capsule, Delayed Release 07/19/2024 Unknown ORAL ONCE A DAY 40 MILLIGRAMS 669303 RxNorm TAKE 40 MILLIGRAMS ORAL ONCE A DAY Amitriptyline 25MG Oral Tablet 07/19/2024 Unknown BY MOUTH ONCE A DAY 1 TABLET 138781 RxNorm TAKE 1 TABLET BY MOUTH ONCE A DAY Hospital Discharge Instructions Should you have any questions prior to discharge, please contact a member of your healthcare team. If you have left the hospital and have any questions, please contact your primary care physician. Reason For Referral No Data Found Procedures Procedure Name Date Status Code Code Syste m Anesthesia for upper gastroi ntestinal endoscopic procedures, endoscope int 07/19/2024 completed 89106 CPT Esophagogastroduodenoscopy, flexible, transoral; with insertion of guide w 07/19/2024 completed 32166 CPT Allergies and Adverse Reactions Allergy Substance Reaction Severity Start Date Concern Status Co de Code System SULFA (sulfonamide) Active 66276589 [facility]O MED-CT ESCITALOPRAM Active 174529 RxNorm PENICILLIN Active Plan of Treatment Upper WO KUB 04/14/2023 Upper WO KUB 03/15/2024 NM Gastric Emptying (24070) 04/12/2024 EGD 07/19/2024 Encounters Encounter Diagnosis Start Date Code Code Sys tem Gastro-esophageal reflux disease without esophagitis 0 07/19/2024 SNOMED-CT Personal Care Team Section Performer Name Performer Role Active Date Inactive TIM Maloney PCP - Primary care physician 2022-02-05
--- OUTSIDE RECORDS SUMMARY | 2024-07-30 11:21 | XMS_ITS ---
Author Organization Unknown Address [address] [place] [address] [phone] Phone Care Team Providers Care Associate Store Leader Name Role Phone JESUSKiya FLASH DRAW FIRE OPERATOR Attending Unavailable JERMAINE DUMONT Primary Unavailable Immunization Immunization Date Status Additional Notes Code Code System Influenza, split virus, quadrivalent, PF 01/30/2021 Completed 150 CVX Results MRI BRAIN WO CONTRAST - Comp leted: 01/24/2023 13:32 LOINC: 22911-1 EXAM DESCRIPTION: MRI BRAIN WO CONTRAST REASON [...] Solis Stewart M.D. FLORENTINO: FLORENTINO Report ID: [id number] Reading Location: [place] [address] Social History Type Status Start Date End Date Code Code Syst em Smoking History Current every day smoker 837602909 SNOMED CT Sex Female Medications Medication Start Date End Date Route Frequency Dose Code Code System Medication Instructions Home Meds ALPRAZolam 1MG Oral Tablet 04/08/2022 Unknown ORAL DIRECTED 1 MILLIGRAMS 703513 RxNorm TAKE 1 MILLIGRAMS ORAL DIRECTED Albuterol Sulfate 0.083% Inhalation Solution 04/08/2022 Unknown INHALA TION DIRECTED 1 unit(s) 320612 RxNorm 1 EACH INHALATION DIRECTED Aspirin 81MG Oral Tablet, Enteric Coated 04/08/2022 Unknown ORAL ONCE A DAY 81 MILLIGRAMS 231579 RxNorm TAKE 81 MILLIGRAMS ORAL ONCE A DAY Atorvastatin Calcium 20MG Oral Tablet 04/08/2022 07/14/19 25 ORAL ONCE A DAY 20 MILLIGRAMS 879308 RxNorm TAKE 20 MILLIGRAMS ORAL ONCE A DAY Surinder MF-Imrxnqhi-E odeine 33OS-430BX-30 MG-30MG Oral Capsule 04/08/2022 07/17/19 25 ORAL DIRECTED 1 unit(s) 5551132 RxNorm TAKE 1 EACH ORAL DIRECTED DULoxetine HCl 30MG Oral Capsule, Delayed Release 04/08/2022 07/17/19 25 ORAL ONCE A DAY 30 MILLIGRAMS 466986 RxNorm TAKE 30 MILLIGRAMS ORAL ONCE A DAY Lantus 100U/1ML Subcutaneous Solution 04/08/2022 Unknown SUBCUT ANEOUS DIRECTED 1 unit(s) 131901 RxNorm INJECT INTO 1 EACH SUBCUTANEOUS DIRECTED Omeprazole 20 MG Oral Tablet, Delayed Release 04/08/2022 07/14/19 25 ORAL ONCE A DAY 20 MG RxNorm TAKE 20 MG ORAL ONCE A DAY Verapamil HCl 180MG Oral Capsule, Extended Release 04/08/2022 Unknown ORAL ONCE A DAY 180 MILLIGRAMS 225046 RxNorm TAKE 180 MILLIGRAMS ORAL ONCE A DAY Atorvastatin Calcium 40MG Oral Tablet 07/19/2024 Unknown ORAL ONCE A DAY 40 MILLIGRAMS 098301 RxNorm TAKE 40 MILLIGRAMS ORAL ONCE A DAY Lisinopril 10MG Oral Tablet 07/19/2024 Unknown ORAL ONCE A DAY 10 MILLIGRAMS 638858 RxNorm TAKE 10 MILLIGRAMS ORAL ONCE A DAY Omeprazole 40MG Oral Capsule, Delayed Release 07/19/2024 Unknown ORAL ONCE A DAY 40 MILLIGRAMS 831451 RxNorm TAKE 40 MILLIGRAMS ORAL ONCE A DAY Amitriptyline 25MG Oral Tablet 07/19/2024 Unknown BY MOUTH ONCE A DAY 1 TABLET 187700 RxNorm TAKE 1 TABLET BY MOUTH ONCE [...] Co de Code System SULFA (sulfonamide) Active 97282015 SNO MED-CT ESCITALOPRAM Active 650726 RxNorm PENICILLIN Active Plan of Treatment Upper WO KUB 04/14/2023 Upper WO KUB 03/15/2024 NM Gastric Emptying (78830) 04/12/2024 EGD 07/19/2024 Encounters Encounter Diagnosis Start Date Code Code Sys tem Migraine without aura, not refractory 01/24/2023 425 264382 SNOMED-CT Personal Care Team Section Performer Name Performer Role Active Date Inactive TIM Maloney PCP - Primary care physician 2022-02-05 Imaging Narrative Notes
--- OUTSIDE RECORDS SUMMARY | 2024-07-30 11:21 | XMS_ITS ---
Author Organization Unknown Address [address] [place] [phone] Phone Care Team Providers Care Paper Gluing Operator Name Role Phone ROD Schroeder Attending Unavailable JERMAINE DUMONT Primary Unavailable Immunization Immunization Date Status Additional Notes Code Code System Influenza, split virus, quadrivalent, PF 01/30/2021 Completed 150 CVX Results NM GASTRIC EMPTYING - Comple camila: 04/12/2024 19:12 LOINC: \TM00\12PI\DRAo\BM09\ \MRLo\ [address] [address] ---------NAME--------- NUMBER SEX AGE ADMIT DISC. XRAY# F/C TYPE CHLOE MAYERS [id number] F 58 04/12/24 04/12/24 06138 CB5 O/P DATE OF : 1965 M/R# [id number] PH#: [phone] RM \MRHx\ LOCATION: TRANSCRIBED: 04/12/24 14:07 NM GASTRIC EMPTYING 64767 COMPLETED: 29764 {REASON-NM ABD: NAUSEA/VOMITTING PHYSICIAN: QUICKSHONA R A [...] or incomplete ingestion of the standard meal. ING EQUIPMENT REPAIRER \ITLo\ \UNDo\ \UNDx\ \ITLx\ Reviewed and Electronically Signed by: Brendan Crow DO Signed Date: 04/12/24 14:07 04/12/24.1410.MM .to JERMAINE MAN via fax Social History Type Status Start Date End Date Code Code Syst em Smoking History Current every day smoker 099692208 SNOMED CT Sex Female Medications Medication Start Date End Date Route Frequency Dose Code Code System Medication Instructions Home Meds ALPRAZolam 1MG Oral Tablet 04/08/2022 Unknown ORAL DIRECTED 1 MILLIGRAMS 19720505 RxNorm TAKE 1 MILLIGRAMS ORAL DIRECTED Albuterol Sulfate 0.083% Inhalation Solution 04/08/2022 Unknown INHALA TION DIRECTED 1 unit(s) 789515 RxNorm 1 EACH INHALATION DIRECTED Aspirin 81MG Oral Tablet, Enteric Coated 04/08/2022 Unknown ORAL ONCE A DAY 81 MILLIGRAMS 494817 RxNorm TAKE 81 MILLIGRAMS ORAL ONCE A DAY Atorvastatin Calcium 20MG Oral Tablet 04/08/2022 07/14/19 25 ORAL ONCE A DAY 20 MILLIGRAMS 863557 RxNorm TAKE 20 MILLIGRAMS ORAL ONCE A DAY Surinder FE-Ksweweaz-D odeine 28GX-999JX-19 MG-30MG Oral Capsule 04/08/2022 07/17/19 25 ORAL DIRECTED 1 unit(s) 5642913 RxNorm TAKE 1 EACH ORAL DIRECTED DULoxetine HCl 30MG Oral Capsule, Delayed Release 04/08/2022 07/17/19 25 ORAL ONCE A DAY 30 MILLIGRAMS 734742 RxNorm TAKE 30 MILLIGRAMS ORAL ONCE A DAY Lantus 100U/1ML Subcutaneous Solution 04/08/2022 Unknown SUBCUT ANEOUS DIRECTED 1 unit(s) 314875 RxNorm INJECT INTO 1 EACH SUBCUTANEOUS DIRECTED Omeprazole 20 MG Oral Tablet, Delayed Release 04/08/2022 07/14/19 25 ORAL ONCE A DAY 20 MG RxNorm TAKE 20 MG ORAL ONCE A DAY Verapamil HCl 180MG Oral Capsule, Extended Release 04/08/2022 Unknown ORAL ONCE A DAY 180 MILLIGRAMS 805317 RxNorm TAKE 180 MILLIGRAMS ORAL ONCE A DAY Atorvastatin Calcium 40MG Oral Tablet 07/19/2024 Unknown ORAL ONCE A DAY 40 MILLIGRAMS 802096 RxNorm TAKE 40 MILLIGRAMS ORAL ONCE A DAY Lisinopril 10MG Oral Tablet 07/19/2024 Unknown ORAL ONCE A DAY 10 MILLIGRAMS 570805 RxNorm TAKE 10 MILLIGRAMS ORAL ONCE A DAY Omeprazole 40MG Oral Capsule, Delayed Release 07/19/2024 Unknown ORAL ONCE A DAY 40 MILLIGRAMS 031794 RxNorm TAKE 40 MILLIGRAMS ORAL ONCE A DAY Amitriptyline 25MG Oral Tablet 07/19/2024 Unknown BY MOUTH ONCE A DAY 1 TABLET 547497 RxNorm TAKE 1 TABLET BY MOUTH ONCE [...] Co de Code System SULFA (sulfonamide) Active 17452227 SNO MED-CT ESCITALOPRAM Active 993484 RxNorm PENICILLIN Active Plan of Treatment Upper WO KUB 04/14/2023 Upper WO KUB 03/15/2024 NM Gastric Emptying (83606) 04/12/2024 EGD 07/19/2024 Encounters Encounter Diagnosis Start Date Code Code Sys tem Functional dyspepsia 04/12/2024 SNOMED- CT Personal Care Team Section Performer Name Performer Role Active Date Inactive TIM Maloney PCP - Primary care physician 2022-02-05 Imaging Narrative Notes [facility] 04/12/2024 14:[address] [address] ---------NAME--------- NUMBER SEX AGE ADMIT DISC. XRAY# F/C TYPE CHLOE BRENNON MAYERS [id number] F 58 04/12/24 04/12/24 87122 CB5 O/P DATE OF : 1965 M/R# [id number] #: [id number] RM LOCATION: TRANSCRIBED: 04/12/24 14:07 NM GASTRIC EMPTYING 15509 COMPLETED: 18425 {REASON-NM ABD: NAUSEA/VOMITTING PHYSICIAN: KJ RADIOLOGY REPORT [...] or incomplete ingestion of the standard meal. ING EQUIPMENT REPAIRER Reviewed and Electronically Signed by: Brendan Crow DO Signed Date: 04/12/24 14:07 04/12/24.1410.MM .to JERMAINE SANCHEZ via fax
--- OUTSIDE RECORDS SUMMARY | 2024-07-30 11:21 | XMS_ITS | Continuity of Care Document ---
Author Organization [facility]. If a dditional information is needed, contact Health Information Management at [phone] Address [address] [place] [address] Phone Care Team Providers Care Airplane First Officer Name Role Phone Unavailable Unavailable Unavailable Unavailable Unavailable Unavailable Unavailable Unavailable Unavailable Unavailable Unavailable Unavailable Problems Uncontrollable vomiting Onset:01-Oct-2022 Brendan Gandhi MD Allergies and Adverse Reactions Penicillins(Allergy) Onset: 01-Oct-2022 Reaction:RASH Sulfa(Sulfonamide Antibiotic s)(Allergy) Onset: 01-Oct-2022 Reaction:RASH Social History Smoking Status Smokes tobacco daily Recorded: 01-Oct-2022
--- OUTSIDE RECORDS SUMMARY | 2024-07-30 11:21 | XMS_ITS ---
Author Organization Unknown Address [address] [place] [phone] Phone Care Team Providers Care Client Relations Specialist Name Role Phone ROD Schroeder Attending Unavailable [...] Normal peristalsis. No esophageal spasm. ESOPHAGEAL MUCOSA: Qzld-wm-zsfkipsg luminal narrowing in region of UES. Normal [...] OTHER: Evidence of prior cholecystectomy. IMPRESSION: 1. Fxrh-ta-zfjpierf luminal narrowing in region of the UES. [...] Kelvin Baird M.D. RB: SUHA Report ID: [id number] Reading Location: [id number] Social History Type Status Start Date End Date Code Code Syst em Smoking History Current every day smoker 957362677 SNOMED CT Sex Female Medications Medication Start Date End Date Route Frequency Dose Code Code System Medication Instructions Home Meds ALPRAZolam 1MG Oral Tablet 04/08/2022 Unknown ORAL DIRECTED 1 MILLIGRAMS 110758 RxNorm TAKE 1 MILLIGRAMS ORAL DIRECTED Albuterol Sulfate 0.083% Inhalation Solution 04/08/2022 Unknown INHALA TION DIRECTED 1 unit(s) 816695 RxNorm 1 EACH INHALATION DIRECTED Aspirin 81MG Oral Tablet, Enteric Coated 04/08/2022 Unknown ORAL ONCE A DAY 81 MILLIGRAMS 572334 RxNorm TAKE 81 MILLIGRAMS ORAL ONCE A DAY Atorvastatin Calcium 20MG Oral Tablet 04/08/2022 07/14/19 25 ORAL ONCE A DAY 20 MILLIGRAMS 655056 RxNorm TAKE 20 MILLIGRAMS ORAL ONCE A DAY Butalbital-AP XQ-Sndrjryx-J odeine 28RY-209AC-40 MG-30MG Oral Capsule 04/08/2022 07/17/19 25 ORAL DIRECTED 1 unit(s) 8907087 RxNorm TAKE 1 EACH ORAL DIRECTED DULoxetine HCl 30MG Oral Capsule, Delayed Release 04/08/2022 07/17/19 25 ORAL ONCE A DAY 30 MILLIGRAMS 236659 RxNorm TAKE 30 MILLIGRAMS ORAL ONCE A DAY Lantus 100U/1ML Subcutaneous Solution 04/08/2022 Unknown SUBCUT ANEOUS DIRECTED 1 unit(s) 526826 RxNorm INJECT INTO 1 EACH SUBCUTANEOUS DIRECTED Omeprazole 20 MG Oral Tablet, Delayed Release 04/08/2022 07/14/19 25 ORAL ONCE A DAY 20 MG RxNorm TAKE 20 MG ORAL ONCE A DAY Verapamil HCl 180MG Oral Capsule, Extended Release 04/08/2022 Unknown ORAL ONCE A DAY 180 MILLIGRAMS 791145 RxNorm TAKE 180 MILLIGRAMS ORAL ONCE A DAY Atorvastatin Calcium 40MG Oral Tablet 07/19/2024 Unknown ORAL ONCE A DAY 40 MILLIGRAMS 271626 RxNorm TAKE 40 MILLIGRAMS ORAL ONCE A DAY Lisinopril 10MG Oral Tablet 07/19/2024 Unknown ORAL ONCE A DAY 10 MILLIGRAMS 508671 RxNorm TAKE 10 MILLIGRAMS ORAL ONCE A DAY Omeprazole 40MG Oral Capsule, Delayed Release 07/19/2024 Unknown ORAL ONCE A DAY 40 MILLIGRAMS 353987 RxNorm TAKE 40 MILLIGRAMS ORAL ONCE A DAY Amitriptyline 25MG Oral Tablet 07/19/2024 Unknown BY MOUTH ONCE A DAY 1 TABLET 380499 RxNorm TAKE 1 TABLET BY MOUTH ONCE [...] Co de Code System SULFA (sulfonamide) Active 36841976 SNO MED-CT ESCITALOPRAM Active 251671 RxNorm PENICILLIN Active Plan of Treatment Upper WO KUB 04/14/2023 Upper WO KUB 03/15/2024 NM Gastric Emptying (57942) 04/12/2024 EGD 07/19/2024 Encounters Encounter Diagnosis Start Date Code Code Sys tem Nausea with vomiting, unspecified 03/15/2024 SNOMED-CT Personal Care Team Section Performer Name Performer Role Active Date Inactive TIM Maloney PCP - Primary care physician 2022-02-05 Imaging Narrative Notes
--- OUTSIDE RECORDS SUMMARY | 2024-07-30 11:21 | XMS_ITS | Referral Summary ---
Author Organization [facility] Address [address] [place] [address] Care Team Providers Care Hand Bunch Maker Name Role Phone Jose Escoto MD Primary Care Provider [phone] Allergies Active Allergy Reactions Criticality Noted Date [...] on file Legal Sex Female 7:16 AM PLANT ELECTRICIAN Gender Identity Not on file Sexual Orientation Not on file Last Filed Vital Signs Vital Sign Reading Time Taken Comments Blood Pressure 106/90 03/21/2024 9:43 AM PLANT ELECTRICIAN Pulse 67 03/21/2024 9:40 AM PLANT ELECTRICIAN Temperature - - Respiratory Rate 20 03/21/2024 9:40 AM PLANT ELECTRICIAN Oxygen Saturation 100% 03/21/2024 9:40 AM PLANT ELECTRICIAN Inhaled Oxygen Concentration - - Weight - - Height - - Body Mass Index - - Plan of Treatment Not on file Insurance [employer] OPEN ACCESS [employer] OPEN ACCESS Care Teams Hand Bunch Maker Relationship Specialty Start Date End Date Jose Escoto MD [address] [place] [address] PCP - General Internal Medicine 03/09/24
--- OUTSIDE RECORDS SUMMARY | 2024-07-30 11:21 | XMS_ITS | Continuity of Care Document ---
Author Organization [facility] Address [address] [place] [address] Phone Care Team Providers Care Cassandra Architect Name Role Phone Unavailable Unavailable Unavailable Medications [...] Diagnoses Date Provider Providers Copied on Encounter [facility], [address] [place], [place], [id number], [place] tel:[phone] Noteworthy Legacy Data Unspecified symptom associated with [...] Information Payers Payer name Insurance type Covered constitution party ID Authoriza tion(s) No Information Social History [...]
--- OUTSIDE RECORDS SUMMARY | 2024-07-30 11:21 | XMS_ITS | Clinical Summary ---
Author Organization [facility] Address [facility] [place] [address] Care Team Providers Care Reaming Press Operator Name Role Phone Jose Dean MD Primary Care Provider [phone] Allergies Active Allergy Reactions Criticality Noted Date [...] Comments Blood Pressure 157/86 05/08/2022 6:30 AM ACCESSIBILITY LIFT TECHNICIAN Pulse 100 05/08/2022 6:30 AM ACCESSIBILITY LIFT TECHNICIAN Temperature 36.4 C (97.5 F) 05/08/2022 5:14 AM ACCESSIBILITY LIFT TECHNICIAN Respiratory Rate 18 05/08/2022 6:30 AM ACCESSIBILITY LIFT TECHNICIAN Oxygen Saturation 95% 05/08/2022 6:30 AM ACCESSIBILITY LIFT TECHNICIAN Inhaled Oxygen Concentration - - Weight 91.6 kg (202 lb) 05/08/2022 2:24 AM ACCESSIBILITY LIFT TECHNICIAN Height 162.6 cm (5' 4 ) 05/08/2022 2:24 AM ACCESSIBILITY LIFT TECHNICIAN Body Mass Index 34.67 05/08/2022 2:24 AM ACCESSIBILITY LIFT TECHNICIAN Plan of Treatment Health Maintenance Due Date Last Done Comments Colorectal Cancer Screening Colonoscopy (10 Years) 1965 Annual Physical 1966 Hepatitis C 1981 DTaP, Tdap and Td Vaccines ( 1 - Tdap) 1982 Pneumococcal Vaccine: 50+ Ye ars (1 of 2 - PCV) 1982 Zoster Vaccines (1 of 2) 2013 COVID-19 Vaccine ( - 2023-2 5 season) 2023 Mammogram Screening 02/03/2024 02/02/2022 [...] Modality Breast Bilateral Mammography 02/15/2022 4:11 PM ACCESSIBILITY LIFT TECHNICIAN Narrative 02/15/2022 4:13 PM ACCESSIBILITY LIFT TECHNICIAN Examination: Digital screening mammogram with CAD. Clinical [...] Most Recently Relevant to Health Maintenance Insurance [facility] C/O PROVIDER SERVICES SWATI HOGAN [id number] [facility] Care Teams Reaming Press Operator Relationship Specialty Start Date End Date Jose Dean MD [address] [place] [address] PCP - General INTERNAL MEDICINE 06/26/20
--- OUTSIDE RECORDS SUMMARY | 2024-07-30 11:21 | XMS_ITS ---
Author Organization Unknown Address [address] [place] [phone] Phone Care Team Providers Care Liquefaction Plant Operator Name Role Phone MAE BARRERA Attending Unavailable JERMAINE DUMONT Primary Unavailable Immunization Immunization Date Status Additional Notes Code Code System Influenza, split virus, quadrivalent, PF 01/30/2021 Completed 150 CVX Results URINALYSIS w/Microscopy/C&S if indicated - Collect Date/Time: 05/25/2024 15:02 [facility] ID: [id number] [place] [address], [phone] LOINC: 64302-6 Test Value Unit Reference Range Code Code System Flag UR SOURCE VOIDED 51145-3 LOINC COLOR DK YELLOW YELLOW 5778-6 LOINC CLARITY SL CLOUDY CLEAR 07777-5 LOINC SPEC GRAVITY 1.025 1.000-1.030 5811-5 LOINC PH 5.5 5.0 - 6.5 5803-2 LOINC LEUK EST NEGATIVE NEGATIVE 5799-2 LOINC NITRATE NEGATIVE NEGATIVE PROTEIN TRACE NEGATIVE 5804-0 LOINC GLUCOSE TRACE NEGATIVE 84902-1 LOINC KETONES 1+ NEGATIVE 63158-9 LOINC A UROBILINOGEN 0.2 0.2 - 1.0 5818-0 LOINC BILIRUBIN 2+ NEGATIVE 56998-4 LOINC A BLOOD NEGATIVE NEGATIVE 37840-4 LOINC WBC 0-2 0 - 2 96856-8 LOINC RBC 0-2 0 - 2 07308-2 LOINC SQ EPITHELIAL OCCASIONAL RARE-FEW BACTERIA FEW NONE SEEN 50881-3 LOINC MUCUS FEW NONE SEEN 8247-9 LOINC YEAST NOT PRESENT NOT PRESENT 86453-3 LOINC TRICHOMONAS NOT PRESENT NOT PRESENT 44173-5 LOINC SPERMATOZOA NOT PRESENT NOT PRESENT 70499-9 LOINC CASTS PRESENT 37391-8 LOINC HYALINE 10-20/LPF NONE SEEN GRANULAR NONE SEEN NONE SEEN WBC CAST NONE SEEN NONE SEEN 5820-6 LOINC RBC CAST NONE SEEN NONE SEEN 5807-3 LOINC WAXY CAST NONE SEEN NONE SEEN 87433-9 LOINC CRYSTALS NOT PRESENT 28658-4 LOINC CULTURE? NO 8251-1 LOINC DIAGNOSIS N/A 4 PLEX RESPIRATORY COVID FLU RSV PCR - Collect Date/Time: 05/25/2024 13:41 [facility] ID: [id number] [address] [place] [address], [phone] LOINC: 92888-5 Test Value Unit Reference Range Code Code System Flag SARS CoV2 PCR NEGATIVE FLU A PCR NEGATIVE FLU B PCR NEGATIVE RSV PCR NEGATIVE SEND TO [facility]? YES CBC W/ DIFF - Collect Date/T sybil: 05/25/2024 12:40 [facility] ID: [id number] [address] [place] [address], [phone] LOINC: 95473-8 Test Value Unit Reference Range Code Code System Flag WBC 13.1 10^3uL L=4.8 H=10.8 H RBC 5.23 10^6uL L=4.20 H=5.40 HEMOGLOBIN 16.2 g/dL L=12.0 H=16.0 718-7 LOINC H HEMATOCRIT 46.9 VOL% L=37.0 H=47.0 4544-3 LOINC MCV 89.7 fL L=81.0 H=99.0 MCH 31.0 pg L=27.0 H=32.0 MCHC 34.5 g/dL L=32.0 H=36.0 PLATELETS 274 10^3uL L=100 H=400 66860-6 LOINC RDW 12.5 % L=11.7 H=15.5 %GRAN 67.7 % L=40.0 H=70.0 80865-1 LOINC %LYMPH 22.8 % L=20.0 H=45.0 736-9 LOINC %MONO 7.6 % L=2.0 H=10.0 45146-9 LOINC %EOS 1.0 % L=0.0 H=6.0 713-8 LOINC %BASO 0.4 % L=0.0 H=3.0 706-2 LOINC #NEUT 8.9 10^3uL L=1.9 H=7.6 88587-6 LOINC H #LYMPH 3.0 10^3uL L=0.9 H=4.9 34278-9 LOINC #MONO 1.0 10^3uL L=0.1 H=0.9 08368-6 LOINC H #EOS 0.1 10^3uL L=0.0 H=0.6 712-0 LOINC #BASO 0.05 10^3uL L=0.00 H=0.10 63152-4 LOINC #IM GRANS 0.1 10^3uL L=0.0 H=7.0 02425-4 LOINC %IM GRANS 0.5 % L=0.0 H=5.0 97040-9 LOINC %NRB 0.0 L=0.0 H=0.2 77131-4 LOINC #NRB 0.000 L=0.000 H=0.012 81337-9 LOINC MANUAL DIFF NOT INDICATED RBC MORPH NOT INDICATED COMPREHENSIVE METABOLIC PANE L - Collect Date/Time: 05/25/2024 12:40 [facility] ID: [id number] [address] [place], [place], [phone] LOINC: 62157-1 Test Value Unit Reference Range Code Code System Flag FASTING UNKNOWN BUN 37 mg/dL L=7 H=20 3094-0 LOINC H CREATININE 1.50 mg/dL L=0.52 H=1.04 2160-0 LOINC H GLUCOSE 282 mg/dL L=74 H=106 2345-7 LOINC H SODIUM 129 mmol/L L=132 H=144 2951-2 LOINC L POTASSIUM 3.7 mmol/L L=3.5 H=5.1 2823-3 LOINC CHLORIDE 91 mmol/L L=98 H=107 2075-0 LOINC L CO2 22.0 mmol/L L=22.0 H=30.0 9 LOINC ANION GAP 20 L=10 H=20 99009-2 LOINC OSMOLALITY 287 mOs/kG L=280 H=296 01543-3 LOINC BUN/CREAT 24.7 3097-3 LOINC CALCIUM 9.4 mg/dL L=8.3 H=10.5 56244-9 LOINC AST 27 U/L L=15 H=46 1920-8 LOINC ALT 22 U/L L=9 H=72 1742-6 LOINC ALKALINE PHOS 122 U/L L=38 H=126 6768-6 LOINC TOTAL BILI 1.5 mg/dL L=0.2 H=1.3 1975-2 LOINC H ALBUMIN 4.4 G/dL L=3.5 H=5.0 1751-7 LOINC TOTAL PROTEIN 8.1 g/L L=6.3 H=8.2 2885-2 LOINC A/G RATIO 1.2 76304-3 LOINC AGE 59 33670-3 LOINC eGFR NON-AFR 38 ml/min eGFR AFR AMER 46 ml/min LIPASE - Collect Date/Time: 05/25/2024 12:40 [facility] ID: [id number] [address] [place] [address], [phone] LOINC: 3040-3 Test Value Unit Reference Range Code Code System Flag LIPASE 211 U/L L=23 H=300 3040-3 LOINC TROPONIN LEVEL - Collect Rohan e/Time: 05/25/2024 12:40 [facility] ID: [id number] [address] [place] [address], [phone] LOINC: 67268-9 Test Value Unit Reference Range Code Code System Flag TROPONIN < 0.012 ng/mL L=0.000 H=0.033 04181-9 LOINC CHEST 1V - Completed: 2024 14:16 LOINC: \TM00\12PI\DRAo\BM09\ \MRHo\ [address] [address] ---------NAME--------- NUMBER SEX AGE ADMIT DISC. XRAY# F/C TYPE CHLOE MAYERS [id number] F 59 05/25/24 99258 CB5 E.R. DATE OF : 1965 M/R# [id number] #: [id number] ED-38 \MRHx\ LOCATION: TRANSCRIBED: 05/25/24 14:32 CHEST 1V 62442 COMPLETED:05/25/24 14:16 TLS 57945 ;cough, chills x 1wk PHYSICIAN: RUT R [...] osseous abnormality. IMPRESSION: No acute cardiopulmonary disease. LOP SHUCKER \ITLo\ \UNDo\ \UNDx\ \ITLx\ Reviewed and Electronically Signed by: Celio Cooper MD Signed Date: 05/25/24 14:32 CT ABD/PEL WO CONTRAST - Com pleted: 05/25/2024 14:20 LOINC: 66372-0 \TM00\12PI\DRAo\BM09\ \MRHo\ [facility] [address] [place] [address] ---------NAME--------- NUMBER SEX AGE ADMIT DISC. XRAY# F/C TYPE CHLOE BRENNON MAYERS [id number] F 59 05/25/24 82572 CB5 E.R. DATE OF : 1965 M/R# [id number] #: [id number] ED-38 \[facility]\ LOCATION: TRANSCRIBED: 05/25/24 14:37 CT ABD/PEL WO CONTRAST 53097 COMPLETED:05/25/24 14:20 TLS 09032 abdominal pain PHYSICIAN: RUT R A D [...] matched to clinical indication) or iterative reconstruction. LOP SHUCKER \ITLo\ \UNDo\ \UNDx\ \ITLx\ Reviewed and Electronically Signed by: Srinivasan Tamez MD Signed Date: 05/25/24 14:37 Social History Type Status Start Date End Date Code Code Syst em Smoking History Current every day smoker 612733308 SNOMED CT Sex Female Medications Medication Start Date End Date Route Frequency Dose Code Code System Medication Instructions Home Meds ALPRAZolam 1MG Oral Tablet 04/08/2022 Unknown ORAL DIRECTED 1 MILLIGRAMS 411036 RxNorm TAKE 1 MILLIGRAMS ORAL DIRECTED Albuterol Sulfate 0.083% Inhalation Solution 04/08/2022 Unknown INHALA TION DIRECTED 1 unit(s) 373690 RxNorm 1 EACH INHALATION DIRECTED Aspirin 81MG Oral Tablet, Enteric Coated 04/08/2022 Unknown ORAL ONCE A DAY 81 MILLIGRAMS 768226 RxNorm TAKE 81 MILLIGRAMS ORAL ONCE A DAY Atorvastatin Calcium 20MG Oral Tablet 04/08/2022 07/14/19 25 ORAL ONCE A DAY 20 MILLIGRAMS 320460 RxNorm TAKE 20 MILLIGRAMS ORAL ONCE A DAY Butalbital-AP SO-Jzwxxelp-H odeine 07RH-818RP-69 MG-30MG Oral Capsule 04/08/2022 07/17/19 25 ORAL DIRECTED 1 unit(s) 5030769 RxNorm TAKE 1 EACH ORAL DIRECTED DULoxetine HCl 30MG Oral Capsule, Delayed Release 04/08/2022 07/17/19 25 ORAL ONCE A DAY 30 MILLIGRAMS 402545 RxNorm TAKE 30 MILLIGRAMS ORAL ONCE A DAY Lantus 100U/1ML Subcutaneous Solution 04/08/2022 Unknown SUBCUT ANEOUS DIRECTED 1 unit(s) 920603 RxNorm INJECT INTO 1 EACH SUBCUTANEOUS DIRECTED Omeprazole 20 MG Oral Tablet, Delayed Release 04/08/2022 07/14/19 25 ORAL ONCE A DAY 20 MG RxNorm TAKE 20 MG ORAL ONCE A DAY Verapamil HCl 180MG Oral Capsule, Extended Release 04/08/2022 Unknown ORAL ONCE A DAY 180 MILLIGRAMS 307389 RxNorm TAKE 180 MILLIGRAMS ORAL ONCE A DAY Atorvastatin Calcium 40MG Oral Tablet 07/19/2024 Unknown ORAL ONCE A DAY 40 MILLIGRAMS 723611 RxNorm TAKE 40 MILLIGRAMS ORAL ONCE A DAY Lisinopril 10MG Oral Tablet 07/19/2024 Unknown ORAL ONCE A DAY 10 MILLIGRAMS 569129 RxNorm TAKE 10 MILLIGRAMS ORAL ONCE A DAY Omeprazole 40MG Oral Capsule, Delayed Release 07/19/2024 Unknown ORAL ONCE A DAY 40 MILLIGRAMS 516207 RxNorm TAKE 40 MILLIGRAMS ORAL ONCE A DAY Amitriptyline 25MG Oral Tablet 07/19/2024 Unknown BY MOUTH ONCE A DAY 1 TABLET 689281 RxNorm TAKE 1 TABLET BY MOUTH ONCE [...] Co de Code System SULFA (sulfonamide) Active 26712517 SNO MED-CT ESCITALOPRAM Active 665407 RxNorm PENICILLIN Active Plan of Treatment Upper WO KUB 04/14/2023 Upper WO KUB 03/15/2024 NM Gastric Emptying (15968) 04/12/2024 EGD 07/19/2024 Encounters Encounter Diagnosis Start Date Code Code Sys tem Noninfective gastroenteritis and colitis, unspecified 05/25/2024 SNOMED-CT Personal Care Team Section Performer Name Performer Role Active Date Inactive TIM Maloney PCP - Primary care physician 2022-02-05 Imaging Narrative Notes [facility] 05/25/2024 14:[address] [address] ---------NAME--------- NUMBER SEX AGE ADMIT DISC. XRAY# F/C TYPE CHLOE MAYERS [id number] F 59 05/25/24 09990 CB5 E.R. DATE OF : 1965 M/R# [id number] #: [id number] ED-38 LOCATION: TRANSCRIBED: 05/25/24 14:32 CHEST 1V 07152 COMPLETED:05/25/24 14:16 TLS 30741 ;cough, chills x 1wk PHYSICIAN: RUT RADIOLOGY REPORT CHEST RADIOGRAPH Indication: ;cough, chills x 1wk Technique: Single frontal view of the chest was obtained Comparison: None FINDINGS: Lines and Tubes: None Lungs: No focal consolidation. Pleura: No effusion. No pneumothorax. Cardiomediastinal contours: Unremarkable Bones: No acute osseous abnormality. IMPRESSION: No acute cardiopulmonary disease. LOP SHUCKER Reviewed and Electronically Signed by: Celio Cooper MD Signed Date: 05/25/24 14:32 [facility] 05/25/2024 14:[address] [address] ---------NAME--------- NUMBER SEX AGE ADMIT DISC. XRAY# F/C TYPE CHLOE BRENNON MAYERS [id number] F 59 05/25/24 28627 CB5 E.R. DATE OF : 1965 M/R# [id number] #: [id number] ED-38 LOCATION: TRANSCRIBED: 05/25/24 14:37 CT ABD/PEL WO CONTRAST 61131 COMPLETED:05/25/24 14:20 TLS 33720 abdominal pain PHYSICIAN: RUT RADIOLOGY REPORT Exam: [...] matched to clinical indication) or iterative reconstruction. LOP SHUCKER Reviewed and Electronically Signed by: Srinivasan Tamez MD Signed Date: 05/25/24 14:37
--- OUTSIDE RECORDS SUMMARY | 2024-07-30 11:21 | XMS_ITS | CONTINUITY OF CARE DOCUMENT ---
Author Name nicole rivera Address Unknown Organization [facility] Address [address] [place] [address] Phone [phone] Care Team Providers Care Minister Helper Name Role Phone Shannan PALOMO, Jett Unavailable [phone] TIM DEAN MD Unavailable TIM DEAN MD Unavailable [phone] PROBLEMS Condition Status Date Provider Notes COPD [...] In-person encounter Office Visit Jett Campbell MD [place] [facility] - In-person encounter Office Visit Jett Campbell MD [place] [facility] Cardiology examinationDiabetes, Type 2HyperlipidemiaHypertens ionChest pain-type [...] Payer name Policy type / Coverage type [place] red republican ID [facility] [id number] ADVANCE DIRECTIVES Name Date DISCUSSED - NO DECISION MADE TREATMENT PLAN Date Name Performer [id number],S, Jett deluca MD [id number],S,H as xanthalasma. I ncrease atorvastatin to 80mg, recheck lipid panel in 3 months. I f LDL still high, or if patient cannot tolerate statin high dose, then we will try Raul Campbell MD [id number],S,BP ok at home Jett Campbell MD [id number],B,S tress test with minimal abnormalities, no suggestion of ischemia. Jett Campbell MD [id number],S, Jett deluca MD [id number],S, Jett deluca MD [id number],S, Jett deluca MD [id number],S, Jett deluca MD [id number],S, Jett deluca MD Cardiology Jett Campbell MD [...] COMPREHENSIVE METABO LIC PANEL, W/EGFR DLCO - 49888 FRC - 31954 FVC - 91719 Stress Regadenoson Complete Echo HISTORY OF PROCEDURES Procedure Date Procedure Name Provider Procedure Notes S tatus Spirometry Jett Campbell MD complete d FVC / MVV with bronchodilator - 58231 Jett Campbell MD completed FRC - 42608 Jett Campbell MD complet ed SpO2 w/o 6min walk/titration Jett Campbell MD completed SVC - 90676 Jett Campbell MD complet ed DLCO - 32384 Jett Campbell MD comple camila EKG Jett Campbell MD complete d
--- OUTSIDE RECORDS SUMMARY | 2024-07-30 11:21 | XMS_ITS | Clinical Summary ---
Author Organization [facility] Address [address] [place] [address] Care Team Providers Care Canoe Builder Name Role Phone Jose Escoto MD Primary Care Provider [phone] Allergies Active Allergy Reactions Criticality Noted Date [...] on file Legal Sex Female 7:16 AM YEAST WASHER Gender Identity Not on file Sexual Orientation Not on file Obstetrics History Last Filed Vital Signs Vital Sign Reading Time Taken Comments Blood Pressure 106/90 03/21/2024 9:43 AM YEAST WASHER Pulse 67 03/21/2024 9:40 AM YEAST WASHER Temperature - - Respiratory Rate 20 03/21/2024 9:40 AM YEAST WASHER Oxygen Saturation 100% 03/21/2024 9:40 AM YEAST WASHER Inhaled Oxygen Concentration - - Weight - [...] 02/02/2022 Influenza Vaccine (#1) 2023 01/30/2021 Insurance [employer] OPEN ACCESS [employer] OPEN ACCESS Care Teams Canoe Builder Relationship Specialty Start Date End Date Jose Escoto MD [address] [place] [address] PCP - General Internal Medicine 03/09/24
--- NOTE | 2024-07-30 11:36 | PC.NURSE ---
ERP HAS CANCELLED CT SCAN, PT IS AWARE. IVF HAVE INFUSED, AWAITING ERP DECISION AT THIS TIME. WILL CONTINUE TO MONITOR. NAD NOTED. PT IS RESTING ON STRETCHER.
--- OUTSIDE RECORDS SUMMARY | 2024-07-30 11:49 | XMS_ITS | Continuity of Care Document ---
Author Organization [facility] Address [address] [place] [address] Phone Care Team Providers Care Die Maker Name Role Phone Unavailable Unavailable Unavailable Medications [...] Diagnoses Date Provider Providers Copied on Encounter [facility], [address], [place], [place], [id number], [place] tel:[phone] Noteworthy Legacy Data Unspecified symptom associated with [...] Information Payers Payer name Insurance type Covered alliance party ID Authoriza tion(s) No Information Social [...]
--- OUTSIDE RECORDS SUMMARY | 2024-07-30 11:50 | XMS_ITS ---
Author Organization Unknown Address [address] [place] [phone] Phone Care Team Providers Care Regulatory Internship Name Role Phone JESUSKiya FLASH RECYCLING SPECIALIST Attending Unavailable JERMAINE DUMONT Primary Unavailable Immunization Immunization Date Status Additional Notes Code Code System Influenza, split virus, quadrivalent, PF 01/30/2021 Completed 150 CVX Results MRI BRAIN WO CONTRAST - Comp leted: 01/24/2023 13:32 LOINC: 33002-0 EXAM DESCRIPTION: MRI BRAIN WO CONTRAST REASON [...] Solis Stewart M.D. FLORENTINO: FLORENTINO Report ID: [id number] Reading Location: [place] [address] Social History Type Status Start Date End Date Code Code Syst em Smoking History Current every day smoker 477598722 SNOMED CT Sex Female Medications Medication Start Date End Date Route Frequency Dose Code Code System Medication Instructions Home Meds ALPRAZolam 1MG Oral Tablet 04/08/2022 Unknown ORAL DIRECTED 1 MILLIGRAMS 190349 RxNorm TAKE 1 MILLIGRAMS ORAL DIRECTED Albuterol Sulfate 0.083% Inhalation Solution 04/08/2022 Unknown INHALA TION DIRECTED 1 unit(s) 117494 RxNorm 1 EACH INHALATION DIRECTED Aspirin 81MG Oral Tablet, Enteric Coated 04/08/2022 Unknown ORAL ONCE A DAY 81 MILLIGRAMS 948974 RxNorm TAKE 81 MILLIGRAMS ORAL ONCE A DAY Atorvastatin Calcium 20MG Oral Tablet 04/08/2022 07/14/19 25 ORAL ONCE A DAY 20 MILLIGRAMS 626256 RxNorm TAKE 20 MILLIGRAMS ORAL ONCE A DAY Surinder GG-Cvreegam-M odeine [id number]-[id number]-62 MG-30MG Oral Capsule 04/08/2022 07/17/19 25 ORAL DIRECTED 1 unit(s) 4946995 RxNorm TAKE 1 EACH ORAL DIRECTED DULoxetine HCl 30MG Oral Capsule, Delayed Release 04/08/2022 07/17/19 25 ORAL ONCE A DAY 30 MILLIGRAMS 213503 RxNorm TAKE 30 MILLIGRAMS ORAL ONCE A DAY Lantus 100U/1ML Subcutaneous Solution 04/08/2022 Unknown SUBCUT ANEOUS DIRECTED 1 unit(s) 109081 RxNorm INJECT INTO 1 EACH SUBCUTANEOUS DIRECTED Omeprazole 20 MG Oral Tablet, Delayed Release 04/08/2022 07/14/19 25 ORAL ONCE A DAY 20 MG RxNorm TAKE 20 MG ORAL ONCE A DAY Verapamil HCl 180MG Oral Capsule, Extended Release 04/08/2022 Unknown ORAL ONCE A DAY 180 MILLIGRAMS 916487 RxNorm TAKE 180 MILLIGRAMS ORAL ONCE A DAY Atorvastatin Calcium 40MG Oral Tablet 07/19/2024 Unknown ORAL ONCE A DAY 40 MILLIGRAMS 052086 RxNorm TAKE 40 MILLIGRAMS ORAL ONCE A DAY Lisinopril 10MG Oral Tablet 07/19/2024 Unknown ORAL ONCE A DAY 10 MILLIGRAMS 191218 RxNorm TAKE 10 MILLIGRAMS ORAL ONCE A DAY Omeprazole 40MG Oral Capsule, Delayed Release 07/19/2024 Unknown ORAL ONCE A DAY 40 MILLIGRAMS 881969 RxNorm TAKE 40 MILLIGRAMS ORAL ONCE A DAY Amitriptyline 25MG Oral Tablet 07/19/2024 Unknown BY MOUTH ONCE A DAY 1 TABLET 246246 RxNorm TAKE 1 TABLET BY MOUTH ONCE [...] Co de Code System SULFA (sulfonamide) Active [id number] SNO MED-CT ESCITALOPRAM Active 822113 RxNorm PENICILLIN Active Plan of Treatment Upper WO KUB 04/14/2023 Upper WO KUB 03/15/2024 NM Gastric Emptying (08537) 04/12/2024 EGD 07/19/2024 Encounters Encounter Diagnosis Start Date Code Code Sys tem Migraine without aura, not refractory 01/24/2023 425 [id number] SNOMED-CT Personal Care Team Section Performer Name Performer Role Active Date Inactive TIM Maloney PCP - Primary care physician 2022-02-05 Imaging Narrative Notes
--- OUTSIDE RECORDS SUMMARY | 2024-07-30 11:51 | XMS_ITS | Clinical Summary ---
Author Organization [facility] Address [facility] [address] [place] [address] Care Team Providers Care Ssis Ssrs Developer Name Role Phone Jose Dean MD Primary Care Provider [phone] Allergies Active Allergy Reactions Criticality Noted Date [...] Comments Blood Pressure 157/86 05/08/2022 6:30 AM HRIS SPECIALIST Pulse 100 05/08/2022 6:30 AM HRIS SPECIALIST Temperature 36.4 C (97.5 F) 05/08/2022 5:14 AM HRIS SPECIALIST Respiratory Rate 18 05/08/2022 6:30 AM HRIS SPECIALIST Oxygen Saturation 95% 05/08/2022 6:30 AM HRIS SPECIALIST Inhaled Oxygen Concentration - - Weight 91.6 kg (202 lb) 05/08/2022 2:24 AM HRIS SPECIALIST Height 162.6 cm (5' 4 ) 05/08/2022 2:24 AM HRIS SPECIALIST Body Mass Index 34.67 05/08/2022 2:24 AM HRIS SPECIALIST Plan of Treatment Health Maintenance Due Date [...] Modality Breast Bilateral Mammography 02/15/2022 4:11 PM HRIS SPECIALIST Narrative 02/15/2022 4:13 PM HRIS SPECIALIST Examination: Digital screening mammogram with CAD. Clinical [...] Most Recently Relevant to Health Maintenance Insurance [facility] C/O PROVIDER SERVICES [place] [place]OGAN [id number] [facility]LY [facility] Care Teams Ssis Ssrs Developer Relationship Specialty Start Date End Date Jose Dean MD [address] [place] [address] PCP - General INTERNAL MEDICINE 06/26/20
--- OUTSIDE RECORDS SUMMARY | 2024-07-30 11:51 | XMS_ITS | CONTINUITY OF CARE DOCUMENT ---
Author Name nicole rivera Address Unknown Organization [facility] Address [address] [place] [address] Phone [phone] Care Team Providers Care Chess Instructor Name Role Phone Shannan PALOMO, Jett Unavailable [...] In-person encounter Office Visit Jett Campbell MD [place] [facility] - In-person encounter Office Visit Jett Campbell MD [place] [facility] Cardiology examinationDiabetes, Type 2HyperlipidemiaHypertens ionChest pain-type [...] Payer name Policy type / Coverage type [place] red democrat ID [facility] [id number] ADVANCE DIRECTIVES Name Date DISCUSSED - NO DECISION MADE TREATMENT PLAN Date Name Performer [id number],S, Jett deluca MD [id number],S,H as xanthalasma. I ncrease atorvastatin to 80mg, recheck lipid panel in 3 months. I f LDL still high, or if patient cannot tolerate statin high dose, then we will try Raul Campbell MD [id number],S,BP ok at home Jett Campbell MD [id number],B,S tress test with minimal abnormalities, no suggestion of ischemia. Jett Campbell MD [id number],S, Jett deluca MD [id number],S, Jett deluca MD [id number],S, Jett deluca MD [id number],S, Jett deluca MD [id number],S, Jett deluca MD Cardiology Jett Campbell MD [...] COMPREHENSIVE METABO LIC PANEL, W/EGFR DLCO - 82697 FRC - 40589 FVC - 07442 Stress Regadenoson Complete Echo HISTORY OF PROCEDURES Procedure Date Procedure Name Provider Procedure Notes S tatus Spirometry Jett Campbell MD complete d FVC / MVV with bronchodilator - 22142 Jett Campbell MD completed FRC - 96154 Jett Campbell MD complet ed SpO2 w/o 6min walk/titration Jett Campbell MD completed SVC - 92662 Jett Campbell MD complet ed DLCO - 83794 Jett Campbell MD comple camila EKG Jett Campbell MD complete d
--- OUTSIDE RECORDS SUMMARY | 2024-07-30 11:51 | XMS_ITS | Clinical Summary ---
Author Organization [facility] Address [address] [place] [address] Care Team Providers Care Hospital Personnel Director Name Role Phone Jose Escoto MD Primary Care Provider [phone] Allergies Active Allergy Reactions Criticality Noted Date [...] on file Legal Sex Female 7:16 AM ACCESS SERVICES ASSISTANT Gender Identity Not on file Sexual Orientation Not on file Obstetrics History Last Filed Vital Signs Vital Sign Reading Time Taken Comments Blood Pressure 106/90 03/21/2024 9:43 AM ACCESS SERVICES ASSISTANT Pulse 67 03/21/2024 9:40 AM ACCESS SERVICES ASSISTANT Temperature - - Respiratory Rate 20 03/21/2024 9:40 AM ACCESS SERVICES ASSISTANT Oxygen Saturation 100% 03/21/2024 9:40 AM ACCESS SERVICES ASSISTANT Inhaled Oxygen Concentration - - Weight - [...] 02/02/2022 Influenza Vaccine (#1) 2023 01/30/2021 Insurance [employer] OPEN ACCESS [employer] OPEN ACCESS Care Teams Hospital Personnel Director Relationship Specialty Start Date End Date Jose Escoto MD [address] [place] [address] PCP - General Internal Medicine 03/09/24
--- OUTSIDE RECORDS SUMMARY | 2024-07-30 11:51 | XMS_ITS ---
Author Organization Unknown Address [address] [place] [phone] Phone Care Team Providers Care Soil Field Technician Name Role Phone ROD Schroeder Attending Unavailable [...] Normal peristalsis. No esophageal spasm. ESOPHAGEAL MUCOSA: Ozcb-hx-[id number] luminal narrowing in region of UES. Normal [...] OTHER: Evidence of prior cholecystectomy. IMPRESSION: 1. Esdr-gm-xwndbpmn luminal narrowing in region of the UES. [...] Kelvin Baird M.D. RB: SUHA Report ID: [id number] Reading Location: [id number] Social History Type Status Start Date End Date Code Code Syst em Smoking History Current every day smoker [id number] SNOMED CT Sex Female Medications Medication Start Date End Date Route Frequency Dose Code Code System Medication Instructions Home Meds ALPRAZolam 1MG Oral Tablet 04/08/2022 Unknown ORAL DIRECTED 1 MILLIGRAMS 254861 RxNorm TAKE 1 MILLIGRAMS ORAL DIRECTED Albuterol Sulfate 0.083% Inhalation Solution 04/08/2022 Unknown INHALA TION DIRECTED 1 unit(s) 506438 RxNorm 1 EACH INHALATION DIRECTED Aspirin 81MG Oral Tablet, Enteric Coated 04/08/2022 Unknown ORAL ONCE A DAY 81 MILLIGRAMS 934112 RxNorm TAKE 81 MILLIGRAMS ORAL ONCE A DAY Atorvastatin Calcium 20MG Oral Tablet 04/08/2022 07/14/19 25 ORAL ONCE A DAY 20 MILLIGRAMS 476792 RxNorm TAKE 20 MILLIGRAMS ORAL ONCE A DAY Butalbital-AP MY-Pcrvmuyq-P odeine 50OM-337XY-76 MG-30MG Oral Capsule 04/08/2022 07/17/19 25 ORAL DIRECTED 1 unit(s) 9246109 RxNorm TAKE 1 EACH ORAL DIRECTED DULoxetine HCl 30MG Oral Capsule, Delayed Release 04/08/2022 07/17/19 25 ORAL ONCE A DAY 30 MILLIGRAMS 670102 RxNorm TAKE 30 MILLIGRAMS ORAL ONCE A DAY Lantus 100U/1ML Subcutaneous Solution 04/08/2022 Unknown SUBCUT ANEOUS DIRECTED 1 unit(s) 930465 RxNorm INJECT INTO 1 EACH SUBCUTANEOUS DIRECTED Omeprazole 20 MG Oral Tablet, Delayed Release 04/08/2022 07/14/19 25 ORAL ONCE A DAY 20 MG RxNorm TAKE 20 MG ORAL ONCE A DAY Verapamil HCl 180MG Oral Capsule, Extended Release 04/08/2022 Unknown ORAL ONCE A DAY 180 MILLIGRAMS 869490 RxNorm TAKE 180 MILLIGRAMS ORAL ONCE A DAY Atorvastatin Calcium 40MG Oral Tablet 07/19/2024 Unknown ORAL ONCE A DAY 40 MILLIGRAMS 665128 RxNorm TAKE 40 MILLIGRAMS ORAL ONCE A DAY Lisinopril 10MG Oral Tablet 07/19/2024 Unknown ORAL ONCE A DAY 10 MILLIGRAMS 145282 RxNorm TAKE 10 MILLIGRAMS ORAL ONCE A DAY Omeprazole 40MG Oral Capsule, Delayed Release 07/19/2024 Unknown ORAL ONCE A DAY 40 MILLIGRAMS 306917 RxNorm TAKE 40 MILLIGRAMS ORAL ONCE A DAY Amitriptyline 25MG Oral Tablet 07/19/2024 Unknown BY MOUTH ONCE A DAY 1 TABLET 609355 RxNorm TAKE 1 TABLET BY MOUTH ONCE [...] Co de Code System SULFA (sulfonamide) Active 25421356 SNO MED-CT ESCITALOPRAM Active 315748 RxNorm PENICILLIN Active Plan of Treatment Upper WO KUB 04/14/2023 Upper WO KUB 03/15/2024 NM Gastric Emptying (77561) 04/12/2024 EGD 07/19/2024 Encounters Encounter Diagnosis Start Date Code Code Sys tem Nausea with vomiting, unspecified 03/15/2024 SNOMED-CT Personal Care Team Section Performer Name Performer Role Active Date Inactive TIM Maloney PCP - Primary care physician 2022-02-05 Imaging Narrative Notes
--- OUTSIDE RECORDS SUMMARY | 2024-07-30 11:51 | XMS_ITS | Referral Summary ---
Author Organization [facility] Address [address] [place] [address] Care Team Providers Care Windows Server Engineer Name Role Phone Jose Escoto MD Primary Care Provider [phone] Allergies Active Allergy Reactions Criticality Noted Date [...] on file Legal Sex Female 7:16 AM HOUSE DIRECTOR Gender Identity Not on file Sexual Orientation Not on file Last Filed Vital Signs Vital Sign Reading Time Taken Comments Blood Pressure 106/90 03/21/2024 9:43 AM HOUSE DIRECTOR Pulse 67 03/21/2024 9:40 AM HOUSE DIRECTOR Temperature - - Respiratory Rate 20 03/21/2024 9:40 AM HOUSE DIRECTOR Oxygen Saturation 100% 03/21/2024 9:40 AM HOUSE DIRECTOR Inhaled Oxygen Concentration - - Weight - - Height - - Body Mass Index - - Plan of Treatment Not on file Insurance [employer] OPEN ACCESS [employer] OPEN ACCESS Care Teams Windows Server Engineer Relationship Specialty Start Date End Date Jose Escoto MD [address] [place] [address] PCP - General Internal Medicine 03/09/24
--- OUTSIDE RECORDS SUMMARY | 2024-07-30 11:51 | XMS_ITS ---
Author Organization Unknown Address [address] [place] [phone] Phone Care Team Providers Care Producer Assistant Name Role Phone MAE BARRERA Attending Unavailable JERMAINE DUMONT Primary Unavailable Immunization Immunization Date Status Additional Notes Code Code System Influenza, split virus, quadrivalent, PF 01/30/2021 Completed 150 CVX Results URINALYSIS w/Microscopy/C&S if indicated - Collect Date/Time: 05/25/2024 15:02 [facility] ID: [id number] [place] [address], [phone] LOINC: 50862-8 Test Value Unit Reference Range Code Code System Flag UR SOURCE VOIDED 79549-9 LOINC COLOR DK YELLOW YELLOW 5778-6 LOINC CLARITY SL CLOUDY CLEAR 56330-5 LOINC SPEC GRAVITY 1.025 1.000-1.030 5811-5 LOINC PH 5.5 5.0 - 6.5 5803-2 LOINC LEUK EST NEGATIVE NEGATIVE 5799-2 LOINC NITRATE NEGATIVE NEGATIVE PROTEIN TRACE NEGATIVE 5804-0 LOINC GLUCOSE TRACE NEGATIVE 14065-6 LOINC KETONES 1+ NEGATIVE 37505-4 LOINC A UROBILINOGEN 0.2 0.2 - 1.0 5818-0 LOINC BILIRUBIN 2+ NEGATIVE 91218-7 LOINC A BLOOD NEGATIVE NEGATIVE 80732-0 LOINC WBC 0-2 0 - 2 26692-9 LOINC RBC 0-2 0 - 2 90168-3 LOINC SQ EPITHELIAL OCCASIONAL RARE-FEW BACTERIA FEW NONE SEEN 93954-4 LOINC MUCUS FEW NONE SEEN 8247-9 LOINC YEAST NOT PRESENT NOT PRESENT 35762-4 LOINC TRICHOMONAS NOT PRESENT NOT PRESENT 38961-1 LOINC SPERMATOZOA NOT PRESENT NOT PRESENT 34356-3 LOINC CASTS PRESENT 35777-4 LOINC HYALINE 10-20/LPF NONE SEEN GRANULAR NONE SEEN NONE SEEN WBC CAST NONE SEEN NONE SEEN 5820-6 LOINC RBC CAST NONE SEEN NONE SEEN 5807-3 LOINC WAXY CAST NONE SEEN NONE SEEN 32100-9 LOINC CRYSTALS NOT PRESENT 12586-7 LOINC CULTURE? NO 8251-1 LOINC DIAGNOSIS N/A 4 PLEX RESPIRATORY COVID FLU RSV PCR - Collect Date/Time: 05/25/2024 13:41 [facility] ID: [id number] [address] [place] [address], [phone] LOINC: 19900-0 Test Value Unit Reference Range Code Code System Flag SARS CoV2 PCR NEGATIVE FLU A PCR NEGATIVE FLU B PCR NEGATIVE RSV PCR NEGATIVE SEND TO [facility]? YES CBC W/ DIFF - Collect Date/T sybil: 05/25/2024 12:40 [facility] ID: [id number] [address] [place] [address], [phone] LOINC: 24428-9 Test Value Unit Reference Range Code Code System Flag WBC 13.1 10^3uL L=4.8 H=10.8 H RBC 5.23 10^6uL L=4.20 H=5.40 HEMOGLOBIN 16.2 g/dL L=12.0 H=16.0 718-7 LOINC H HEMATOCRIT 46.9 VOL% L=37.0 H=47.0 4544-3 LOINC MCV 89.7 fL L=81.0 H=99.0 MCH 31.0 pg L=27.0 H=32.0 MCHC 34.5 g/dL L=32.0 H=36.0 PLATELETS 274 10^3uL L=100 H=400 80491-0 LOINC RDW 12.5 % L=11.7 H=15.5 %GRAN 67.7 % L=40.0 H=70.0 53864-2 LOINC %LYMPH 22.8 % L=20.0 H=45.0 736-9 LOINC %MONO 7.6 % L=2.0 H=10.0 00500-8 LOINC %EOS 1.0 % L=0.0 H=6.0 713-8 LOINC %BASO 0.4 % L=0.0 H=3.0 706-2 LOINC #NEUT 8.9 10^3uL L=1.9 H=7.6 13675-8 LOINC H #LYMPH 3.0 10^3uL L=0.9 H=4.9 71704-1 LOINC #MONO 1.0 10^3uL L=0.1 H=0.9 27767-3 LOINC H #EOS 0.1 10^3uL L=0.0 H=0.6 712-0 LOINC #BASO 0.05 10^3uL L=0.00 H=0.10 14886-9 LOINC #IM GRANS 0.1 10^3uL L=0.0 H=7.0 39663-7 LOINC %IM GRANS 0.5 % L=0.0 H=5.0 76633-0 LOINC %NRB 0.0 L=0.0 H=0.2 07321-1 LOINC #NRB 0.000 L=0.000 H=0.012 06249-3 LOINC MANUAL DIFF NOT INDICATED RBC MORPH NOT INDICATED COMPREHENSIVE METABOLIC PANE L - Collect Date/Time: 05/25/2024 12:40 [facility] ID: [id number] [address] [place], [place], [phone] LOINC: 96759-7 Test Value Unit Reference Range Code Code [...] 2027-9 LOINC ANION GAP 20 L=10 H=20 32387-7 LOINC OSMOLALITY 287 mOs/kG L=280 H=296 55799-2 LOINC BUN/CREAT 24.7 3097-3 LOINC CALCIUM 9.4 mg/dL L=8.3 H=10.5 75458-6 LOINC AST 27 U/L L=15 H=46 1920-8 LOINC ALT 22 U/L L=9 H=72 1742-6 LOINC ALKALINE PHOS 122 U/L L=38 H=126 6768-6 LOINC TOTAL BILI 1.5 mg/dL L=0.2 H=1.3 1975-2 LOINC H ALBUMIN 4.4 G/dL L=3.5 H=5.0 1751-7 LOINC TOTAL PROTEIN 8.1 g/L L=6.3 H=8.2 2885-2 LOINC A/G RATIO 1.2 70633-4 LOINC AGE 59 41252-4 LOINC eGFR NON-AFR 38 ml/min eGFR AFR AMER 46 ml/min LIPASE - Collect Date/Time: 05/25/2024 12:40 [facility] ID: [id number] [address] [place] [address], [phone] LOINC: 3040-3 Test Value Unit Reference Range Code Code System Flag LIPASE 211 U/L L=23 H=300 3040-3 LOINC TROPONIN LEVEL - Collect Rohan e/Time: 05/25/2024 12:40 [facility] ID: [id number] [place] [address], [phone] LOINC: 29954-8 Test Value Unit Reference Range Code Code System Flag TROPONIN < 0.012 ng/mL L=0.000 H=0.033 89110-9 LOINC CHEST 1V - Completed: 2024 14:16 LOINC: \TM00\12PI\DRAo\BM09\ \MRHo\ [address] [address] ---------NAME--------- NUMBER SEX AGE ADMIT DISC. XRAY# F/C TYPE CHLOE MAYERS [id number] F 59 05/25/24 95042 CB5 E.R. DATE OF : 1965 M/R# [id number] #: [id number] ED-38 \MRHx\ LOCATION: TRANSCRIBED: 05/25/24 14:32 CHEST 1V 22940 COMPLETED:05/25/24 14:16 TLS 73716 ;cough, chills x 1wk PHYSICIAN: RUT R [...] osseous abnormality. IMPRESSION: No acute cardiopulmonary disease. ION LEADER \ITLo\ \UNDo\ \UNDx\ \ITLx\ Reviewed and Electronically Signed by: Celio Cooper MD Signed Date: 05/25/24 14:32 CT ABD/PEL WO CONTRAST - Com pleted: 05/25/2024 14:20 LOINC: 98049-2 \TM00\12PI\DRAo\BM09\ \MRHo\ [facility] [address] [place] [address] ---------NAME--------- NUMBER SEX AGE ADMIT DISC. XRAY# F/C TYPE CHLOE BRENNON MAYERS [id number] F 59 05/25/24 77100 CB5 E.R. DATE OF : 1965 M/R# [id number] #: [id number] ED-38 \MRHx\ LOCATION: TRANSCRIBED: 05/25/24 14:37 CT ABD/PEL WO CONTRAST 86326 COMPLETED:05/25/24 14:20 TLS 05292 abdominal pain PHYSICIAN: RUT R A D [...] matched to clinical indication) or iterative reconstruction. ION LEADER \ITLo\ \UNDo\ \UNDx\ \ITLx\ Reviewed and Electronically Signed by: Srinivasan Tamez MD Signed Date: 05/25/24 14:37 Social History Type Status Start Date End Date Code Code Syst em Smoking History Current every day smoker 691662451 SNOMED CT Sex Female Medications Medication Start Date End Date Route Frequency Dose Code Code System Medication Instructions Home Meds ALPRAZolam 1MG Oral Tablet 04/08/2022 Unknown ORAL DIRECTED 1 MILLIGRAMS 19720505 RxNorm TAKE 1 MILLIGRAMS ORAL DIRECTED Albuterol Sulfate 0.083% Inhalation Solution 04/08/2022 Unknown INHALA TION DIRECTED 1 unit(s) 878234 RxNorm 1 EACH INHALATION DIRECTED Aspirin 81MG Oral Tablet, Enteric Coated 04/08/2022 Unknown ORAL ONCE A DAY 81 MILLIGRAMS 352516 RxNorm TAKE 81 MILLIGRAMS ORAL ONCE A DAY Atorvastatin Calcium 20MG Oral Tablet 04/08/2022 07/14/19 25 ORAL ONCE A DAY 20 MILLIGRAMS 545491 RxNorm TAKE 20 MILLIGRAMS ORAL ONCE A DAY Butalbital-AP RL-Qsoncvhd-B odeine 83BF-329LM-86 MG-30MG Oral Capsule 04/08/2022 07/17/19 25 ORAL DIRECTED 1 unit(s) 6859678 RxNorm TAKE 1 EACH ORAL DIRECTED DULoxetine HCl 30MG Oral Capsule, Delayed Release 04/08/2022 07/17/19 25 ORAL ONCE A DAY 30 MILLIGRAMS 841945 RxNorm TAKE 30 MILLIGRAMS ORAL ONCE A DAY Lantus 100U/1ML Subcutaneous Solution 04/08/2022 Unknown SUBCUT ANEOUS DIRECTED 1 unit(s) 507722 RxNorm INJECT INTO 1 EACH SUBCUTANEOUS DIRECTED Omeprazole 20 MG Oral Tablet, Delayed Release 04/08/2022 07/14/19 25 ORAL ONCE A DAY 20 MG RxNorm TAKE 20 MG ORAL ONCE A DAY Verapamil HCl 180MG Oral Capsule, Extended Release 04/08/2022 Unknown ORAL ONCE A DAY 180 MILLIGRAMS 996407 RxNorm TAKE 180 MILLIGRAMS ORAL ONCE A DAY Atorvastatin Calcium 40MG Oral Tablet 07/19/2024 Unknown ORAL ONCE A DAY 40 MILLIGRAMS 408138 RxNorm TAKE 40 MILLIGRAMS ORAL ONCE A DAY Lisinopril 10MG Oral Tablet 07/19/2024 Unknown ORAL ONCE A DAY 10 MILLIGRAMS 874774 RxNorm TAKE 10 MILLIGRAMS ORAL ONCE A DAY Omeprazole 40MG Oral Capsule, Delayed Release 07/19/2024 Unknown ORAL ONCE A DAY 40 MILLIGRAMS 315260 RxNorm TAKE 40 MILLIGRAMS ORAL ONCE A DAY Amitriptyline 25MG Oral Tablet 07/19/2024 Unknown BY MOUTH ONCE A DAY 1 TABLET 764321 RxNorm TAKE 1 TABLET BY MOUTH ONCE [...] Co de Code System SULFA (sulfonamide) Active 60831683 SNO MED-CT ESCITALOPRAM Active 277692 RxNorm PENICILLIN Active Plan of Treatment Upper WO KUB 04/14/2023 Upper WO KUB 03/15/2024 NM Gastric Emptying (84623) 04/12/2024 EGD 07/19/2024 Encounters Encounter Diagnosis Start Date Code Code Sys tem Noninfective gastroenteritis and colitis, unspecified 05/25/2024 SNOMED-CT Personal Care Team Section Performer Name Performer Role Active Date Inactive TIM Maloney PCP - Primary care physician 2022-02-05 Imaging Narrative Notes [facility] 05/25/2024 14:35 [facility] [address] [place] [address] ---------NAME--------- NUMBER SEX AGE ADMIT DISC. XRAY# F/C TYPE CHLOE BRENNON RIANA [id number] F 59 05/25/24 64002 CB5 E.R. DATE OF : 1965 M/R# [id number] #: [id number] ED-38 LOCATION: TRANSCRIBED: 05/25/24 14:32 CHEST 1V 15496 COMPLETED:05/25/24 14:16 TLS 51571 ;cough, chills x 1wk PHYSICIAN: RUT RADIOLOGY REPORT CHEST RADIOGRAPH Indication: ;cough, chills x 1wk Technique: Single frontal view of the chest was obtained Comparison: None FINDINGS: Lines and Tubes: None Lungs: No focal consolidation. Pleura: No effusion. No pneumothorax. Cardiomediastinal contours: Unremarkable Bones: No acute osseous abnormality. IMPRESSION: No acute cardiopulmonary disease. ION LEADER Reviewed and Electronically Signed by: Celio Cooper MD Signed Date: 05/25/24 14:32 [facility] 05/25/2024 14:[address] [address] ---------NAME--------- NUMBER SEX AGE ADMIT DISC. XRAY# F/C TYPE CHLOE BRENNON MAYERS [id number] F 59 05/25/24 58652 CB5 E.R. DATE OF : 1965 M/R# [id number] #: [id number] ED-38 LOCATION: TRANSCRIBED: 05/25/24 14:37 CT ABD/PEL WO CONTRAST 73178 COMPLETED:05/25/24 14:20 TLS 30290 abdominal pain PHYSICIAN: RUT RADIOLOGY REPORT Exam: [...] matched to clinical indication) or iterative reconstruction. ION LEADER Reviewed and Electronically Signed by: Srinivasan Tamez MD Signed Date: 05/25/24 14:37
--- OUTSIDE RECORDS SUMMARY | 2024-07-30 11:52 | XMS_ITS ---
Author Organization Unknown Address [address] [place] [phone] Phone Care Team Providers Care Meter Reading Clerk Name Role Phone ROD Schroeder Attending Unavailable JERMAINE DUMONT Primary Unavailable Immunization Immunization Date Status Additional Notes Code Code System Influenza, split virus, quadrivalent, PF 01/30/2021 Completed 150 CVX Results NM GASTRIC EMPTYING - Comple camila: 04/12/2024 19:12 LOINC: \TM00\12PI\DRAo\BM09\ \MRLo\ [address] [address] ---------NAME--------- NUMBER SEX AGE ADMIT DISC. XRAY# F/C TYPE CHLOE MAYERS [id number] F 58 04/12/24 04/12/24 40264 CB5 O/P DATE OF : 1965 M/R# [id number] PH#: [phone] RM \MRHx\ LOCATION: TRANSCRIBED: 04/12/24 14:07 NM [facility]STR[facility]MPTY[facility] 66399 COMPLETED: 31087 {REASON-NM ABD: NAUSEA/VOMITTING PHYSICIAN: QUICKSHONA R A [...] or incomplete ingestion of the standard meal. ET SETTER \ITLo\ \UNDo\ \UNDx\ \ITLx\ Reviewed and Electronically Signed by: Brendan Crow DO Signed Date: 04/12/24 14:07 04/12/24.1410.MM .to JERMAINE MAN via fax Social History Type Status Start Date End Date Code Code Syst em Smoking History Current every day smoker 543375648 SNOMED CT Sex Female Medications Medication Start Date End Date Route Frequency Dose Code Code System Medication Instructions Home Meds ALPRAZolam 1MG Oral Tablet 04/08/2022 Unknown ORAL DIRECTED 1 MILLIGRAMS 19720505 RxNorm TAKE 1 MILLIGRAMS ORAL DIRECTED Albuterol Sulfate 0.083% Inhalation Solution 04/08/2022 Unknown INHALA TION DIRECTED 1 unit(s) 878444 RxNorm 1 EACH INHALATION DIRECTED Aspirin 81MG Oral Tablet, Enteric Coated 04/08/2022 Unknown ORAL ONCE A DAY 81 MILLIGRAMS 991695 RxNorm TAKE 81 MILLIGRAMS ORAL ONCE A DAY Atorvastatin Calcium 20MG Oral Tablet 04/08/2022 07/14/19 25 ORAL ONCE A DAY 20 MILLIGRAMS 180192 RxNorm TAKE 20 MILLIGRAMS ORAL ONCE A DAY Surinder KS-Cezfaqdd-Z odeine 71RU-886XI-65 MG-30MG Oral Capsule 04/08/2022 07/17/19 25 ORAL DIRECTED 1 unit(s) 6811669 RxNorm TAKE 1 EACH ORAL DIRECTED DULoxetine HCl 30MG Oral Capsule, Delayed Release 04/08/2022 07/17/19 25 ORAL ONCE A DAY 30 MILLIGRAMS 674851 RxNorm TAKE 30 MILLIGRAMS ORAL ONCE A DAY Lantus 100U/1ML Subcutaneous Solution 04/08/2022 Unknown SUBCUT ANEOUS DIRECTED 1 unit(s) 974040 RxNorm INJECT INTO 1 EACH SUBCUTANEOUS DIRECTED Omeprazole 20 MG Oral Tablet, Delayed Release 04/08/2022 07/14/19 25 ORAL ONCE A DAY 20 MG RxNorm TAKE 20 MG ORAL ONCE A DAY Verapamil HCl 180MG Oral Capsule, Extended Release 04/08/2022 Unknown ORAL ONCE A DAY 180 MILLIGRAMS 796567 RxNorm TAKE 180 MILLIGRAMS ORAL ONCE A DAY Atorvastatin Calcium 40MG Oral Tablet 07/19/2024 Unknown ORAL ONCE A DAY 40 MILLIGRAMS 176269 RxNorm TAKE 40 MILLIGRAMS ORAL ONCE A DAY Lisinopril 10MG Oral Tablet 07/19/2024 Unknown ORAL ONCE A DAY 10 MILLIGRAMS 703456 RxNorm TAKE 10 MILLIGRAMS ORAL ONCE A DAY Omeprazole 40MG Oral Capsule, Delayed Release 07/19/2024 Unknown ORAL ONCE A DAY 40 MILLIGRAMS 812800 RxNorm TAKE 40 MILLIGRAMS ORAL ONCE A DAY Amitriptyline 25MG Oral Tablet 07/19/2024 Unknown BY MOUTH ONCE A DAY 1 TABLET 747915 RxNorm TAKE 1 TABLET BY MOUTH ONCE [...] Co de Code System SULFA (sulfonamide) Active 99269177 SNO MED-CT ESCITALOPRAM Active 532585 RxNorm PENICILLIN Active Plan of Treatment Upper WO KUB 04/14/2023 Upper WO KUB 03/15/2024 NM Gastric Emptying (05238) 04/12/2024 EGD 07/19/2024 Encounters Encounter Diagnosis Start Date Code Code Sys tem Functional dyspepsia 04/12/2024 SNOMED- CT Personal Care Team Section Performer Name Performer Role Active Date Inactive TIM Maloney PCP - Primary care physician 2022-02-05 Imaging Narrative Notes [facility] 04/12/2024 14:[address] [address] ---------NAME--------- NUMBER SEX AGE ADMIT DISC. XRAY# F/C TYPE CHLOE BRENNON MAYERS [id number] F 58 04/12/24 04/12/24 35860 CB5 O/P DATE OF : 1965 M/R# [id number] #: [id number] RM LOCATION: TRANSCRIBED: 04/12/24 14:07 NM [facility]STR[facility] EMPTY[facility] 85464 COMPLETED: 78775 {REASON-NM ABD: NAUSEA/VOMITTING PHYSICIAN: KJ RADIOLOGY REPORT [...] or incomplete ingestion of the standard meal. ET SETTER Reviewed and Electronically Signed by: Brendan Crow DO Signed Date: 04/12/24 14:07 04/12/24.1410.MM .to JERMAINE SANCHEZ via fax
--- NOTE | 2024-07-30 12:45 | PC.NURSE ---
PT HAS BEEN SLEEPING EXAM ROOM WITHOUT DIFFICULTY. NO EMESIS NOTED DURING ED VISIT. PT IS AMBULATORY TO [facility] WITHOUT DISTRESS. PT IS AWAITING DC INSTRUCTIONS AND TO ARRIVE FOR TRANSPORT. WILL CONTINUE TO MONITOR.
[2024-07-30 13:15] VITALS: BP 186/88; PULSE 88; RESP 18; TEMP 36.7; O2SAT 98
== END 2024-07-30 13:15 | disposition home or self-care (01) ==
PROVIDERS: Emergency Provider Family Medicine; PCP Internal Medicine
DX: R11.15 Cyclical vomiting syndrome unrelated to migraine (principal); R10.9 Unspecified abdominal pain; E11.9 Type 2 diabetes mellitus without complications; F17.210 Nicotine dependence, cigarettes, uncomplicated
CPT/HCPCS: 36415; 80053; 83605; 83690; 85025; 96361; 96374; 96375; 99284; J0780; J1885; J2405; J7030

== ENCOUNTER 2024-09-28 17:05 | Emergency (ER) | payer OTHER, SELFPAY ==
[2024-09-28 17:05] VITALS: BP 156/107; PULSE 98; RESP 18; TEMP 36.1; O2SAT 97
--- NOTE | 2024-09-28 17:25 | PC.NURSE ---
upon walking into room, noted pt sticking finger down throat. pt states it relieves the pain. pt states had hiatal hernia repair, . has not had follow up appt yet.
--- NOTE | 2024-09-28 17:26 | ED.NAVMDI ---
HPI - Nausea/Vomiting/Diarrhea General Chief complaint: Nausea/Vomiting/Diarrhea Stated complaint: vomiting Time Seen by Provider: 09/28/24 17:16 Source: patient Mode of arrival: ambulatory Limitations: no limitations History of Present Illness HPI Narrative: Patient is a 59-year-old female with known sickle vomiting here for similar symptoms. She has nausea vomiting and diarrhea. Mild and diffuse abdominal pain. These are very similar symptoms to her routine cyclical vomiting that happens a few times a year. MD elicited complaint: nausea, vomiting, diarrhea and abdominal pain Pertinent past history: cyclical vomiting Onset (ago): day(s) ( One) Description of vomiting: watery and other ( dry heaves) Description of diarrhea: watery Associated nausea: Yes Associated abdominal pain: Yes Location of pain: diffuse Radiation: diffuse Pain consistency: intermittent Severity: mild Pain scale (0-10): 1 Quality: cramping Exacerbating factors: none Relieving factors: none Context: other ( patient is here with nausea vomiting and diarrhea and specifically her nausea vomiting which is recurrent with her cyclical vomiting syndrome) Associated symptoms: nausea/vomiting, weakness and anxiety Treatment prior to arrival: other ( none) Related Data Home Medications ?Medication ?Instructions ?Recorded ?Confirmed ?Last Taken ?Type insulin glargine 100 unit/mL (3 See Rx Instructions .Route .COMPLEX 11/10/20 02/25/24 1 Day Ago History mL) subcutaneous pen (Lantus ~02/06/24 Solostar U-100 Insulin) jdeajynlgc-fbrynlwrwbnux-nugqlmqg 1 cap PO BID PRN Migraine Headache 05/10/22 02/25/24 Unknown History 50 mg-300 mg-40 mg capsule verapamil 180 mg tablet,extended 180 mg PO DAILY 05/10/22 02/25/24 Unknown History release lisinopril 10 mg tablet 10 mg PO DAILY 11/30/22 02/25/24 Unknown History atorvastatin 20 mg tablet 20 mg PO DAILY 01/15/23 02/25/24 Unknown History alprazolam 1 mg tablet 1 mg PO DAILY 02/25/24 02/25/24 Unknown History buspirone 30 mg tablet 30 mg PO DAILY 02/25/24 02/25/24 Unknown History haloperidol 0.5 mg tablet 0.5 mg PO DAILY 02/25/24 02/25/24 Unknown History levomilnacipran 20 mg capsule,24 20 mg PO DAILY 02/25/24 02/25/24 Unknown History hr,extended release (Fetzima) Allergies Allergy/AdvReac Type Severity Reaction Status Date / Time Sulfa (Sulfonamide Allergy Mild Unknown Verified 09/28/24 17:17 Antibiotics) Penicillins Allergy Unknown Verified 09/28/24 17:17 Review of Systems Review of Systems: All systems reviewed & are unremarkable except as noted in HPI and below Constitutional: Constitutional: Reports no additional constitutional complaints Eyes: Eyes: Reports no additional eye complaints ENT: Reports system reviewed and no additional complaints, except as documented Cardiovascular: Cardiovascular: Reports no additional cardiovascular complaints Respiratory: Respiratory: Reports no additional respiratory complaints Gastrointestinal: Gastrointestinal: Reports no additional gastrointestinal complaints Genitourinary: Genitourinary: Reports no additional female genitourinary complaints Musculoskeletal: Musculoskeletal: Reports no additional musculoskeletal complaints Integumentary/Breasts: Skin/Breast: Reports system reviewed and no additional complaints, except as docu Neurologic: Reports system reviewed and no additional complaints, except as documented Psychiatric: Psychiatric: Reports no additional psychiatric complaints Endocrine: Endocrine: Reports no additional endocrine complaints Hematologic/Lymphatic: Hematologic/Lymphatic: Reports no additional hematologic/lymphatic complaints Allergic/Immunologic: Allergic/Immunologic: Reports no additional allergic/immunologic complaints PMFSH Past Medical History Medical History Hypokalemia T2DM (type 2 diabetes mellitus) GERD (gastroesophageal reflux disease) Migraines PTSD (post-traumatic stress disorder) Surgical History Surgical History Hx of cholecystectomy Social History Social History Smoking packs per day: 1 Smoking cigarettes per day: 20.0 Years smoked: 30 Smoking pack-years: 30.00 Smoking status: Light tobacco smoker Tobacco type: cigarettes Second hand tobacco smoke exposure: Yes Alcohol intake: unknown Substance use: unknown Substance use type: unknown Gender identity (if verbalized by the patient): Female Sexual Orientation (if Verbalized by the Patient): Straight or Heterosexual Spiritual care concerns: No Exam Const: General: healthy appearing Nutritional Appearance: well nourished Orientation/consciousness: patient oriented x3 Limitations: no limitations HENMT: Head: normal to inspection Ears: external ears normal Face/Nose/Sinus: Normal external nose present Eyes: Conjunctivae: conjunctivae normal Cornea: corneas normal Pupils: Equal, round and reactive pupils present Neck: Neck: normal visual inspection Chest: Chest palpation & inspection: normal inspection of the chest Resp: Effort & Inspection: normal respiratory effort and not labored Auscultation: clear to auscultation bilaterally and no crackles Cardio: Rate: regular rate Rhythm: regular rhythm Heart sounds: no murmurs GI: Inspection: non-distended GI Palp: Yes Soft to palpation and No Tenderness to palpation present (GI) Auscultation: normal bowel sounds : General: Yes bladder normal to palpation Back/Spine/Pelvis: Back: no CVA tenderness Skin: General skin exam: normal color Rashes: no rashes Wounds: no wounds Neuro: General: patient oriented x3, moves all extremities, no meningeal signs, no focal motor deficits and CN's II-XI intact bilaterally Extrem: General: normal to inspection Psych: Mental Status: mental status grossly normal Affect: Anxious affect present Attitude: cooperative Course Vital Signs Vital signs: Vital Signs Temperature 36.1 C L 09/28/24 17:05 Pulse Rate 98 09/28/24 17:05 Respiratory Rate 18 09/28/24 17:05 Blood Pressure 156/107 H 09/28/24 17:05 Pulse Oximetry 97 09/28/24 17:05 Oxygen Delivery Room Air 09/28/24 17:05 Temperature 36.1 C L 09/28/24 17:05 Pulse Rate 93 09/28/24 18:53 Respiratory Rate 20 09/28/24 18:53 Blood Pressure 178/108 H 09/28/24 18:53 Pulse Oximetry 100 09/28/24 18:53 Oxygen Delivery Room Air 09/28/24 18:53 MDM - Nausea/Vomiting/Diarrhea MDM Narrative Medical decision making narrative: patient is a 59-year-old female with her recurrent cyclical vomiting syndrome episode and she specifically puts her fingers down her throat to stimulate vomiting while in the emergency room. Will check labs and give fluid and anti nausea medicine. Lab Data Attestation: I reviewed the patient's lab results. Lab results narrative: Elevated white count is secondary to marginalization from vomiting 09/28/24 18:18 09/28/24 18:18 Labs: Lab Results 06/27/25 06/27/25 Range/Units 18:18 18:19 WBC 11.0 H (4.8-10.8) K/mm3 RBC 4.16 L (4.20-5.40) M/mm3 Hgb 13.2 (12.0-15.0) g/dL Hct 39.6 (35.0-49.0) % MCV 95.2 (78.0-102.0) fL MCH 31.7 H (27.0-31.0) pg MCHC 33.3 (32-36) g/dL RDW 13.2 (11.6-14.4) % Plt Count 263 (150-420) K/mm3 MPV 10.7 (9.2-11.8) fl Immature Gran % (Auto) 0.4 H (0.0-0.0) % Neut % (Auto) 86.7 H (50.0-70.0) % Lymph % (Auto) 9.2 L (18.0-42.0) % [place] % (Auto) 2.8 (2.0-11.0) % Eos % (Auto) 0.4 L (1.0-6.0) % Baso % (Auto) 0.5 (0.0-1.0) % Lymph # (Auto) 1.01 L (1.10-4.50) K/mm3 [place] # (Auto) 0.31 (0.10-0.90) K/mm3 Eos # (Auto) 0.04 (0.02-0.50) K/mm3 Baso # (Auto) 0.05 (0.00-0.10) K/mm3 Abs Immat Gran (auto) 0.04 H (0.00-0.00) K/mm3 Absolute Neuts (auto) 9.52 H (1.70-7.20) K/mm3 Absolute Nucleated RBC 0.00 (0.00-0.00) K/mm3 Nucleated RBC % 0.0 (0-0.0) % Sodium 142 (137-145) mmol/L Potassium 3.5 (3.4-5.0) mmol/L Chloride 110 H (98-107) mmol/L Carbon Dioxide 24 (22-30) mmol/L Anion Gap 8 (4-12) mmol/L BUN 16 (7-17) mg/dL Creatinine 0.77 (0.7-1.0) mg/dL Estim Creat Clear Calc Not Reportable Estimated GFR > 60 (59 - ) Glucose 224 H (65-110) mg/dL Calculated Osmolality 302 H (285-295) mOsm/kg Calcium 8.9 (8.4-10.2) mg/dL Magnesium 1.7 (1.6-2.3) mg/dL Total Bilirubin 0.5 (0.2-1.3) mg/dL AST 25 (14-36) U/L ALT 21 (6-35) U/L Alkaline Phosphatase 118 (38-126) U/L Total Protein 7.5 (6.3-8.2) g/dL Albumin 4.1 (3.5-5.1) g/dL Urine Color Yellow (Yellow) Urine Appearance Cloudy A (Clear) Urine pH 5.5 (5.0-8.0) Ur Specific [place] >= 1.030 H (1.010-1.020) Urine Protein 2+ H (Negative) Urine Glucose (UA) Trace H (Negative) Urine Ketones 1+ H (Negative) Ur Blood (Man) Negative (Negative) Urine Nitrate Negative (Negative) Urine Bilirubin 1+ H (Negative) Urine Urobilinogen 1.0 (0.2-1.0) mg/dL Leukocyte Esterase Rfl Negative (Negative) CHANNING/UL Ur Squamous Epith Cells Many H (Few) /hpf Calcium Oxalate Crystal Many H (None) /hpf Amorphous Sediment Moderate H (None) Urine Bacteria 2+ H (None) /hpf Urine Mucus Heavy H /lpf Discharge Plan Discharge Clinical Impression: Cyclical vomiting Patient Disposition: Home Condition: Stable Instructions: Cyclic Vomiting Syndrome (ED) Patient Language: Urdu Prescriptions: New prochlorperazine maleate [Compazine] 10 mg tablet 10 mg PO Q8H PRN (Reason: nausea and vomiting) Qty: 20 0RF No Action insulin glargine [Lantus Solostar U-100 Insulin] 100 unit/mL (3 mL) insulin pen See Rx Instructions .ROUTE .COMPLEX Rx Instructions: 35 UNITS EVERY MORNING 60 UNITS EVERY EVENING atorvastatin 20 mg tablet 20 mg PO DAILY buspirone 30 mg tablet 30 mg PO DAILY haloperidol 0.5 mg tablet 0.5 mg PO DAILY alprazolam 1 mg tablet 1 mg PO DAILY Fetzima 20 mg capsule,extended release 24 hr 20 mg PO DAILY ondansetron 4 mg tablet,disintegrating 4 mg PO Q4H PRN (Reason: nausea and vomiting) 28 Days Qty: 168 0RF Rx Instructions: give 1st dose 30min before emetogenic chemo promethazine 25 mg tablet 25 mg PO TID PRN (Reason: nausea and vomiting) Qty: 30 0RF verapamil 180 mg Tablet Extended Release 180 mg PO DAILY lusdkoecuj-azqsjoxbhiyxs-hfhv 50-300-40 mg Capsule 1 cap PO BID PRN (Reason: Migraine Headache) lisinopril 10 mg tablet 10 mg PO DAILY pantoprazole [Protonix] 40 mg tablet,delayed release (DR/EC) 40 mg PO QAM 28 Days Qty: 28 0RF Follow-up/Referrals: Jose Escoto MD [Primary Care Provider] - Time of Disposition: 19:24
[2024-09-28] MEDS: ONDANSETRON INJ 4 MG/2 ML VIAL IV PUSH (17:50)
[2024-09-28] MEDS: SODIUM CHLORIDE 0.9% IV 1,000 ML 999 ML IV CONT (17:50)
[2024-09-28 18:38] LABS: Add Urine Microscopic? YES; Bilirubin Urine 1+ (Negative); Blood Urine Negative (Negative); Color Urine Yellow (Yellow); Glucose Urine UA Trace (Negative); Ketones Urine 1+ (Negative); Leukocyte Esterase Ur Negative LEU/UL (Negative); Nitrate Urine Negative (Negative); Protein Urine 2+ (Negative); Specific Grav Ur >= 1.030 (1.010-1.020); pH Urine 5.5 (5.0-8.0)
[2024-09-28 18:38] LABS: Basophils Absolute Auto 0.05 K/mm3 (0.00-0.10); Basophils Percent Auto 0.5 % (0.0-1.0); Eosinophils Absolute Auto 0.04 K/mm3 (0.02-0.50); Eosinophils Percent Auto 0.4 % (1.0-6.0); Hematocrit 39.6 % (35.0-49.0); Hemoglobin 13.2 g/dL (12.0-15.0); Immature Granulocyte Absolute 0.04 K/mm3 (0.00-0.00); Immature Granulocyte Percent A 0.4 % (0.0-0.0); Lymphocytes Absolute Auto 1.01 K/mm3 (1.10-4.50); Lymphocytes Percent Auto 9.2 % (18.0-42.0); Mean Corpuscular HGB Conc 33.3 g/dL (32-36); Mean Corpuscular Hemoglobin 31.7 pg (27.0-31.0); Mean Corpuscular Volume 95.2 fL (78.0-102.0); Mean Platelet Volume 10.7 fl (9.2-11.8); Monocytes Absolute Auto 0.31 K/mm3 (0.10-0.90); Monocytes Percent Auto 2.8 % (2.0-11.0); Neutrophils Absolute Auto 9.52 K/mm3 (1.70-7.20); Neutrophils Percent Auto 86.7 % (50.0-70.0); Platelet Count Result 263 K/mm3 (150-420); Red Blood Count 4.16 M/mm3 (4.20-5.40); Red Cell Distribution Width 13.2 % (11.6-14.4)
[2024-09-28 18:49] LABS: Amorphous Sediment Urine Moderate; Appearance Urine Cloudy (Clear); Bacteria Urine 2+ /hpf; Calcium Oxalate Crystals Urine Many /hpf; Mucus Urine Heavy /lpf; Squamous Epithelial Cell Urine Many /hpf (Few)
[2024-09-28] MEDS: PROCHLORPERAZINE EDISYLATE 10 MG/2 ML VIAL IV PUSH (18:50)
[2024-09-28 18:53] VITALS: BP 178/108; PULSE 93; RESP 20; O2SAT 100
[2024-09-28 18:54] LABS: Alanine Aminotransferase 21 U/L (6-35); Albumin Level 4.1 g/dL (3.5-5.1); Alkaline Phosphatase 118 U/L (38-126); Anion Gap 8 mmol/L (4-12); Aspartate Amino Transferase 25 U/L (14-36); Bilirubin,Total 0.5 mg/dL (0.2-1.3); Blood Urea Nitrogen 16 mg/dL (7-17); Calcium 8.9 mg/dL (8.4-10.2); Carbon Dioxide 24 mmol/L (22-30); Chloride 110 mmol/L (98-107); Estimated Glomerular Filt Rate > 60; Glucose 224 mg/dL (65-110); Magnesium 1.7 mg/dL (1.6-2.3); Osmolality Calculated 302 mOsm/kg (285-295); Potassium 3.5 mmol/L (3.4-5.0); Sodium 142 mmol/L (137-145); Total Protein 7.5 g/dL (6.3-8.2)
--- NOTE | 2024-09-28 19:00 | PC.NURSE ---
report to danny poole
[2024-09-28 19:40] VITALS: BP 142/89; PULSE 75; RESP 20; TEMP 36.8; O2SAT 97
== END 2024-09-28 19:40 | disposition home or self-care (01) ==
PROVIDERS: Emergency Provider Emergency Medicine; PCP Internal Medicine
DX: R11.15 Cyclical vomiting syndrome unrelated to migraine (principal); E11.9 Type 2 diabetes mellitus without complications; F17.210 Nicotine dependence, cigarettes, uncomplicated
CPT/HCPCS: 36415; 80053; 81001; 83735; 85025; 96361; 96374; 96375; 99284; J0780; J2405; J7030

== ENCOUNTER 2024-10-02 02:25 | Emergency (ER) | payer OTHER, SELFPAY ==
[2024-10-02 02:25] VITALS: BP 167/126; PULSE 122; RESP 22; TEMP 35.8; O2SAT 97
--- OUTSIDE RECORDS SUMMARY | 2024-10-02 02:27 | XMS_ITS ---
Author Organization Unknown Address [address] [place] [address] [phone] Phone Care Team Providers Care Shuttle Fixer Name Role Phone JESUSKiya FLASH CORRECTIONAL PROGRAM OFFICER Attending Unavailable JERMAINE DUMONT Primary Unavailable Immunization Immunization Date Status Additional Notes Code Code System Influenza, split virus, quadrivalent, PF 01/30/2021 Completed 150 CVX Results MRI BRAIN WO CONTRAST - Comp leted: 01/24/2023 13:32 LOINC: 06590-4 EXAM DESCRIPTION: MRI BRAIN WO CONTRAST REASON [...] Solis Stewart M.D. FLORENTINO: FLORENTINO Report ID: [id number] Reading Location: [place] [address] Social History Type Status Start Date End Date Code Code Syst em Smoking History Current every day smoker 944038785 SNOMED CT Sex Female Medications Medication Start Date End Date Route Frequency Dose Code Code System Medication Instructions Home Meds ALPRAZolam 1MG Oral Tablet 04/08/2022 Unknown ORAL DIRECTED 1 MILLIGRAMS 848911 RxNorm TAKE 1 MILLIGRAMS ORAL DIRECTED Albuterol Sulfate 0.083% Inhalation Solution 04/08/2022 Unknown INHALA TION DIRECTED 1 unit(s) 616791 RxNorm 1 EACH INHALATION DIRECTED Aspirin 81MG Oral Tablet, Enteric Coated 04/08/2022 Unknown ORAL ONCE A DAY 81 MILLIGRAMS 187468 RxNorm TAKE 81 MILLIGRAMS ORAL ONCE A DAY Atorvastatin Calcium 20MG Oral Tablet 04/08/2022 07/14/19 25 ORAL ONCE A DAY 20 MILLIGRAMS 362767 RxNorm TAKE 20 MILLIGRAMS ORAL ONCE A DAY Surinder TL-Atonuitk-N odeine 62QI-[id number]-49 MG-30MG Oral Capsule 04/08/2022 07/17/19 25 ORAL DIRECTED 1 unit(s) 0627938 RxNorm TAKE 1 EACH ORAL DIRECTED DULoxetine HCl 30MG Oral Capsule, Delayed Release 04/08/2022 07/17/19 25 ORAL ONCE A DAY 30 MILLIGRAMS 591879 RxNorm TAKE 30 MILLIGRAMS ORAL ONCE A DAY Lantus 100U/1ML Subcutaneous Solution 04/08/2022 Unknown SUBCUT ANEOUS DIRECTED 1 unit(s) 925301 RxNorm INJECT INTO 1 EACH SUBCUTANEOUS DIRECTED Omeprazole 20 MG Oral Tablet, Delayed Release 04/08/2022 07/14/19 25 ORAL ONCE A DAY 20 MG RxNorm TAKE 20 MG ORAL ONCE A DAY Verapamil HCl 180MG Oral Capsule, Extended Release 04/08/2022 Unknown ORAL ONCE A DAY 180 MILLIGRAMS 849401 RxNorm TAKE 180 MILLIGRAMS ORAL ONCE A DAY Atorvastatin Calcium 40MG Oral Tablet 07/19/2024 Unknown ORAL ONCE A DAY 40 MILLIGRAMS 742966 RxNorm TAKE 40 MILLIGRAMS ORAL ONCE A DAY Lisinopril 10MG Oral Tablet 07/19/2024 Unknown ORAL ONCE A DAY 10 MILLIGRAMS 623290 RxNorm TAKE 10 MILLIGRAMS ORAL ONCE A DAY Omeprazole 40MG Oral Capsule, Delayed Release 07/19/2024 Unknown ORAL ONCE A DAY 40 MILLIGRAMS 497090 RxNorm TAKE 40 MILLIGRAMS ORAL ONCE A DAY Amitriptyline 25MG Oral Tablet 07/19/2024 Unknown BY MOUTH ONCE A DAY 1 TABLET 350191 RxNorm TAKE 1 TABLET BY MOUTH ONCE [...] Co de Code System SULFA (sulfonamide) Active 47428926 SNO MED-CT ESCITALOPRAM Active 112289 RxNorm PENICILLIN Active Plan of Treatment Upper WO KUB 04/14/2023 Upper WO KUB 03/15/2024 NM Gastric Emptying (46163) 04/12/2024 EGD 07/19/2024 Encounters Encounter Diagnosis Start Date Code Code Sys tem Migraine without aura, not refractory 01/24/2023 [id number] SNOMED-CT Personal Care Team Section Performer Name Performer Role Active Date Inactive TIM Maloney PCP - Primary care physician 2022-02-05 Imaging Narrative Notes
--- OUTSIDE RECORDS SUMMARY | 2024-10-02 02:28 | XMS_ITS ---
Author Organization Unknown Address [address] [place] [phone] Phone Care Team Providers Care Director Of Student Aid Name Role Phone ROD Schroeder Attending Unavailable [...] Normal peristalsis. No esophageal spasm. ESOPHAGEAL MUCOSA: Vcop-go-zcpomqck luminal narrowing in region of UES. Normal [...] OTHER: Evidence of prior cholecystectomy. IMPRESSION: 1. Nnew-hq-vcpbqqto luminal narrowing in region of the UES. [...] Kelvin Baird M.D. RB: SUHA Report ID: [id number] Reading Location: [id number] Social History Type Status Start Date End Date Code Code Syst em Smoking History Current every day smoker [id number] SNOMED CT Sex Female Medications Medication Start Date End Date Route Frequency Dose Code Code System Medication Instructions Home Meds ALPRAZolam 1MG Oral Tablet 04/08/2022 Unknown ORAL DIRECTED 1 MILLIGRAMS 365946 RxNorm TAKE 1 MILLIGRAMS ORAL DIRECTED Albuterol Sulfate 0.083% Inhalation Solution 04/08/2022 Unknown INHALA TION DIRECTED 1 unit(s) 483466 RxNorm 1 EACH INHALATION DIRECTED Aspirin 81MG Oral Tablet, Enteric Coated 04/08/2022 Unknown ORAL ONCE A DAY 81 MILLIGRAMS 717709 RxNorm TAKE 81 MILLIGRAMS ORAL ONCE A DAY Atorvastatin Calcium 20MG Oral Tablet 04/08/2022 07/14/19 25 ORAL ONCE A DAY 20 MILLIGRAMS 364061 RxNorm TAKE 20 MILLIGRAMS ORAL ONCE A DAY Butalbital-AP SY-Plyxrpml-E odeine 02IN-656TI-51 MG-30MG Oral Capsule 04/08/2022 07/17/19 25 ORAL DIRECTED 1 unit(s) 2849212 RxNorm TAKE 1 EACH ORAL DIRECTED DULoxetine HCl 30MG Oral Capsule, Delayed Release 04/08/2022 07/17/19 25 ORAL ONCE A DAY 30 MILLIGRAMS 702350 RxNorm TAKE 30 MILLIGRAMS ORAL ONCE A DAY Lantus 100U/1ML Subcutaneous Solution 04/08/2022 Unknown SUBCUT ANEOUS DIRECTED 1 unit(s) 267217 RxNorm INJECT INTO 1 EACH SUBCUTANEOUS DIRECTED Omeprazole 20 MG Oral Tablet, Delayed Release 04/08/2022 07/14/19 25 ORAL ONCE A DAY 20 MG RxNorm TAKE 20 MG ORAL ONCE A DAY Verapamil HCl 180MG Oral Capsule, Extended Release 04/08/2022 Unknown ORAL ONCE A DAY 180 MILLIGRAMS 329957 RxNorm TAKE 180 MILLIGRAMS ORAL ONCE A DAY Atorvastatin Calcium 40MG Oral Tablet 07/19/2024 Unknown ORAL ONCE A DAY 40 MILLIGRAMS 824545 RxNorm TAKE 40 MILLIGRAMS ORAL ONCE A DAY Lisinopril 10MG Oral Tablet 07/19/2024 Unknown ORAL ONCE A DAY 10 MILLIGRAMS 764715 RxNorm TAKE 10 MILLIGRAMS ORAL ONCE A DAY Omeprazole 40MG Oral Capsule, Delayed Release 07/19/2024 Unknown ORAL ONCE A DAY 40 MILLIGRAMS 918111 RxNorm TAKE 40 MILLIGRAMS ORAL ONCE A DAY Amitriptyline 25MG Oral Tablet 07/19/2024 Unknown BY MOUTH ONCE A DAY 1 TABLET 315817 RxNorm TAKE 1 TABLET BY MOUTH ONCE [...] Co de Code System SULFA (sulfonamide) Active [id number] SNO MED-CT ESCITALOPRAM Active 430311 RxNorm PENICILLIN Active Plan of Treatment Upper WO KUB 04/14/2023 Upper WO KUB 03/15/2024 NM Gastric Emptying (02385) 04/12/2024 EGD 07/19/2024 Encounters Encounter Diagnosis Start Date Code Code Sys tem Nausea with vomiting, unspecified 03/15/2024 SNOMED-CT Personal Care Team Section Performer Name Performer Role Active Date Inactive TIM Maloney PCP - Primary care physician 2022-02-05 Imaging Narrative Notes
--- OUTSIDE RECORDS SUMMARY | 2024-10-02 02:28 | XMS_ITS | Referral Summary ---
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 Gender Identity Not on file Sexual Orientation Not on file Last Filed Vital Signs Vital Sign Reading Time Taken Comments Blood Pressure 106/90 03/21/2024 9:43 AM AUTOMOBILE SERVICE STATION MECHANIC Pulse 67 03/21/2024 9:40 AM AUTOMOBILE SERVICE STATION MECHANIC Temperature - - Respiratory Rate 20 03/21/2024 9:40 AM AUTOMOBILE SERVICE STATION MECHANIC Oxygen Saturation 100% 03/21/2024 9:40 AM AUTOMOBILE SERVICE STATION MECHANIC Inhaled Oxygen Concentration - - Weight - - Height - - Body Mass Index - - Plan of Treatment Not on file Insurance [employer] OPEN ACCESS [employer] Care Teams Electronic Imaging System Operator Relationship Specialty Start Date End Date Jose Escoto MD [address] [place] [address] PCP - General Internal Medicine 03/09/24
--- OUTSIDE RECORDS SUMMARY | 2024-10-02 02:28 | XMS_ITS | Clinical Summary ---
Author Organization [facility] Address [facility] [place] [address] Care Team Providers Care School Of Nursing Director Name Role Phone Jose Dean MD Primary Care Provider [phone] Allergies Active Allergy Reactions Criticality Noted Date [...] Comments Blood Pressure 157/86 05/08/2022 6:30 AM ANALYST MARKET INTELLIGENCE Pulse 100 05/08/2022 6:30 AM ANALYST [employer] Temperature 36.4 C (97.5 F) 05/08/2022 5:14 AM ANALYST [employer]IGENCE Respiratory Rate 18 05/08/2022 6:30 AM ANALYST [employer] INTE[employer]IGENCE Oxygen Saturation 95% 05/08/2022 6:30 AM ANALYST [employer]IGENCE Inhaled Oxygen Concentration - - Weight 91.6 kg (202 lb) 05/08/2022 2:24 AM ANALYST [employer]TELLIGENCE Height 162.6 cm (5' 4) 05/08/2022 2:24 AM ANALYST [employer]IGENCE Body Mass Index 34.67 05/08/2022 2:24 AM ANALYST [employer]TELLIGENCE Plan of Treatment Health Maintenance Due Date [...] Modality Breast Bilateral Mammography 02/15/2022 4:11 PM ANALY[employer]LL[employer] Narrative 02/15/2022 4:13 PM ANALYST [employer] Examination: Digital screening mammogram with CAD. Clinical [...] Most Recently Relevant to Health Maintenance Insurance [facility] C/O PROVIDER SERVICES SWATI HOGAN [id number] [facility] Care Teams School Of Nursing Director Relationship Specialty Start Date End Date Jose Dean MD [address] [place] [address] PCP - General INTERNAL MEDICINE 06/26/20
--- OUTSIDE RECORDS SUMMARY | 2024-10-02 02:28 | XMS_ITS | Continuity of Care Document ---
Author Organization [facility]. If a dditional information is needed, contact Health Information Management at [phone] Address [address] [place] [address] Phone Care Team Providers Care Water Project Engineer Name Role Phone Unavailable Unavailable Unavailable Unavailable Unavailable Unavailable Unavailable Unavailable Unavailable Unavailable Unavailable Unavailable Problems Uncontrollable vomiting Onset:01-Oct-2022 Brendan Gandhi MD Allergies and Adverse Reactions Penicillins(Allergy) Onset: 01-Oct-2022 Reaction:RASH Sulfa(Sulfonamide Antibiotic s)(Allergy) Onset: 01-Oct-2022 Reaction:RASH Social History Smoking Status Smokes tobacco daily Recorded: 01-Oct-2022
--- OUTSIDE RECORDS SUMMARY | 2024-10-02 02:28 | XMS_ITS ---
Author Organization Unknown Address [address] [place] [phone] Phone Care Team Providers Care Business Economist Name Role Phone ROD Schroeder Attending Unavailable JERMAINE DUMONT Primary Unavailable Immunization Immunization Date Status Additional Notes Code Code System Influenza, split virus, quadrivalent, PF 01/30/2021 Completed 150 CVX Results NM GASTRIC EMPTYING - Comple camila: 04/12/2024 19:12 LOINC: \TM00\\12PI\\DRAo\\BM09\ \MRLo\ [address] [address] ---------NAME--------- NUMBER SEX AGE ADMIT DISC. XRAY# F/C TYPE CHLOE MAYERS [id number] F 58 04/12/24 04/12/24 30469 CB5 O/P DATE OF : 1965 M/R# [id number] PH#: [phone] RM \MRHx\ LOCATION: TRANSCRIBED: 04/12/24 14:07 NM GASTRIC EMPTYING 45765 COMPLETED: 66682 {REASON-NM ABD: NAUSEA/VOMITTING PHYSICIAN: KJ R A D I O L O [...] or incomplete ingestion of the standard meal. APPLICATION COORDINATOR \ITLo\ \UNDo\ \UNDx\ \ITLx\ Reviewed and Electronically Signed by: Brendan Crow DO Signed Date: 04/12/24 14:07 04/12/24.1410.MM .to JERMAINE MAN via fax Social History Type Status Start Date End Date Code Code Syst em Smoking History Current every day smoker 828550729 SNOMED CT Sex Female Medications Medication Start Date End Date Route Frequency Dose Code Code System Medication Instructions Home Meds ALPRAZolam 1MG Oral Tablet 04/08/2022 Unknown ORAL DIRECTED 1 MILLIGRAMS 19720505 RxNorm TAKE 1 MILLIGRAMS ORAL DIRECTED Albuterol Sulfate 0.083% Inhalation Solution 04/08/2022 Unknown INHALA TION DIRECTED 1 unit(s) 562539 RxNorm 1 EACH INHALATION DIRECTED Aspirin 81MG Oral Tablet, Enteric Coated 04/08/2022 Unknown ORAL ONCE A DAY 81 MILLIGRAMS 783190 RxNorm TAKE 81 MILLIGRAMS ORAL ONCE A DAY Atorvastatin Calcium 20MG Oral Tablet 04/08/2022 07/14/19 25 ORAL ONCE A DAY 20 MILLIGRAMS 670511 RxNorm TAKE 20 MILLIGRAMS ORAL ONCE A DAY Surinder GF-Fxtekzuu-F odeine 11TM-087EC-33 MG-30MG Oral Capsule 04/08/2022 07/17/19 25 ORAL DIRECTED 1 unit(s) 9987360 RxNorm TAKE 1 EACH ORAL DIRECTED DULoxetine HCl 30MG Oral Capsule, Delayed Release 04/08/2022 07/17/19 25 ORAL ONCE A DAY 30 MILLIGRAMS 988667 RxNorm TAKE 30 MILLIGRAMS ORAL ONCE A DAY Lantus 100U/1ML Subcutaneous Solution 04/08/2022 Unknown SUBCUT ANEOUS DIRECTED 1 unit(s) 384364 RxNorm INJECT INTO 1 EACH SUBCUTANEOUS DIRECTED Omeprazole 20 MG Oral Tablet, Delayed Release 04/08/2022 07/14/19 25 ORAL ONCE A DAY 20 MG RxNorm TAKE 20 MG ORAL ONCE A DAY Verapamil HCl 180MG Oral Capsule, Extended Release 04/08/2022 Unknown ORAL ONCE A DAY 180 MILLIGRAMS 953378 RxNorm TAKE 180 MILLIGRAMS ORAL ONCE A DAY Atorvastatin Calcium 40MG Oral Tablet 07/19/2024 Unknown ORAL ONCE A DAY 40 MILLIGRAMS 026578 RxNorm TAKE 40 MILLIGRAMS ORAL ONCE A DAY Lisinopril 10MG Oral Tablet 07/19/2024 Unknown ORAL ONCE A DAY 10 MILLIGRAMS 137787 RxNorm TAKE 10 MILLIGRAMS ORAL ONCE A DAY Omeprazole 40MG Oral Capsule, Delayed Release 07/19/2024 Unknown ORAL ONCE A DAY 40 MILLIGRAMS 549033 RxNorm TAKE 40 MILLIGRAMS ORAL ONCE A DAY Amitriptyline 25MG Oral Tablet 07/19/2024 Unknown BY MOUTH ONCE A DAY 1 TABLET 130227 RxNorm TAKE 1 TABLET BY MOUTH ONCE [...] Co de Code System SULFA (sulfonamide) Active 37983648 SNO MED-CT ESCITALOPRAM Active 449525 RxNorm PENICILLIN Active Plan of Treatment Upper WO KUB 04/14/2023 Upper WO KUB 03/15/2024 NM Gastric Emptying (43363) 04/12/2024 EGD 07/19/2024 Encounters Encounter Diagnosis Start Date Code Code Sys tem Functional dyspepsia 04/12/2024 SNOMED- CT Personal Care Team Section Performer Name Performer Role Active Date Inactive TIM Maloney PCP - Primary care physician 2022-02-05 Imaging Narrative Notes [facility] 04/12/2024 14:[address] [address] ---------NAME--------- NUMBER SEX AGE ADMIT DISC. XRAY# F/C TYPE CHLOE BRENNON MAYERS [id number] F 58 04/12/24 04/12/24 33932 CB5 O/P DATE OF : 1965 M/R# [id number] #: [id number] RM LOCATION: TRANSCRIBED: 04/12/24 14:07 NM GASTRIC EMPTYING 44644 COMPLETED: 45178 {REASON-NM ABD: NAUSEA/VOMITTING PHYSICIAN: RODSHPREMA RADIOLOGY REPORT CLINICAL INFORMATION: 58 years old, [...] or incomplete ingestion of the standard meal. APPLICATION COORDINATOR Reviewed and Electronically Signed by: Brendan Crow DO Signed Date: 04/12/24 14:07 04/12/24.1410.MM .to JERMAINE SANCHEZ via fax
--- OUTSIDE RECORDS SUMMARY | 2024-10-02 02:28 | XMS_ITS ---
Author Organization Unknown Address [address] [place] [phone] Phone Care Team Providers Care Executive Sous Chef Name Role Phone MAE BARRERA Attending Unavailable JERMAINE DUMONT Primary Unavailable Immunization Immunization Date Status Additional Notes Code Code System Influenza, split virus, quadrivalent, PF 01/30/2021 Completed 150 CVX Results URINALYSIS w/Microscopy/C&S if indicated - Collect Date/Time: 05/25/2024 15:02 [facility] ID: [id number] [place] [address], [phone] LOINC: 10150-4 Test Value Unit Reference Range Code Code System Flag UR SOURCE VOIDED 98219-7 LOINC COLOR DK YELLOW YELLOW 5778-6 LOINC CLARITY SL CLOUDY CLEAR 40114-1 LOINC SPEC GRAVITY 1.025 1.000-1.030 5811-5 LOINC PH 5.5 5.0 - 6.5 5803-2 LOINC LEUK EST NEGATIVE NEGATIVE 5799-2 LOINC NITRATE NEGATIVE NEGATIVE PROTEIN TRACE NEGATIVE 5804-0 LOINC GLUCOSE TRACE NEGATIVE 81348-0 LOINC KETONES 1+ NEGATIVE 98523-9 LOINC A UROBILINOGEN 0.2 0.2 - 1.0 5818-0 LOINC BILIRUBIN 2+ NEGATIVE 70545-5 LOINC A BLOOD NEGATIVE NEGATIVE 22651-3 LOINC WBC 0-2 0 - 2 43234-5 LOINC RBC 0-2 0 - 2 97396-4 LOINC SQ EPITHELIAL OCCASIONAL RARE-FEW BACTERIA FEW NONE SEEN 43595-2 LOINC MUCUS FEW NONE SEEN 8247-9 LOINC YEAST NOT PRESENT NOT PRESENT 58589-5 LOINC TRICHOMONAS NOT PRESENT NOT PRESENT 79209-1 LOINC SPERMATOZOA NOT PRESENT NOT PRESENT 58332-5 LOINC CASTS PRESENT 17622-8 LOINC HYALINE 10-20/LPF NONE SEEN GRANULAR NONE SEEN NONE SEEN WBC CAST NONE SEEN NONE SEEN 5820-6 LOINC RBC CAST NONE SEEN NONE SEEN 5807-3 LOINC WAXY CAST NONE SEEN NONE SEEN 11883-1 LOINC CRYSTALS NOT PRESENT 92817-0 LOINC CULTURE? NO 8251-1 LOINC DIAGNOSIS N/A 4 PLEX RESPIRATORY COVID FLU RSV PCR - Collect Date/Time: 05/25/2024 13:41 [facility] ID: [id number] [address] [place] [address], [phone] LOINC: 60914-2 Test Value Unit Reference Range Code Code System Flag SARS CoV2 PCR NEGATIVE FLU A PCR NEGATIVE FLU B PCR NEGATIVE RSV PCR NEGATIVE SEND TO [facility]? YES CBC W/ DIFF - Collect Date/T sybil: 05/25/2024 12:40 [facility] ID: [id number] [address] [place] [address], [phone] LOINC: 48686-3 Test Value Unit Reference Range Code Code System Flag WBC 13.1 10^3uL L=4.8 H=10.8 H RBC 5.23 10^6uL L=4.20 H=5.40 HEMOGLOBIN 16.2 g/dL L=12.0 H=16.0 718-7 LOINC H HEMATOCRIT 46.9 VOL% L=37.0 H=47.0 4544-3 LOINC MCV 89.7 fL L=81.0 H=99.0 MCH 31.0 pg L=27.0 H=32.0 MCHC 34.5 g/dL L=32.0 H=36.0 PLATELETS 274 10^3uL L=100 H=400 76988-9 LOINC RDW 12.5 % L=11.7 H=15.5 %GRAN 67.7 % L=40.0 H=70.0 30216-3 LOINC %LYMPH 22.8 % L=20.0 H=45.0 736-9 LOINC %MONO 7.6 % L=2.0 H=10.0 19210-3 LOINC %EOS 1.0 % L=0.0 H=6.0 713-8 LOINC %BASO 0.4 % L=0.0 H=3.0 706-2 LOINC #NEUT 8.9 10^3uL L=1.9 H=7.6 92752-9 LOINC H #LYMPH 3.0 10^3uL L=0.9 H=4.9 10544-5 LOINC #MONO 1.0 10^3uL L=0.1 H=0.9 43347-3 LOINC H #EOS 0.1 10^3uL L=0.0 H=0.6 712-0 LOINC #BASO 0.05 10^3uL L=0.00 H=0.10 60016-6 LOINC #IM GRANS 0.1 10^3uL L=0.0 H=7.0 05964-3 LOINC %IM GRANS 0.5 % L=0.0 H=5.0 72065-0 LOINC %NRB 0.0 L=0.0 H=0.2 32900-7 LOINC #NRB 0.000 L=0.000 H=0.012 79303-9 LOINC MANUAL DIFF NOT INDICATED RBC MORPH NOT INDICATED COMPREHENSIVE METABOLIC PANE L - Collect Date/Time: 05/25/2024 12:40 [facility] ID: [id number] [address] [place], [place], [phone] LOINC: 58131-3 Test Value Unit Reference Range Code Code [...] 9 LOINC ANION GAP 20 L=10 H=20 69474-3 LOINC OSMOLALITY 287 mOs/kG L=280 H=296 19468-2 LOINC BUN/CREAT 24.7 3097-3 LOINC CALCIUM 9.4 mg/dL L=8.3 H=10.5 87948-8 LOINC AST 27 U/L L=15 H=46 1920-8 LOINC ALT 22 U/L L=9 H=72 1742-6 LOINC ALKALINE PHOS 122 U/L L=38 H=126 6768-6 LOINC TOTAL BILI 1.5 mg/dL L=0.2 H=1.3 1975-2 LOINC H ALBUMIN 4.4 G/dL L=3.5 H=5.0 1751-7 LOINC TOTAL PROTEIN 8.1 g/L L=6.3 H=8.2 2885-2 LOINC A/G RATIO 1.2 92262-9 LOINC AGE 59 81424-1 LOINC eGFR NON-AFR 38 ml/min eGFR AFR AMER 46 ml/min LIPASE - Collect Date/Time: 05/25/2024 12:40 [facility] ID: [id number] [address] [place] [address], [phone] LOINC: 3040-3 Test Value Unit Reference Range Code Code System Flag LIPASE 211 U/L L=23 H=300 3040-3 LOINC TROPONIN LEVEL - Collect Rohan e/Time: 05/25/2024 12:40 [facility] ID: [id number] [address] [place] [address], [phone] LOINC: 97302-6 Test Value Unit Reference Range Code Code System Flag TROPONIN < 0.012 ng/mL L=0.000 H=0.033 37332-5 LOINC CHEST 1V - Completed: 2024 14:16 LOINC: \TM00\\12PI\\DRAo\\BM09\ \MRHo\ [address] [address] ---------NAME--------- NUMBER SEX AGE ADMIT DISC. XRAY# F/C TYPE CHLOE MAYERS [id number] F 59 05/25/24 22137 CB5 E.R. DATE OF : 1965 M/R# [id number] #: [id number] ED-38 \MRHx\ LOCATION: TRANSCRIBED: 05/25/24 14:32 CHEST 1V 47451 COMPLETED:05/25/24 14:16 TLS 61438 ;cough, chills x 1wk PHYSICIAN: RUT R [...] osseous abnormality. IMPRESSION: No acute cardiopulmonary disease. ING HOUSE INSPECTOR \ITLo\ \UNDo\ \UNDx\ \ITLx\ Reviewed and Electronically Signed by: Celio Cooper MD Signed Date: 05/25/24 14:32 CT ABD/PEL WO CONTRAST - Com pleted: 05/25/2024 14:20 LOINC: 28230-3 \TM00\\12PI\\DRAo\\BM09\ \MRHo\ [facility] [address] [place] [address] ---------NAME--------- NUMBER SEX AGE ADMIT DISC. XRAY# F/C TYPE CHLOE BRENNON MAYERS [id number] F 59 05/25/24 84898 CB5 E.R. DATE OF : 1965 M/R# [id number] #: [id number] ED-38 \MRHx\ LOCATION: TRANSCRIBED: 05/25/24 14:37 CT ABD/PEL WO CONTRAST 21663 COMPLETED:05/25/24 14:20 TLS 30328 abdominal pain PHYSICIAN: RUT R A D [...] matched to clinical indication) or iterative reconstruction. ING HOUSE INSPECTOR \ITLo\ \UNDo\ \UNDx\ \ITLx\ Reviewed and Electronically Signed by: Srinivasan Tamez MD Signed Date: 05/25/24 14:37 Social History Type Status Start Date End Date Code Code Syst em Smoking History Current every day smoker 859977583 SNOMED CT Sex Female Medications Medication Start Date End Date Route Frequency Dose Code Code System Medication Instructions Home Meds ALPRAZolam 1MG Oral Tablet 04/08/2022 Unknown ORAL DIRECTED 1 MILLIGRAMS 19720505 RxNorm TAKE 1 MILLIGRAMS ORAL DIRECTED Albuterol Sulfate 0.083% Inhalation Solution 04/08/2022 Unknown INHALA TION DIRECTED 1 unit(s) 085571 RxNorm 1 EACH INHALATION DIRECTED Aspirin 81MG Oral Tablet, Enteric Coated 04/08/2022 Unknown ORAL ONCE A DAY 81 MILLIGRAMS 975722 RxNorm TAKE 81 MILLIGRAMS ORAL ONCE A DAY Atorvastatin Calcium 20MG Oral Tablet 04/08/2022 07/14/19 25 ORAL ONCE A DAY 20 MILLIGRAMS 433955 RxNorm TAKE 20 MILLIGRAMS ORAL ONCE A DAY Butalbital-AP UZ-Ulcswjjz-C odeine 03HT-502YH-87 MG-30MG Oral Capsule 04/08/2022 07/17/19 25 ORAL DIRECTED 1 unit(s) 0543647 RxNorm TAKE 1 EACH ORAL DIRECTED DULoxetine HCl 30MG Oral Capsule, Delayed Release 04/08/2022 07/17/19 25 ORAL ONCE A DAY 30 MILLIGRAMS 575946 RxNorm TAKE 30 MILLIGRAMS ORAL ONCE A DAY Lantus 100U/1ML Subcutaneous Solution 04/08/2022 Unknown SUBCUT ANEOUS DIRECTED 1 unit(s) 722335 RxNorm INJECT INTO 1 EACH SUBCUTANEOUS DIRECTED Omeprazole 20 MG Oral Tablet, Delayed Release 04/08/2022 07/14/19 25 ORAL ONCE A DAY 20 MG RxNorm TAKE 20 MG ORAL ONCE A DAY Verapamil HCl 180MG Oral Capsule, Extended Release 04/08/2022 Unknown ORAL ONCE A DAY 180 MILLIGRAMS 634294 RxNorm TAKE 180 MILLIGRAMS ORAL ONCE A DAY Atorvastatin Calcium 40MG Oral Tablet 07/19/2024 Unknown ORAL ONCE A DAY 40 MILLIGRAMS 172294 RxNorm TAKE 40 MILLIGRAMS ORAL ONCE A DAY Lisinopril 10MG Oral Tablet 07/19/2024 Unknown ORAL ONCE A DAY 10 MILLIGRAMS 452446 RxNorm TAKE 10 MILLIGRAMS ORAL ONCE A DAY Omeprazole 40MG Oral Capsule, Delayed Release 07/19/2024 Unknown ORAL ONCE A DAY 40 MILLIGRAMS 078807 RxNorm TAKE 40 MILLIGRAMS ORAL ONCE A DAY Amitriptyline 25MG Oral Tablet 07/19/2024 Unknown BY MOUTH ONCE A DAY 1 TABLET 636168 RxNorm TAKE 1 TABLET BY MOUTH ONCE [...] Co de Code System SULFA (sulfonamide) Active 87859140 SNO MED-CT ESCITALOPRAM Active 813341 RxNorm PENICILLIN Active Plan of Treatment Upper WO KUB 04/14/2023 Upper WO KUB 03/15/2024 NM Gastric Emptying (86826) 04/12/2024 EGD 07/19/2024 Encounters Encounter Diagnosis Start Date Code Code Sys tem Noninfective gastroenteritis and colitis, unspecified 05/25/2024 SNOMED-CT Personal Care Team Section Performer Name Performer Role Active Date Inactive TIM Maloney PCP - Primary care physician 2022-02-05 Imaging Narrative Notes [facility] 05/25/2024 14:[address] [address] ---------NAME--------- NUMBER SEX AGE ADMIT DISC. XRAY# F/C TYPE CHLOE MAYERS [id number] F 59 05/25/24 12780 CB5 E.R. DATE OF : 1965 M/R# [id number] #: [id number] ED-38 LOCATION: TRANSCRIBED: 05/25/24 14:32 CHEST 1V 62809 COMPLETED:05/25/24 14:16 TLS 33081 ;cough, chills x 1wk PHYSICIAN: RUT RADIOLOGY REPORT CHEST RADIOGRAPH Indication: ;cough, chills x 1wk Technique: Single frontal view of the chest was obtained Comparison: None FINDINGS: Lines and Tubes: None Lungs: No focal consolidation. Pleura: No effusion. No pneumothorax. Cardiomediastinal contours: Unremarkable Bones: No acute osseous abnormality. IMPRESSION: No acute cardiopulmonary disease. ING HOUSE INSPECTOR Reviewed and Electronically Signed by: Celio Cooper MD Signed Date: 05/25/24 14:32 [facility] 05/25/2024 14:[address] [address] ---------NAME--------- NUMBER SEX AGE ADMIT DISC. XRAY# F/C TYPE CHLOE BRENNON MAYERS [id number] F 59 05/25/24 93252 CB5 E.R. DATE OF : 1965 M/R# [id number] #: [id number] ED-38 LOCATION: TRANSCRIBED: 05/25/24 14:37 CT ABD/PEL WO CONTRAST 46856 COMPLETED:05/25/24 14:20 TLS 77204 abdominal pain PHYSICIAN: RUT RADIOLOGY REPORT Exam: [...] matched to clinical indication) or iterative reconstruction. ING HOUSE INSPECTOR Reviewed and Electronically Signed by: Srinivasan Tamez MD Signed Date: 05/25/24 14:37
--- OUTSIDE RECORDS SUMMARY | 2024-10-02 02:28 | XMS_ITS ---
Author Organization Unknown Address [address] [place] [phone] Phone Care Team Providers Care Computer Equipment Installer Name Role Phone LESLY Butler Attending [facility]available [facility] BIOMASS TECHNICIAN Unavailable JERMAINE DUMONT Primary Unavailable Immunization Immunization Date Status Additional Notes Code Code System Influenza, split virus, quadrivalent, PF 01/30/2021 Completed 150 CVX Social History Type Status Start Date End Date Code Code Syst em Smoking History Current every day smoker 826337921 SNOMED CT Sex Female Vital Signs Vital Sign Value Unit [place]enden Value [place] Unit Date/Time Recent/Initial? Code Code System Body Mass Index 31.41 kg/m2 07/19/2024 07:19 Most Recent 91908 -5 LOINC Body Mass Index 34.67 kg/m2 07/13/2024 12:36 Initial 87367 -5 LOINC Systolic Blood Pressure 134 mm[Hg] [...] O2 Saturation 98 % 2024 07:19 Initial 01091 -5 LOINC Pulse 60.0 /min 07/19/2024 07:19 Initial 8867- 4 LOINC Respiration 20 /min 07/20/19 07:19 Initial 9279- 1 LOINC Temperature 36.1 Mirtha 97.0 F 07/20/19 25 07:19 Initial 8310- 5 [facility] Weight 83.01 kg 183.00 lbs 07/19/2024 07:19 Most Recent 99518 -7 [facility] Weight 91.63 kg 202.00 lbs 07/13/2024 12:36 Initial 90344 -7 [facility] Medications Medication Start Date End Date Route Frequency Dose Code Code System Medication Instructions Home Meds ALPRAZolam 1MG Oral Tablet 04/08/2022 Unknown ORAL DIRECTED 1 MILLIGRAMS 817293 RxNorm TAKE 1 MILLIGRAMS ORAL DIRECTED Albuterol Sulfate 0.083% Inhalation Solution 04/08/2022 Unknown INHALAT ION DIRECTED 1 unit(s) 624358 RxNorm 1 EACH INHALATION DIRECTED Aspirin 81MG Oral Tablet, Enteric Coated 04/08/2022 Unknown ORAL ONCE A DAY 81 MILLIGRAMS 264797 RxNorm TAKE 81 MILLIGRAMS ORAL ONCE A DAY Lantus 100U/1ML Subcutaneous Solution 04/08/2022 Unknown SUBCUTA NEOUS DIRECTED 1 unit(s) 229680 RxNorm INJECT INTO 1 EACH SUBCUTANEOUS DIRECTED Verapamil HCl 180MG Oral Capsule, Extended Release 04/08/2022 Unknown ORAL ONCE A DAY 180 MILLIGRAMS 883775 RxNorm TAKE 180 MILLIGRAMS ORAL ONCE A DAY Atorvastatin Calcium 40MG Oral Tablet 07/19/2024 Unknown ORAL ONCE A DAY 40 MILLIGRAMS 332906 RxNorm TAKE 40 MILLIGRAMS ORAL ONCE A DAY Lisinopril 10MG Oral Tablet 07/19/2024 Unknown ORAL ONCE A DAY 10 MILLIGRAMS 742750 RxNorm TAKE 10 MILLIGRAMS ORAL ONCE A DAY Omeprazole 40MG Oral Capsule, Delayed Release 07/19/2024 Unknown ORAL ONCE A DAY 40 MILLIGRAMS 306571 RxNorm TAKE 40 MILLIGRAMS ORAL ONCE A DAY Amitriptyline 25MG Oral Tablet 07/19/2024 Unknown BY MOUTH ONCE A DAY 1 TABLET 819937 RxNorm TAKE 1 TABLET BY MOUTH ONCE [...] ntestinal endoscopic procedures, endoscope int 07/19/2024 completed 16006 CPT Esophagogastroduodenoscopy, flexible, transoral; with insertion of guide w 07/19/2024 completed 79514 CPT Allergies and Adverse Reactions Allergy Substance Reaction Severity Start Date Concern Status Co de Code System SULFA (sulfonamide) Active 39631293 SNO MED-CT ESCITALOPRAM Active 731924 RxNorm PENICILLIN Active Plan of Treatment Upper WO KUB 04/14/2023 Upper WO KUB 03/15/2024 NM Gastric Emptying (90161) 04/12/2024 EGD 07/19/2024 Encounters Encounter Diagnosis Start Date Code Code Sys tem Gastro-esophageal reflux disease without esophagitis 0 07/19/2024 SNOMED-CT Personal Care Team Section Performer Name Performer Role Active Date Inactive TIM Maloney PCP - Primary care physician 2022-02-05 Procedures Notes
--- OUTSIDE RECORDS SUMMARY | 2024-10-02 02:28 | XMS_ITS | Continuity of Care Document ---
Author Organization [facility] Address [address] [place] [address] Phone Care Team Providers Care Mixing Machine Feeder Name Role Phone Unavailable Unavailable Unavailable Medications [...] Diagnoses Date Provider Providers Copied on Encounter [facility], [address], [place], [place], [id number], [place] tel:[phone] Noteworthy Legacy Data Unspecified symptom associated with [...]
--- OUTSIDE RECORDS SUMMARY | 2024-10-02 02:28 | XMS_ITS | Clinical Summary ---
Author Organization [facility] Address [address] [place] [address] Care Team Providers Care Manager Of Environmental Services Name Role Phone Jose Escoto MD Primary Care Provider [phone] Allergies Active Allergy Reactions Criticality Noted Date [...] on file Legal Sex Female 7:16 AM MILK ROUTE DELIVERER Gender Identity Not on file Sexual Orientation Not on file Obstetrics History Last Filed Vital Signs Vital Sign Reading Time Taken Comments Blood Pressure 106/90 03/21/2024 9:43 AM MILK ROUTE DELIVERER Pulse 67 03/21/2024 9:40 AM MILK ROUTE DELIVERER Temperature - - Respiratory Rate 20 03/21/2024 9:40 AM MILK ROUTE DELIVERER Oxygen Saturation 100% 03/21/2024 9:40 AM MILK ROUTE DELIVERER Inhaled Oxygen Concentration - - Weight - [...] Cancer Screening-Mammogram 02/02/2023 022, 02/02/2022 Influenza Vaccine (Season Ended) 2024 01/31/20 21 Insurance [employer] OPEN ACCESS [employer] OPEN ACCESS Care Teams Manager Of Environmental Services Relationship Specialty Start Date End Date Jose Escoto MD [address] [place] [address] PCP - General Internal Medicine 03/09/24
--- NOTE | 2024-10-02 02:35 | ED.NAVMDI ---
HPI - Nausea/Vomiting/Diarrhea General Chief complaint: Nausea/Vomiting/Diarrhea Stated complaint: vomiting Time Seen by Provider: 10/02/24 02:33 Source: patient Mode of arrival: ambulatory Limitations: no limitations History of Present Illness HPI Narrative: 59 years old white female came to the ED by private car from home complaining of severe nausea and vomiting hand abdominal pain started 5 hours prior to arrival , last marijuana use was yesterday. Patient was seen in our emergency room on showing 27 for the same problem. History of cyclic vomiting syndrome, diabetes, hypertension, hyperlipidemia tobacco dependent. Related Data Home Medications ?Medication ?Instructions ?Recorded ?Confirmed ?Last Taken ?Type insulin glargine 100 unit/mL (3 See Rx Instructions .Route .COMPLEX 11/10/20 02/25/24 1 Day Ago History mL) subcutaneous pen (Lantus ~02/06/24 Solostar U-100 Insulin) poygvmeecd-zjuzoiiefbize-tffckqvr 1 cap PO BID PRN Migraine Headache 05/10/22 02/25/24 Unknown History 50 mg-300 mg-40 mg capsule verapamil 180 mg tablet,extended 180 mg PO DAILY 05/10/22 02/25/24 Unknown History release lisinopril 10 mg tablet 10 mg PO DAILY 11/30/22 02/25/24 Unknown History atorvastatin 20 mg tablet 20 mg PO DAILY 01/15/23 02/25/24 Unknown History alprazolam 1 mg tablet 1 mg PO DAILY 02/25/24 02/25/24 Unknown History buspirone 30 mg tablet 30 mg PO DAILY 02/25/24 02/25/24 Unknown History haloperidol 0.5 mg tablet 0.5 mg PO DAILY 02/25/24 02/25/24 Unknown History levomilnacipran 20 mg capsule,24 20 mg PO DAILY 02/25/24 02/25/24 Unknown History hr,extended release (Fetzima) Allergies Allergy/AdvReac Type Severity Reaction Status Date / Time Sulfa (Sulfonamide Allergy Mild Unknown Verified 09/28/24 17:17 Antibiotics) Penicillins Allergy Unknown Verified 09/28/24 17:17 Review of Systems Review of Systems: All systems reviewed & are unremarkable except as noted in HPI and below PMFSH Past Medical History Medical History Hypokalemia T2DM (type 2 diabetes mellitus) GERD (gastroesophageal reflux disease) Migraines PTSD (post-traumatic stress disorder) Surgical History Surgical History Hx of cholecystectomy Social History Social History Smoking packs per day: 1 Smoking cigarettes per day: 20.0 Years smoked: 30 Smoking pack-years: 30.00 Smoking status: Light tobacco smoker Tobacco type: cigarettes Second hand tobacco smoke exposure: Yes Alcohol intake: unknown Substance use: unknown Substance use type: unknown Gender identity (if verbalized by the patient): Female Sexual Orientation (if Verbalized by the Patient): Straight or Heterosexual Spiritual care concerns: No Exam Narrative: General appearance: Well-developed, well-nourished Severe dry heaving , holding vomiting bag in hands Skin: Normal color Head: Normocephalic, nontraumatic Eyes: Clear conjunctiva ENT: Oropharynx normal, ears normal, nose normal Neck: Supple, nontender Chest and respiratory: Airway patent, no respiratory distress, no accessory muscle use Heart: Regular rate/rhythm Abdomen: Soft, mild epigastric tenderness, no organomegaly, quiet bowel sounds Musculoskeletal: Normal range of motion, nontender back Neurologic: Alert and oriented ?3, INSPECTOR QUALITY ASSURANCE is normal as tested, no gross motor deficit Course Vital Signs Vital signs: Vital Signs Temperature 35.8 C L 10/02/24 02:25 Pulse Rate 122 H 10/02/24 02:25 Respiratory Rate 22 H 10/02/24 02:25 Blood Pressure 167/126 H 10/02/24 02:25 Pulse Oximetry 97 10/02/24 02:25 Oxygen Delivery Room Air 10/02/24 02:25 Temperature 35.8 C L 10/02/24 02:25 Pulse Rate 91 10/02/24 04:02 Respiratory Rate 18 10/02/24 04:02 Blood Pressure 156/88 H 10/02/24 04:02 Pulse Oximetry 100 10/02/24 04:02 Oxygen Delivery Room Air 10/02/24 04:02 MDM - Nausea/Vomiting/Diarrhea MDM Narrative Medical decision making narrative: patient came with recurrent symptoms of intractable vomiting. Vital signs showing blood pressure 167/126, heart rate 122 respiration 22 temperature 35.8?. Physical examination showing a patient with severe dry heaves Differential diagnosis cyclic vomiting syndrome, cannabis induced hyperemesis Patient was in our emergency room 3 days ago for the same problem with normal blood workup. In the ED patient received 1 L of normal saline, 10 mg of Reglan, 50 mg Benadryl and 1 mg of Reglan with remarkable improvement. Diagnosis cyclic vomiting syndrome, marijuana induced hyperemesis. The pt was discharged to home.the pt,s condition upon discharge was fair,education was provided to the pt in reference to the final impression,discharge study results,treatment,prognosis and need for follow up . Differential Diagnosis Differential diagnosis: Likely other (As above) Medical Records Attestation: I reviewed the patient's medical records. Critical Care Time Critical Care Time Critical Care Time: No Discharge Plan Discharge Clinical Impression: Cyclical vomiting, intractable Patient Disposition: Home Condition: Stable Instructions: Acute Nausea and Vomiting (ED), Cannabis Use Disorder (ED), Cyclic Vomiting Syndrome (ED) Additional Instructions: Return if symptoms are worsening , call your family physician for appointment, take Tylenol as as needed for aches and pain, continue home medications. Stop using marijuana Patient Language: Macanese Prescriptions: No Action insulin glargine [Lantus Solostar U-100 Insulin] 100 unit/mL (3 mL) insulin pen See Rx Instructions .ROUTE .COMPLEX Rx Instructions: 35 UNITS EVERY MORNING 60 UNITS EVERY EVENING atorvastatin 20 mg tablet 20 mg PO DAILY buspirone 30 mg tablet 30 mg PO DAILY haloperidol 0.5 mg tablet 0.5 mg PO DAILY alprazolam 1 mg tablet 1 mg PO DAILY Fetzima 20 mg capsule,extended release 24 hr 20 mg PO DAILY ondansetron 4 mg tablet,disintegrating 4 mg PO Q4H PRN (Reason: nausea and vomiting) 28 Days Qty: 168 0RF Rx Instructions: give 1st dose 30min before emetogenic chemo promethazine 25 mg tablet 25 mg PO TID PRN (Reason: nausea and vomiting) Qty: 30 0RF prochlorperazine maleate [Compazine] 10 mg tablet 10 mg PO Q8H PRN (Reason: nausea and vomiting) Qty: 20 0RF verapamil 180 mg Tablet Extended Release 180 mg PO DAILY kvsjtxwpfp-xwjnlftxdkvtq-vbtb 50-300-40 mg Capsule 1 cap PO BID PRN (Reason: Migraine Headache) lisinopril 10 mg tablet 10 mg PO DAILY pantoprazole [Protonix] 40 mg tablet,delayed release (DR/EC) 40 mg PO QAM 28 Days Qty: 28 0RF Follow-up/Referrals: Jose Escoto MD [Primary Care Provider] -
[2024-10-02] MEDS: SODIUM CHLORIDE 0.9% IV 1,000 ML 999 ML IV CONT (02:37)
[2024-10-02] MEDS: METOCLOPRAMIDE HCL INJ 10 MG/2 ML VIAL IV PUSH (02:37)
--- OUTSIDE RECORDS SUMMARY | 2024-10-02 02:41 | XMS_ITS ---
Author Organization Unknown Address [address] [place] [phone] Phone Care Team Providers Care Feed Research Technician Name Role Phone JESUSKiya FLASH SUPERVISING BROKER Attending Unavailable JERMAINE DUMONT Primary Unavailable Immunization Immunization Date Status Additional Notes Code Code System Influenza, split virus, quadrivalent, PF 01/30/2021 Completed 150 CVX Results MRI BRAIN WO CONTRAST - Comp leted: 01/24/2023 13:32 LOINC: 84407-9 EXAM DESCRIPTION: MRI BRAIN WO CONTRAST REASON [...] Solis Stewart M.D. FLORENTINO: FLORENTINO Report ID: [id number] Reading Location: [place] [address] Social History Type Status Start Date End Date Code Code Syst em Smoking History Current every day smoker 075037344 SNOMED CT Sex Female Medications Medication Start Date End Date Route Frequency Dose Code Code System Medication Instructions Home Meds ALPRAZolam 1MG Oral Tablet 04/08/2022 Unknown ORAL DIRECTED 1 MILLIGRAMS 171434 RxNorm TAKE 1 MILLIGRAMS ORAL DIRECTED Albuterol Sulfate 0.083% Inhalation Solution 04/08/2022 Unknown INHALA TION DIRECTED 1 unit(s) 621887 RxNorm 1 EACH INHALATION DIRECTED Aspirin 81MG Oral Tablet, Enteric Coated 04/08/2022 Unknown ORAL ONCE A DAY 81 MILLIGRAMS 279871 RxNorm TAKE 81 MILLIGRAMS ORAL ONCE A DAY Atorvastatin Calcium 20MG Oral Tablet 04/08/2022 07/14/19 25 ORAL ONCE A DAY 20 MILLIGRAMS 385986 RxNorm TAKE 20 MILLIGRAMS ORAL ONCE A DAY Surinder VX-Pgoegdox-K odeine 99CH-610CE-44 MG-30MG Oral Capsule 04/08/2022 07/17/19 25 ORAL DIRECTED 1 unit(s) 1306776 RxNorm TAKE 1 EACH ORAL DIRECTED DULoxetine HCl 30MG Oral Capsule, Delayed Release 04/08/2022 07/17/19 25 ORAL ONCE A DAY 30 MILLIGRAMS 689576 RxNorm TAKE 30 MILLIGRAMS ORAL ONCE A DAY Lantus 100U/1ML Subcutaneous Solution 04/08/2022 Unknown SUBCUT ANEOUS DIRECTED 1 unit(s) 909052 RxNorm INJECT INTO 1 EACH SUBCUTANEOUS DIRECTED Omeprazole 20 MG Oral Tablet, Delayed Release 04/08/2022 07/14/19 25 ORAL ONCE A DAY 20 MG RxNorm TAKE 20 MG ORAL ONCE A DAY Verapamil HCl 180MG Oral Capsule, Extended Release 04/08/2022 Unknown ORAL ONCE A DAY 180 MILLIGRAMS 712410 RxNorm TAKE 180 MILLIGRAMS ORAL ONCE A DAY Atorvastatin Calcium 40MG Oral Tablet 07/19/2024 Unknown ORAL ONCE A DAY 40 MILLIGRAMS 940656 RxNorm TAKE 40 MILLIGRAMS ORAL ONCE A DAY Lisinopril 10MG Oral Tablet 07/19/2024 Unknown ORAL ONCE A DAY 10 MILLIGRAMS 039383 RxNorm TAKE 10 MILLIGRAMS ORAL ONCE A DAY Omeprazole 40MG Oral Capsule, Delayed Release 07/19/2024 Unknown ORAL ONCE A DAY 40 MILLIGRAMS 970939 RxNorm TAKE 40 MILLIGRAMS ORAL ONCE A DAY Amitriptyline 25MG Oral Tablet 07/19/2024 Unknown BY MOUTH ONCE A DAY 1 TABLET 149789 RxNorm TAKE 1 TABLET BY MOUTH ONCE [...] Co de Code System SULFA (sulfonamide) Active 90412807 SNO MED-CT ESCITALOPRAM Active 433424 RxNorm PENICILLIN Active Plan of Treatment Upper WO KUB 04/14/2023 Upper WO KUB 03/15/2024 NM Gastric Emptying (76780) 04/12/2024 EGD 07/19/2024 Encounters Encounter Diagnosis Start Date Code Code Sys tem Migraine without aura, not refractory 01/24/2023 425 [id number] SNOMED-CT Personal Care Team Section Performer Name Performer Role Active Date Inactive TIM Maloney PCP - Primary care physician 2022-02-05 Imaging Narrative Notes
--- OUTSIDE RECORDS SUMMARY | 2024-10-02 02:42 | XMS_ITS ---
Author Organization Unknown Address [address] [place] [address] [phone] Phone Care Team Providers Care Mail Distribution Clerk Name Role Phone ROD Schroeder Attending Unavailable JERMAINE DUMONT Primary Unavailable Immunization Immunization Date Status Additional Notes Code Code System Influenza, split virus, quadrivalent, PF 01/30/2021 Completed 150 CVX Results NM GASTRIC EMPTYING - Comple camila: 04/12/2024 19:12 LOINC: \TM00\\12PI\\DRAo\\BM09\ \MRLo\ [address] [address] ---------NAME--------- NUMBER SEX AGE ADMIT DISC. XRAY# F/C TYPE CHLOE MAYERS [id number] F 58 04/12/24 04/12/24 83838 CB5 O/P DATE OF : 1965 M/R# [id number] PH#: [phone] RM \MRHx\ LOCATION: TRANSCRIBED: 04/12/24 14:07 NM GASTRIC EMPTYING 62688 COMPLETED: 66124 {REASON-NM ABD: NAUSEA/VOMITTING PHYSICIAN: KJ R A [...] or incomplete ingestion of the standard meal. R MANAGER \ITLo\ \UNDo\ \UNDx\ \ITLx\ Reviewed and Electronically Signed by: Brendan Crow DO Signed Date: 04/12/24 14:07 04/12/24.1410.MM .to JERMAINE MAN via fax Social History Type Status Start Date End Date Code Code Syst em Smoking History Current every day smoker 579665068 SNOMED CT Sex Female Medications Medication Start Date End Date Route Frequency Dose Code Code System Medication Instructions Home Meds ALPRAZolam 1MG Oral Tablet 04/08/2022 Unknown ORAL DIRECTED 1 MILLIGRAMS 19720505 RxNorm TAKE 1 MILLIGRAMS ORAL DIRECTED Albuterol Sulfate 0.083% Inhalation Solution 04/08/2022 Unknown INHALA TION DIRECTED 1 unit(s) 812061 RxNorm 1 EACH INHALATION DIRECTED Aspirin 81MG Oral Tablet, Enteric Coated 04/08/2022 Unknown ORAL ONCE A DAY 81 MILLIGRAMS 123805 RxNorm TAKE 81 MILLIGRAMS ORAL ONCE A DAY Atorvastatin Calcium 20MG Oral Tablet 04/08/2022 07/14/19 25 ORAL ONCE A DAY 20 MILLIGRAMS 113450 RxNorm TAKE 20 MILLIGRAMS ORAL ONCE A DAY Surinder HS-Roiusrzf-S odeine 48PS-576LN-51 MG-30MG Oral Capsule 04/08/2022 07/17/19 25 ORAL DIRECTED 1 unit(s) 1959422 RxNorm TAKE 1 EACH ORAL DIRECTED DULoxetine HCl 30MG Oral Capsule, Delayed Release 04/08/2022 07/17/19 25 ORAL ONCE A DAY 30 MILLIGRAMS 109498 RxNorm TAKE 30 MILLIGRAMS ORAL ONCE A DAY Lantus 100U/1ML Subcutaneous Solution 04/08/2022 Unknown SUBCUT ANEOUS DIRECTED 1 unit(s) 190023 RxNorm INJECT INTO 1 EACH SUBCUTANEOUS DIRECTED Omeprazole 20 MG Oral Tablet, Delayed Release 04/08/2022 07/14/19 25 ORAL ONCE A DAY 20 MG RxNorm TAKE 20 MG ORAL ONCE A DAY Verapamil HCl 180MG Oral Capsule, Extended Release 04/08/2022 Unknown ORAL ONCE A DAY 180 MILLIGRAMS 490337 RxNorm TAKE 180 MILLIGRAMS ORAL ONCE A DAY Atorvastatin Calcium 40MG Oral Tablet 07/19/2024 Unknown ORAL ONCE A DAY 40 MILLIGRAMS 804654 RxNorm TAKE 40 MILLIGRAMS ORAL ONCE A DAY Lisinopril 10MG Oral Tablet 07/19/2024 Unknown ORAL ONCE A DAY 10 MILLIGRAMS 667618 RxNorm TAKE 10 MILLIGRAMS ORAL ONCE A DAY Omeprazole 40MG Oral Capsule, Delayed Release 07/19/2024 Unknown ORAL ONCE A DAY 40 MILLIGRAMS 603227 RxNorm TAKE 40 MILLIGRAMS ORAL ONCE A DAY Amitriptyline 25MG Oral Tablet 07/19/2024 Unknown BY MOUTH ONCE A DAY 1 TABLET 802506 RxNorm TAKE 1 TABLET BY MOUTH ONCE [...] Co de Code System SULFA (sulfonamide) Active 38642289 SNO MED-CT ESCITALOPRAM Active 607080 RxNorm PENICILLIN Active Plan of Treatment Upper WO KUB 04/14/2023 Upper WO KUB 03/15/2024 NM Gastric Emptying (57286) 04/12/2024 EGD 07/19/2024 Encounters Encounter Diagnosis Start Date Code Code Sys tem Functional dyspepsia 04/12/2024 SNOMED- CT Personal Care Team Section Performer Name Performer Role Active Date Inactive TIM Maloney PCP - Primary care physician 2022-02-05 Imaging Narrative Notes [facility] 04/12/2024 14:[address] [address] ---------NAME--------- NUMBER SEX AGE ADMIT DISC. XRAY# F/C TYPE CHLOE BRENNON MAYERS [id number] F 58 04/12/24 04/12/24 73308 CB5 O/P DATE OF : 1965 M/R# [id number] #: [id number] RM LOCATION: TRANSCRIBED: 04/12/24 14:07 NM GASTRIC EMPTYING 96361 COMPLETED: 49835 {REASON-NM ABD: NAUSEA/VOMITTING PHYSICIAN: RODSHPREMA RADIOLOGY REPORT [...] or incomplete ingestion of the standard meal. R MANAGER Reviewed and Electronically Signed by: Brendan Crow DO Signed Date: 04/12/24 14:07 04/12/24.1410.MM .to JERMAINE SANCHEZ via fax
--- OUTSIDE RECORDS SUMMARY | 2024-10-02 02:42 | XMS_ITS ---
Author Organization Unknown Address [address] [place] [phone] Phone Care Team Providers Care House Sitter Name Role Phone MAE BARRERA Attending Unavailable JERMAINE DUMONT Primary Unavailable Immunization Immunization Date Status Additional Notes Code Code System Influenza, split virus, quadrivalent, PF 01/30/2021 Completed 150 CVX Results URINALYSIS w/Microscopy/C&S if indicated - Collect Date/Time: 05/25/2024 15:02 [facility] ID: [id number] [place] [address], [phone] LOINC: 01703-2 Test Value Unit Reference Range Code Code System Flag UR SOURCE VOIDED 73445-6 LOINC COLOR DK YELLOW YELLOW 5778-6 LOINC CLARITY SL CLOUDY CLEAR 71312-2 LOINC SPEC GRAVITY 1.025 1.000-1.030 5811-5 LOINC PH 5.5 5.0 - 6.5 5803-2 LOINC LEUK EST NEGATIVE NEGATIVE 5799-2 LOINC NITRATE NEGATIVE NEGATIVE PROTEIN TRACE NEGATIVE 5804-0 LOINC GLUCOSE TRACE NEGATIVE 28153-0 LOINC KETONES 1+ NEGATIVE 20755-2 LOINC A UROBILINOGEN 0.2 0.2 - 1.0 5818-0 LOINC BILIRUBIN 2+ NEGATIVE 45352-0 LOINC A BLOOD NEGATIVE NEGATIVE 60867-5 LOINC WBC 0-2 0 - 2 55332-1 LOINC RBC 0-2 0 - 2 89921-5 LOINC SQ EPITHELIAL OCCASIONAL RARE-FEW BACTERIA FEW NONE SEEN 70366-1 LOINC MUCUS FEW NONE SEEN 8247-9 LOINC YEAST NOT PRESENT NOT PRESENT 47182-8 LOINC TRICHOMONAS NOT PRESENT NOT PRESENT 94265-0 LOINC SPERMATOZOA NOT PRESENT NOT PRESENT 29026-5 LOINC CASTS PRESENT 01970-5 LOINC HYALINE 10-20/LPF NONE SEEN GRANULAR NONE SEEN NONE SEEN WBC CAST NONE SEEN NONE SEEN 5820-6 LOINC RBC CAST NONE SEEN NONE SEEN 5807-3 LOINC WAXY CAST NONE SEEN NONE SEEN 28094-6 LOINC CRYSTALS NOT PRESENT 17378-2 LOINC CULTURE? NO 8251-1 LOINC DIAGNOSIS N/A 4 PLEX RESPIRATORY COVID FLU RSV PCR - Collect Date/Time: 05/25/2024 13:41 [facility] ID: [id number] [address] [place] [address], [phone] LOINC: 18203-4 Test Value Unit Reference Range Code Code System Flag SARS CoV2 PCR NEGATIVE FLU A PCR NEGATIVE FLU B PCR NEGATIVE RSV PCR NEGATIVE SEND TO [facility]? YES CBC W/ DIFF - Collect Date/T sybil: 05/25/2024 12:40 [facility] ID: [id number] [place] [address], [phone] LOINC: 78533-3 Test Value Unit Reference Range Code Code System Flag WBC 13.1 10^3uL L=4.8 H=10.8 H RBC 5.23 10^6uL L=4.20 H=5.40 HEMOGLOBIN 16.2 g/dL L=12.0 H=16.0 718-7 LOINC H HEMATOCRIT 46.9 VOL% L=37.0 H=47.0 4544-3 LOINC MCV 89.7 fL L=81.0 H=99.0 MCH 31.0 pg L=27.0 H=32.0 MCHC 34.5 g/dL L=32.0 H=36.0 PLATELETS 274 10^3uL L=100 H=400 76887-4 LOINC RDW 12.5 % L=11.7 H=15.5 %GRAN 67.7 % L=40.0 H=70.0 68894-8 LOINC %LYMPH 22.8 % L=20.0 H=45.0 736-9 LOINC %MONO 7.6 % L=2.0 H=10.0 48143-3 LOINC %EOS 1.0 % L=0.0 H=6.0 713-8 LOINC %BASO 0.4 % L=0.0 H=3.0 706-2 LOINC #NEUT 8.9 10^3uL L=1.9 H=7.6 32950-6 LOINC H #LYMPH 3.0 10^3uL L=0.9 H=4.9 55366-3 LOINC #MONO 1.0 10^3uL L=0.1 H=0.9 61621-6 LOINC H #EOS 0.1 10^3uL L=0.0 H=0.6 712-0 LOINC #BASO 0.05 10^3uL L=0.00 H=0.10 64685-4 LOINC #IM GRANS 0.1 10^3uL L=0.0 H=7.0 37438-4 LOINC %IM GRANS 0.5 % L=0.0 H=5.0 07087-1 LOINC %NRB 0.0 L=0.0 H=0.2 44944-0 LOINC #NRB 0.000 L=0.000 H=0.012 57195-7 LOINC MANUAL DIFF NOT INDICATED RBC MORPH NOT INDICATED COMPREHENSIVE METABOLIC PANE L - Collect Date/Time: 05/25/2024 12:40 [facility] ID: [id number] [address] [place], [place], [phone] LOINC: 19238-8 Test Value Unit Reference Range Code Code System Flag FASTING UNKNOWN BUN 37 mg/dL L=7 H=20 3094-0 LOINC H CREATININE 1.50 mg/dL L=0.52 H=1.04 2160-0 LOINC H GLUCOSE 282 mg/dL L=74 H=106 2345-7 LOINC H SODIUM 129 mmol/L L=132 H=144 2951-2 LOINC L POTASSIUM 3.7 mmol/L L=3.5 H=5.1 2823-3 LOINC CHLORIDE 91 mmol/L L=98 H=107 2075-0 LOINC L CO2 22.0 mmol/L L=22.0 H=30.0 8-9 LOINC ANION GAP 20 L=10 H=20 60351-1 LOINC OSMOLALITY 287 mOs/kG L=280 H=296 70138-4 LOINC BUN/CREAT 24.7 3097-3 LOINC CALCIUM 9.4 mg/dL L=8.3 H=10.5 17158-1 LOINC AST 27 U/L L=15 H=46 1920-8 LOINC ALT 22 U/L L=9 H=72 1742-6 LOINC ALKALINE PHOS 122 U/L L=38 H=126 6768-6 LOINC TOTAL BILI 1.5 mg/dL L=0.2 H=1.3 1975-2 LOINC H ALBUMIN 4.4 G/dL L=3.5 H=5.0 1751-7 LOINC TOTAL PROTEIN 8.1 g/L L=6.3 H=8.2 2885-2 LOINC A/G RATIO 1.2 12255-2 LOINC AGE 59 33357-9 LOINC eGFR NON-AFR 38 ml/min eGFR AFR AMER 46 ml/min LIPASE - Collect Date/Time: 05/25/2024 12:40 [facility] ID: [id number] [place] [address], [phone] LOINC: 3040-3 Test Value Unit Reference Range Code Code System Flag LIPASE 211 U/L L=23 H=300 3040-3 LOINC TROPONIN LEVEL - Collect Rohan e/Time: 05/25/2024 12:40 [facility] ID: [id number] [place] [address], [phone] LOINC: 44716-5 Test Value Unit Reference Range Code Code System Flag TROPONIN < 0.012 ng/mL L=0.000 H=0.033 49382-9 LOINC CHEST 1V - Completed: 2024 14:16 LOINC: \TM00\\12PI\\DRAo\\BM09\ \MRHo\ [facility] [address] [place] [address] ---------NAME--------- NUMBER SEX AGE ADMIT DISC. XRAY# F/C TYPE CHLOE MAYERS [id number] F 59 05/25/24 90528 CB5 E.R. DATE OF : 1965 M/R# [id number] #: [id number] ED-38 \MRx\ LOCATION: TRANSCRIBED: 05/25/24 14:32 CHEST 1V 95889 COMPLETED:05/25/24 14:16 TLS 97940 ;cough, chills x 1wk PHYSICIAN: RUT R [...] osseous abnormality. IMPRESSION: No acute cardiopulmonary disease. 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 XRAY# F/C TYPE CHLOE BRENNON MAYERS [id number] F 59 05/25/24 74121 CB5 E.R. DATE OF : 1965 M/R# [id number] #: [id number] ED-38 \MRHx\ LOCATION: TRANSCRIBED: 05/25/24 14:37 CT ABD/PEL WO CONTRAST 27684 COMPLETED:05/25/24 14:20 TLS 59605 abdominal pain PHYSICIAN: RUT R A D [...] matched to clinical indication) or iterative reconstruction. 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 \ITLo\ \UNDo\ \UNDx\ \ITLx\ Reviewed and Electronically Signed by: Srinivasan Tamez MD Signed Date: 05/25/24 14:37 Social History Type Status Start Date End Date Code Code Syst em Smoking History Current every day smoker 800693426 SNOMED CT Sex Female Medications Medication Start Date End Date Route Frequency Dose Code Code System Medication Instructions Home Meds ALPRAZolam 1MG Oral Tablet 04/08/2022 Unknown ORAL DIRECTED 1 MILLIGRAMS 19720505 RxNorm TAKE 1 MILLIGRAMS ORAL DIRECTED Albuterol Sulfate 0.083% Inhalation Solution 04/08/2022 Unknown INHALA TION DIRECTED 1 unit(s) 416307 RxNorm 1 EACH INHALATION DIRECTED Aspirin 81MG Oral Tablet, Enteric Coated 04/08/2022 Unknown ORAL ONCE A DAY 81 MILLIGRAMS 889217 RxNorm TAKE 81 MILLIGRAMS ORAL ONCE A DAY Atorvastatin Calcium 20MG Oral Tablet 04/08/2022 07/14/19 25 ORAL ONCE A DAY 20 MILLIGRAMS 438593 RxNorm TAKE 20 MILLIGRAMS ORAL ONCE A DAY Surinder CN-Jjulorld-V odeine 24DU-650QV-92 MG-30MG Oral Capsule 04/08/2022 07/17/19 25 ORAL DIRECTED 1 unit(s) 8140230 RxNorm TAKE 1 EACH ORAL DIRECTED DULoxetine HCl 30MG Oral Capsule, Delayed Release 04/08/2022 07/17/19 25 ORAL ONCE A DAY 30 MILLIGRAMS 722404 RxNorm TAKE 30 MILLIGRAMS ORAL ONCE A DAY Lantus 100U/1ML Subcutaneous Solution 04/08/2022 Unknown SUBCUT ANEOUS DIRECTED 1 unit(s) 451496 RxNorm INJECT INTO 1 EACH SUBCUTANEOUS DIRECTED Omeprazole 20 MG Oral Tablet, Delayed Release 04/08/2022 07/14/19 25 ORAL ONCE A DAY 20 MG RxNorm TAKE 20 MG ORAL ONCE A DAY Verapamil HCl 180MG Oral Capsule, Extended Release 04/08/2022 Unknown ORAL ONCE A DAY 180 MILLIGRAMS 745604 RxNorm TAKE 180 MILLIGRAMS ORAL ONCE A DAY Atorvastatin Calcium 40MG Oral Tablet 07/19/2024 Unknown ORAL ONCE A DAY 40 MILLIGRAMS 909097 RxNorm TAKE 40 MILLIGRAMS ORAL ONCE A DAY Lisinopril 10MG Oral Tablet 07/19/2024 Unknown ORAL ONCE A DAY 10 MILLIGRAMS 960233 RxNorm TAKE 10 MILLIGRAMS ORAL ONCE A DAY Omeprazole 40MG Oral Capsule, Delayed Release 07/19/2024 Unknown ORAL ONCE A DAY 40 MILLIGRAMS 795805 RxNorm TAKE 40 MILLIGRAMS ORAL ONCE A DAY Amitriptyline 25MG Oral Tablet 07/19/2024 Unknown BY MOUTH ONCE A DAY 1 TABLET 066072 RxNorm TAKE 1 TABLET BY MOUTH ONCE [...] Co de Code System SULFA (sulfonamide) Active 82914647 SNO MED-CT ESCITALOPRAM Active 239787 RxNorm PENICILLIN Active Plan of Treatment Upper WO KUB 04/14/2023 Upper WO KUB 03/15/2024 NM Gastric Emptying (59439) 04/12/2024 EGD 07/19/2024 Encounters Encounter Diagnosis Start Date Code Code Sys tem Noninfective gastroenteritis and colitis, unspecified 05/25/2024 SNOMED-CT Personal Care Team Section Performer Name Performer Role Active Date Inactive TIM Maloney PCP - Primary care physician 2022-02-05 Imaging Narrative Notes [facility] 05/25/2024 14:[address] [address] ---------NAME--------- NUMBER SEX AGE ADMIT DISC. XRAY# F/C TYPE CHLOE BRENNON MAYERS [id number] F 59 05/25/24 07262 CB5 E.R. DATE OF : 1965 M/R# [id number] #: [id number] ED-38 LOCATION: TRANSCRIBED: 05/25/24 14:32 CHEST 1V 04555 COMPLETED:05/25/24 14:16 TLS 29990 ;cough, chills x 1wk PHYSICIAN: RUT RADIOLOGY REPORT CHEST RADIOGRAPH Indication: ;cough, chills x 1wk Technique: Single frontal view of the chest was obtained Comparison: None FINDINGS: Lines and Tubes: None Lungs: No focal consolidation. Pleura: No effusion. No pneumothorax. Cardiomediastinal contours: Unremarkable Bones: No acute osseous abnormality. IMPRESSION: No acute cardiopulmonary disease. 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 XRAY# F/C TYPE CHLOE MAYERS [id number] F 59 05/25/24 [id number] CB5 E.R. DATE OF : 1965 M/R# [id number] #: [id number] ED-38 LOCATION: TRANSCRIBED: 05/25/24 14:37 CT ABD/PEL WO CONTRAST [id number] COMPLETED:05/25/24 14:20 TLS 17628 abdominal pain PHYSICIAN: [facility] REPORT Exam: [...] matched to clinical indication) or iterative reconstruction. 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 Reviewed and Electronically Signed by: Srinivasan Tamez MD Signed Date: 05/25/24 14:37
--- OUTSIDE RECORDS SUMMARY | 2024-10-02 02:42 | XMS_ITS ---
Author Organization Unknown Address [address] [place] [phone] Phone Care Team Providers Care Steam Hammer Operator Name Role Phone ROD Schroeder Attending [...] Normal peristalsis. No esophageal spasm. ESOPHAGEAL MUCOSA: Flog-ue-kabtlzur luminal narrowing in region of UES. Normal [...] OTHER: Evidence of prior cholecystectomy. IMPRESSION: 1. Cxyw-by-rdwtixad luminal narrowing in region of the UES. [...] Kelvin Baird M.D. RB: SUHA Report ID: [id number] Reading Location: [id number] Social History Type Status Start Date End Date Code Code Syst em Smoking History Current every day smoker [id number] SNOMED CT Sex Female Medications Medication Start Date End Date Route Frequency Dose Code Code System Medication Instructions Home Meds ALPRAZolam 1MG Oral Tablet 04/08/2022 Unknown ORAL DIRECTED 1 MILLIGRAMS 998241 RxNorm TAKE 1 MILLIGRAMS ORAL DIRECTED Albuterol Sulfate 0.083% Inhalation Solution 04/08/2022 Unknown INHALA TION DIRECTED 1 unit(s) 624967 RxNorm 1 EACH INHALATION DIRECTED Aspirin 81MG Oral Tablet, Enteric Coated 04/08/2022 Unknown ORAL ONCE A DAY 81 MILLIGRAMS 776609 RxNorm TAKE 81 MILLIGRAMS ORAL ONCE A DAY Atorvastatin Calcium 20MG Oral Tablet 04/08/2022 07/14/19 25 ORAL ONCE A DAY 20 MILLIGRAMS 528873 RxNorm TAKE 20 MILLIGRAMS ORAL ONCE A DAY Butalbital-AP UV-Anvwlkwl-W odeine [id number]-[id number]-51 MG-30MG Oral Capsule 04/08/2022 07/17/19 25 ORAL DIRECTED 1 unit(s) 5004707 RxNorm TAKE 1 EACH ORAL DIRECTED DULoxetine HCl 30MG Oral Capsule, Delayed Release 04/08/2022 07/17/19 25 ORAL ONCE A DAY 30 MILLIGRAMS 058303 RxNorm TAKE 30 MILLIGRAMS ORAL ONCE A DAY Lantus 100U/1ML Subcutaneous Solution 04/08/2022 Unknown SUBCUT ANEOUS DIRECTED 1 unit(s) 377174 RxNorm INJECT INTO 1 EACH SUBCUTANEOUS DIRECTED Omeprazole 20 MG Oral Tablet, Delayed Release 04/08/2022 07/14/19 25 ORAL ONCE A DAY 20 MG RxNorm TAKE 20 MG ORAL ONCE A DAY Verapamil HCl 180MG Oral Capsule, Extended Release 04/08/2022 Unknown ORAL ONCE A DAY 180 MILLIGRAMS 096366 RxNorm TAKE 180 MILLIGRAMS ORAL ONCE A DAY Atorvastatin Calcium 40MG Oral Tablet 07/19/2024 Unknown ORAL ONCE A DAY 40 MILLIGRAMS 686507 RxNorm TAKE 40 MILLIGRAMS ORAL ONCE A DAY Lisinopril 10MG Oral Tablet 07/19/2024 Unknown ORAL ONCE A DAY 10 MILLIGRAMS 362009 RxNorm TAKE 10 MILLIGRAMS ORAL ONCE A DAY Omeprazole 40MG Oral Capsule, Delayed Release 07/19/2024 Unknown ORAL ONCE A DAY 40 MILLIGRAMS 212671 RxNorm TAKE 40 MILLIGRAMS ORAL ONCE A DAY Amitriptyline 25MG Oral Tablet 07/19/2024 Unknown BY MOUTH ONCE A DAY 1 TABLET 558399 RxNorm TAKE 1 TABLET BY MOUTH ONCE [...] Co de Code System SULFA (sulfonamide) Active 77682596 [facility]-CT ESCITALOPRAM Active 300995 RxNorm PENICILLIN Active Plan of Treatment Upper WO KUB 04/14/2023 Upper WO KUB 03/15/2024 NM Gastric Emptying (27414) 04/12/2024 EGD 07/19/2024 Encounters Encounter Diagnosis Start Date Code Code Sys tem Nausea with vomiting, unspecified 03/15/2024 SNOMED-CT Personal Care Team Section Performer Name Performer Role Active Date Inactive TIM Maloney PCP - Primary care physician 2022-02-05 Imaging Narrative Notes
--- OUTSIDE RECORDS SUMMARY | 2024-10-02 02:42 | XMS_ITS | Continuity of Care Document ---
Author Organization [facility] Address [address] [place] [address] Phone Care Team Providers Care Laboratory Immunologist Name Role Phone Unavailable Unavailable Unavailable Medications [...] Encounter [facility], [address], [place], [place], [id number], [place] tel:[phone] Noteworthy Legacy Data Unspecified symptom associated with [...]
--- OUTSIDE RECORDS SUMMARY | 2024-10-02 02:42 | XMS_ITS ---
Author Organization Unknown Address [address] [place] [address] [phone] Phone Care Team Providers Care Vice President Talent Management Name Role Phone LESLY Butler Attending Unavailable [facility] Unavailable JERMAINE DUMONT Primary Unavailable Immunization Immunization Date Status Additional Notes Code Code System Influenza, split virus, quadrivalent, PF 01/30/2021 Completed 150 CVX Social History Type Status Start Date End Date Code Code Syst em Smoking History Current every day smoker [id number] SNOMED CT Sex Female Vital Signs Vital Sign Value Unit [place] Value [place] Unit Date/Time Recent/Initial? Code Code System Body Mass Index 31.41 kg/m2 07/19/2024 07:19 Most Recent 46553 -5 LOINC Body Mass Index 34.67 kg/m2 07/13/2024 12:36 Initial 54302 -5 LOINC Systolic Blood Pressure 134 mm[Hg] [...] O2 Saturation 98 % 2024 07:19 Initial 96562 -5 LOINC Pulse 60.0 /min 07/19/2024 07:19 Initial 8867- 4 LOINC Respiration 20 /min 07/20/19 07:19 Initial 9279- 1 LOINC Temperature 36.1 Mirtha 97.0 F 07/20/19 25 07:19 Initial 8310- 5 [facility] Weight 83.01 kg 183.00 lbs 07/19/2024 07:19 Most Recent 23050 -7 [facility] Weight 91.63 kg 202.00 lbs 07/13/2024 12:36 Initial 50054 -7 [facility] Medications Medication Start Date End Date Route Frequency Dose Code Code System Medication Instructions Home Meds ALPRAZolam 1MG Oral Tablet 04/08/2022 Unknown ORAL DIRECTED 1 MILLIGRAMS 462467 RxNorm TAKE 1 MILLIGRAMS ORAL DIRECTED Albuterol Sulfate 0.083% Inhalation Solution 04/08/2022 Unknown INHALAT ION DIRECTED 1 unit(s) 556717 RxNorm 1 EACH INHALATION DIRECTED Aspirin 81MG Oral Tablet, Enteric Coated 04/08/2022 Unknown ORAL ONCE A DAY 81 MILLIGRAMS 756776 RxNorm TAKE 81 MILLIGRAMS ORAL ONCE A DAY Lantus 100U/1ML Subcutaneous Solution 04/08/2022 Unknown SUBCUTA NEOUS DIRECTED 1 unit(s) 340950 RxNorm INJECT INTO 1 EACH SUBCUTANEOUS DIRECTED Verapamil HCl 180MG Oral Capsule, Extended Release 04/08/2022 Unknown ORAL ONCE A DAY 180 MILLIGRAMS 954369 RxNorm TAKE 180 MILLIGRAMS ORAL ONCE A DAY Atorvastatin Calcium 40MG Oral Tablet 07/19/2024 Unknown ORAL ONCE A DAY 40 MILLIGRAMS 887969 RxNorm TAKE 40 MILLIGRAMS ORAL ONCE A DAY Lisinopril 10MG Oral Tablet 07/19/2024 Unknown ORAL ONCE A DAY 10 MILLIGRAMS 677308 RxNorm TAKE 10 MILLIGRAMS ORAL ONCE A DAY Omeprazole 40MG Oral Capsule, Delayed Release 07/19/2024 Unknown ORAL ONCE A DAY 40 MILLIGRAMS 251048 RxNorm TAKE 40 MILLIGRAMS ORAL ONCE A DAY Amitriptyline 25MG Oral Tablet 07/19/2024 Unknown BY MOUTH ONCE A DAY 1 TABLET 162946 RxNorm TAKE 1 TABLET BY MOUTH ONCE [...] ntestinal endoscopic procedures, endoscope int 07/19/2024 completed 72282 CPT Esophagogastroduodenoscopy, flexible, transoral; with insertion of guide w 07/19/2024 completed 82053 CPT Allergies and Adverse Reactions Allergy Substance Reaction Severity Start Date Concern Status Co de Code System SULFA (sulfonamide) Active [id number] [facility] MED-CT ESCITALOPRAM Active 869798 RxNorm PENICILLIN Active Plan of Treatment Upper WO KUB 04/14/2023 Upper WO KUB 03/15/2024 NM Gastric Emptying (83740) 04/12/2024 EGD 07/19/2024 Encounters Encounter Diagnosis Start Date Code Code Sys tem Gastro-esophageal reflux disease without esophagitis 0 07/19/2024 SNOMED-CT Personal Care Team Section Performer Name Performer Role Active Date Inactive TIM Maloney PCP - Primary care physician 2022-02-05 Procedures Notes
[2024-10-02] MEDS: LORazepam INJ (*CRX) 2 MG/ML VIAL 1 MG IV PUSH (02:58)
--- NOTE | 2024-10-02 03:03 | PC.NURSE ---
PATIENT IS NOW LAYING BACK. NO LONGER RETCHING.
--- NOTE | 2024-10-02 03:33 | PC.NURSE ---
PATIENT CALLING HER TO COME AND GET HER. STATES SHE IS FEELING BETTER.
--- NOTE | 2024-10-02 03:47 | PC.NURSE ---
PATIENT FELL ASLEEP. TRYING TO CALL NOW
[2024-10-02 04:02] VITALS: BP 156/88; PULSE 91; RESP 18; O2SAT 100
== END 2024-10-02 04:02 | disposition home or self-care (01) ==
PROVIDERS: Emergency Provider Emergency Medicine; PCP Internal Medicine
DX: G43.A1 Cyclical vomiting, in migraine, intractable (principal); E11.9 Type 2 diabetes mellitus without complications; I10 Essential (primary) hypertension; E78.5 Hyperlipidemia, unspecified; F17.210 Nicotine dependence, cigarettes, uncomplicated
CPT/HCPCS: 96361; 96374; 96375; 99284; J1200; J2060; J2765; J7030